=== PATIENT | male | born 1960 | race Caucasian/White ===

== ENCOUNTER 2016-06-24 10:56 | Inpatient (IN) | payer OTHER ==
[2016-06-24] MEDS ORDERED: diltiaZEM INJ 5 MG/ML VIAL IVP STA ×2 (11:58→12:47)
[2016-06-24] MEDS ORDERED: LEVALBUTEROL 1.25 MG INH STA (11:59)
[2016-06-24] MEDS ORDERED: diltiaZEM INJ 5 MG/ML VIAL ONE ×2 (12:02→12:50)
[2016-06-24] MEDS ORDERED: SODIUM CHLORIDE INHALATION 3 ML NEB ONE (12:23)
[2016-06-24] MEDS ORDERED: LEVALBUTEROL 1.25 MG INH ONE (12:23)
[2016-06-24] MEDS ORDERED: DEXAMETHASONE 10 MG/ML VIAL IVP STA (12:50)
[2016-06-24] MEDS ORDERED: DEXAMETHASONE 10 MG/ML VIAL ONE (12:56)
[2016-06-24] MEDS ORDERED: FUROSEMIDE 20 MG/2 ML VIAL IVP STA (13:04)
[2016-06-24] MEDS ORDERED: FUROSEMIDE 20 MG/2 ML VIAL IVP ONE ×2 (13:08→15:00)
[2016-06-24] MEDS ORDERED: HYDROcod/ACETAM 10 MG/325 MG TABLET PO PRN (13:21)
[2016-06-24] MEDS ORDERED: ZOLPIDEM 5 MG TABLET PO PRN (13:21)
[2016-06-24] MEDS ORDERED: ONDANSETRON 4 MG/2 ML VIAL IVP PRN (13:21)
[2016-06-24] MEDS ORDERED: HYDROcod/ACETAM 5/325 MG TABLET PO PRN (13:21)
[2016-06-24] MEDS ORDERED: SODIUM CHLORIDE FLUSH 0.9% 10 ML SYRINGE IVP PRN (13:21)
[2016-06-24] MEDS ORDERED: METOPROLOL 5 MG/5 ML VIAL IVP STA (13:52)
[2016-06-24] MEDS: METOPROLOL 5 MG/5 ML VIAL IVP STA ×3 (13:57→15:22)
[2016-06-24] MEDS ORDERED: MAGNESIUM SULFATE 2 GRAM 50 ML IV ONE (15:00)
[2016-06-24] MEDS: METOPROLOL TARTRATE 50 MG TABLET PO SCH ×2 (15:30→20:31)
[2016-06-24] MEDS: SODIUM CHLORIDE FLUSH 0.9% 10 ML SYRINGE IVP SCH ×2 (15:31→22:56)
[2016-06-24] MEDS ORDERED: ASPIRIN 325 MG TABLET PO SCH (16:00)
[2016-06-24] MEDS: FUROSEMIDE 20 MG/2 ML VIAL IVP SCH (18:12)
[2016-06-25] MEDS ORDERED: hydrALAZINE INJ 20 MG/ML VIAL IVP SCH (00:44)
[2016-06-25] MEDS: PANTOPRAZOLE 40 MG TABLET PO SCH (06:54)
[2016-06-25] MEDS: FUROSEMIDE 20 MG/2 ML VIAL IVP SCH ×2 (06:54→14:05)
[2016-06-25] MEDS: SODIUM CHLORIDE FLUSH 0.9% 10 ML SYRINGE IVP SCH ×3 (06:54→21:21)
[2016-06-25] MEDS: ACETAMINOPHEN 325 MG TABLET PO PRN (07:24)
[2016-06-25] MEDS: METOPROLOL TARTRATE 50 MG TABLET PO SCH ×3 (07:25→21:21)
[2016-06-25] MEDS: LISINOPRIL 5 MG TABLET PO SCH (07:56)
[2016-06-25] MEDS ORDERED: LISINOPRIL 5 MG TABLET PO SCH (09:00)
[2016-06-25] MEDS: POLYETHYLENE GLYCOL 3350 17 GM PACKET PO SCH (09:24)
[2016-06-25] MEDS: ASPIRIN CHEW 81 MG TABLET PO SCH (09:28)
[2016-06-25] MEDS: IPRATROPIUM/ALBUTEROL 3 ML NEB INH PRN ×3 (09:30→20:10)
[2016-06-25] MEDS: ENOXAPARIN 40 MG/0.4 ML SYRINGE SUBQ SCH (10:54)
[2016-06-25] MEDS: WARFARIN 5 MG TABLET PO SCH (13:54)
[2016-06-26] MEDS: guaiFENesin 600 MG TABLET PO PRN ×3 (04:45→18:43)
[2016-06-26] MEDS: FUROSEMIDE 20 MG/2 ML VIAL IVP SCH ×2 (06:06→12:59)
[2016-06-26] MEDS: METOPROLOL TARTRATE 50 MG TABLET PO SCH ×4 (06:08→22:10)
[2016-06-26] MEDS: PANTOPRAZOLE 40 MG TABLET PO SCH (06:13)
[2016-06-26] MEDS: SODIUM CHLORIDE FLUSH 0.9% 10 ML SYRINGE IVP SCH ×3 (06:13→22:10)
[2016-06-26] MEDS: IPRATROPIUM/ALBUTEROL 3 ML NEB INH PRN ×4 (07:40→21:10)
[2016-06-26] MEDS: LISINOPRIL 5 MG TABLET PO SCH (08:10)
[2016-06-26] MEDS: POLYETHYLENE GLYCOL 3350 17 GM PACKET PO SCH (08:10)
[2016-06-26] MEDS: ASPIRIN CHEW 81 MG TABLET PO SCH (08:11)
[2016-06-26] MEDS: ENOXAPARIN 40 MG/0.4 ML SYRINGE SUBQ SCH ×2 (08:15→09:20)
[2016-06-26] MEDS: ACETAMINOPHEN 325 MG TABLET PO PRN (10:37)
[2016-06-26] MEDS: WARFARIN 5 MG TABLET PO SCH (12:59)
[2016-06-26] MEDS ORDERED: METOPROLOL TARTRATE 50 MG TABLET ONE (22:08)
[2016-06-26] MEDS ORDERED: BENZONATATE 100 MG CAPSULE PO PRN (23:44)
[2016-06-27] MEDS: guaiFENesin 600 MG TABLET PO PRN (02:13)
[2016-06-27] MEDS: SODIUM CHLORIDE FLUSH 0.9% 10 ML SYRINGE IVP SCH ×3 (06:14→20:30)
[2016-06-27] MEDS: PANTOPRAZOLE 40 MG TABLET PO SCH (06:14)
[2016-06-27] MEDS: FUROSEMIDE 20 MG/2 ML VIAL IVP SCH ×2 (06:14→13:15)
[2016-06-27] MEDS: IPRATROPIUM/ALBUTEROL 3 ML NEB INH PRN ×2 (07:21→19:56)
[2016-06-27] MEDS: ENOXAPARIN 120 MG/0.8 ML SYRINGE SUBQ SCH ×2 (08:47→20:32)
[2016-06-27] MEDS: POLYETHYLENE GLYCOL 3350 17 GM PACKET PO SCH ×2 (08:47→08:51)
[2016-06-27] MEDS: METOPROLOL TARTRATE 50 MG TABLET PO SCH ×2 (08:47→20:30)
[2016-06-27] MEDS: ASPIRIN CHEW 81 MG TABLET PO SCH (08:47)
[2016-06-27] MEDS: LISINOPRIL 5 MG TABLET PO SCH (08:47)
[2016-06-27] MEDS: WARFARIN 5 MG TABLET PO SCH (13:20)
[2016-06-27] MEDS: DIGOXIN 500 MCG/2 ML AMP IVP SCH ×2 (13:21→17:12)
[2016-06-28] MEDS: DIGOXIN 500 MCG/2 ML AMP IVP SCH (00:03)
[2016-06-28] MEDS: PANTOPRAZOLE 40 MG TABLET PO SCH (06:03)
[2016-06-28] MEDS: FUROSEMIDE 20 MG/2 ML VIAL IVP SCH ×2 (06:04→13:46)
[2016-06-28] MEDS: SODIUM CHLORIDE FLUSH 0.9% 10 ML SYRINGE IVP SCH ×2 (06:10→13:47)
[2016-06-28] MEDS: LISINOPRIL 5 MG TABLET PO SCH (07:56)
[2016-06-28] MEDS: ASPIRIN CHEW 81 MG TABLET PO SCH (07:56)
[2016-06-28] MEDS: METOPROLOL TARTRATE 50 MG TABLET PO SCH (07:56)
[2016-06-28] MEDS: POLYETHYLENE GLYCOL 3350 17 GM PACKET PO SCH (07:57)
[2016-06-28] MEDS: ENOXAPARIN 120 MG/0.8 ML SYRINGE SUBQ SCH (07:57)
[2016-06-28] MEDS ORDERED: DIGOXIN 500 MCG/2 ML AMP IVP SCH ×2 (08:00→09:00)
[2016-06-28] MEDS: WARFARIN 5 MG TABLET PO SCH (13:46)
== END 2016-06-28 15:30 | disposition home or self-care (01) | DRG 308 ==
DX: I48.2 Chronic atrial fibrillation (principal); J18.9 Pneumonia, unspecified organism; I50.20 Unspecified systolic (congestive) heart failure; Z68.41 Body mass index [BMI] 40.0-44.9, adult; I48.0 Paroxysmal atrial fibrillation; I11.0 Hypertensive heart disease with heart failure; I08.1 Rheumatic disorders of both mitral and tricuspid valves; F17.200 Nicotine dependence, unspecified, uncomplicated; E66.01 Morbid (severe) obesity due to excess calories; R06.01 Orthopnea; R06.00 Dyspnea, unspecified; M79.89 Other specified soft tissue disorders; R79.0 Abnormal level of blood mineral; F17.210 Nicotine dependence, cigarettes, uncomplicated; Z72.89 Other problems related to lifestyle

== ENCOUNTER 2017-04-28 12:33 | Outpatient (CLI) | payer OTHER | END 2017-04-28 12:34 | disposition critical access hospital (66) | LOC: EMS 12:33 | PROVIDERS: ATTEND Surgery | DX: R06.00 Dyspnea, unspecified (principal) | CPT/HCPCS: A0425; A0427 ==

== ENCOUNTER 2017-04-28 12:57 | Inpatient (IN) | payer OTHER ==
--- NOTE | 2017-04-28 13:06 | ED Physician Documentation ---
PD HPI DYSPNEA - Stated complaint Stated Complaint: SOA - History obtained from History obtained from: Patient, EMS - History of Present Illness Timing - onset: How many days ago (2-3) Timing - onset during: Light activity Timing - duration: Days (has had some cough for several days but just clear mucous and not feeling feverish. Increased dyspnea over the past 2-3 days.) Timing - details: Gradual onset, Still present Inciting event(s): URI (has had some cough with clear sputum for the past week. Some dyspnea associated with that. Has had the worse dyspnea the past 3 days though.). No: Out of meds, Immobilization/travel Improved by: Rest, Sitting up Worsened by: Exertion, Laying flat, Coughing Associated symptoms: Cough, Wheezing, Bilateral edema. No: Fever, Hemoptysis, Chest pain / discomfort, Palpitations Similar symptoms before: Diagnosis (COPD and CHF and rapid paraxysmal atrial fib.) Review of Systems Constitutional: denies: Fever, Chills Eyes: denies: Loss of vision Ears: denies: Loss of hearing Nose: reports: Congestion. denies: Rhinorrhea / runny nose Throat: denies: Dental pain / toothache, Sore throat Cardiac: reports: Pedal edema (some chronically which has been worse the past 3- 4 days.). denies: Chest pain / pressure, Palpitations, Calf pain Respiratory: reports: Dyspnea, Cough, Wheezing. denies: Hemoptysis GI: reports: Nausea. denies: Abdominal Pain, Vomiting, Constipation, Diarrhea : reports: Frequency. denies: Dysuria Skin: denies: Rash, Lesions Neurologic: reports: Generalized weakness. denies: Focal weakness, Numbness, Altered mental status, Headache Psychiatric: denies: Depressed Endocrine: reports: Weight gain (some the past 3-4 days). denies: Easy bruising / bleeding Immunocompromised: denies: Immunocompromised, Chemotherapy PD PAST MEDICAL HISTORY - Past Medical History Cardiovascular: Hypertension, Other (no history of atrial fib nor CAD. ) Respiratory: Pneumonia Neuro: None Endocrine/Autoimmune: Type 2 diabetes - Past Surgical History Past Surgical History: No - Present Medications Home Medications: Ambulatory Orders Medication Instructions Recorded Confirmed Aspirin Chewable [St Sonu 81 mg PO DAILY tablet 06/28/16 04/28/17 Aspirin] Digoxin 250 mcg PO DAILY #30 tablet 06/28/16 Levofloxacin [Levaquin] 500 mg PO DAILY #5 tablet 06/28/16 Lisinopril [Zestril] 5 mg PO DAILY #30 tablet 06/28/16 Metoprolol Tartrate [Lopressor] 100 mg PO BID #60 tablet 06/28/16 Atorvastatin Calcium 20 mg PO 2100 04/28/17 Digoxin [Digoxin] 125 mcg PO DAILY 04/28/17 Furosemide [Furosemide] 20 mg PO DAILY 04/28/17 Lisinopril [Lisinopril] 40 mg PO DAILY 04/28/17 Metoprolol Succinate 100 mg PO BID 04/28/17 Rivaroxaban [Xarelto] 20 mg PO DAILY 04/28/17 Spironolactone [Spironolactone] 25 mg PO DAILY 04/28/17 - Allergies Allergies/Adverse Reactions: Allergies Allergy/AdvReac Type Severity Reaction Status Date / Time No Known Drug Allergies Allergy Verified 04/28/17 13:07 - Social History Does the pt smoke?: Yes Smoking Status: Current every day smoker Does the pt drink ETOH?: Yes Does the pt have substance abuse?: No - Family History Family history: reports: CAD - Immunizations Immunizations are current?: Yes PD ED PE NORMAL - Vitals Vital signs reviewed: Yes - General General: Alert and oriented X 3, Well developed/nourished, Other (seems uncomfortable and has tachypnea, and is wanting to sit upright. ) - HEENT HEENT: Atraumatic, PERRL, Moist mucous membranes, Pharynx benign - Neck Neck: Supple, no meningeal sign, No adenopathy - Cardiac Cardiac: No murmur. No: RRR (fast and irregular c/w rapid atrial fib. ) - Respiratory Respiratory: No: Clear bilaterally (diffuse wheezing expiratory, and also crackles at bases about [address]. ) - Abdomen Abdomen: Soft, Non tender - Male Male : Deferred - Rectal Rectal: Deferred - Back Back: No CVA TTP - Derm Derm: Normal color, Warm and dry - Extremities Extremities: No calf tenderness / cord, Other (2+ edema in both ankles/lower legs. No redness nor sores of skin. ) Results - Vitals Vitals: Vital Signs - 24 hr 04/28/17 04/28/17 04/28/17 13:00 13:20 13:35 Temperature 36.2 C L Heart Rate 148 H 143 H 152 H Respiratory 26 H 26 H 26 H Rate Blood Pressure 165/128 H 188/148 H 193/137 H O2 Saturation 93 93 94 04/28/17 04/28/17 04/28/17 13:43 13:48 14:00 Temperature Heart Rate 129 H 124 H 135 H Respiratory 20 22 24 Rate Blood Pressure 180/111 H 178/99 H O2 Saturation 94 97 04/28/17 04/28/17 04/28/17 14:15 14:30 14:40 Temperature Heart Rate 130 H 126 H 142 H Respiratory 20 20 24 Rate Blood Pressure 158/127 H 159/137 H 153/137 H O2 Saturation 98 97 97 04/28/17 14:56 Temperature Heart Rate 129 H Respiratory 26 H Rate Blood Pressure 165/112 H O2 Saturation 97 Oxygen O2 Source Room air Oxygen Flow Rate 4 - EKG (time done) 13:03 Rate: Rate (enter#) (148) Rhythm: Atrial fibrillation Ischemia: Non specific changes. No: ST elevation c/w ischemia, ST depression Compare to prior EKG: Unchanged from prior EKG - Labs Labs: Laboratory Tests 04/28/17 04/28/17 04/28/17 13:47 13:47 13:47 WBC 10.0 RBC 4.80 Hgb 15.2 Hct 44.9 MCV 93.6 MCH 31.7 H MCHC 33.8 RDW 15.6 H Plt Count 94 L MPV 8.8 Neut # 8.3 H Lymph # 0.7 L Wood # 1.0 Eos # 0.0 Baso # 0.1 Absolute Nucleated RBC 0.00 Nucleated RBC % 0.0 Sodium 138 Potassium 4.0 Chloride 100 L Carbon Dioxide 27 Anion Gap 11.0 BUN 18 Creatinine 0.9 Estimated GFR (MDRD) 86 L Glucose 144 H Calcium 8.7 Magnesium 1.2 L Total Bilirubin 2.1 H AST 34 ALT 21 Alkaline Phosphatase 70 Troponin I 0.04 B-Natriuretic Peptide Total Protein 8.5 H Albumin 4.4 Globulin 4.1 Albumin/Globulin Ratio 1.1 Lipase 32 Last Dose Date Last Dose Time Digoxin 04/28/17 04/28/17 13:47 13:47 WBC RBC Hgb Hct MCV MCH MCHC RDW Plt Count MPV Neut # Lymph # Wood # Eos # Baso # Absolute Nucleated RBC Nucleated RBC % Sodium Potassium Chloride Carbon Dioxide Anion Gap BUN Creatinine Estimated GFR (MDRD) Glucose Calcium Magnesium Total Bilirubin AST ALT Alkaline Phosphatase Troponin I B-Natriuretic Peptide 667 H Total Protein Albumin Globulin Albumin/Globulin Ratio Lipase Last Dose Date UNK Last Dose Time UNK Digoxin < 0.2 - Rads (name of study) chest Radiology: Prelim report reviewed (interstitial fluid c/w CHF. No infiltrates. no PTX. ) PD MEDICAL DECISION MAKING - ED course Complexity details: reviewed results, re-evaluated patient (feeling improved breathing, with less wheezing and able to recline some without worse dyspnea. CXR appears CHF. No pneumonia. Labs suggestive CHF. He does have less wheezing with the neb though. Consider some COPD as well, given some recent coughing. ), considered differential, d/w patient Departure - Departure Disposition: 66 [facility] DC/Xfer Clinical Impression: Atrial fibrillation with rapid ventricular response, Wheezing Dyspnea Qualifiers: Dyspnea type: shortness of breath Qualified Code(s): R06.02 - Shortness of breath CHF (congestive heart failure) Qualifiers: Congestive heart failure type: unspecified congestive heart failure type Congestive heart failure chronicity: acute on chronic Qualified Code(s): I50.9 - Heart failure, unspecified Condition: Stable Record reviewed to determine appropriate education?: Yes Discharge Date/Time: 04/28/17 16:00
[2017-04-28] MEDS ORDERED: ALBUTEROL NEB 2.5 MG/3 ML INH STA ×2 (13:31→14:56)
[2017-04-28] MEDS ORDERED: FUROSEMIDE 40 MG/4 ML VIAL IVP STA (13:31)
[2017-04-28] MEDS ORDERED: METOPROLOL 5 MG/5 ML VIAL IVP STA ×3 (13:31→14:09)
[2017-04-28] MEDS ORDERED: NITROGLYCERIN 2% PASTE TOP STA (13:31)
[2017-04-28] MEDS ORDERED: NITROGLYCERIN SL 0.4 MG TABLET SL STA (13:31)
[2017-04-28] MEDS ORDERED: FUROSEMIDE 40 MG/4 ML VIAL ONE (13:39)
[2017-04-28] MEDS ORDERED: METOPROLOL 5 MG/5 ML VIAL IVP ONE ×3 (13:39→15:13)
[2017-04-28] MEDS ORDERED: NITROGLYCERIN 2% PASTE TOP ONE (13:40)
[2017-04-28] MEDS ORDERED: NITROGLYCERIN SL 0.4 MG TABLET SL ONE (13:40)
[2017-04-28] MEDS ORDERED: ALBUTEROL NEB 2.5 MG/3 ML INH ONE (13:43)
[2017-04-28 13:55] LABS: BASOPHILS # (AUTO) 0.1 10^3/uL (0.0-0.1); BASOPHILS % (AUTO) 0.9 %; EOSINOPHILS % (AUTO) 0.2 %; HCT - HEMATOCRIT 44.9 % (42.0-52.0); HGB - HEMOGLOBIN 15.2 g/dL (14.0-18.0); LYMPHOCYTES # (AUTO) 0.7 10^3/uL (1.5-3.5); LYMPHOCYTES % (AUTO) 6.5 %; MEAN CORPUSCULAR HEMOGLOBIN 31.7 pg (27.0-31.0); MEAN CORPUSCULAR HGB CONC 33.8 g/dL (32.0-36.0); MEAN CORPUSCULAR VOLUME 93.6 fL (80.0-94.0); MEAN PLATELET VOLUME 8.8 fL (7.4-11.4); MONOCYTES % (AUTO) 9.7 %; NEUTROPHILS # (AUTO) 8.3 10^3/uL (1.5-6.6); NEUTROPHILS % (AUTO) 82.7 %; RED CELL DISTRIBUTION WIDTH 15.6 % (12.0-15.0)
[2017-04-28 14:07] LABS: ALBUMIN/GLOBULIN RATIO 1.1 (1.0-2.2); BILIRUBIN,TOTAL 2.1 mg/dL (0.2-1.0); CALCIUM 8.7 mg/dL (8.5-10.3); CREATININE 0.9 mg/dL (0.6-1.2); MAGNESIUM 1.2 mg/dL (1.7-2.8); TOTAL PROTEIN 8.5 g/dL (6.7-8.2)
--- NOTE | 2017-04-28 14:18 | XRAY Report ---
EXAM: CHEST RADIOGRAPHY EXAM DATE: 04/28/2017 02:02 PM. CLINICAL HISTORY: Dyspnea, cough and edema; h/o CHF. COMPARISON: 06/26/2016. TECHNIQUE: 1 view. FINDINGS: Lungs/Pleura: Mild hazy prominence of lung markings. Bibasilar atelectasis or scarring. No consolidat ion, definite effusion, or pneumothorax. Tiny effusions difficult to exclude. Mediastinum: Moderate cardiomegaly, probably unchanged. Diffuse vascular fullness. Other: Degenerative changes. IMPRESSION: Congestive failure. [facility] Referring Provider Line: [phone] SITE ID: [id number]
[2017-04-28] MEDS ORDERED: diltiaZEM INJ 125 MG in DEXTROSE 5% 100 ML IV STA ×2 (15:06→15:32)
[2017-04-28] MEDS ORDERED: ONDANSETRON ODT 4 MG TABLET TL PRN (15:12)
[2017-04-28] MEDS ORDERED: HYDROcod/ACETAM 5/325 MG TABLET PO PRN (15:12)
[2017-04-28] MEDS ORDERED: ACETAMINOPHEN 325 MG TABLET PO PRN (15:12)
[2017-04-28] MEDS ORDERED: ONDANSETRON 4 MG/2 ML VIAL IVP PRN (15:12)
[2017-04-28] MEDS ORDERED: MAGNESIUM SULFATE 2 GRAM 2 GM/50 ML BAG IV SCH (17:00)
[2017-04-28] MEDS ORDERED: SODIUM CHLORIDE 0.9% 250 ML IV ONE (17:05)
--- NOTE | 2017-04-28 18:02 | HISTORY & PHYSICAL EXAMINATION ---
DATE OF ADMISSION: 04/28/2017 PRIMARY CARE PROVIDER: [facility]. ADMITTING PROVIDER: Dilia Astudillo MD. CHIEF COMPLAINT: Severe shortness of breath, orthopnea, leg edema. HISTORY OF PRESENT ILLNESS: The patient is a 57-year-old man who smokes 1 pack per day and drinks a fifth of alcohol a week. 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 He had an injury to the right knee which resulted in agonizing infection. He had to be airlifted off the carrier into [place], [place], where he had 3 surgeries on that right leg. While in the hospital, he was identified as having atrial fibrillation. While he has seen [facility] doctors, he has never really seen a bit tripoler since the January 2016 encounter. He does not recall ever having an angiogram or cardiac stress test. He continues to smoke and drink. He worked up until November of 2016. His body just could not take it anymore and he has been on disability ever since. He was admitted to our hospital in June 2016 for atrial fibrillation with RVR and congestive heart failure. He does have an echocardiogram from that visit. He has an underlying rhythm of atrial fibrillation with RVR. Left ventricular ejection fraction was 40%-45%. There is a severe increase in the left atrial volume index, moderate mitral regurgitation , moderate tricuspid regurgitation, moderately abnormal right heart pressures. It was recommended that he be seen by Cardiology and have a repeat echo once he was stabilized, but between June and now, he has not done so. When I asked if there is a barrier to referral or a barrier to him seeing a bit tripoler, he says there really is not any. He does not have much introspection about why he does what he does. He cannot say why he feels like he is not motivated to see a bit tripoler. He just has not. He does not even know if his primary care provider has referred him to one or not. He is almost completely sedentary in his lifestyle. Even to mow the lawn, he does use a riding mower. He is able to feed himself and dress himself. Getting out of the car is really hard. When he is at [employer] or [employer], he uses a scooter to shop around in. About 3 days ago, he started having increasing shortness of breath, phlegmy cough. He denied chest pain, fever, myalgias, change in GI habits. Leg had already started getting more and more swollen in the last few weeks and he just could not lay down. He finally came to the emergency room today with this. He was afebrile with a pulse of 148, blood pressure 165/128, and respirations were 26. He is 93% on room air. He is a large morbidly obese male, flushed facies, slightly tremulous, but he says he has never gone through withdrawal. His lungs are full with crackles and rhonchi. He is tachypneic. The belly panus is large, quite obese, nontender. He has a irregular rate and rhythm. In the emergency room, he has gotten Lopressor IV. It slowed him down to the 120s, but that was about it. His troponin is 0.04. Potassium is normal. BNP 667. He is now admitted for acute systolic congestive heart failure secondary to atrial fibrillation with RVR. PAST MEDICAL HISTORY 1. Hypertension. 2. Chronic morbid obesity. 3. Obstructive sleep apnea. He says that he does not do a sleep mask. He has never really had a formal sleep study. 4. Right leg/knee infection in January 2016 secondary to injury requiring multiple surgeries. 5. Chronic systolic congestive heart failure. 6. Chronic atrial fibrillation with RVR. 7. Symptoms of prostatism with chronic nocturia and urinary frequency. ALLERGIES: NO KNOWN DRUG ALLERGIES. MEDICATIONS 1. Aspirin 81 mg a day. 2. Atorvastatin 20 mg a day. 3. Digoxin 0.125 mg a day. 4. Lasix 20 mg daily. 5. Lisinopril 40 mg daily. 6. Metoprolol succinate 100 mg b.i.d. 7. Xarelto 20 mg daily. 8. Spironolactone 25 mg daily. SOCIAL HISTORY: He has smoked 1 pack per day since the age of 19. Currently still smokes. Drinks a fifth of alcohol a week and has done so probably since the age of 19, sometimes more, sometimes less. He has no history of recreational substance abuse. He is from [place], to his first . He is retired from the [employer]. 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 Unfortunately, he could no longer work as of November of this year. FAMILY HISTORY: Mom at age 82 of old age. Some heart problem. Dad, 85, and completely healthy as far as he knows with no heart problems, stroke, etc. Four brothers and one half-sister. Again, all healthy without any medical problems as far as he is aware. All of his children are from his 's first marriage and they are stepchildren , so no natural children. REVIEW OF SYSTEMS CONSTITUTIONAL: He describes a relatively sedentary lifestyle with no recent change in cardiovascular endurance until this last few days, but there is decreased mobility because of weight and CHF. He has had no unexpected weight changes or sweats. HEAD AND NECK: Denies blindness, deafness, problems with swallowing. PULMONARY: Denies emphysema. Denies coughing, wheezing until this last week. No phlegm, no fevers, no chest congestion. CARDIAC: Positive as above. GASTROINTESTINAL: Denies abdominal pain, bloating, change in bowel habits, blood in his stool, diarrhea. GENITOURINARY: Nocturia, frequency, but no dysuria, flank pain or hematuria. JOINTS: Stiff in the morning. Legs have become very painful and swollen over the last few days, but he denies chronic arthritic complaints. No hip pain or back pain. SKIN: The skin of his legs has started to get red and tender. PSYCHIATRIC: Denies anxiety, depression, PTSD. HURRICANE TRACKER: Denies syncope, seizures, dizziness, memory loss. PHYSICAL EXAMINATION GENERAL: Blood pressure is 178/125. Heart rate is 119. Respirations are 18; 97% on 2 liters. GENERAL: He is a tall, morbidly obese, red-faced, flushed white male with a grave, quiet affect. He has a little bit of tremulousness as we transfer him from the ER gurney to the bed, but he says this is just because he is tired and has not slept in 2 days. He denied alcohol withdrawal. HEAD AND NECK: Unremarkable. Flushed face. Slightly swollen eyelids. Hearing is normal. Oral mucosa is pink and moist. Poor dentition. NECK: Too obese for me to assess for JVD but I do not feel goiter or hear bruits. LUNGS: Lungs have rhonchi and crackles all the way up. Right now with transfer and after 40 mg of Lasix in the ER, he has urinated quite a bit and his respiratory rate has slowed down. No use of accessory muscles. CARDIOVASCULAR: PMI is not felt. Distant cardiac tones with a fast irregular rate and rhythm. ABDOMEN: Hugely obese, soft, but difficult to assess for distention or organomegaly because of its size. He does have bowel sounds. EXTREMITIES: The legs are swollen with edema almost all the way up to the thigh , worse over the calves, shins, and feet. The anterior tibia-fibula skin area is slightly pink and warm to touch. Onychomycosis of the toenails. I cannot feel any foot pulses. NEUROLOGIC: He is alert and oriented to person, place and time. He can follow 2- step commands, struggles with his mobility, but he has no focal deficits. DIAGNOSTIC STUDIES: Sodium 138, potassium 4, BUN 18, creatinine 0.9, random glucose 144, total bilirubin 2.1, magnesium 1.2, AST 34, ALT 21. BNP 667. Troponin less than 0.04. White cell count 10. Hemoglobin 15.2, hematocrit 44.9, platelets 94. INR is 1.3. Digoxin is less than 0.02. Chest x-ray revealed congestive heart failure with moderate cardiomegaly and diffuse vascular fullness, unchanged from June 26, 2016. ASSESSMENT/PLAN 1. Acute systolic congestive heart failure. a. Plan: Diuretics with Lasix 40 mg IV push b.i.d. b. Continue his AVERY inhibitor and beta-nell. c. Control his heart rate to help pump action. d. Strongly encouraged to follow through with the bit tripoler and to at least get a stress test and a coronary angiogram. 2. Atrial fibrillation with rapid ventricular response. a. Plan: Place in ICU with diltiazem drip for rate control. b. Continue metoprolol and digoxin. c. Check echocardiogram with regard to left atrial size. 3. Alcohol abuse. May be contributing to his CHF because it may be giving him an alcoholic cardiomyopathy. a. Plan: Watch for withdrawal. Electrolyte replacement protocol. Banana bag. He says he has never had withdrawal. 4. Hypertension. He is uncontrolled. May be noncompliant with medications. a. Plan: Resume his Lasix, lisinopril, metoprolol, and he is on the diltiazem drip. b. Continue to monitor and give medications as needed. 5. History of obstructive sleep apnea. Untreated. a. Plan: Monitor with oxygen saturations and heart rate. Hopefully, he can follow through with a sleep study in the outpatient setting. 6. Tobacco abuse, ongoing. Declined nicotine at this time. 7. FULL CODE STATUS. 8. Deep venous thrombosis prophylaxis, GAY johnston and Carmen. JOB #: [id number] EXT JOB #:[id number] IVAN
[2017-04-28] MEDS: MAGNESIUM OXIDE 400 MG TABLET PO SCH (18:04)
[2017-04-28] MEDS: METOPROLOL TARTRATE 50 MG TABLET PO SCH (20:54)
[2017-04-28] MEDS: SODIUM CHLORIDE FLUSH 0.9% 10 ML SYRINGE IVP SCH (22:51)
[2017-04-29] MEDS: diltiaZEM CD 120 MG CAPSULE PO SCH ×2 (03:54→08:43)
[2017-04-29] MEDS: SODIUM CHLORIDE FLUSH 0.9% 10 ML SYRINGE IVP SCH ×3 (04:45→20:52)
[2017-04-29 05:35] LABS: CALCIUM 8.1 mg/dL (8.5-10.3); CREATININE 0.7 mg/dL (0.6-1.2); MAGNESIUM 1.4 mg/dL (1.7-2.8); PHOSPHORUS 3.3 mg/dL (2.5-4.6); POTASSIUM 3.3 mmol/L (3.5-5.0)
--- NOTE | 2017-04-29 08:36 | PROVIDER PROGRESS NOTE ---
Subjective - Prog Note Date Prog Note Date: 04/29/17 Prog Note Time: 08:34 - Subjective Pt reports feeling: Improved Subjective: He said that somewhere around midnight last night, " It all broke up". Much less short of breath. He is off the diltiazem drip. He feels like he can breathe again. Denies chest pain. Has no abdominal pain. His legs still ache with edema but the pain is much less than it was before. Current Medications - Current Medications Current Medications: Active Medications Acetaminophen (Tylenol) 650 mg PO Q4HR PRN PRN Reason: Pain 1 to 4 Last Admin: 04/28/17 20:55 Dose: 650 mg Acetaminophen/Hydrocodone Bitart (Genoa 5/325) 1 tab PO Q4HR PRN PRN Reason: Pain 5 to 7 Albuterol () 2.5 mg INH Q4HR PRN PRN Reason: Wheezing Aspirin (St Sonu Aspirin) 81 mg PO DAILY [facility] Digoxin (Lanoxin) 125 mcg PO DAILY [facility] Diltiazem HCl (Cardizem Cd) 120 mg PO DAILY [facility] Last Admin: 04/29/17 03:54 Dose: 120 mg Lisinopril (Zestril) 5 mg PO DAILY [facility] Magnesium Oxide (Mag Ox) 400 mg PO DAILYWM [facility] Last Admin: 04/28/17 18:04 Dose: 400 mg Metoprolol Tartrate (Lopressor) 100 mg PO BID [facility] Last Admin: 04/28/17 20:54 Dose: 100 mg Ondansetron HCl (Zofran Inj) 4 mg IVP Q6HR PRN PRN Reason: Nausea / Vomiting Ondansetron HCl (Zofran Odt) 4 mg TL Q6HR PRN PRN Reason: Nausea / Vomiting Sodium Chloride (Normal Saline Flush 0.9%) 10 ml IVP Q8HR [facility] Last Admin: 04/29/17 04:45 Dose: 10 ml Sodium Chloride (Normal Saline Flush 0.9%) 10 ml IVP PRN PRN PRN Reason: NEEDED PER PROVIDER ORDERS Atorvastatin Calcium 20 mg PO 2100 04/28/17 Digoxin [Digoxin] 125 mcg PO DAILY 04/28/17 Furosemide [Furosemide] 20 mg PO DAILY 04/28/17 Lisinopril [Lisinopril] 40 mg PO DAILY 04/28/17 Metoprolol Succinate 100 mg PO BID 04/28/17 Rivaroxaban [Xarelto] 20 mg PO DAILY 04/28/17 Spironolactone [Spironolactone] 25 mg PO DAILY 04/28/17 Objective - Vital Signs/Intake & Output Reviewed Vital Signs: Yes Vital Signs: Vital Signs x48h Temp Pulse Resp BP Pulse Ox 04/29/17 07:58 37 C 110 H 22 122/91 H 96 04/29/17 07:00 93 17 136/68 H 94 04/29/17 06:00 95 17 120/77 95 04/29/17 05:00 82 16 127/95 H 95 04/29/17 04:00 37.0 C 98 21 116/86 H 96 04/29/17 03:00 83 11 L 110/81 H 93 04/29/17 02:00 81 18 109/81 H 96 04/29/17 01:00 76 19 114/74 95 Intake & Output: Intake & Output 04/26/17 04/27/17 04/28/17 04/29/17 23:59 23:59 23:59 23:59 Intake Total 1345.083 203.914 Output Total 2075 200 Balance -729.917 3.914 - Objective General Appearance: positive: No acute distress, Alert (Overweight morbidly obese middle-aged white male, sitting upright in the chair, watching the news this morning on the TV.) Eyes Bilateral: positive: PERRL, EOMI ENT: positive: No signs of dehydration Neck: positive: No JVD. negative: Stiff neck, Carotid bruit Respiratory: positive: Chest non-tender, Wheezes (New today. Yesterday he had rhonchi but not wheezes. Wheezes are in all lung bee primarily at the apices ), Rales (At the bases only and much less than yesterday's extent. Overall dull bases however.). negative: Rhonchi Cardiovascular: positive: Irregularly irregular. negative: Systolic murmur, Gallop/S4, Friction rub Abdomen: positive: Non-tender, Nml bowel sounds, No distention, Other (Very large pannus and cannot be assessed for organomegaly) Extremities: positive: Pedal edema (Still extensive. Goes from mid thigh down to his feet. His tib-fib skin area is pink, warm to touch with venous stasis) Neurologic/Psychiatric: positive: Oriented x3, CN's nml (2-12), Motor nml - Lab Results Fish Bones: 04/28/17 13:47 04/29/17 04:44 Other Labs: Lab Results x24hrs 04/29/17 04/29/17 Range/Units 04:44 04:44 Sodium 138 (135-145) mmol/L Potassium 3.3 L (3.5-5.0) mmol/L Chloride 98 L (101-111) mmol/L Carbon Dioxide 28 (21-32) mmol/L Anion Gap 12.0 (6-13) BUN 21 H (6-20) mg/dL Creatinine 0.7 (0.6-1.2) mg/dL Estimated GFR (MDRD) 115 (>89) Glucose 104 H (70-100) mg/dL Calcium 8.1 L (8.5-10.3) mg/dL Phosphorus 3.3 (2.5-4.6) mg/dL Magnesium 1.4 L (1.7-2.8) mg/dL Albumin 3.6 (3.2-5.5) g/dL Assessment/Plan - Problem List (1) Acute systolic CHF (congestive heart failure), NYHA class 3 Impression: presented as days of edema, orthopnea for days and acute box for 2-3 in a patient with known EF 40-45% and afib. Cause of acute CHF is alcohol abuse, smoking, noncompliance with diet, and most importantly afib w RVR Responded to lasix and continuation of his usual meds as well as slowing his afib. Plan: Continue IV lasix today,transition to po in the am continue his usual beta nell, AVERY review ECHO ordered for today. (2) Atrial fibrillation with rapid ventricular response Impression: presented as orthopnea, leg edema worsening for days with acute sob for 2-3 days. known hx of afib since 01/2016. found to be in RVR in the ED with acute on chronic systolic CHF. Was placed in ICU on dilt drip yesterday. Off dilt drip by midnight. Rate is in the 90's this am Plan: transitioned to po diltiazem continue metoprolol, dig but watch, watch watch for 2nd and 3rd degree heart block Transfer to Med Surg Status from ICU status I am hoping that once his chf has improved and fluid offloaded, I can drop the dilt. advised to stop drinking review ECHO ordered for today. resume his xarelto (3) Hypokalemia Impression: supplement po. (4) Hyperglycemia, unspecified Impression: No hx of DM. check A1c (5) Alcohol abuse Impression: Fifth of hard alcohol a week. Denies hx of withdrawal. tremulous on admission but overnight BP came down and pulse came down without benzo's Plan: continue to monitor for signs and symptoms. (6) HTN (hypertension) Impression: worsened by alcohol and tobacco abuse. Now controlled. No change in meds for now. Qualifiers: Hypertension type: essential hypertension Qualified Code(s): I10 - Essential (primary) hypertension
[2017-04-29] MEDS: METOPROLOL TARTRATE 50 MG TABLET PO SCH ×2 (08:40→20:51)
[2017-04-29] MEDS: LISINOPRIL 5 MG TABLET PO SCH (08:42)
[2017-04-29] MEDS: DIGOXIN 125 MCG TABLET PO SCH (08:42)
[2017-04-29] MEDS: ASPIRIN CHEW 81 MG TABLET PO SCH (08:43)
[2017-04-29] MEDS: MAGNESIUM OXIDE 400 MG TABLET PO SCH ×2 (08:43→20:52)
[2017-04-29] MEDS ORDERED: POTASSIUM CHLORIDE 20 MEQ TABLET PO ONE (08:47)
[2017-04-29 10:07] LABS: HEMOGLOBIN A1C 0.58 g/dL
[2017-04-29] MEDS: FUROSEMIDE 40 MG/4 ML VIAL IVP SCH ×2 (11:03→14:17)
[2017-04-29] MEDS: RIVAROXABAN 15 MG TABLET PO SCH ×2 (11:03→18:08)
[2017-04-29] MEDS: SODIUM CHLORIDE FLUSH 0.9% 10 ML SYRINGE IVP PRN ×2 (11:03→14:17)
[2017-04-29] MEDS: ALBUTEROL NEB 2.5 MG/3 ML INH PRN ×2 (12:55→17:27)
[2017-04-30] MEDS: ALBUTEROL NEB 2.5 MG/3 ML INH PRN ×3 (03:05→18:00)
[2017-04-30 05:27] LABS: CALCIUM 8.4 mg/dL (8.5-10.3); CREATININE 0.8 mg/dL (0.6-1.2); MAGNESIUM 1.4 mg/dL (1.7-2.8); PHOSPHORUS 3.2 mg/dL (2.5-4.6); POTASSIUM 3.4 mmol/L (3.5-5.0)
[2017-04-30] MEDS: SODIUM CHLORIDE FLUSH 0.9% 10 ML SYRINGE IVP SCH ×3 (06:05→21:25)
[2017-04-30] MEDS ORDERED: AZITHROMYCIN 250 MG TABLET PO STA (08:13)
[2017-04-30] MEDS: METOPROLOL TARTRATE 50 MG TABLET PO SCH ×2 (08:53→21:22)
[2017-04-30] MEDS: LISINOPRIL 5 MG TABLET PO SCH (08:55)
[2017-04-30] MEDS: MAGNESIUM OXIDE 400 MG TABLET PO SCH ×2 (08:55→21:25)
[2017-04-30] MEDS: ASPIRIN CHEW 81 MG TABLET PO SCH (08:55)
[2017-04-30] MEDS: DIGOXIN 125 MCG TABLET PO SCH (08:55)
[2017-04-30] MEDS: methylPREDNISolone SUCCINATE 125 MG/2 ML VIAL IVP SCH ×3 (08:59→21:22)
[2017-04-30] MEDS: diltiaZEM CD 120 MG CAPSULE PO SCH (09:12)
--- NOTE | 2017-04-30 10:51 | XRAY Report ---
TWO VIEW CHEST: 04/30/2017 CLINICAL INDICATION: Smoker, cough, wheezing. COMPARISON: 04/28/2017, 06/26/2016. FINDINGS: Frontal and lateral views of the chest demonstrate an enlarged cardiac silhouette. The melvina gs demonstrate minimal basilar atelectasis. Pulmonary vascular congestion has resolved. No effusion o r pneumothorax is present. IMPRESSION: CARDIOMEGALY. RESOLUTION OF PREVIOUSLY SEEN PULMONARY VASCULAR CONGESTION. JOB #: [id number] EXT JOB #:[id number]
[2017-04-30] MEDS: FUROSEMIDE 40 MG TABLET PO SCH ×2 (10:59→13:29)
[2017-04-30] MEDS: RIVAROXABAN 15 MG TABLET PO SCH (17:01)
[2017-04-30] MEDS ORDERED: glyBURIDE 2.5 MG TABLET PO SCH (20:00)
[2017-05-01] MEDS: methylPREDNISolone SUCCINATE 125 MG/2 ML VIAL IVP SCH (05:24)
[2017-05-01] MEDS: FUROSEMIDE 40 MG TABLET PO SCH (05:24)
[2017-05-01] MEDS: SODIUM CHLORIDE FLUSH 0.9% 10 ML SYRINGE IVP SCH (05:24)
[2017-05-01 06:03] LABS: CALCIUM 8.5 mg/dL (8.5-10.3); CREATININE 0.8 mg/dL (0.6-1.2); MAGNESIUM 1.5 mg/dL (1.7-2.8); PHOSPHORUS 2.4 mg/dL (2.5-4.6); POTASSIUM 3.7 mmol/L (3.5-5.0)
[2017-05-01] MEDS: METOPROLOL TARTRATE 50 MG TABLET PO SCH (08:35)
[2017-05-01] MEDS: ASPIRIN CHEW 81 MG TABLET PO SCH (08:37)
[2017-05-01] MEDS: diltiaZEM CD 120 MG CAPSULE PO SCH (08:38)
[2017-05-01] MEDS: LISINOPRIL 5 MG TABLET PO SCH (08:38)
[2017-05-01] MEDS: DIGOXIN 125 MCG TABLET PO SCH (08:39)
[2017-05-01] MEDS: MAGNESIUM OXIDE 400 MG TABLET PO SCH (08:40)
[2017-05-01] MEDS ORDERED: AZITHROMYCIN 250 MG TABLET PO SCH (09:00)
--- NOTE | 2017-05-01 09:06 | Discharge Plan ---
Discharge Plan Disposition: Home, Self Care Condition: Stable Prescriptions: Azithromycin 250 mg PO DAILY #4 tablet glyBURIDE [Diabeta] 2.5 mg PO DAILYWM #7 tablet Ipratropium/Albuterol [Duoneb] 3 ml INH Q6H #120 neb Methylprednisolone [Medrol] 4 mg PO UD #1 tab.ds.pk Diet: Cardiac Activity Restrictions: Activity as Tolerated Shower Restrictions: No Driving Restrictions: No Instruction Topics: COPD Additional Instructions or Follow Up instructions: You were admitted into the hospital because of congestive heart failure. Your heart rate was too fast from atrial fibrillation and it was causing the muscle of your heart not to be able to pump effectively. That meant that your fluids were backing up into your lungs and into your body causing shortness of breath, leg edema, and inability to lay down flat. We have slow down your heart rate. Giving you Lasix to offload the excess fluid. You have done very well with that. You will be going home in a new heart rate lowering drug called Cardizem. You are now on 3 drugs to slow down your heart rate. Lanoxin, metoprolol, and Cardizem. Sometimes these drugs can interact to slow down your heart rate too much. Please follow through with your primary care provider at the [facility]. He will refer you to a shank tapper. If your pulse rate gets below 60, skip your Cardizem that day. If your heart rate consistently gets too low, below 60 on a regular basis, and you get dizzy and lightheaded, you must see your shank tapper or your primary care provider soon. Stop the Cardizem. While here, you also had exacerbation of COPD. You are a smoker and you may be developing early emphysema. You responded well to antibiotics, steroids, and you really should be on a nebulizer when you wheeze. You are very reluctant to do that here. I have prescribed antibiotics for 4 more days with a tapering steroid pack was called into the pharmacy We noted that you smoke and drink on a regular basis. Both of these things are very deleterious to your health. In order for you to live a longer life, and a much healthier life, you will have to stop drinking and smoking. You have a borderline elevated sugar here. Tell your doctor that your A1c was 6% but that your sugars were sometimes up to 300 while here. I am sending you home on a low dose of a diabetic pill once a day. Take it in the morning before breakfast. I am only giving you 7 and you and your doctor can decide if you need any further treatment. The case fitter at the [facility] has already been contacted about you. They will be guiding your appointments and your doctor knows you need to be seen as soon as possible. I would like you to be seen in the next week, and you need to be referred to a shank tapper to be seen in the next 2-3 weeks. No Smoking: If you smoke, Please STOP! Call for help. Follow-up with: Carol Goyal PA-C [Primary Care Provider] -
[2017-05-01 11:01] VITALS: BP 137/101
--- NOTE | 2017-05-01 18:13 | PROVIDER PROGRESS NOTE ---
Hospitalist Cross-cover Note - Cross-Cover Note Cross-Cover Note: April 30, 18:00 Subjective: Around 10:00 this morning he became more short of breath. Increasing wheezing, increasing cough, increasing phlegm production. His heart rate stayed stable. Blood pressure stays stable. He did not spike a temperature and he did not become hypoxic. I treated him as an acute COPD exacerbation since BNP was normal and he had no JVD and had very good diuresis overnight. He is an ex-smoker. Treatment was with oral antibiotics, IV steroids, and nebulizers. He had good response to that this morning Selected Entries 04/30/17 04/30/17 04/30/17 07:28 08:31 08:46 Temperature 37.2 C Heart Rate 110 H Heart Rate [ Monitoring electrodes] Respiratory 22 Rate Blood Pressure Blood Pressure [Left Brachial artery] O2 Saturation 92 If not protocol 2 : Oxygen Flow, liters/minute 04/30/17 04/30/17 08:53 15:30 Temperature 36.7 C Heart Rate Heart Rate [ 77 Monitoring electrodes] Respiratory 23 Rate Blood Pressure 131/98 H Blood Pressure 106/85 H [Left Brachial artery] O2 Saturation 95 If not protocol 2 : Oxygen Flow, liters/minute On examination he is a large morbidly obese white male. From this morning to now his wheezing has improved considerably and is much more comfortable. Neck is supple, to big to assess for JVD Lungs in a barrel chest show and exhalation wheezing. No increased respiratory effort. No crackles or rhonchi Cardiac exam: Irregular rate and rhythm with a rarely tachycardic rate. Sometimes goes up into the 120s if talking to me Abdomen: Soft, nontender, large pannus. Normal bowel sounds. No rigidity. Extremities continue to show edema. But much less abated than on admission. Skin was stretched pretty tight. Starting to wrinkle a little bit now. Tib- fib skin area still a little red from chronic venous stasis Neuro: Alert and oriented. Able to sit up with only standby assist in transfer to the chair from the bed. No ataxia no tremors. Assessment/plan 1. Acute systolic congestive heart failure Presented as days of edema, orthopnea and acute dyspnea on exertion. He has continued to respond to Lasix and slowing his heart rate. Plan: Transition to p.o. Lasix. Continue beta-nell and AVERY inhibitor Echocardiogram shows an improvement of his ejection fraction to 55 or 60% where he was 45% earlier this year. He is a severely dilated left atrium. Severe right atrial enlargement. Mild tricuspid regurgitation. Right ventricular systolic pressures at rest 46 mmHg. So some pulmonary hypertension. I have strongly recommended he follow-up with outpatient cardiology 2. Atrial fibrillation with RVR. Much greater control. Off of diltiazem drip since yesterday. Transition to p.o. diltiazem. On digoxin and metoprolol and I continue to warn him that in the outpatient setting he needs to watch out for to slow the heart rate. Echo as above. On Xarelto. Again asked to please follow through with outpatient cardiology 3. Hypokalemia. 3.4 today. Continue to supplement p.o. 4. Hyperglycemia. A1c is 6%. I have given him steroids for his COPD and his sugar shot up to over 200. Start sliding scale Lantus. 5. Alcohol abuse. No findings of alcohol withdrawal on exam 6. Hypertension. Systolic is controlled today at 106-130s systolic. Tolerating the addition of diltiazem. 7. Acute COPD exacerbation. Very very reluctant at excepting nebulizers or steroids for this. He feels that he should be able to tolerate the wheezing without as needed to treat it. I reminded him miserable he felt this morning. He is not very interested in taking any treatment in the outpatient setting for this. We did an exercise desaturation test and he only dropped to 88% with walking on room air. As such not a candidate for home oxygen.
--- NOTE | 2017-05-02 03:26 | DISCHARGE SUMMARY ---
DATE OF ADMISSION: 04/28/2017 DATE OF DISCHARGE: 05/01/2017 PRIMARY CARE PROVIDER: at [facility]. DISCHARGE DIAGNOSES: 1. Acute on chronic systolic congestive heart failure. 2. Atrial fibrillation with rapid ventricular response. 3. Hypertension. 4. Hypokalemia. 5. Hyperglycemia. 6. Acute exacerbation of chronic obstructive pulmonary disease with asthma. 7. Alcohol abuse. 8. Tobacco abuse. DISCHARGE MEDICATIONS: 1. Cardizem-CD 180 mg p.o. daily. 2. Medrol Dosepak. 3. Azithromycin 250 mg p.o. #4. 4. Glyburide 2.5 mg p.o. #7. 5. Atorvastatin 20 mg p.o. daily. 6. Digoxin 0.125. 7. DuoNeb via nebulizer q.6. p.r.n. with nebulizer supplies. 8. Lasix 40 mg p.o. b.i.d. 9. Lisinopril 40 mg a day. 10. Metoprolol tartrate 100 mg p.o. b.i.d. 11. Aspirin 81 daily. 12. Spironolactone 25 daily. 13. Xarelto 20 daily. PRINCIPAL PROCEDURES: 1. Echocardiogram showing ejection fraction has improved from earlier this year. Severely dilated josh trial chambers. Early pulmonary hypertension. Final report is pending and needs to be reviewed. 2. Diltiazem drip in ICU. 3. Diuresis with IV Lasix. He is a morbidly obese gentleman who smokes and drinks. He was diagnosed with atrial fibrillation in the summer of 2016 and has been on Xarelto and rate lowering agents, but really has not followed thro [facility] with a cardiology appointment. I cannot tell me why. He comes in with shortness of breath, orthop adele and increasing leg edema. 1. He was found to have acute systolic congestive heart failure with atrial fibrillation RVR. He was diuresed with Lasix IV, put in the ICU with a diltiazem drip and had good rate control done into the 80s and 90s with that. He was transitioned to p.o. diltiazem 120 daily. On the day of discharge, was increased to 180 because he still had an occasional bursts of tachycardia to the 120s. He has been wa rned that he is on 3 rate lowering drugs and that any time, he could have too slow of a heart rate. I f he starts to have near syncope, dizziness, or lightheadedness, to contact his primary care provider and strongly consider going off of diltiazem. He is also strongly encouraged to please followup at [facility]. Case management has already been called at that clinic. The patient will hopefully foll ow through and then get a cardiology evaluation with a stress test. 2. During his stay, he was noted to have hyperglycemia, even on admission. This is before steroids we re given and an A1c was 6%. With steroids for acute chronic obstructive pulmonary disease exacerbatio n, his sugars went up to 240. I have opted to put him on Glyburide 2.5 mg a day temporarily since he is going to go home on Medrol Dosepak and sugars will be elevated. He is not happy about this and wan ts to treat his incipient diabetes with diet and exercise only. 3. After control of his congestive heart failure and BNP was low, he did have a brief episode of acut e coughing, wheezing. I attributed this to acute COPD exacerbation. This responded nicely to Solu-Med rol, azithromycin, and nebulizers. He is sent home on temporary nebulizer supplies with [place]. 4. He is strongly encouraged to stop drinking and smoking. He says he wants to turn his life around a nd maybe even go to a few AA meetings. He also promises to follow through with his primary care bryan braun. 5. Hypertension was not a problem during his stay. Well-controlled. He is discharged in stable condition with a temperature of 37.1, pulse 109 at times. Blood pressure 1 60/91, 97% on 2 liters, 20 respiratory rate. He is a tall morbidly obese, middle-aged male with acne rosacea and red cheeks. Neck is thick and difficult to assess for JVD. Lungs are almost completely cl ear. There are no crackles or rhonchi and he has only very slight wheezing at the end of exhalation. He has an irregular rate and rhythm. At rate is controlled. With excitement such as discharge, his ra te goes up. The abdomen is with a huge large pannus, but quiet bowel sounds. Nontender, no distention . Difficult to assess for any organomegaly. He is now down to less than 1+ edema, whereas he came in with 2+ edema. He is ambulating in the room without any increased respiratory effort. He has been elis erating his meals well.Greater than 30 minutes was spent in coordinating discharge, especially on Juan sg day, where numerous factors had to be taken into account with many things being closed. JOB #: [id number] EXT JOB #:[id number]
== END 2017-05-01 10:29 | disposition home or self-care (01) | DRG 292 ==
LOC: EDUNIT# → ED 12:57 → ICU 15:12
PROVIDERS: ADMIT Specialist; ATTEND Specialist
DX: I11.0 Hypertensive heart disease with heart failure (principal); J44.1 Chronic obstructive pulmonary disease with (acute) exacerbation; Z68.42 Body mass index [BMI] 45.0-49.9, adult; I50.23 Acute on chronic systolic (congestive) heart failure; I48.2 Chronic atrial fibrillation; E87.6 Hypokalemia; R73.9 Hyperglycemia, unspecified; T38.0X5A Adverse effect of glucocorticoids and synthetic analogues, initial encounter; F17.210 Nicotine dependence, cigarettes, uncomplicated; F10.10 Alcohol abuse, uncomplicated; E66.01 Morbid (severe) obesity due to excess calories; I08.1 Rheumatic disorders of both mitral and tricuspid valves; I27.20 Pulmonary hypertension, unspecified; G47.33 Obstructive sleep apnea (adult) (pediatric); N40.1 Benign prostatic hyperplasia with lower urinary tract symptoms; R35.0 Frequency of micturition; R35.1 Nocturia; Z79.82 Long term (current) use of aspirin; Z79.899 Other long term (current) drug therapy
CPT/HCPCS: 36415; 71010; 71020; 80048; 80053; 80162; 82040; 83036; 83690; 83735; 83880; 84100; 84484; 85025; 87150; 93005; 93306; 94640; 94761; 96374; 96375; 96376; 99285

== ENCOUNTER 2018-02-04 17:41 | Emergency (ER) | payer OTHER ==
--- NOTE | 2018-02-04 20:05 | ED Physician Documentation ---
PD HPI ANIMAL BITE - Stated complaint Stated Complaint: CAT BITE/RT WRIST - Chief complaint Chief Complaint: Ext Problem - History obtained from History obtained from: Patient - History of Present Illness Location of injury(ies): RUE (wrist) Details of the event: Cat, Pet animal Timing - onset: How many days ago (3) Timing - details: Gradual onset (has had increasing redness and swelling in area of cat bite. Pain with wrist movement.), Still present Improved by: Rest Worsened by: Moving (wrist), Palpating Associated symptoms: No: Weakness, Numbness Similar symptoms before: Has not had sx before Recently seen: Not recently seen Review of Systems Constitutional: denies: Fever, Chills, Myalgias Nose: denies: Rhinorrhea / runny nose, Congestion Throat: denies: Sore throat Respiratory: denies: Cough Skin: reports: Rash Neurologic: denies: Focal weakness, Numbness PD PAST MEDICAL HISTORY - Past Medical History Past Medical History: No Cardiovascular: Hypertension, Other Respiratory: Pneumonia Neuro: None Endocrine/Autoimmune: None GI: None : None HEENT: None Psych: None Musculoskeletal: None Derm: None Other Past Medical History: Afib - Past Surgical History Past Surgical History: No Ortho: Arthroscopic surgery - Present Medications Home Medications: Ambulatory Orders Medication Instructions Recorded Confirmed Atorvastatin Calcium 20 mg PO 2100 04/28/17 04/29/17 Digoxin 125 mcg PO DAILY 04/28/17 04/29/17 Furosemide 20 mg PO DAILY 04/28/17 04/29/17 Lisinopril 40 mg PO DAILY 04/28/17 04/29/17 Metoprolol Succinate 100 mg PO BID 04/28/17 04/29/17 Rivaroxaban [Xarelto] 20 mg PO DAILY 04/28/17 04/29/17 Ipratropium/Albuterol [Duoneb] 3 ml INH Q6H #120 neb 04/30/17 Furosemide [Lasix] 40 mg PO BIDDIURETIC #60 tablet 05/01/17 Amox/Clav 875/125 [Augmentin] 1 each PO BID #14 tablet 02/04/18 Bupropion HCl [Bupropion HCl Sr] 02/04/18 HYDROcod/ACETAM 5/325 [[place] 5/325] 1 tab PO Q6H PRN #12 tablet 02/04/18 Mupirocin 1 applic TP TID #15 oint...g. 02/04/18 - Allergies Allergies/Adverse Reactions: Allergies Allergy/AdvReac Type Severity Reaction Status Date / Time No Known Drug Allergies Allergy Verified 02/04/18 17:56 - Social History Does the pt smoke?: Yes Smoking Status: Current every day smoker Does the pt drink ETOH?: Yes Does the pt have substance abuse?: No - Immunizations Immunizations are current?: Yes - POLST Patient has POLST: No PD ED PE NORMAL - Vitals Vital signs reviewed: Yes - General General: Alert and oriented X 3, No acute distress, Well developed/nourished - Derm Derm: Other (right forearm/wrist with small puncture sites without purulence. General redness and edema with tenderness. No focal fluctuance. Pain with wrist ROM, but passive finger extension/flexion does not hurt. Normal color in fingers. ) - Neuro Neuro: No motor deficit, No sensory deficit Results - Vitals Vitals: Oxygen O2 Source Room air PD MEDICAL DECISION MAKING - ED course Complexity details: considered differential (cellulitic on wrist and stiff skin due to swelling. Finger extension and flexion not hurting passively. I don't think it is into tendons. Will want close follow up. ), d/w patient - Sepsis Event Vital Signs: Oxygen O2 Source Room air Departure - Departure Disposition: 01 Home, Self Care Clinical Impression: Wound infection Cat bite of right wrist Qualifiers: Encounter type: initial encounter Qualified Code(s): S61.551A - Open bite of right wrist, initial encounter Condition: Stable Record reviewed to determine appropriate education?: Yes Instructions: ED Bite Cat, ED Infec Skin Cellulitis Follow-Up: FRED DUNN [Primary Care Provider] - Prescriptions: Amox/Clav 875/125 [Augmentin] 1 each PO BID #14 tablet HYDROcod/ACETAM 5/325 [[place] 5/325] 1 tab PO Q6H PRN #12 tablet PRN Reason: Pain Mupirocin 1 applic TP TID #15 oint...g. Comments: Cleanse the wound with soap and water 2-3 times a day and apply mupirocin antibiotic ointment. Use a wrist splint to help decrease pain and motion through the area. Augmentin twice daily for 7 days. Follow-up with your primary care or back in the ER here in 2 days for wound recheck. Return if worsening or you have general symptoms such as fever. Discharge Date/Time: 02/04/18 21:25
[2018-02-04] MEDS ORDERED: MUPIROCIN 2% OINT 1 GM TOP STA (20:24)
[2018-02-04] MEDS ORDERED: LIDOCAINE 1% 2 ML VIAL SUBQ ONE (20:24)
[2018-02-04] MEDS ORDERED: HYDROcod/ACETAM 5/325 MG TABLET PO STA (20:24)
[2018-02-04] MEDS ORDERED: AMOX/CLAV 875 MG/125 MG TABLET PO STA (20:24)
[2018-02-04] MEDS ORDERED: cefTRIAXone 500 MG VIAL IM STA (20:24)
[2018-02-04 20:56] VITALS: BP 152/123
== END 2018-02-04 21:25 | disposition home or self-care (01) ==
LOC: ED 17:41
DX: S61.551A Open bite of right wrist, initial encounter (principal); L08.9 Local infection of the skin and subcutaneous tissue, unspecified; I10 Essential (primary) hypertension; W55.01XA Bitten by cat, initial encounter; F17.200 Nicotine dependence, unspecified, uncomplicated
CPT/HCPCS: 96372; 99283; A9270

== ENCOUNTER 2019-07-21 17:03 | Inpatient (IN) | payer MEDICARE, OTHER ==
--- NOTE | 2019-07-21 17:32 | ED Physician Documentation ---
History of Present Illness - Stated complaint Stated Complaint: ELEV POTASSIUM PER [facility] - Chief complaint Chief Complaint: General - History obtained from History obtained from: Patient - History of Present Illness Timing: Today (For what sounds like anemia due to bleeding ulcer and rapid atrial fibrillation a couple of times over the winter was going to his doctor's office tomorrow for routine visit and had routine blood work drawn today and was referred to the emergency department for high potassium. He does not know what it was. No history of high potassiums nor any history of renal dysfunction.) Review of Systems Constitutional: reports: Fatigue. denies: Fever, Chills Cardiac: denies: Chest pain / pressure, Palpitations Respiratory: denies: Dyspnea, Cough PD PAST MEDICAL HISTORY - Past Medical History Cardiovascular: Hypertension, Other Respiratory: Pneumonia Neuro: None Endocrine/Autoimmune: None GI: None : None HEENT: None Psych: None Musculoskeletal: None Derm: None - Past Surgical History Past Surgical History: No Ortho: Arthroscopic surgery - Present Medications Home Medications: Ambulatory Orders Medication Instructions Recorded Confirmed Digoxin 125 mcg PO DAILY 04/28/17 07/21/19 Metoprolol Succinate 150 mg PO DAILY 04/28/17 07/21/19 Rivaroxaban [Xarelto] 20 mg PO DAILY 04/28/17 07/21/19 lisinopriL [Lisinopril] 40 mg PO DAILY 04/28/17 07/21/19 Ipratropium/Albuterol [Duoneb] 3 ml INH Q6H #120 neb 04/30/17 07/21/19 Furosemide [Lasix] 40 mg PO BIDDIURETIC #60 tablet 05/01/17 07/21/19 Digoxin 125 mcg PO DAILY 07/21/19 07/21/19 Diltiazem HCl [Diltiazem ER] 240 mg PO DAILY 07/21/19 07/21/19 Levothyroxine Sodium [Synthroid] 50 mcg PO DAILY 07/21/19 07/21/19 Pantoprazole Sodium 40 mg PO BID 07/21/19 07/21/19 Spironolactone 50 mg PO DAILY 07/21/19 07/21/19 Torsemide 40 mg PO BID 07/21/19 07/21/19 metFORMIN [Glucophage] 500 mg PO BIDWM 07/21/19 07/21/19 - Allergies Allergies/Adverse Reactions: Allergies Allergy/AdvReac Type Severity Reaction Status Date / Time No Known Drug Allergies Allergy Verified 07/21/19 17:13 - Social History Does the pt smoke?: Yes Smoking Status: Current every day smoker Does the pt drink ETOH?: Yes Does the pt have substance abuse?: No - Immunizations Immunizations are current?: Yes - POLST Patient has POLST: No PD ED PE NORMAL - Vitals Vital signs reviewed: Yes - General General: Alert and oriented X 3, No acute distress - HEENT HEENT: PERRL, EOMI, Ears normal, Pharynx benign - Neck Neck: Supple, no meningeal sign, No bony TTP - Cardiac Cardiac: Other (Rapid and regular without murmur) - Respiratory Respiratory: Other (Wheezy throughout which he says is his baseline from COPD. Nonlabored) - Abdomen Abdomen: Normal bowel sounds, Soft, Non tender - Derm Derm: Normal color, Warm and dry - Extremities Extremities: No edema, No calf tenderness / cord - Neuro Neuro: Alert and oriented X 3, Normal speech Results - Vitals Vitals: Vital Signs - 24 hr 07/21/19 07/21/19 07/21/19 17:09 17:53 18:46 Temperature 36.3 C L Heart Rate 91 110 H 109 H Respiratory 19 23 19 Rate Blood Pressure 127/75 130/93 H O2 Saturation 98 100 100 07/21/19 07/21/19 07/21/19 19:09 20:00 20:12 Temperature 36.9 C Heart Rate 114 H 140 H 136 H Respiratory 20 22 17 Rate Blood Pressure 124/76 O2 Saturation 97 97 Oxygen O2 Source Room air - EKG (time done) 1718 Rate: Rate (enter#) (82) Rhythm: Atrial fibrillation [place]: Normal QRS: Normal Ischemia: Non specific changes (Compared with EKG dated 04/28/2017 he still in A. fib although the rate is better. Potentially slight peaking of the T waves. No QRS widening.) - Labs Labs: Laboratory Tests 07/21/19 07/21/19 07/21/19 17:30 17:30 17:30 WBC 7.7 RBC 4.51 L Hgb 10.8 L Hct 36.3 L MCV 80.5 MCH 23.9 L MCHC 29.8 L RDW 18.8 H Plt Count 141 MPV 11.5 H Neut # (Auto) 5.1 Lymph # (Auto) 1.1 L [place] # (Auto) 1.1 H Eos # (Auto) 0.2 Baso # (Auto) 0.1 Absolute Nucleated RBC 0.00 Nucleated RBC % 0.0 VBG pH 7.377 VBG pCO2 35.7 L VBG pO2 32.9 VBG HCO3 20.5 L VBG Total CO2 21.6 L VBG O2 Saturation 63.2 VBG Base Excess -4.1 L Sodium 128 L Potassium 6.6 H* Chloride 92 L Carbon Dioxide 23 Anion Gap 13.0 BUN 65 H Creatinine 2.9 H Estimated GFR (MDRD) 22 L Glucose 205 H Lactic Acid Calcium 9.7 Magnesium 1.8 Total Bilirubin 1.2 H AST 24 ALT 18 Alkaline Phosphatase 55 Total Protein 9.1 H Albumin 4.3 Globulin 4.8 H Albumin/Globulin Ratio 0.9 L Lipase 70 H Digoxin 07/21/19 07/21/19 07/21/19 17:30 19:56 20:10 WBC RBC Hgb Hct MCV MCH MCHC RDW Plt Count MPV Neut # (Auto) Lymph # (Auto) [place] # (Auto) Eos # (Auto) Baso # (Auto) Absolute Nucleated RBC Nucleated RBC % VBG pH VBG pCO2 VBG pO2 VBG HCO3 VBG Total CO2 VBG O2 Saturation VBG Base Excess Sodium Potassium 5.3 H Chloride Carbon Dioxide Anion Gap BUN Creatinine Estimated GFR (MDRD) Glucose Lactic Acid 2.6 H Calcium Magnesium Total Bilirubin AST ALT Alkaline Phosphatase Total Protein Albumin Globulin Albumin/Globulin Ratio Lipase Digoxin < 0.2 PD MEDICAL DECISION MAKING - ED course ED course: 59-year-old gentleman presents with potential hyperkalemia versus pseudohyperkalemia. Labs confirmed hyperkalemia with prerenal azotemia. He was administered IV fluids, bicarb drip, Kayexalate, insulin and glucose, calcium, and albuterol. Case was discussed by phone with Dr. Grijalva at 7:29 PM who requ ested that we call nephrology to make sure they did not feel like he was in urgent nephrology/dialysis candidate and they would feel comfortable with us treating him here medically. [facility] was called for that at 7:30 PM. Case discussed by phone with Dr. Braydon Garza, drip pumper at [facility]. He recommends a retroperitoneal ultrasound and a repeat potassium level. If the potassium level goes down below 6.1 or 6 or so he could be safely admitted here for hydration and medical management, if it does not go down much or goes up he should be transferred, not to [facility] because they do not have nighttime dialysis, for urgent dialysis. On my reevaluation at that time the patient was having chills, he now had developed a right lower extremity cellulitis from ankle to almost the knee. Blood cultures and lactate were ordered and he was ordered to have Ancef IV. He also became more tachycardic (A. fib with RVR) and received some IV Lopressor. Obviously he was getting a lot of fluids along with the treatments for the hyperkalemia as well. His lactate was only modestly elevated at 2.6. Spoke with Dr. Grijalva again for admission at 8:20 PM. Departure - Departure Disposition: 66 [facility] DC/Xfer Clinical Impression: Atrial fibrillation with rapid ventricular response, Cellulitis of right leg, Hyperkalemia Renal failure Qualifiers: Renal failure chronicity: acute Acute renal failure type: unspecified Qualified Code(s): N17.9 - Acute kidney failure, unspecified Condition: Serious
[2019-07-21 17:36] LABS: VBG BASE EXCESS -4.1 mmol/L (-2 - +2); VBG PCO2 35.7 mmHg (41-51); VBG PH 7.377 (7.31-7.41); VBG PO2 32.9 mmHg (25-47); VBG TOTAL CO2 21.6 mmol/L (24-29)
[2019-07-21 17:40] LABS: BASOPHILS # (AUTO) 0.1 10^3/uL (0.0-0.1); BASOPHILS % (AUTO) 1.3 %; EOSINOPHILS # (AUTO) 0.2 10^3/uL (0.0-0.7); EOSINOPHILS % (AUTO) 3.1 %; HGB - HEMOGLOBIN 10.8 g/dL (14.0-18.0); LYMPHOCYTES # (AUTO) 1.1 10^3/uL (1.5-3.5); LYMPHOCYTES % (AUTO) 14.8 %; MEAN CORPUSCULAR HEMOGLOBIN 23.9 pg (27.0-31.0); MEAN CORPUSCULAR HGB CONC 29.8 g/dL (32.0-36.0); MEAN CORPUSCULAR VOLUME 80.5 fL (80.0-94.0); MEAN PLATELET VOLUME 11.5 fL (7.4-11.4); MONOCYTES # (AUTO) 1.1 10^3/uL (0.0-1.0); MONOCYTES % (AUTO) 13.9 %; NEUTROPHILS # (AUTO) 5.1 10^3/uL (1.5-6.6); NEUTROPHILS % (AUTO) 66.6 %; PLT - PLATELET COUNT 141 10^3/uL (130-450); RED BLOOD COUNT 4.51 10^6/uL (4.70-6.10); RED CELL DISTRIBUTION WIDTH 18.8 % (12.0-15.0); WHITE BLOOD COUNT 7.7 x10^3/uL (4.8-10.8)
[2019-07-21 18:16] LABS: ALBUMIN 4.3 g/dL (3.2-5.5); ALBUMIN/GLOBULIN RATIO 0.9 (1.0-2.2); BILIRUBIN,TOTAL 1.2 mg/dL (0.2-1.0); CALCIUM 9.7 mg/dL (8.5-10.3); CREATININE 2.9 mg/dL (0.6-1.2); MAGNESIUM 1.8 mg/dL (1.7-2.8); TOTAL PROTEIN 9.1 g/dL (6.7-8.2)
[2019-07-21] MEDS ORDERED: SODIUM CHLORIDE 0.9% 1,000 ML IV ONE ×2 (18:17→18:20)
[2019-07-21] MEDS ORDERED: ALBUTEROL NEB 2.5 MG/3 ML INH STA ×2 (18:17→18:20)
[2019-07-21] MEDS ORDERED: CALCIUM GLUCONATE 1000 MG/10 ML VIAL IVP STA (18:18)
[2019-07-21] MEDS ORDERED: SODIUM POLYSTYRENE SULFONATE 15 GM/60 ML BOTTLE PO STA (18:18)
[2019-07-21 18:52] LABS: DIGOXIN < 0.2 ng/mL
[2019-07-21] MEDS ORDERED: SODIUM BICARBONATE 150 MEQ in DEXTROSE 5% 1,000 ML IV SCH (19:00)
[2019-07-21] MEDS ORDERED: ACETAMINOPHEN 325 MG TABLET PO STA (19:58)
[2019-07-21] MEDS ORDERED: ceFAZolin 2 GM in SODIUM CHLORIDE 0.9% 100ML 100 ML IV STA (19:58)
[2019-07-21] MEDS ORDERED: oxyCODONE 5 MG TABLET PO STA (19:58)
[2019-07-21] MEDS ORDERED: METOPROLOL 5 MG/5 ML VIAL IVP STA ×2 (20:20→21:34)
[2019-07-21] MEDS ORDERED: ACETAMINOPHEN 325 MG TABLET PO PRN (20:27)
[2019-07-21] MEDS ORDERED: SODIUM CHLORIDE FLUSH 0.9% 10 ML SYRINGE IVP PRN (20:27)
[2019-07-21] MEDS ORDERED: ONDANSETRON 4 MG/2 ML VIAL IVP PRN (20:27)
[2019-07-21] MEDS ORDERED: LORazepam 2 MG/ML VIAL IVP PRN (20:33)
[2019-07-21] MEDS ORDERED: MAGNESIUM SULFATE 2 GRAM 2 GM/50 ML BAG IV ONE (20:33)
--- NOTE | 2019-07-21 20:42 | HISTORY & PHYSICAL EXAMINATION ---
Chief Complaint - Chief Complaint Chief Complaint: hyperkalemia, tachycardia History of Present Illness - Admitted From Admitted From:: [facility] ED - History Obtained From Records Reviewed: yes History obtained from: patient Exam Limitations: none - History of Present Illness HPI Comment/Other: Patient is a 59 y/o morbidly obese male with history of CHF, atrial fibrillation, HTN, DM II. FAUSTINA noncompliant with CPAP who present to the ED after he was instructed by his primary physician's office to do so. He had routine lab done today in preparation for his doctor's appointment next week. He was found to have a potassium level of 6.6 and a creatinine of 2.9. Thus he was asked to present to the ED. In the ED he was fount to be mildly tachycardic at 105 but then subsequent increased to 130's-140's. He denied chest pain, dyspnea, abd pain or fever. He has has been nauseous but no vomiting and reports chills. He was treated for hyperkalemia in the ED and intially present for admission. I requested a nephrology consult who advised that the patient could be admitted to [facility] and medically managed if his potassium was less that 6.3. Recheck potassium was 5.3. As a result he was presented for admission for further matthew tment. He complained of right soto pain. It was thought that his leg appeared hyperemic in the ED raising a concern for cellulitis. He is afebrile and has a normal WBC. History - Past Medical History Cardiovascular: reports: Congestive heart failure (systolic), Hypertension, Atrial fibrillation, Other Respiratory: reports: Sleep apnea Neuro: reports: None Endocrine/Autoimmune: reports: None GI: reports: None : reports: None HEENT: reports: None Psych: reports: None Musculoskeletal: reports: None Derm: reports: None MRSA Hx?: Yes - Past Surgical History Ortho: reports: Arthroscopic surgery - Family & Social History Family History Comment/Other: mother: at 82. Had heart problems. father: healthy. All siblings (4 brother and one half sister) all healthy Social History Notes: 1ppd for 40+ years. Quit drinking 20 days ago. But was drinking 1/5 vodka a week. Had been doing so since age 19. No illicit drug use. Retired from the [employer] - POLST Patient has POLST: No POLST Status: Full Code Meds/Allgy - Home Medications Home Medications: Ambulatory Orders Medication Instructions Recorded Confirmed Digoxin 125 mcg PO DAILY 04/28/17 07/21/19 Metoprolol Succinate 150 mg PO DAILY 04/28/17 07/21/19 lisinopriL [Lisinopril] 40 mg PO DAILY 04/28/17 07/21/19 Ipratropium/Albuterol [Duoneb] 3 ml INH Q6H #120 neb 04/30/17 07/21/19 Furosemide [Lasix] 40 mg PO BIDDIURETIC #60 tablet 05/01/17 07/21/19 Diltiazem HCl [Diltiazem 24Hr ER] 240 mg PO DAILY 07/21/19 07/21/19 Levothyroxine Sodium [Synthroid] 50 mcg PO DAILY 07/21/19 07/21/19 Pantoprazole Sodium 40 mg PO BID 07/21/19 07/21/19 Spironolactone 50 mg PO DAILY 07/21/19 07/21/19 Torsemide 40 mg PO BID 07/21/19 07/21/19 metFORMIN [Glucophage] 500 mg PO BIDWM 07/21/19 07/21/19 - Allergies Allergies/Adverse Reactions: Allergies Allergy/AdvReac Type Severity Reaction Status Date / Time No Known Drug Allergies Allergy Verified 07/21/19 17:13 Review of Systems - Constitutional Constitutional: reports: Chills. denies: Fatigue, Fever, Malaise, Weakness, Poor appetite - Eyes Eyes: denies: Pain, Dipolpia - Ears, Nose & Throat Ears, Nose & Throat: denies: Vertigo, Sore throat, Hoarseness - Cardiovascular Cariovascular: reports: Irregular heart rate. denies: Chest pain, Edema, Lightheadedness, Syncope, Exertional dyspnea - Respiratory Respiratory: reports: Cough. denies: Sputum production, Wheezing, SOB at rest, SOB with exertion - Gastrointestinal Gastrointestinal: reports: Nausea. denies: Abdominal pain, Abdominal distentio n, Constipation, Diarrhea, Vomiting, Coffee grounds emesis, Reflux/heartburn - Genitourinary Genitourinary: denies: Dysuria, Frequency, Urgency, Hematuria, Incontinence, Flank pain - Musculoskeletal Musculoskeletal: denies: Muscle pain, Back pain, Muscle aches, Stiffness, Gout, Joint pain - Integumentary Integumentary: denies: Rash, Pruritis, Lesions, Dryness - Neurological Neurological: denies: General weakness, Focal weakness, Headache, Dizziness - Psychiatric Psychiatric: denies: Depression, Anxiety - Endocrine Endocrine: denies: Polyuria, Polydypsia - Hematologic/Lymphatic Hematologic/Lymphatic: denies: Anemia, Bruising, Petechiae Prior Level of Functionality: He is independent of activities of daily living Exam - Vital Signs Vital Signs: Vital Signs x48h Temp Pulse Resp BP Pulse Ox 07/21/19 20:31 149 H 20 137/71 H 96 07/21/19 20:12 136 H 17 97 07/21/19 20:00 36.9 C 140 H 22 124/76 97 07/21/19 19:09 114 H 20 07/21/19 18:46 109 H 19 130/93 H 100 07/21/19 17:53 110 H 23 100 07/21/19 17:09 36.3 C L 91 19 127/75 98 - Physical Exam General Appearance: positive: No acute distress, Alert Eyes Bilateral: positive: Normal inspection, PERRL, EOMI ENT: positive: No signs of dehydration Neck: positive: No JVD, Trachea midline Respiratory: positive: Chest non-tender, No respiratory distress, Breath sounds nml. negative: Wheezes, Rales, Rhonchi Cardiovascular: positive: Irregularly irregular, Tachycardia Abdomen: positive: Non-tender, No organomegaly, Nml bowel sounds, No distention. negative: Guarding, Rebound Skin: positive: Color nml, No rash, Warm, Dry Extremities: positive: Non-tender, Full ROM, Pedal edema (trace to +1) Neurologic/Psychiatric: positive: Oriented x3, Mood/affect nml Conclusion/Plan - Problem List (1) Atrial fibrillation with rapid ventricular response Conclusion/Plan: Patient given metoprolol 5mg IV in the ED. This was repeated upon arrival to the floor Patient given diltiazem 10mg IV X2 Will resume his metoprolol succinate 150mg daily Digoxin 0.125mg a day Diltiazem 240 mg ER tab in the morning Patient no longer take xarelto since gastric ulcer bleed (2) Hyperkalemia Conclusion/Plan: Patient given 2L of normal saline And 1L of sodium bicarbonate He also received 1g Calcium gluconate Abuterol 10 mg INH X1 And kayexalate 30g X 1 On the floor he received lasix 40mg X1 Will resume his home lasix of 40mg po bid in the am And regular insulin 10units IV X1 and 250ml of D10W Will do accu checks X3 Hold spironolactone and lisinopril for now Will recheck potassium with morning labs (3) CHF (congestive heart failure) Conclusion/Plan: Not in exacerbation Toprol XL and lasix bid resumed Will hold spironolactone and lisinopril for now Qualifiers: Heart failure type: systolic Heart failure chronicity: chronic Qualified Code(s): I50.22 - Chronic systolic (congestive) heart failure (4) Hypothyroidism Conclusion/Plan: Will resume synthroid 50mcg daily (5) Diabetes mellitus Conclusion/Plan: SSI. Accu checks Hold metformin Check HgA1c Qualifiers: Diabetes mellitus type: type 2 (6) GERD (gastroesophageal reflux disease) Conclusion/Plan: With Hx of gastric ulcer On protonix 40mg po bid - Lab Results Fish Bones: 07/22/19 02:10 07/22/19 02:10 Core Measures - Anticipated LOS I expect patient to be DC'd or transferred within 96 hours.: Yes - DVT/VTE - Prophylaxis VTE/DVT Device ordered at admit?: Yes VTE/DVT Prophylaxis med ordered at admit?: Yes
[2019-07-21] MEDS ORDERED: SODIUM CHLORIDE 0.9% 1,000 ML IV SCH (21:00)
[2019-07-21] MEDS ORDERED: LINEZOLID 600 MG/300 ML 600 MG/300 ML BAG IV SCH (21:00)
--- NOTE | 2019-07-21 21:28 | Ultrasound Report ---
Reason: renal failure Procedure Date: 07/21/2019 Accession Number: [id number] / [id number] Procedure: US - Retroperitoneal CPT Code: Final Report FULL RESULT: EXAM: RENAL ULTRASOUND EXAM DATE: 07/21/2019 09:18 PM. CLINICAL HISTORY: Renal failure. COMPARISON: None available. TECHNIQUE: Real-time scanning was performed with static images obtained. FINDINGS: Right Kidney: 13.0 x 6.1 x 6.2 cm. Normal echotexture with no stones, contour-deforming masses, or hydronephrosis. Probable exophytic simple cortical cyst at the lower pole measuring 2.2 x 2.4 cm. Left Kidney: 13.9 x 7.4 x 7.1 cm. Normal echotexture with no stones, contour-deforming masses, or hydronephrosis. Bladder: Bilateral jets seen. The prevoid bladder volume was 104 cc. The postvoid bladder volume was none obtained cc. The patient was unable to void at the time of exam. Other: None. IMPRESSION: No evidence of obstructive uropathy. RADIA
[2019-07-21 22:05] LABS: BASOPHILS # (AUTO) 0.1 10^3/uL (0.0-0.1)
[2019-07-21 22:10] LABS: BASOPHILS % (AUTO) 1.1 %; EOSINOPHILS # (AUTO) 0.2 10^3/uL (0.0-0.7); EOSINOPHILS % (AUTO) 2.4 %; HGB - HEMOGLOBIN 9.7 g/dL (14.0-18.0); LYMPHOCYTES # (AUTO) 1.2 10^3/uL (1.5-3.5); MEAN CORPUSCULAR HEMOGLOBIN 24.1 pg (27.0-31.0); MEAN CORPUSCULAR HGB CONC 29.7 g/dL (32.0-36.0); MEAN CORPUSCULAR VOLUME 81.3 fL (80.0-94.0); MEAN PLATELET VOLUME 11.2 fL (7.4-11.4); MONOCYTES # (AUTO) 0.8 10^3/uL (0.0-1.0); MONOCYTES % (AUTO) 12.8 %; NEUTROPHILS # (AUTO) 3.9 10^3/uL (1.5-6.6); NEUTROPHILS % (AUTO) 63.5 %; PLT - PLATELET COUNT 111 10^3/uL (130-450); RED BLOOD COUNT 4.02 10^6/uL (4.70-6.10); WHITE BLOOD COUNT 6.2 x10^3/uL (4.8-10.8)
[2019-07-21 22:11] LABS: INR 1.2 (0.8-1.2); PT - PROTHROMBIN TIME 13.9 secs (9.9-12.6)
[2019-07-21 22:15] LABS: ALBUMIN 3.7 g/dL (3.2-5.5); ALBUMIN/GLOBULIN RATIO 0.9 (1.0-2.2); BILIRUBIN,TOTAL 0.8 mg/dL (0.2-1.0); CALCIUM 8.9 mg/dL (8.5-10.3); CREATININE 2.5 mg/dL (0.6-1.2)
[2019-07-21] MEDS ORDERED: diltiaZEM INJ 5 MG/ML VIAL IVP ONE (22:35)
[2019-07-21] MEDS ORDERED: FUROSEMIDE 40 MG/4 ML VIAL IVP STA (22:36)
[2019-07-21] MEDS ORDERED: INSULIN REGULAR HUMAN 300 UNIT/3 ML VIAL IVP ONE (22:37)
[2019-07-21] MEDS ORDERED: DEXTROSE 10% 250 ML IV STA (22:38)
[2019-07-21] MEDS: SODIUM CHLORIDE FLUSH 0.9% 10 ML SYRINGE IVP SCH (23:46)
[2019-07-22] MEDS ORDERED: diltiaZEM INJ 5 MG/ML VIAL IVP STA (00:54)
[2019-07-22 02:19] LABS: BASOPHILS # (AUTO) 0.1 10^3/uL (0.0-0.1); BASOPHILS % (AUTO) 1.3 %; EOSINOPHILS # (AUTO) 0.3 10^3/uL (0.0-0.7); EOSINOPHILS % (AUTO) 5.4 %; HGB - HEMOGLOBIN 8.8 g/dL (14.0-18.0); LYMPHOCYTES # (AUTO) 1.2 10^3/uL (1.5-3.5); LYMPHOCYTES % (AUTO) 22.5 %; MEAN CORPUSCULAR HEMOGLOBIN 23.2 pg (27.0-31.0); MEAN CORPUSCULAR VOLUME 79.9 fL (80.0-94.0); MEAN PLATELET VOLUME 9.8 fL (7.4-11.4); MONOCYTES # (AUTO) 0.9 10^3/uL (0.0-1.0); MONOCYTES % (AUTO) 16.3 %; NEUTROPHILS % (AUTO) 54.3 %; PLT - PLATELET COUNT 90 10^3/uL (130-450); RED BLOOD COUNT 3.79 10^6/uL (4.70-6.10); RED CELL DISTRIBUTION WIDTH 18.8 % (12.0-15.0); WHITE BLOOD COUNT 5.5 x10^3/uL (4.8-10.8)
[2019-07-22 02:28] LABS: CALCIUM 8.4 mg/dL (8.5-10.3); CREATININE 2.3 mg/dL (0.6-1.2)
[2019-07-22 02:33] LABS: HB2 TOTAL 9.4 g/dL; HEMOGLOBIN A1C 0.69 g/dL; HEMOGLOBIN A1C % 8.9 % (4.6-6.2)
[2019-07-22] MEDS ORDERED: CEFEPIME 2 GM in SODIUM CHLORIDE 0.9% MINIBAG 100 ML IV SCH (04:00)
[2019-07-22] MEDS ORDERED: DIGOXIN 125 MCG TABLET PO SCH ×2 (06:00→09:00)
[2019-07-22] MEDS: FUROSEMIDE 40 MG TABLET PO SCH ×2 (06:10→13:57)
[2019-07-22] MEDS ORDERED: LEVOTHYROXINE 25 MCG TABLET PO SCH (07:00)
[2019-07-22] MEDS ORDERED: PANTOPRAZOLE 40 MG TABLET PO SCH ×2 (07:00→09:00)
[2019-07-22] MEDS ORDERED: METOPROLOL TARTRATE 50 MG TABLET ONE (07:07)
[2019-07-22] MEDS ORDERED: diltiaZEM CD 120 MG CAPSULE PO ONE ×2 (07:07→07:20)
[2019-07-22] MEDS ORDERED: METOPROLOL SUCCINATE 50 MG TABLET PO ONE (07:19)
[2019-07-22] MEDS ORDERED: diltiaZEM CD 240 MG CAPSULE ONE (07:25)
[2019-07-22] MEDS: INSULIN ASPART 300 UNIT/3 ML PEN SUBQ SCH ×2 (08:16→11:44)
[2019-07-22] MEDS: SODIUM CHLORIDE FLUSH 0.9% 10 ML SYRINGE IVP SCH ×2 (08:16→17:04)
[2019-07-22] MEDS ORDERED: diltiaZEM CD 240 MG CAPSULE PO SCH (09:00)
[2019-07-22] MEDS ORDERED: METOPROLOL SUCCINATE 50 MG TABLET PO SCH (09:00)
[2019-07-22] MEDS ORDERED: THIAMINE 100 MG TABLET PO SCH (09:00)
--- NOTE | 2019-07-22 12:16 | PHARMACY PROGRESS NOTE ---
- Best Possible Medication History Admit Date and Time: 07/21/192026 Processed by: Nursing Medication History completed: Yes Patient Interview: Completed Secondary Source(s): Physician records, Pharmacy records Med history completed mostly by ED nurse. Spoke to patient and he no longer is taking Advair 250/50, Xarelto 20mg, and Atorvastatin 20mg at the instructions of his PCP. As the person ultimately responsible for medication therapy, providers are able to order a medication from an existing home medication list in [facility] via the "Reconcile Routine" prior to Confirmation of that medication by fire support specialist. Such practice is discouraged except when the physician, in their clinical judgment, deems that a medical need exists for a medication without regard to previous use.
--- NOTE | 2019-07-22 13:26 | PROVIDER PROGRESS NOTE ---
Assessment/Plan - Problem List (1) Atrial fibrillation with rapid ventricular response Assessment/Plan: Patient was kept in inpatient after he became tachycardic in the ER to 140 and metoprolol 5 mg IV x2 then diltiazem 10 mg IV x2 did not control his rate. This morning he got early administration of all his usual medications: Toprol, Cardizem, Digoxin. Heart rate is now slowing. Check a Dig level. Continue telemetry. Assess HR with ambulation. (2) Hyperkalemia Assessment/Plan: Improved after mult meds given last night. Follow serum K q12 h. (3) Leg pain, right Assessment/Plan: 1 dose of empiric cefazolin in the ER for the possibility of cellulitis. His white count is normal and the admitting provider did not think his soto tenderness was consistent with cellulitis since there was no redness and this is a chronic area of pain. We will order duplex Doppler to rule out DVT. Will order pain management. (4) CKD (chronic kidney disease) stage 4, GFR 15-29 ml/min Assessment/Plan: His Metformin, Lisinopril and Spironolactone are on hold while here d/t CKD. Follow BMP daily. (5) Chronic systolic CHF (congestive heart failure), NYHA class 3 Assessment/Plan: He was 2L (+) with the hydration started in ER for treating hyperkalemia. (6) Diabetes mellitus Qualifiers: Diabetes mellitus type: type 2 Assessment/Plan: His glu checks have been in 300's and A1c is 8.9 indicating poor diabetic control. Will add a Diabetic diet to his Cardiac diet restrictions. Continue ss Insulin coverage, at higher scale, while here and while off Metformin. (7) COPD (chronic obstructive pulmonary disease) Assessment/Plan: Will continue his inhalers while here. - Current Meds Current Meds: Current Medications Generic Name Dose Route Start Last Admin Trade Name Freq PRN Reason Stop Dose Admin Digoxin 125 mcg 07/22/19 06:00 07/22/19 05:40 Lanoxin PO 125 mcg DAILY JURGEN Administration Diltiazem HCl 240 mg 07/22/19 09:00 07/22/19 07:27 Cardizem Cd PO 240 mg DAILY JURGEN Administration Furosemide 40 mg 07/22/19 06:00 07/22/19 06:10 Lasix PO 40 mg BIDDIURETIC JURGEN Administration Insulin Aspart 1 - 9 unit 07/22/19 08:00 07/22/19 11:44 Novolog SUBQ 9 unit 0800,1200,1700,2100 JURGEN Administration Protocol Levothyroxine Sodium 50 mcg 07/22/19 07:00 07/22/19 06:10 Synthroid PO 50 mcg QDAC JURGEN Administration Metoprolol Succinate 150 mg 07/22/19 09:00 07/22/19 07:26 Toprol Xl PO 150 mg DAILY JURGEN Administration Pantoprazole Sodium 40 mg 07/22/19 09:00 07/22/19 08:11 Protonix PO 40 mg BID JURGEN Administration Sodium Chloride 10 ml 07/21/19 20:27 07/22/19 01:14 Normal Saline Flush 0.9% IVP 10 ml PRN PRN Administration NEEDED PER PROVIDER ORDERS Sodium Chloride 10 ml 07/22/19 01:00 07/22/19 08:16 Normal Saline Flush 0.9% IVP 10 ml 0100,0900,1700 JURGEN Administration Thiamine HCl 100 mg 07/22/19 09:00 07/22/19 08:11 Vitamin B-1 PO 100 mg DAILY JURGEN Administration - Lab Result Fish Bone Diagrams: 07/22/19 02:10 07/22/19 02:10 - Additional Planning My Orders: My Active Orders 07/22/19 08:06 Duplex Ext Veins Right [US] Routine Objective Vital Signs: Vital Signs - 24 hr 07/21/19 07/21/19 07/21/19 17:09 17:53 18:46 Temperature 36.3 C L Heart Rate 91 110 H 109 H Heart Rate [ Brachial] Heart Rate [ Radial] Respiratory 19 23 19 Rate Blood Pressure 127/75 130/93 H Blood Pressure [Left Brachial artery] Blood Pressure [Right Brachial artery] O2 Saturation 98 100 100 07/21/19 07/21/19 07/21/19 19:09 20:00 20:12 Temperature 36.9 C Heart Rate 114 H 140 H 136 H Heart Rate [ Brachial] Heart Rate [ Radial] Respiratory 20 22 17 Rate Blood Pressure 124/76 Blood Pressure [Left Brachial artery] Blood Pressure [Right Brachial artery] O2 Saturation 97 97 07/21/19 07/21/19 07/21/19 20:31 20:46 21:33 Temperature 37.4 C Heart Rate 149 H 134 H Heart Rate [ Brachial] Heart Rate [ 133 H Radial] Respiratory 20 17 19 Rate Blood Pressure 137/71 H Blood Pressure 153/118 H [Left Brachial artery] Blood Pressure [Right Brachial artery] O2 Saturation 96 96 97 07/21/19 07/21/19 07/21/19 21:34 21:43 21:48 Temperature Heart Rate Heart Rate [ Brachial] Heart Rate [ 110 H 120 H Radial] Respiratory Rate Blood Pressure 190/105 H Blood Pressure [Left Brachial artery] Blood Pressure 144/103 H 144/78 H 150/93 H [Right Brachial artery] O2 Saturation 07/21/19 07/21/19 07/21/19 22:03 22:20 22:35 Temperature Heart Rate Heart Rate [ Brachial] Heart Rate [ 115 H 105 H 100 Radial] Respiratory Rate Blood Pressure Blood Pressure [Left Brachial artery] Blood Pressure 130/78 138/85 H 110/88 H [Right Brachial artery] O2 Saturation 100 07/21/19 07/21/19 07/21/19 22:52 22:58 23:04 Temperature Heart Rate Heart Rate [ Brachial] Heart Rate [ 101 H 110 H Radial] Respiratory Rate Blood Pressure 127/83 H Blood Pressure [Left Brachial artery] Blood Pressure 119/77 110/72 [Right Brachial artery] O2 Saturation 07/21/19 07/21/19 07/21/19 23:10 23:25 23:45 Temperature 36.8 C Heart Rate Heart Rate [ Brachial] Heart Rate [ 108 H 105 H 107 H Radial] Respiratory 20 Rate Blood Pressure Blood Pressure [Left Brachial artery] Blood Pressure 121/74 111/69 141/90 H [Right Brachial artery] O2 Saturation 98 07/22/19 07/22/19 07/22/19 00:00 01:13 01:15 Temperature Heart Rate Heart Rate [ 123 H 109 H Brachial] Heart Rate [ Radial] Respiratory Rate Blood Pressure 112/61 Blood Pressure 126/78 [Left Brachial artery] Blood Pressure 96/63 [Right Brachial artery] O2 Saturation 07/22/19 07/22/19 07/22/19 01:20 01:25 01:30 Temperature Heart Rate Heart Rate [ 109 H 113 H 121 H Brachial] Heart Rate [ Radial] Respiratory Rate Blood Pressure Blood Pressure [Left Brachial artery] Blood Pressure 95/55 L 102/60 87/51 L [Right Brachial artery] O2 Saturation 07/22/19 07/22/19 07/22/19 01:35 01:45 02:00 Temperature Heart Rate Heart Rate [ 112 H 105 H 119 H Brachial] Heart Rate [ Radial] Respiratory Rate Blood Pressure Blood Pressure [Left Brachial artery] Blood Pressure 92/54 L 94/55 L 106/63 [Right Brachial artery] O2 Saturation 07/22/19 07/22/19 07/22/19 02:17 05:00 08:04 Temperature 36.6 C 36.6 C Heart Rate Heart Rate [ 122 H 130 H 132 H Brachial] Heart Rate [ Radial] Respiratory 18 20 Rate Blood Pressure Blood Pressure 118/92 H [Left Brachial artery] Blood Pressure 108/63 114/64 [Right Brachial artery] O2 Saturation 93 96 07/22/19 12:37 Temperature 36.4 C L Heart Rate Heart Rate [ 98 Brachial] Heart Rate [ Radial] Respiratory 22 Rate Blood Pressure Blood Pressure 124/66 [Left Brachial artery] Blood Pressure [Right Brachial artery] O2 Saturation 94 Oxygen O2 Source Room air I&O (Last 24 Hrs): Intake and Output Totals x24h 07/20/19 07/21/19 07/22/19 23:59 23:59 23:59 Intake Total 3600 1690 Output Total 625 1835 Balance 2975 -145 - Results Results: Laboratory Results WBC 5.5 x10^3/uL (4.8-10.8) 07/22/19 02:10 RBC 3.79 10^6/uL (4.70-6.10) L 07/22/19 02:10 Hgb 8.8 g/dL (14.0-18.0) L 07/22/19 02:10 Hct 30.3 % (42.0-52.0) L 07/22/19 02:10 MCV 79.9 fL (80.0-94.0) L 07/22/19 02:10 MCH 23.2 pg (27.0-31.0) L 07/22/19 02:10 MCHC 29.0 g/dL (32.0-36.0) L 07/22/19 02:10 RDW 18.8 % (12.0-15.0) H 07/22/19 02:10 Plt Count 90 10^3/uL (130-450) L 07/22/19 02:10 MPV 9.8 fL (7.4-11.4) 07/22/19 02:10 Neut # (Auto) 3.0 10^3/uL (1.5-6.6) 07/22/19 02:10 Lymph # (Auto) 1.2 10^3/uL (1.5-3.5) L 07/22/19 02:10 Hand # (Auto) 0.9 10^3/uL (0.0-1.0) 07/22/19 02:10 Eos # (Auto) 0.3 10^3/uL (0.0-0.7) 07/22/19 02:10 Baso # (Auto) 0.1 10^3/uL (0.0-0.1) 07/22/19 02:10 Absolute Nucleated RBC 0.00 x10^3/uL 07/22/19 02:10 Nucleated RBC % 0.0 /100WBC 07/22/19 02:10 PT 13.9 secs (9.9-12.6) H 07/21/19 21:57 INR 1.2 (0.8-1.2) 07/21/19 21:57 VBG pH 7.377 (7.31-7.41) 07/21/19 17:30 VBG pCO2 35.7 mmHg (41-51) L 07/21/19 17:30 VBG pO2 32.9 mmHg (25-47) 07/21/19 17:30 VBG HCO3 20.5 mmol/L (23-28) L 07/21/19 17:30 VBG Total CO2 21.6 mmol/L (24-29) L 07/21/19 17:30 VBG O2 Saturation 63.2 % (60-80) 07/21/19 17:30 VBG Base Excess -4.1 mmol/L (-2 - +2) L 07/21/19 17:30 Sodium 132 mmol/L (135-145) L 07/22/19 02:10 Potassium 4.6 mmol/L (3.5-5.0) 07/22/19 02:10 Chloride 92 mmol/L (101-111) L 07/22/19 02:10 Carbon Dioxide 28 mmol/L (21-32) 07/22/19 02:10 Anion Gap 12.0 (6-13) 07/22/19 02:10 BUN 55 mg/dL (6-20) H 07/22/19 02:10 Creatinine 2.3 mg/dL (0.6-1.2) H 07/22/19 02:10 Estimated GFR (MDRD) 29 (>89) L 07/22/19 02:10 Glucose 209 mg/dL (70-100) H 07/22/19 02:10 POC Whole Bld Glucose 329 mg/dL (70 - 100) H 07/22/19 11:33 Glycated Hemoglobin 8.9 % (4.6-6.2) H 07/22/19 02:10 Estim Average Glucose 209 (70-100) H 07/22/19 02:10 Lactic Acid 2.6 mmol/L (0.5-2.2) H 07/21/19 20:10 Calcium 8.4 mg/dL (8.5-10.3) L 07/22/19 02:10 Magnesium 1.8 mg/dL (1.7-2.8) 07/21/19 17:30 Total Bilirubin 0.8 mg/dL (0.2-1.0) 07/21/19 21:57 AST 23 IU/L (10-42) 07/21/19 21:57 ALT 15 IU/L (10-60) 07/21/19 21:57 Alkaline Phosphatase 54 IU/L (42-121) 07/21/19 21:57 Total Protein 8.0 g/dL (6.7-8.2) 07/21/19 21:57 Albumin 3.7 g/dL (3.2-5.5) 07/21/19 21:57 Globulin 4.3 g/dL (2.1-4.2) H 07/21/19 21:57 Albumin/Globulin Ratio 0.9 (1.0-2.2) L 07/21/19 21:57 Lipase 70 U/L (22-51) H 07/21/19 17:30 TSH 2.06 uIU/mL (0.34-5.60) 07/22/19 02:10 Digoxin < 0.2 ng/mL 07/21/19 17:30
[2019-07-22] MEDS: oxyCODONE 5 MG TABLET PO PRN ×2 (13:57→18:04)
[2019-07-22] MEDS ORDERED: guaiFENesin 600 MG TABLET PO SCH (14:00)
--- NOTE | 2019-07-22 15:07 | Discharge Plan ---
Discharge Plan Problem Reviewed?: Yes Disposition: Home, Self Care Condition: Stable Diet: Diabetic (Low salt, Cardiac diet and Renal diet restrictions (Low protein, low Potassium)) Activity Restrictions: Activity as Tolerated Shower Restrictions: No Health Concerns: You were admitted because of rapid atrial fib that was managed with extra medications and restarting your medicines. Prior to that you were here to treat a very high serum potassium level. Please follow instructions for potassium restrictions and have follow-up with your kidney specialist. Resume all your usual medications, please check with your PCP if you should have different management for your diabetes since the Metformin could be affecting her kidneys and the kidneys are affecting your serum potassium. Discuss ordering the Sequential Compression Devices with your PCP. Plan of Treatment: Resume all your usual medications that you were taking before this hospitalization. We may not have a correct list at the current time because this list says that you take both Lasix and torsemide which is probably incorrect. Care Goals: Improvement in symptoms and stabilization are the goals. Assessment: Patient's understands and agrees with the plan. No Smoking: If you smoke, Please STOP! Call for help. Follow-up with: HODA Dwyer [Provider Group]
--- NOTE | 2019-07-22 16:34 | DISCHARGE SUMMARY ---
Discharge Summary Admit Date: 07/21/19 Discharge Date: 07/22/19 Discharging Provider: Dr Albania Archuleta Primary Care Provider: [facility] Code Status: Attempt Resuscitation Condition at Discharge: Stable Discharge Disposition: 01 Home, Self Care - DIAGNOSES Admission Diagnoses: (1) Atrial fibrillation with rapid ventricular response (2) Hyperkalemia (3) CHF (congestive heart failure) (4) Hypothyroidism (5) Diabetes mellitus (6) GERD (gastroesophageal reflux disease) Discharge Diagnoses with Status of Each Condition: See below - HPI History of Present Illness: From the admission H&P of Dr. Virginia Grijalva: Patient is a 59 y/o morbidly obese male with history of CHF, atrial fibrillation, HTN, DM II. FAUSTINA noncompliant with CPAP who present to the ED after he was instructed by his primary physician's office to do so. He had routine lab done today in preparation for his doctor's appointment next week. He was found to have a potassium level of 6.6 and a creatinine of 2.9. Thus he was asked to present to the ED. In the ED he was fount to be mildly tachycardic at 105 but then subsequent increased to 130's-140's. He denied chest pain, dyspnea, abd pain or fever. He has has been nauseous but no vomiting and reports chills. He was treated for hyperkalemia in the ED and intially present for admission. I req uested a nephrology consult who advised that the patient could be admitted to [facility] and medically managed if his potassium was less that 6.3. Recheck potassium was 5.3. As a result he was presented for admission for further treatment. He complained of right soto pain. It was thought that his leg a ppeared hyperemic in the ED raising a concern for cellulitis. He is afebrile and has a normal WBC. As the ER stay progressed, despite iv hydration, he became tachycardic in Afib with rates of 130-140 that did not improve even after iv Lopressor 5mg x2 and iv Diltiazem 10 mg x2. As such, he is being admitted for treating Afib with RVR. - HOSPITAL COURSE Hospital Course: (1) Atrial fibrillation with rapid ventricular response Patient was kept in inpatient after he became tachycardic in the ER to 140 and the metoprolol 5 mg IV x2 then diltiazem 10 mg IV x2 did not control his rate. The next morning he got early administration of all his usual medications: Toprol, Cardizem, Digoxin. The heart rate slowed to 80's at rest and would rise to 130 only briefly with walking; he was stable and was deemed ready for discharge later that day. (2) Hyperkalemia The high K improved after multiple meds given last night in the ER and remained stable the following day. He was advised to see his Weekend Caregiver, possibly have meds adjusted that retain potassium. (3) Leg pain, right One dose of empiric Cefazolin was give in the ER for the possibility of cellulitis. His white count and temperature were normal and the admitting provider did not think his soto tenderness was consistent with cellulitis, since there was no redness plus this is a chronic area of pain. (4) CKD (chronic kidney disease) stage 4, GFR 15-29 ml/min His Metformin, Lisinopril and Spironolactone were on hold while here due to CKD. Follow-up with PCP and Nephrology was advised. (5) Chronic systolic CHF (congestive heart failure), NYHA class 3 He was 2L (+) with the hydration started in ER for treating hyperkalemia. He then received Lasix and his other meds. He haad no dyspnea with exertion and no leg edema. He repported that his legs felt better with the use of the TEDS stockings and Sequential Compression Devices used here and was advised to speak to his PCP about ordering these if possible. (6) Diabetes mellitus His glu checks were 150-300's and A1c is 8.9 indicating poor diabetic control. He was on a sl.iding sacle Insulin for coverage while here. He should follow a Diabetic diet plus his Cardiac diet restrictions. Metformin use was not increased due to CKD and needs this needs outpatient management. (7) COPD (chronic obstructive pulmonary disease) We continued his inhalers while here. (8) FAUSTINA, non-compliant with CPAP CPAP device use should be encouraged along with weight loss. (9) Hypothyroidism His TSH was 2.06. His meds were continued. (10) GERD His meds were continued. (11) Anemia At admission Hgb was 10, which was 8.8 at discharge presumably due to hemodilution plus anemia of chronic disease. - ALLERGIES Allergies/Adverse Reactions: Allergies Allergy/AdvReac Type Severity Reaction Status Date / Time No Known Drug Allergies Allergy Verified 07/21/19 17:13 - MEDICATIONS Home Medications: Ambulatory Orders Medication Instructions Recorded Confirmed RX: Digoxin 125 mcg PO DAILY 04/28/17 07/21/19 RX: Metoprolol Succinate 150 mg PO DAILY 04/28/17 07/21/19 RX: lisinopriL [Lisinopril] 40 mg PO DAILY 04/28/17 07/21/19 RX: Ipratropium/Albuterol [Duoneb] 3 ml INH Q6H #120 neb 04/30/17 07/21/19 RX: Furosemide [Lasix] 40 mg PO BIDDIURETIC #60 tablet 05/01/17 07/21/19 RX: Diltiazem HCl [Diltiazem 24Hr 240 mg PO DAILY 07/21/19 07/21/19 ER] RX: Levothyroxine Sodium 50 mcg PO DAILY 07/21/19 07/21/19 [Synthroid] RX: Pantoprazole Sodium 40 mg PO BID 07/21/19 07/21/19 RX: Spironolactone 50 mg PO DAILY 07/21/19 07/21/19 RX: Torsemide 40 mg PO BID 07/21/19 07/21/19 RX: metFORMIN [Glucophage] 500 mg PO BIDWM 07/21/19 07/21/19 - PHYSICAL EXAM AT DISCHARGE General Appearance: positive: No acute distress, Alert Eyes Bilateral: positive: Normal inspection, EOMI ENT: positive: ENT inspection nml, No signs of dehydration Neck: positive: Nml inspection, No JVD Respiratory: positive: No respiratory distress Cardiovascular: positive: No murmur Abdomen: positive: Other (Obese with pannus) Skin: positive: Color nml Extremities: positive: No pedal edema, Other (Scar of R knee, no soto redness) Neurologic/Psychiatric: positive: Oriented x3, Other (Non-focal) - LABS Result Diagrams: 07/22/19 02:10 07/22/19 02:10 - DIAGNOSTIC IMAGING Diagnostic Imaging Results: Final report reviewed - TIME SPENT Time Spent in Discharge (Minutes): 35
[2019-07-22] MEDS ORDERED: INSULIN ASPART 300 UNIT/3 ML PEN SUBQ SCH (17:00)
[2019-07-22 18:01] VITALS: BP 105/69
[2019-07-22] MEDS ORDERED: BUDESONIDE 0.5 MG/2 ML NEB INH SCH (19:00)
[2019-07-22] MEDS ORDERED: FORMOTEROL FUMARATE NEB 20 MCG/2 ML INH SCH (19:00)
== END 2019-07-22 18:52 | disposition home or self-care (01) | DRG 641 ==
LOC: ED 17:03 → MS2 20:27
PROVIDERS: ADMIT Internal Medicine; ATTEND Internal Medicine
DX: E87.5 Hyperkalemia (principal); L03.115 Cellulitis of right lower limb; N17.9 Acute kidney failure, unspecified; I13.0 Hypertensive heart and chronic kidney disease with heart failure and stage 1 through stage 4 chronic kidney disease, or unspecified chronic kidney disease; I10 Essential (primary) hypertension; F17.200 Nicotine dependence, unspecified, uncomplicated; Z87.01 Personal history of pneumonia (recurrent); Z79.01 Long term (current) use of anticoagulants; I50.22 Chronic systolic (congestive) heart failure; Z68.43 Body mass index [BMI] 50.0-59.9, adult; I48.20 Chronic atrial fibrillation, unspecified; N18.4 Chronic kidney disease, stage 4 (severe); M79.661 Pain in right lower leg; D63.1 Anemia in chronic kidney disease; E11.22 Type 2 diabetes mellitus with diabetic chronic kidney disease; J44.9 Chronic obstructive pulmonary disease, unspecified; G47.33 Obstructive sleep apnea (adult) (pediatric); E03.9 Hypothyroidism, unspecified; K21.9 Gastro-esophageal reflux disease without esophagitis; D63.8 Anemia in other chronic diseases classified elsewhere; E66.01 Morbid (severe) obesity due to excess calories; F17.221 Nicotine dependence, chewing tobacco, in remission; Z91.19 Patient's noncompliance with other medical treatment and regimen; Z79.51 Long term (current) use of inhaled steroids; Z79.84 Long term (current) use of oral hypoglycemic drugs; Z79.899 Other long term (current) drug therapy
CPT/HCPCS: 36415; 76770; 80048; 80053; 80162; 82803; 83036; 83605; 83690; 83735; 84132; 84443; 85025; 85610; 87040; 93005; 94640; 96361; 96374; 99283; 99285; A9270; J1815; J3490

== ENCOUNTER 2019-08-14 16:23 | Emergency (ER) | payer MEDICARE, OTHER ==
[2019-08-14 17:56] LABS: BASOPHILS # (AUTO) 0.1 10^3/uL (0.0-0.1); EOSINOPHILS # (AUTO) 0.9 10^3/uL (0.0-0.7); EOSINOPHILS % (AUTO) 14.9 %; HGB - HEMOGLOBIN 10.6 g/dL (14.0-18.0); LYMPHOCYTES # (AUTO) 1.1 10^3/uL (1.5-3.5); LYMPHOCYTES % (AUTO) 17.5 %; MEAN CORPUSCULAR HEMOGLOBIN 23.8 pg (27.0-31.0); MEAN CORPUSCULAR HGB CONC 30.1 g/dL (32.0-36.0); MEAN CORPUSCULAR VOLUME 79.1 fL (80.0-94.0); MEAN PLATELET VOLUME 9.8 fL (7.4-11.4); MONOCYTES # (AUTO) 0.8 10^3/uL (0.0-1.0); MONOCYTES % (AUTO) 13.9 %; NEUTROPHILS # (AUTO) 3.2 10^3/uL (1.5-6.6); NEUTROPHILS % (AUTO) 52.2 %; PLT - PLATELET COUNT 120 10^3/uL (130-450); RED BLOOD COUNT 4.45 10^6/uL (4.70-6.10); RED CELL DISTRIBUTION WIDTH 18.6 % (12.0-15.0); WHITE BLOOD COUNT 6.1 x10^3/uL (4.8-10.8)
[2019-08-14 18:04] LABS: INR 1.2 (0.8-1.2); PT - PROTHROMBIN TIME 13.4 secs (9.9-12.6)
--- NOTE | 2019-08-14 18:06 | ED Physician Documentation ---
History of Present Illness - Stated complaint Stated Complaint: LIGHTHEADED - Chief complaint Chief Complaint: Cardiac - History obtained from History obtained from: Patient (This is a 59-year-old gentleman with history of anemia, ulcers, atrial fibrillation, not currently anticoagulated. He also has heart failure, renal insufficiency. He is fairly new to the area, moved from [place] a couple of months ago. He also has diabetic. He was admitted here last month with hyperkalemia due to chronic kidney disease which was medically managed with IV fluids and medications. Over the last 4 days he notes that when he is walking or standing he has an occasional disequilibrium. He has not fallen from it. He denies weakness, numbness, tingling of the arms legs or face. No headache. No shortness of breath or chest pain.) Review of Systems Constitutional: reports: Fatigue. denies: Fever, Chills Throat: denies: Dental pain / toothache, Sore throat Cardiac: denies: Chest pain / pressure, Palpitations Respiratory: denies: Dyspnea, Cough GI: denies: Abdominal Pain, Nausea, Vomiting, Diarrhea PD PAST MEDICAL HISTORY - Past Medical History Cardiovascular: Congestive heart failure (systolic), Hypertension, Atrial fibrillation, Other Respiratory: Sleep apnea Neuro: None Endocrine/Autoimmune: None GI: None : None HEENT: None Psych: None Musculoskeletal: None Derm: None - Past Surgical History Past Surgical History: No Ortho: Arthroscopic surgery - Present Medications Home Medications: Ambulatory Orders Medication Instructions Recorded Confirmed Digoxin 125 mcg PO DAILY 04/28/17 07/21/19 Metoprolol Succinate 150 mg PO DAILY 04/28/17 07/21/19 lisinopriL [Lisinopril] 40 mg PO DAILY 04/28/17 07/21/19 Ipratropium/Albuterol [Duoneb] 3 ml INH Q6H #120 neb 04/30/17 07/21/19 Furosemide [Lasix] 40 mg PO BIDDIURETIC #60 tablet 05/01/17 07/21/19 Diltiazem HCl [Diltiazem 24Hr ER] 240 mg PO DAILY 07/21/19 07/21/19 Levothyroxine Sodium [Synthroid] 50 mcg PO DAILY 07/21/19 07/21/19 Pantoprazole Sodium 40 mg PO BID 07/21/19 07/21/19 Spironolactone 50 mg PO DAILY 07/21/19 07/21/19 Torsemide 40 mg PO BID 07/21/19 07/21/19 metFORMIN [Glucophage] 500 mg PO BIDWM 07/21/19 07/21/19 - Allergies Allergies/Adverse Reactions: Allergies Allergy/AdvReac Type Severity Reaction Status Date / Time No Known Drug Allergies Allergy Verified 08/14/19 16:29 - Social History Does the pt smoke?: Yes Smoking Status: Current every day smoker Does the pt drink ETOH?: Yes Does the pt have substance abuse?: No - Immunizations Immunizations are current?: Yes - POLST Patient has POLST: No POLST Status: Full Code PD ED PE NORMAL - Vitals Vital signs reviewed: Yes - General General: Alert and oriented X 3, No acute distress - HEENT HEENT: PERRL, EOMI, Ears normal, Moist mucous membranes, Pharynx benign - Neck Neck: Supple, no meningeal sign, No bony TTP - Cardiac Cardiac: Other (Irregularly irregular without murmur) - Respiratory Respiratory: No respiratory distress, Clear bilaterally - Abdomen Abdomen: Soft, Non tender - Back Back: No CVA TTP, No spinal TTP - Derm Derm: Normal color, Warm and dry - Extremities Extremities: Other (Mild pitting pedal edema of both legs, symmetric, nontender) - Neuro Neuro: Alert and oriented X 3, No motor deficit, No sensory deficit, Normal speech, Other (Normal gait) Results - Vitals Vitals: Vital Signs - 24 hr 08/14/19 08/14/19 16:27 18:38 Temperature 36.4 C L Heart Rate 64 81 Respiratory 16 16 Rate Blood Pressure 111/71 121/88 H O2 Saturation 96 99 Oxygen O2 Source Room air - EKG (time done) 1636 Rate: Rate (enter#) (66) Rhythm: Atrial fibrillation [place]: Normal QRS: Normal Ischemia: Non specific changes. No: ST elevation c/w ischemia, ST depression Computer interpretation: Agree with computer - Labs Labs: Laboratory Tests 08/14/19 08/14/19 08/14/19 17:50 17:50 17:50 WBC 6.1 RBC 4.45 L Hgb 10.6 L Hct 35.2 L MCV 79.1 L MCH 23.8 L MCHC 30.1 L RDW 18.6 H Plt Count 120 L MPV 9.8 Neut # (Auto) 3.2 Lymph # (Auto) 1.1 L [place] # (Auto) 0.8 Eos # (Auto) 0.9 H Baso # (Auto) 0.1 Absolute Nucleated RBC 0.00 Nucleated RBC % 0.0 PT 13.4 H INR 1.2 Sodium 132 L Potassium 4.0 Chloride 89 L Carbon Dioxide 29 Anion Gap 14.0 H BUN 65 H Creatinine 3.0 H Estimated GFR (MDRD) 21 L Glucose 166 H Calcium 9.5 Total Bilirubin 1.3 H AST 28 ALT 16 Alkaline Phosphatase 55 Troponin I High Sens Total Protein 8.1 Albumin 4.3 Globulin 3.8 Albumin/Globulin Ratio 1.1 Lipase 60 H Urine Color Urine Clarity Urine pH Ur Specific [place] Urine Protein Urine Glucose (UA) Urine Ketones Urine Occult Blood Urine Nitrite Urine Bilirubin Urine Urobilinogen Ur Leukocyte Esterase Ur Microscopic Review Urine Culture Comments Last Dose Date UNKNOWN Last Dose Time UNKNOWN Digoxin 0.5 08/14/19 08/14/19 17:50 17:50 WBC RBC Hgb Hct MCV MCH MCHC RDW Plt Count MPV Neut # (Auto) Lymph # (Auto) [place] # (Auto) Eos # (Auto) Baso # (Auto) Absolute Nucleated RBC Nucleated RBC % PT INR Sodium Potassium Chloride Carbon Dioxide Anion Gap BUN Creatinine Estimated GFR (MDRD) Glucose Calcium Total Bilirubin AST ALT Alkaline Phosphatase Troponin I High Sens 20.2 H* Total Protein Albumin Globulin Albumin/Globulin Ratio Lipase Urine Color YELLOW Urine Clarity CLEAR Urine pH 6.0 Ur Specific [place] 1.010 Urine Protein NEGATIVE Urine Glucose (UA) NEGATIVE Urine Ketones NEGATIVE Urine Occult Blood NEGATIVE Urine Nitrite NEGATIVE Urine Bilirubin NEGATIVE Urine Urobilinogen 0.2 (NORMAL) Ur Leukocyte Esterase NEGATIVE Ur Microscopic Review NOT INDICATED Urine Culture Comments NOT INDICATED Last Dose Date Last Dose Time Digoxin - Rads (name of study) CT Head Radiology: EMP read contemporaneously (NAD, poss old PICA infarct) PD MEDICAL DECISION MAKING - ED course ED course: This is a hemodynamically stable 59-year-old gentleman with either a disequilibrium or lightheadedness over the last few days. His neurologic exam is normal and his head CT shows no acute changes. Looking at his labs, he may be a little over diuresed. We will trial dropping his torsemide as discussed in the discharge instructions pending his follow-up with his primary care physician this week. Departure - Departure Disposition: Home, Self Care Clinical Impression: Dizzy Renal failure Qualifiers: Renal failure chronicity: acute on chronic Acute renal failure type: unspecified Chronic kidney disease stage: unspecified stage Qualified Code(s): N17.9 - Acute kidney failure, unspecified; N18.9 - Chronic kidney disease, unspecified Diabetes mellitus Qualifiers: Diabetes mellitus type: type 2 Diabetes mellitus care home insulin use: without care home use Diabetes mellitus complication status: with hyperglycemia Qualified Code(s): E11.65 - Type 2 diabetes mellitus with hyperglycemia Condition: Good Record reviewed to determine appropriate education?: Yes Comments: It appears today from your labs noting a raising creatinine and BUN that she may be a little over diuresed. I.e. you might be taking a little too much in the way of water pills. Pending follow-up with your primary care physician next week, I recommend decreasing your torsemide from 40 mg twice a day to 20 mg twice a day. Continue checking your weight every day and if your weight goes up by more than a few pounds, then take your torsemide at a dose of 40 mg / 2 tablets in the morning and 20 mg / 1 tablet at night. Your physician may want to repeat labs when you see her next week, for your reference: Your CBC was notable for hemoglobin of 10.6, hematocrit 35.2, MCV 79.1, platelet count of 120, white count of 6.1. Your chemistries were notable for a potassium of 4, sodium 132, chloride 89, BUN of 65, creatinine 3.0. Your urine was normal today. Return for any new or worsening symptoms.
[2019-08-14 18:12] LABS: ALBUMIN 4.3 g/dL (3.2-5.5); ALBUMIN/GLOBULIN RATIO 1.1 (1.0-2.2); ALKALINE PHOSPHATASE 55 IU/L (42-121); ALT ALANINE AMINOTRANSFERASE 16 IU/L (10-60); AST ASPARTATE AMINOTRANSFERASE 28 IU/L (10-42); BILIRUBIN,TOTAL 1.3 mg/dL (0.2-1.0); BUN - BLOOD UREA NITROGEN 65 mg/dL (6-20); CALCIUM 9.5 mg/dL (8.5-10.3); CARBON DIOXIDE - CO2 29 mmol/L (21-32); CHLORIDE 89 mmol/L (101-111); DIGOXIN 0.5 ng/mL; GFR - MDRD 21 (>89); GLUCOSE 166 mg/dL (70-100); LIPASE 60 U/L (22-51); SODIUM 132 mmol/L (135-145); TOTAL PROTEIN 8.1 g/dL (6.7-8.2)
--- NOTE | 2019-08-14 18:38 | CT Report ---
Reason: dysequilibrium Procedure Date: 08/14/2019 Accession Number: [id number] / [id number] Procedure: CT - HEAD WO CPT Code: Final Report FULL RESULT: EXAM: CT HEAD EXAM DATE: 08/14/2019 06:21 PM. CLINICAL HISTORY: Dysequilibrium. COMPARISON: HEAD W/O 04/24/2013 9:57 PM. TECHNIQUE: Multiaxial CT images were obtained from the foramen magnum to the vertex. Reformats: Sagittal and coronal. IV contrast: None. In accordance with CT protocol optimization, one or more of the following dose reduction techniques were utilized for this exam: automated exposure control, adjustment of mA and/or KV based on patient size, or use of iterative reconstructive technique. FINDINGS: Parenchyma: No intraparenchymal hemorrhage. No evidence of mass, midline shift, or CT findings of infarction. Simon-white differentiation is distinct. Small area of hypodensity inferior medial right cerebellum unchanged compared to 04/24/2013, presumably chronic infarct. Extraaxial Spaces: Normal for age. No subdural or epidural collections identified. Ventricles: Normal in size and position. Sinuses and Orbits: Imaged paranasal sinuses, orbits, and mastoids show no significant abnormality. Bones: No evidence of fracture or calvarial defect. Other: Atherosclerotic calcifications bilateral cavernous carotid and intradural vertebral arteries. IMPRESSION: 1. No intracranial hemorrhage, midline shift, or hydrocephalus. 2. 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 RADIA
[2019-08-14 18:41] VITALS: BP 121/88
[2019-08-14 18:46] LABS: BILIRUBIN,URINE NEGATIVE (NEGATIVE); GLUCOSE, URINE (UA) NEGATIVE (NEGATIVE); KETONES,URINE (UA) NEGATIVE (NEGATIVE); LEUKOCYTE ESTERASE, URINE NEGATIVE (NEGATIVE); NITRITE,URINE NEGATIVE (NEGATIVE); OCCULT BLOOD,URINE NEGATIVE (NEGATIVE); PROTEIN,URINE NEGATIVE (NEGATIVE); UROBILINOGEN,URINE 0.2 (NORMAL) E.U./dL (NORMAL)
[2019-08-14 18:54] LABS: CLARITY,URINE CLEAR (CLEAR)
== END 2019-08-14 19:17 | disposition home or self-care (01) ==
LOC: ED 16:23
DX: E11.22 Type 2 diabetes mellitus with diabetic chronic kidney disease (principal); I12.9 Hypertensive chronic kidney disease with stage 1 through stage 4 chronic kidney disease, or unspecified chronic kidney disease; N18.9 Chronic kidney disease, unspecified; N17.9 Acute kidney failure, unspecified; F17.210 Nicotine dependence, cigarettes, uncomplicated; Z79.84 Long term (current) use of oral hypoglycemic drugs; Z86.79 Personal history of other diseases of the circulatory system
CPT/HCPCS: 36415; 70450; 80053; 80162; 81001; 81003; 83690; 84484; 85025; 85610; 87086; 93005; 99283; 99284

== ENCOUNTER 2019-11-19 13:42 | Inpatient (IN) | payer MEDICARE, OTHER ==
[2019-11-19] MEDS ORDERED: FUROSEMIDE 40 MG/4 ML VIAL IVP STA (13:58)
--- NOTE | 2019-11-19 13:59 | ED Physician Documentation ---
PD HPI DYSPNEA - Stated complaint Stated Complaint: SOA - Chief complaint Chief Complaint: Cardiac - History obtained from History obtained from: Patient (59-year-old gentleman with history of morbid obesity, CHF, atrial fibrillation, hypertension, type 2 diabetes, and obstructive sleep apnea presents to the emergency department today as advised by his primary care physician because of increased shortness of breath. He is not anticoagulated because of a history of bleeding ulcers. He had not been taking his medications for about 10 days and gained quite a bit of weight. Also admits to drinking pickle juice. He has been back on his meds for about a week now and has lost a little bit of weight in that time but not much. He does have a productive "smoker's cough" that is not much different than his usual.) Review of Systems Ten Systems: 10 systems reviewed and negative Constitutional: reports: Fatigue. denies: Fever, Chills Cardiac: reports: Pedal edema. denies: Chest pain / pressure, Palpitations, Calf pain Respiratory: reports: Dyspnea, Cough GI: denies: Abdominal Pain PD PAST MEDICAL HISTORY - Past Medical History Cardiovascular: Congestive heart failure (systolic), Hypertension, Atrial fibrillation, Other Respiratory: Sleep apnea Neuro: None Endocrine/Autoimmune: None GI: None : None HEENT: None Psych: None Musculoskeletal: None Derm: None - Past Surgical History Past Surgical History: No Ortho: Arthroscopic surgery - Present Medications Home Medications: Ambulatory Orders Medication Instructions Recorded Confirmed Digoxin 125 mcg PO DAILY 04/28/17 07/21/19 Metoprolol Succinate 150 mg PO DAILY 04/28/17 07/21/19 lisinopriL [Lisinopril] 40 mg PO DAILY 04/28/17 07/21/19 Ipratropium/Albuterol [Duoneb] 3 ml INH Q6H #120 neb 04/30/17 07/21/19 Furosemide [Lasix] 40 mg PO BIDDIURETIC #60 tablet 05/01/17 07/21/19 Diltiazem HCl [Diltiazem 24Hr ER] 240 mg PO DAILY 07/21/19 07/21/19 Levothyroxine Sodium [Synthroid] 50 mcg PO DAILY 07/21/19 07/21/19 Pantoprazole Sodium 40 mg PO BID 07/21/19 07/21/19 Spironolactone 50 mg PO DAILY 07/21/19 07/21/19 Torsemide 40 mg PO BID 07/21/19 07/21/19 metFORMIN [Glucophage] 500 mg PO BIDWM 07/21/19 07/21/19 - Allergies Allergies/Adverse Reactions: Allergies Allergy/AdvReac Type Severity Reaction Status Date / Time No Known Drug Allergies Allergy Verified 11/19/19 13:49 - Social History Does the pt smoke?: Yes Smoking Status: Current every day smoker Does the pt drink ETOH?: Yes Does the pt have substance abuse?: No - Family History Family history: reports: Non contributory - Immunizations Immunizations are current?: Yes - POLST Patient has POLST: No POLST Status: Full Code PD ED PE NORMAL - Vitals Vital signs reviewed: Yes (Modest hypoxemia on room air) - General General: Alert and oriented X 3, No acute distress - HEENT HEENT: PERRL, EOMI - Neck Neck: Supple, no meningeal sign, No bony TTP - Cardiac Cardiac: Other (Irregularly irregular) - Respiratory Respiratory: Other (Wheezy throughout and minimally labored) - Abdomen Abdomen: Other (He has tense anasarca of the legs up to the bellybutton) - Back Back: No CVA TTP, No spinal TTP - Derm Derm: Normal color, Warm and dry - Extremities Extremities: No calf tenderness / cord, Other (4+ pedal edema) - Neuro Neuro: Alert and oriented X 3, Normal speech Results - Vitals Vitals: Vital Signs - 24 hr 11/19/19 11/19/19 11/19/19 13:49 14:04 14:30 Temperature 37.2 C Heart Rate 95 86 86 Respiratory 22 22 22 Rate Blood Pressure 118/64 113/57 L O2 Saturation 87 L 90 L 95 Oxygen O2 Source Nasal cannula - EKG (time done) 1426 Rate: Rate (enter#) (86) Rhythm: Atrial fibrillation [place]: Normal Ischemia: Non specific changes - Labs Labs: Laboratory Tests 11/19/19 11/19/19 14:12 14:12 WBC 9.9 RBC 4.13 L Hgb 8.5 L Hct 32.5 L MCV 78.7 L MCH 20.6 L MCHC 26.2 L RDW 20.5 H Plt Count 148 MPV 11.0 Manual Slide Review Indicated Sodium 137 Potassium 3.7 Chloride 92 L Carbon Dioxide 33 H Anion Gap 12.0 BUN 30 H Creatinine 1.5 H Estimated GFR (MDRD) 48 L Glucose 201 H Calcium 8.2 L Total Bilirubin 0.9 AST 18 ALT 16 Alkaline Phosphatase 96 Total Protein 7.6 Albumin 3.5 Globulin 4.1 Albumin/Globulin Ratio 0.9 L Lipase 50 - Rads (name of study) 1v chest Radiology: EMP read contemporaneously (NAD) PD MEDICAL DECISION MAKING - ED course ED course: 59-year-old gentleman presents with anasarca and hypoxemia due to I think a combination of right-sided heart failure given the clear chest x-ray and wheezy lung sounds suggesting acute exacerbation of COPD. His anasarca is up to the bellybutton. This is due to medication noncompliance and an excessive salt load. Given the fluid overload volume and the hypoxemia he will need to be admitted for further evaluation and treatment I spoke with Dr. Solorzano for this at 2:43 PM. Departure - Departure Disposition: 66 [facility] DC/Xfer Clinical Impression: COPD exacerbation, Hypoxemia Congestive heart failure Qualifiers: Heart failure type: right-sided Heart failure chronicity: acute on chronic Qualified Code(s): I50.813 - Acute on chronic right heart failure Condition: Serious
[2019-11-19 14:17] LABS: BASOPHILS # (AUTO) 0.1 10^3/uL (0.0-0.1); BASOPHILS % (AUTO) 0.8 %; EOSINOPHILS # (AUTO) 0.2 10^3/uL (0.0-0.7); EOSINOPHILS % (AUTO) 2.3 %; HGB - HEMOGLOBIN 8.5 g/dL (14.0-18.0); LYMPHOCYTES # (AUTO) 1.1 10^3/uL (1.5-3.5); LYMPHOCYTES % (AUTO) 10.9 %; MEAN CORPUSCULAR HEMOGLOBIN 20.6 pg (27.0-31.0); MEAN CORPUSCULAR HGB CONC 26.2 g/dL (32.0-36.0); MEAN CORPUSCULAR VOLUME 78.7 fL (80.0-94.0); MONOCYTES % (AUTO) 10.1 %; NEUTROPHILS # (AUTO) 7.4 10^3/uL (1.5-6.6); NEUTROPHILS % (AUTO) 75.3 %; PLT - PLATELET COUNT 148 10^3/uL (130-450); RED BLOOD COUNT 4.13 10^6/uL (4.70-6.10); RED CELL DISTRIBUTION WIDTH 20.5 % (12.0-15.0); WHITE BLOOD COUNT 9.9 x10^3/uL (4.8-10.8)
--- NOTE | 2019-11-19 14:22 | XRAY Report ---
PROCEDURE: Chest 1 View X-Ray INDICATIONS: dyspnea TECHNIQUE: One view of the chest was acquired. COMPARISON: 04/30/2017 FINDINGS: Surgical changes and devices: None. Lungs and pleura: No pleural effusions or pneumothorax. Lungs are clear. Mediastinum: Mediastinal contours appear normal. Heart size is enlarged. Bones and chest wall: No suspicious bony lesions. Overlying soft tissues appear unremarkable. IMPRESSION: No acute cardiopulmonary pathology. Reviewed by: Donell Jacobo MD on 11/19/2019 2:20 PM PDT Approved by: Donell Jacobo MD on 11/19/2019 2:20 PM PDT Station ID: [id number]
[2019-11-19 14:33] LABS: ALBUMIN 3.5 g/dL (3.2-5.5); ALBUMIN/GLOBULIN RATIO 0.9 (1.0-2.2); BILIRUBIN,TOTAL 0.9 mg/dL (0.2-1.0); CALCIUM 8.2 mg/dL (8.5-10.3); CREATININE 1.5 mg/dL (0.6-1.2); TOTAL PROTEIN 7.6 g/dL (6.7-8.2)
[2019-11-19] MEDS ORDERED: methylPREDNISolone SUCCINATE 125 MG/2 ML VIAL IVP STA (14:39)
[2019-11-19] MEDS ORDERED: IPRATROPIUM/ALBUTEROL 3 ML NEB INH STA (14:39)
[2019-11-19 14:49] LABS: PLATELET ESTIMATE, MANUAL NORMAL (130-450,000) (NORMAL); PLATELET MORPHOLOGY NORMAL APPEARANCE (NORMAL)
[2019-11-19] MEDS ORDERED: SODIUM CHLORIDE FLUSH 0.9% 10 ML SYRINGE IVP PRN (14:57)
[2019-11-19] MEDS ORDERED: ACETAMINOPHEN 325 MG TABLET PO PRN (14:57)
[2019-11-19] MEDS ORDERED: ONDANSETRON 4 MG/2 ML VIAL IVP PRN (14:57)
[2019-11-19] MEDS ORDERED: METOPROLOL 5 MG/5 ML VIAL IVP PRN (15:10)
--- NOTE | 2019-11-19 15:15 | HISTORY & PHYSICAL EXAMINATION ---
Chief Complaint - Chief Complaint Chief Complaint: SOB History of Present Illness - History of Present Illness HPI Comment/Other: This is a 59-year-old gentleman with history of morbid obesity, CHF, atrial fibrillation, hypertension, type 2 diabetes, and obstructive sleep apnea who presents to the emergency department today as advised by his primary care physician for increased shortness of breath. Patient report he did not use home oxygen but he check his O2 sat which was 85 to 90% but two he check again his sats continues only 86% with difficulty breathing. he report he went on a vacation to a hotel here in town and forgot his medicines so there was about 10 days he didn't have meds. " I think it was not big deal." He report he have gained about 30-40 lbs in this month. He has been back on his meds for about a week. He is not anticoagulated, because of a history of bleeding ulcers. He report he still smoke one pack per day. "everybody told me should not smoke, but I still smokes." He report he is not a drinker any more. He denies fever, chilly, chest pain. In route lab test show patient has BNP was 75, creatinine 1.5, hemoglobin 8.5.Chest x-ray is unremarkable. Patient is afebrile, initially his O2 sat is 87% on room air, after have 2 L of oxygen, his sats become 90%. Pt is admitted for further medical management. History - Past Medical History Cardiovascular: reports: Congestive heart failure (systolic), Hypertension, Atrial fibrillation, Other Respiratory: reports: Sleep apnea Neuro: reports: None Endocrine/Autoimmune: reports: None GI: reports: None : reports: None HEENT: reports: None Psych: reports: None Musculoskeletal: reports: None Derm: reports: None MRSA Hx?: Yes - Past Surgical History Ortho: reports: Arthroscopic surgery - Family & Social History Family History: Mother: , CAD, CVA/TIA, Father: , CAD Family History Comment/Other: mother: at 82. Had heart problems. father: healthy. All siblings (4 brother and one half sister) all healthy Social History Notes: 1ppd for 40+ years. Quit drinking 20 days ago. But was drinking 1/5 vodka a week. Had been doing so since age 19. No illicit drug use. Retired from the [employer] Patient has POLST: No POLST Status: Full Code Meds/Allgy - Home Medications Home Medications: Ambulatory Orders Medication Instructions Recorded Confirmed Digoxin 62.5 mcg PO DAILY 04/28/17 11/19/19 Metoprolol Succinate 150 mg PO DAILY 04/28/17 11/19/19 Diltiazem HCl [Diltiazem 24Hr ER] 240 mg PO DAILY 07/21/19 11/19/19 Levothyroxine Sodium [Synthroid] 50 mcg PO DAILY 07/21/19 11/19/19 Pantoprazole Sodium 40 mg PO DAILY 07/21/19 11/19/19 Torsemide 20 mg PO BID 07/21/19 11/19/19 Gabapentin [Gralise] 600 mg PO BID 11/19/19 11/19/19 - Allergies Allergies/Adverse Reactions: Allergies Allergy/AdvReac Type Severity Reaction Status Date / Time No Known Drug Allergies Allergy Verified 11/19/19 13:49 Review of Systems - Constitutional Constitutional: reports: Weight gain. denies: Fatigue, Fever, Chills, Malaise, Weakness, Poor appetite, Diaphoresis, Night sweats - Eyes Eyes: denies: Pain, Blurred vision, Spots in vision, Field loss, Vision loss, Dipolpia - Ears, Nose & Throat Ears, Nose & Throat: denies: Ear pain, Hearing loss, Tinnitus, Nasal discharge, Nosebleeds, Postnasal drainage, Sore throat, Bleeding gums - Cardiovascular Cariovascular: reports: Exertional dyspnea, Decr. exercise tolerance. denies: Irregular heart rate, Palpitations, Chest pain, Edema, Lightheadedness, Syncope - Respiratory Respiratory: reports: Wheezing, SOB with exertion, Apnea. denies: Cough, Sputum production, Snoring, Hemoptysis, Orthopnea, SOB at rest - Gastrointestinal Gastrointestinal: denies: Abdominal pain, Abdominal distention, Constipation, Rectal bleeding, Black stools, Bloody stools, Nausea, Vomiting, Adolfo blood emesis, Coffee grounds emesis, Poor appetite - Genitourinary Genitourinary: denies: Dysuria, Frequency, Urgency, Hematuria, Incontinence, Flank pain, Nocturia, Urethral discharge - Musculoskeletal Musculoskeletal: denies: Muscle pain, Back pain, Muscle aches, Stiffness, Limited range of motion, Muscle weakness, Gout, Joint pain - Integumentary Integumentary: denies: Rash, Lesions, Acne - Neurological Neurological: denies: General weakness, Focal weakness, Headache, Dizziness, Numbness, Memory problems, Pre-existing deficit, Abnormal gait, Seizures, Incoordination, Slurred speech - Psychiatric Psychiatric: denies: Depression, Anxiety, Suicidal, Delusions, Hallucinations, Homicidal - Endocrine Endocrine: denies: Polyuria, Polydypsia, Polyphagia - Hematologic/Lymphatic Hematologic/Lymphatic: reports: Anemia. denies: Petechiae, Blood clots Exam - Vital Signs Vital Signs: Vital Signs x48h Temp Pulse Resp BP Pulse Ox 11/19/19 15:00 93 19 105/80 95 11/19/19 14:57 88 16 11/19/19 14:30 86 22 95 11/19/19 14:04 86 22 113/57 L 90 L 11/19/19 13:49 37.2 C 95 22 118/64 87 L - Physical Exam General Appearance: positive: No acute distress, Alert. negative: Lethargic Eyes Bilateral: positive: Normal inspection, PERRL, No lid inflammation ENT: positive: ENT inspection nml, Pharynx nml, No signs of dehydration. negative: Purulent nasal drainage Neck: positive: Nml inspection, Thyroid nml, No JVD, Trachea midline. negative: Thyromegaly, Stiff neck, Tracheal deviation Respiratory: positive: Chest non-tender, No respiratory distress, Wheezes. nega tive: Breath sounds nml, Rales, Rhonchi Cardiovascular: positive: No murmur, No gallop. negative: Tachycardia, Bradycardia, Systolic murmur, Diastolic murmur Peripheral Pulses: positive: 2+ Abdomen: positive: Non-tender, No organomegaly, Nml bowel sounds. negative: Tenderness, Guarding, Rebound Back: positive: Nml inspection. negative: CVA tenderness (R), CVA tenderness (L) Skin: positive: Color nml, No rash, Warm, Dry. negative: Cyanosis, Diaphoresis, Pallor Extremities: positive: Non-tender, Nml appearance. negative: Calf tenderness, Yuri's sign/cords Neurologic/Psychiatric: positive: Oriented x3, Sensation nml. negative: Weakness, Sensory loss, Facial droop, Slurred/abnml speech, Depressed mood/affect Sepsis Event Note (H) - Evaluation Current Stage of Sepsis: Ruled out Conclusion/Plan - Problem List (1) COPD exacerbation Conclusion/Plan: Patient had 87% of the sats on room air in the admission, patient had shortness of breathing. after the treatment patient, pt has sats are 95% on 2 L of oxygen, patient was given Solu-Medrol 125 mg in the ER with a breathing treatment. Patient still present very shortness of the breathing when he try to walk to the bathroom. We will continue intravenous of Solu-Medrol, continue duoneb and breathing treatment,We will add Pulmicort as well, Supplement of oxygen as needed (2) Hypoxemia Conclusion/Plan: Patient will present 87% of the sats on room air and shortness of breathing, it is likely combination of patient COPD exacerbation and fluids overloaded because of his medical noncompliance (3) CHF exacerbation Conclusion/Plan: Patient report he gained 30-40 pounds in just 2 weeks, patient reported he did not take medication for 10 days, patient has bilaterally lower extremity edema.Chest x-ray shows clear, but lungs sound wheezy, less crackles. We will add Lasix twice daily intravenous, will check echo, Lab monitor with boston cutter (4) Afib Conclusion/Plan: Patient has a history A fibrillation but without anticoagulation because of has history of GI bleeding. We will continue treat CHF exacerbation and COPD exacerbation. followup with patient clinically improved, otherwise we might have CTA to rule out PE. We will resume home metoprolol, Cardizem, digoxin, after confirmed by the pharmacy, add intravenous metoprolol PRN as needed to control pulse. 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 use Diabetes mellitus complication status: with hyperglycemia Qualified Code(s): E11.65 - Type 2 diabetes mellitus with hyperglycemia (7) HTN (hypertension) Conclusion/Plan: Patient has a history of hypertension, now patient blood pressure is stable, will resume home medication metoprolol as confirmed (8) Hypothyroidism Conclusion/Plan: Patient has history of hypothyroidism, will resume home Synthroid, will check TSH (9) Morbid obesity Conclusion/Plan: Patient has a weight 163 kg and the BMI 53.4, advised patient loss of weight, we will do daily weigh pt (10) Chronic anemia Conclusion/Plan: Patient has a chronic anemia, today hemoglobin is 8.5, patient clinically is asymptomatic for anemia, it is likely from patient chronic kidney disease, we will do anemia study and follow-up with (11) Medical non-compliance Conclusion/Plan: Patient reported he has a 10 days, he did not take medication, and thinking it was not big deal, advised patient it is importance for medical compliance. patient agree (12) Currently smokes tobacco Conclusion/Plan: Patient still smoke 1 package of cigarettes per day, he decline to have nicotine patch, advised the patient quit cigarette smoking - Lab Results Fish Bones: 11/19/19 14:12 11/19/19 14:12 Core Measures - Anticipated LOS I expect patient to be DC'd or transferred within 96 hours.: Yes - DVT/VTE - Prophylaxis VTE/DVT Device ordered at admit?: Yes VTE/DVT Prophylaxis med ordered at admit?: Yes
[2019-11-19 15:45] LABS: HEMOGLOBIN A1C 0.47 g/dL; HEMOGLOBIN A1C % 6.1 % (4.6-6.2)
[2019-11-19 15:56] LABS: BILIRUBIN,URINE NEGATIVE (NEGATIVE); GLUCOSE, URINE (UA) NEGATIVE (NEGATIVE); KETONES,URINE (UA) NEGATIVE (NEGATIVE); LEUKOCYTE ESTERASE, URINE NEGATIVE (NEGATIVE); NITRITE,URINE NEGATIVE (NEGATIVE); OCCULT BLOOD,URINE NEGATIVE (NEGATIVE); PROTEIN,URINE 30 mg/dL (NEGATIVE); UROBILINOGEN,URINE 0.2 (NORMAL) E.U./dL (NORMAL)
[2019-11-19 15:57] LABS: CLARITY,URINE CLEAR (CLEAR)
[2019-11-19 16:05] LABS: RBC,URINE None Seen /HPF (0-5); SQUAMOUS EPITHELIAL CELL,UR RARE Squamous (<= Few)
[2019-11-19 16:06] LABS: BACTERIA,URINE Rare /HPF (None Seen); CASTS, URINE 26-50 Hyaline Casts /LPF; MUCUS,URINE Few Strands
[2019-11-19] MEDS: SODIUM CHLORIDE FLUSH 0.9% 10 ML SYRINGE IVP SCH ×2 (17:04→23:50)
[2019-11-19] MEDS: INSULIN ASPART 300 UNIT/3 ML PEN SUBQ SCH ×2 (17:04→21:04)
[2019-11-19 17:27] LABS: ABSOLUTE RETICS # AUTO 0.092 10^6/uL (0.020-0.110); RED BLOOD COUNT 3.84 10^6/uL (4.70-6.10)
[2019-11-19 17:37] LABS: % IRON SATURATION 2 % (20-50); IRON 9 ug/dL (45-182); TOTAL IRON BINDING CAPACITY 497 ug/dL (250-450); TRANSFERRIN 355 mg/dL (180-329)
[2019-11-19 17:53] LABS: FERRITIN 10.3 ng/mL (23.9-336.2)
[2019-11-19] MEDS: BUDESONIDE 0.5 MG/2 ML NEB INH SCH (20:21)
[2019-11-19] MEDS: HEPARIN 5,000 UNIT/ML VIAL SUBQ SCH (21:04)
[2019-11-19] MEDS: GABAPENTIN 300 MG CAPSULE PO SCH (21:05)
[2019-11-19] MEDS: methylPREDNISolone SUCCINATE 40 MG/ML VIAL IVP SCH (21:05)
[2019-11-20] MEDS: ALBUTEROL NEB 2.5 MG/3 ML INH PRN (00:48)
[2019-11-20] MEDS: methylPREDNISolone SUCCINATE 40 MG/ML VIAL IVP SCH ×2 (06:49→14:25)
[2019-11-20] MEDS: PANTOPRAZOLE 40 MG TABLET PO SCH (06:50)
[2019-11-20] MEDS: FUROSEMIDE 40 MG/4 ML VIAL IVP SCH ×2 (06:50→14:26)
[2019-11-20] MEDS: LEVOTHYROXINE 25 MCG TABLET PO SCH (06:50)
[2019-11-20] MEDS ORDERED: LEVOTHYROXINE 25 MCG TABLET PO SCH (07:00)
[2019-11-20] MEDS ORDERED: INSULIN GLARGINE 300 UNIT/3 ML PEN SUBQ SCH (08:00)
[2019-11-20] MEDS: METOPROLOL SUCCINATE 50 MG TABLET PO SCH (08:07)
[2019-11-20] MEDS: HEPARIN 5,000 UNIT/ML VIAL SUBQ SCH ×2 (08:07→20:54)
[2019-11-20] MEDS: DIGOXIN 125 MCG TABLET PO SCH (08:07)
[2019-11-20] MEDS: FERROUS SULFATE 325 MG TABLET PO SCH ×2 (08:07→16:21)
[2019-11-20] MEDS: diltiaZEM CD 240 MG CAPSULE PO SCH (08:07)
[2019-11-20] MEDS: GABAPENTIN 300 MG CAPSULE PO SCH ×2 (08:07→20:54)
[2019-11-20] MEDS: INSULIN ASPART 300 UNIT/3 ML PEN SUBQ SCH ×4 (08:13→20:54)
[2019-11-20] MEDS: SODIUM CHLORIDE FLUSH 0.9% 10 ML SYRINGE IVP SCH ×3 (08:17→23:56)
[2019-11-20] MEDS ORDERED: METOPROLOL SUCCINATE 50 MG TABLET PO SCH (09:00)
[2019-11-20 09:35] LABS: BASOPHILS % (AUTO) 0.1 %; HGB - HEMOGLOBIN 8.3 g/dL (14.0-18.0); LYMPHOCYTES # (AUTO) 0.4 10^3/uL (1.5-3.5); LYMPHOCYTES % (AUTO) 4.8 %; MEAN CORPUSCULAR HEMOGLOBIN 21.4 pg (27.0-31.0); MEAN CORPUSCULAR HGB CONC 26.9 g/dL (32.0-36.0); MEAN CORPUSCULAR VOLUME 79.6 fL (80.0-94.0); MEAN PLATELET VOLUME 10.1 fL (7.4-11.4); MONOCYTES # (AUTO) 0.1 10^3/uL (0.0-1.0); MONOCYTES % (AUTO) 1.8 %; NEUTROPHILS # (AUTO) 7.3 10^3/uL (1.5-6.6); NEUTROPHILS % (AUTO) 92.7 %; PLT - PLATELET COUNT 123 10^3/uL (130-450); RED BLOOD COUNT 3.87 10^6/uL (4.70-6.10); RED CELL DISTRIBUTION WIDTH 20.3 % (12.0-15.0); WHITE BLOOD COUNT 7.9 x10^3/uL (4.8-10.8)
[2019-11-20 09:46] LABS: CALCIUM 8.5 mg/dL (8.5-10.3); CREATININE 1.4 mg/dL (0.6-1.2); MAGNESIUM 1.7 mg/dL (1.7-2.8)
[2019-11-20] MEDS: BUDESONIDE 0.5 MG/2 ML NEB INH SCH ×2 (09:51→19:46)
[2019-11-20 09:53] LABS: DIGOXIN 0.6 ng/mL
[2019-11-20 09:54] LABS: PLATELET ESTIMATE, MANUAL DECREASED (<130,000) (NORMAL); PLATELET MORPHOLOGY NORMAL APPEARANCE (NORMAL)
--- NOTE | 2019-11-20 13:04 | PROVIDER PROGRESS NOTE ---
Assessment/Plan - Problem List (1) Respiratory failure with hypoxia Assessment/Plan: Patient dropped his saturations to 86% despite being on 2 L nasal cannula oxygen, mostly when he is hypersomnolent. He probably has a combination of obesity hypoventilation, untreated sleep apnea, fluid overload causing hypoxia on top of underlying COPD in a patient who continues to smoke. I will make him inpatient status. Continue supplemental O2 and treatment of the fluid overload. Watch anemia which is also exacerbating heart failure. (2) Anasarca Assessment/Plan: I suspect he has severe right-sided heart failure which worsened to cause anasarca, when he stopped taking all his medicines for 10 days. The BNP went from 459 to 800. He is about 2L in (-) fluid balance. He will need at least 3 more days of aggressive diuresis. Continue with fluid restriction that was ordered, this was re-explained to the patient. He is still desaturating when he is on room air or 1 or 2 L oxygen. The patient says that when he was here in July (for hyperkalemia and JEANNE), GAY stockings and compression devices helped his leg edema significantly. These SCDs are medium in size, they do not fit around his large legs. The charge nurse said that central supply only has medium size currently. I will order TEDS with intermittent compression devices. Keep legs elevated when out of bed in chair. An Echo was ordered to recheck LV and RV contractility. The last Echo was done in 2016 with normal LVEF and RV size. We have no Echo service here over the weekend, today is Friday. I will make him an inpatient. (3) Sleep apnea with hypersomnolence Assessment/Plan: He appears to have severe right-sided heart failure which worsened to cause anasarca, when he stopped taking all his medicines for 10 days. He admits that he has sleep apnea, tried a CPAP mask, could not tolerate it, returned his CPAP device to the company. He states he would consider using a different device if it was comfortable on his face but also if it is easy to detach because he goes to the bathroom 6-8 times per night "due to his prostate". (4) Afib Assessment/Plan: Heart rate appears to be under control on this present medication schedule. The dig level was okay at 0.6, not toxic. He is Not on aspirin or anticoagulants because of a history of GI bleed. (5) COPD without exacerbation Assessment/Plan: He was started on nebs and IV steroids. He has no signs of wheezing or prolonged expiration today. We will wean the IV steroids off quickly. Continue nebs while he is here. He continues to smoke 1 pack/day and told the admitting provider that he did not think it was a bad idea. Nicotine patch will be offered. (6) Anemia Assessment/Plan: Patient was on iron at home. His anemia is significant at 8.3 despite 2 L negative fluid balance since admission. We will order stool guaiac and B12 and folate levels, adjust the replacement if needed (7) Hypothyroidism Assessment/Plan: TSH level is adequate. Continue his home dose of thyroid replacement. (8) Diabetes mellitus Qualifiers: Diabetes mellitus type: type 2 Diabetes mellitus fci insulin use: without fci use Diabetes mellitus complication status: with hyperglycemia Qualified Code(s): E11.65 - Type 2 diabetes mellitus with hyperglycemia Assessment/Plan: His A1c was 6.1 indicating good control on his home regimen. Continue with carb controlled diet, fingerstick checks and sliding scale insulin treatment here plus Lantus 5U. (9) BPH associated with nocturia Assessment/Plan: The patient told me that he has to get up 6-8 times a night for urination, or more while he is getting this diuretic. His nurse reported that the patient needs to undress completely to urinate because his abdominal pannus is so big that he cannot find his penis. 1 of the reasons he did not want the CPAP mask is because it is difficult to detach and reattach again after getting up at night to urinate. Will try Flomax while he is here. (10) Morbid obesity Assessment/Plan: His BMI is 53.4. Part of this is fluid retention. He needs weight loss management (11) CKD (chronic kidney disease) stage 3, GFR 30-59 ml/min Assessment/Plan: Stable creatinine. The dig level was okay at 0.6, not toxic. He is getting subcutaneous heparin for DVT prophylaxis, not Lovenox. - Current Meds Current Meds: Current Medications Generic Name Dose Route Start Last Admin Trade Name Freq PRN Reason Stop Dose Admin Albuterol 2.5 mg 11/19/19 15:13 11/20/19 00:48 INH 2.5 mg RTQ4H PRN Administration Wheezing Budesonide 0.5 mg 11/19/19 19:00 11/20/19 09:51 Pulmicort INH 0.5 mg RTBID JURGEN Administration Digoxin 62.5 mcg 11/20/19 09:00 11/20/19 08:07 Lanoxin PO 62.5 mcg DAILY JURGEN Administration Diltiazem HCl 240 mg 11/20/19 09:00 11/20/19 08:07 Cardizem Cd PO 240 mg DAILY JURGEN Administration Ferrous Sulfate 325 mg 11/20/19 08:00 11/20/19 08:07 Feosol PO 325 mg BIDWM JURGEN Administration Furosemide 40 mg 11/20/19 06:00 11/20/19 06:50 Lasix Inj 40 Mg Vial IVP 40 mg BIDDIURETIC JURGEN Administration Gabapentin 600 mg 11/19/19 22:00 11/20/19 08:07 Neurontin PO 600 mg BID JURGEN Administration Heparin Sodium (Porcine) 5,000 unit 11/19/19 21:00 11/20/19 08:07 SUBQ 5,000 unit BID JURGEN Administration Insulin Aspart 1 - 9 unit 11/19/19 17:00 11/20/19 11:52 Novolog SUBQ 5 unit 0800,1200,1700,2100 JURGEN Administration Protocol Levothyroxine Sodium 50 mcg 11/20/19 07:00 11/20/19 06:50 Synthroid PO 50 mcg QDAC JURGEN Administration Methylprednisolone 60 mg 11/19/19 22:00 11/20/19 06:49 Solu-Medrol (40mg Vial) IVP 60 mg TID JURGEN Administration Metoprolol Succinate 150 mg 11/20/19 09:00 11/20/19 08:07 Toprol Xl PO 150 mg DAILY JURGEN Administration Pantoprazole Sodium 40 mg 11/20/19 07:00 11/20/19 06:50 Protonix PO 40 mg QDAC JURGEN Administration Sodium Chloride 10 ml 11/19/19 17:00 11/20/19 08:17 Normal Saline Flush 0.9% IVP 10 ml 0100,0900,1700 JURGEN Administration - Lab Result Fish Bone Diagrams: 11/20/19 09:30 11/20/19 09:30 - Additional Planning My Orders: My Active Orders 11/20/19 Guaiac [OCCULT BLOOD IN PAT. SINGLE] [RAPID] Urgent 11/20/19 12:39 Gay Taylor and Alvaro Moncada [] DAILY Subjective - Subjective Patient Reports: Other ("I feel much better today and think I can go home". When I told him his oxygen drops when the nasal cannula oxygen is removed, he said "Oh, then I will stay".) Nursing Reports: Other (Falls asleep while sitting up, in the middle of a conversation.) Objective Vital Signs: Vital Signs - 24 hr 11/19/19 11/19/19 11/19/19 13:49 14:04 14:30 Temperature 37.2 C Heart Rate 95 86 86 Heart Rate [ Monitoring electrodes] Respiratory 22 22 22 Rate Blood Pressure 118/64 113/57 L Blood Pressure [Left Brachial artery] Blood Pressure [Right Brachial artery] O2 Saturation 87 L 90 L 95 11/19/19 11/19/19 11/19/19 14:57 15:00 15:35 Temperature 37.0 C Heart Rate 88 93 90 Heart Rate [ Monitoring electrodes] Respiratory 16 19 11 L Rate Blood Pressure 105/80 106/72 Blood Pressure [Left Brachial artery] Blood Pressure [Right Brachial artery] O2 Saturation 95 98 11/19/19 11/19/19 11/19/19 16:00 20:30 21:00 Temperature 36.7 C 36.9 C Heart Rate 109 H Heart Rate [ 81 85 Monitoring electrodes] Respiratory 12 18 Rate Blood Pressure Blood Pressure 117/74 [Left Brachial artery] Blood Pressure 131/74 H [Right Brachial artery] O2 Saturation 95 89 L 11/19/19 11/19/19 11/20/19 21:30 23:52 05:00 Temperature 37.0 C 37.2 C Heart Rate Heart Rate [ 112 H 111 H Monitoring electrodes] Respiratory 15 18 Rate Blood Pressure Blood Pressure [Left Brachial artery] Blood Pressure 114/89 H 111/48 L [Right Brachial artery] O2 Saturation 92 92 94 11/20/19 11/20/19 11/20/19 08:05 09:40 09:52 Temperature 37.1 C Heart Rate 98 Heart Rate [ 114 H Monitoring electrodes] Respiratory 20 18 Rate Blood Pressure Blood Pressure 138/77 H [Left Brachial artery] Blood Pressure [Right Brachial artery] O2 Saturation 93 92 11/20/19 11/20/19 11:40 11:50 Temperature Heart Rate Heart Rate [ 104 H Monitoring electrodes] Respiratory 21 Rate Blood Pressure Blood Pressure [Left Brachial artery] Blood Pressure 105/72 [Right Brachial artery] O2 Saturation 86 L 93 Oxygen O2 Source Nasal cannula I&O (Last 24 Hrs): Intake and Output Totals x24h 11/18/19 11/19/19 11/20/19 23:59 23:59 23:59 Intake Total 350 930 Output Total 800 1000 Balance -450 -70 General: Alert, Other (Falls asleep in chair in the middle of a conversation.) HEENT: Atraumatic, Mucous membr. moist/pink, Other (Male pattern baldness) Neck: Supple Neuro: Other (Somnolent as above, nonfocal muscle exam) Cardiovascular: Other (Distant heart sounds, irregularly irregular) Respiratory: No respiratory distress, Other (Diminished at both bases, no wheezes or rales are heard) Abdomen: Other (Extremely large abdomen with a pannus that goes nearly to his knees) Extremities: Other (4+ edema to his hips. Small open oozing skin tear of the left soto.) - Results Results: Laboratory Results WBC 7.9 x10^3/uL (4.8-10.8) 11/20/19 09:30 RBC 3.87 10^6/uL (4.70-6.10) L 11/20/19 09:30 Hgb 8.3 g/dL (14.0-18.0) L 11/20/19 09:30 Hct 30.8 % (42.0-52.0) L 11/20/19 09:30 MCV 79.6 fL (80.0-94.0) L 11/20/19 09:30 MCH 21.4 pg (27.0-31.0) L 11/20/19 09:30 MCHC 26.9 g/dL (32.0-36.0) L 11/20/19 09:30 RDW 20.3 % (12.0-15.0) H 11/20/19 09:30 Plt Count 123 10^3/uL (130-450) L 11/20/19 09:30 MPV 10.1 fL (7.4-11.4) 11/20/19 09:30 Reticulocyte % (Auto) 2.40 % (0.5-2.3) H 11/19/19 15:18 Neut # (Auto) 7.3 10^3/uL (1.5-6.6) H 11/20/19 09:30 Lymph # (Auto) 0.4 10^3/uL (1.5-3.5) L 11/20/19 09:30 [place] # (Auto) 0.1 10^3/uL (0.0-1.0) 11/20/19 09:30 Eos # (Auto) 0.0 10^3/uL (0.0-0.7) 11/20/19 09:30 Baso # (Auto) 0.0 10^3/uL (0.0-0.1) 11/20/19 09:30 Absolute Nucleated RBC 0.00 x10^3/uL 11/20/19 09:30 Nucleated RBC % 0.0 /100WBC 11/20/19 09:30 Manual Slide Review Indicated 11/20/19 09:30 WBC Morphology NORMAL APPEARANCE (NORMAL) 11/19/19 14:12 Platelet Estimate DECREASED (<130,000) (NORMAL) 11/20/19 09:30 Platelet Morphology NORMAL APPEARANCE (NORMAL) 11/20/19 09:30 RBC Morph Micro Appear 1+ STOMATOCYTES (NORMAL) 1+ ANISOCYTOSIS (NORMAL) 1+ POLYCHROMASIA (NORMAL) 1+ HYPOCHROMASIA (NORMAL) 11/19/19 14:12 RBC Morph Micro Appear 1+ STOMATOCYTES (NORMAL) 1+ ANISOCYTOSIS (NORMAL) 1+ POLYCHROMASIA (NORMAL) 1+ HYPOCHROMASIA (NORMAL) 11/19/19 14:12 RBC Morph Micro Appear 1+ STOMATOCYTES (NORMAL) 1+ ANISOCYTOSIS (NORMAL) 1+ POLYCHROMASIA (NORMAL) 1+ HYPOCHROMASIA (NORMAL) 11/19/19 14:12 RBC Morph Micro Appear 1+ POLYCHROMASIA (NORMAL) 1+ ANISOCYTOSIS (NORMAL) 2+ HYPOCHROMASIA (NORMAL) 11/20/19 09:30 RBC Morph Micro Appear 1+ POLYCHROMASIA (NORMAL) 1+ ANISOCYTOSIS (NORMAL) 2+ HYPOCHROMASIA (NORMAL) 11/20/19 09:30 RBC Morph Micro Appear 1+ POLYCHROMASIA (NORMAL) 1+ ANISOCYTOSIS (NORMAL) 2+ HYPOCHROMASIA (NORMAL) 11/20/19 09:30 Absolute Retic 0.092 10^6/uL (0.020-0.110) 11/19/19 15:18 Sodium 137 mmol/L (135-145) 11/20/19 09:30 Potassium 4.3 mmol/L (3.5-5.0) 11/20/19 09:30 Chloride 92 mmol/L (101-111) L 11/20/19 09:30 Carbon Dioxide 34 mmol/L (21-32) H 11/20/19 09:30 Anion Gap 11.0 (6-13) 11/20/19 09:30 BUN 32 mg/dL (6-20) H 11/20/19 09:30 Creatinine 1.4 mg/dL (0.6-1.2) H 11/20/19 09:30 Estimated GFR (MDRD) 52 (>89) L 11/20/19 09:30 Glucose 296 mg/dL (70-100) H 11/20/19 09:30 POC Whole Bld Glucose 260 mg/dL (70 - 100) H 11/20/19 11:41 Glycated Hemoglobin 6.1 % (4.6-6.2) 11/19/19 15:18 Estim Average Glucose 128 (70-100) H 11/19/19 15:18 Calcium 8.5 mg/dL (8.5-10.3) 11/20/19 09:30 Magnesium 1.7 mg/dL (1.7-2.8) 11/20/19 09:30 Iron 9 ug/dL (45-182) L 11/19/19 15:18 TIBC 497 ug/dL (250-450) H 11/19/19 15:18 % Saturation 2 % (20-50) L 11/19/19 15:18 Transferrin 355 mg/dL (180-329) H 11/19/19 15:18 Ferritin 10.3 ng/mL (23.9-336.2) L 11/19/19 15:18 Total Bilirubin 0.9 mg/dL (0.2-1.0) 11/19/19 14:12 AST 18 IU/L (10-42) 11/19/19 14:12 ALT 16 IU/L (10-60) 11/19/19 14:12 Alkaline Phosphatase 96 IU/L (42-121) 11/19/19 14:12 Lactate Dehydrogenase 131 IU/L (91-225) 11/19/19 15:18 B-Natriuretic Peptide 852 pg/mL (5-100) H 11/20/19 07:30 Total Protein 7.6 g/dL (6.7-8.2) 11/19/19 14:12 Albumin 3.5 g/dL (3.2-5.5) 11/19/19 14:12 Globulin 4.1 g/dL (2.1-4.2) 11/19/19 14:12 Albumin/Globulin Ratio 0.9 (1.0-2.2) L 11/19/19 14:12 Lipase 50 U/L (22-51) 11/19/19 14:12 Vitamin B12 432 pg/mL (180-914) 11/19/19 15:18 TSH 0.90 uIU/mL (0.34-5.60) 11/20/19 05:48 Urine Color YELLOW 11/19/19 15:31 Urine Clarity CLEAR (CLEAR) 11/19/19 15:31 Urine pH 6.0 PH (5.0-7.5) 11/19/19 15:31 Ur Specific [place] 1.020 (1.002-1.030) 11/19/19 15:31 Urine Protein 30 mg/dL (NEGATIVE) H 11/19/19 15:31 Urine Glucose (UA) NEGATIVE mg/dL (NEGATIVE) 11/19/19 15:31 Urine Ketones NEGATIVE mg/dL (NEGATIVE) 11/19/19 15:31 Urine Occult Blood NEGATIVE (NEGATIVE) 11/19/19 15:31 Urine Nitrite NEGATIVE (NEGATIVE) 11/19/19 15:31 Urine Bilirubin NEGATIVE (NEGATIVE) 11/19/19 15:31 Urine Urobilinogen 0.2 (NORMAL) E.U./dL (NORMAL) 11/19/19 15:31 Ur Leukocyte Esterase NEGATIVE (NEGATIVE) 11/19/19 15:31 Urine RBC None Seen /HPF (0-5) 11/19/19 15:31 Urine WBC 0-3 /HPF (0-3) 11/19/19 15:31 Ur Squamous Epith Cells RARE Squamous (<= Few) 11/19/19 15:31 Urine Bacteria Rare /HPF (None Seen) 11/19/19 15:31 Urine Casts 26-50 Hyaline Casts /LPF 11/19/19 15:31 Urine Mucus Few Strands 11/19/19 15:31 Ur Microscopic Review INDICATED 11/19/19 15:31 Urine Culture Comments NOT INDICATED 11/19/19 15:31 Nasal Screen MRSA (PCR) NEGATIVE (NEGATIVE) 11/19/19 17:35 Last Dose Date 11/20/19 11/20/19 09:30 Last Dose Time 0807 11/20/19 09:30 Digoxin 0.6 ng/mL 11/20/19 09:30 Sepsis Event Note (H) - Evaluation Current Stage of Sepsis: Ruled out
[2019-11-21 06:00] LABS: FOLATE 14.75 ng/mL (5.90 - >24.8)
[2019-11-21] MEDS: LEVOTHYROXINE 25 MCG TABLET PO SCH (06:37)
[2019-11-21] MEDS: PANTOPRAZOLE 40 MG TABLET PO SCH (06:37)
[2019-11-21] MEDS: FUROSEMIDE 40 MG/4 ML VIAL IVP SCH ×2 (06:56→13:57)
[2019-11-21] MEDS: METOPROLOL SUCCINATE 50 MG TABLET PO SCH ×2 (08:20→21:17)
[2019-11-21] MEDS: GABAPENTIN 300 MG CAPSULE PO SCH ×2 (08:21→21:17)
[2019-11-21] MEDS: diltiaZEM CD 240 MG CAPSULE PO SCH (08:21)
[2019-11-21] MEDS: TAMSULOSIN 0.4 MG CAPSULE PO SCH (08:21)
[2019-11-21] MEDS: FERROUS SULFATE 325 MG TABLET PO SCH ×2 (08:21→17:01)
[2019-11-21] MEDS: DIGOXIN 125 MCG TABLET PO SCH (08:21)
[2019-11-21] MEDS: HEPARIN 5,000 UNIT/ML VIAL SUBQ SCH ×2 (08:21→21:22)
[2019-11-21] MEDS: polyethylene glycoL 3350 17 GM PACKET PO SCH (08:22)
[2019-11-21] MEDS: methylPREDNISolone SUCCINATE 40 MG/ML VIAL IVP SCH ×2 (08:22→21:17)
[2019-11-21] MEDS: INSULIN ASPART 300 UNIT/3 ML PEN SUBQ SCH ×4 (08:23→21:18)
[2019-11-21] MEDS ORDERED: BENZOCAINE/MENTHOL LOZENGE MM PRN (09:08)
--- NOTE | 2019-11-21 09:21 | PROVIDER PROGRESS NOTE ---
Assessment/Plan - Problem List (1) Unwitnessed fall Assessment/Plan: At 0530, the nurse found him on his knees near his bed and the patient reported that he knocked his water pitcher to the floor and got up holding the mobile bedside tray which moved and slid away, causing him to "slide to his knees". He stated he was not injured. The Transplant Worker was told. No x-rays were done at that time. He does not need x-rays. Will order orthostatic vital signs since he himself reports that he takes his vital signs daily and blood pressure drops when he stands. (2) Respiratory failure with hypoxia Assessment/Plan: He is still on supplemental oxygen. We will try to wean oxygen to off to room air keeping saturations greater than 88%. (3) Anasarca Assessment/Plan: He had 1350cc of oral intake yesterday. His overall fluid balance is therefore minimally neg since admission (about 500cc neg over 2 days). Will increase iv Lasix dose from 40mg to 60mg bid. Will adjust diet order to limit fluids even more (2200/day down to 2000/day). Will add low sodium to diet. Follow I's and O's and daily weights. Legs elevated when OOB in chair was stressed to nursing. (4) Sleep apnea with hypersomnolence Assessment/Plan: He was hypersomnolent yesterday which could have been CO2 narcosis since he is on new supplemental oxygen. He reports a history of sleep apnea and noncompliance with CPAP. (5) Afib Assessment/Plan: Today he is tachycardic at 105. The Dig serum level was OK, not toxic, with his CKD. Will add a small evening dose of 50 mg Metoprolol Succinate to his morning 150 mg dose. Continue Dig and Cardizem. He is not on ASA or anticoagulants due to remote GI bleed Hx, per records. (6) COPD without exacerbation Assessment/Plan: He is not in exacerbation, no wheezing, or prolonged wexp phase. The iv steroids will be tapered down quickly. Continue nebs while here. (7) Anemia Assessment/Plan: He appears to have been chronically anemic, per records. He has been started on iron replacement here twice daily. Follow CBC daily. 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 Continue carb controlled diet, fingerstick checks, sliding scale insulin coverage, Lantus 5 units subcu (10) BPH associated with nocturia Assessment/Plan: He gave me detailed description about this yesterday. Flomax was started this morning. I reported this to him today which she was very supportive of and will see if it helps urine output. (11) Morbid obesity Assessment/Plan: Today he discussed how he has tried to lose weight in the past: His maximum weight was 386, he was able to lose to 320, was shooting for 310. When he got depressed he started to gain weight. He also was noncompliant with meds for 10 days which added to this current anasarca and weight gain. (12) CKD (chronic kidney disease) stage 3, GFR 30-59 ml/min Assessment/Plan: Stable creatinine. Follow BM P daily. Check magnesium on the higher doses of diuretics which will probably stay stable given his CKD. - Current Meds Current Meds: Current Medications Generic Name Dose Route Start Last Admin Trade Name Freq PRN Reason Stop Dose Admin Albuterol 2.5 mg 11/19/19 15:13 11/20/19 00:48 INH 2.5 mg RTQ4H PRN Administration Wheezing Budesonide 0.5 mg 11/19/19 19:00 11/20/19 19:46 Pulmicort INH 0.5 mg RTBID JURGEN Administration Digoxin 62.5 mcg 11/20/19 09:00 11/21/19 08:21 Lanoxin PO 62.5 mcg DAILY JURGEN Administration Diltiazem HCl 240 mg 11/20/19 09:00 11/21/19 08:21 Cardizem Cd PO 240 mg DAILY JURGEN Administration Ferrous Sulfate 325 mg 11/20/19 08:00 11/21/19 08:21 Feosol PO 325 mg BIDWM JURGEN Administration Furosemide 40 mg 11/20/19 06:00 11/21/19 06:56 Lasix Inj 40 Mg Vial IVP 40 mg BIDDIURETIC JURGEN Administration Gabapentin 600 mg 11/19/19 22:00 11/21/19 08:21 Neurontin PO 600 mg BID JURGEN Administration Heparin Sodium (Porcine) 5,000 unit 11/19/19 21:00 11/21/19 08:21 SUBQ 5,000 unit BID JURGEN Administration Insulin Aspart 2 - 10 unit 11/20/19 17:00 11/21/19 08:23 Novolog SUBQ 2 unit 0800,1200,1700,2100 JURGEN Administration Protocol Levothyroxine Sodium 50 mcg 11/20/19 07:00 11/21/19 06:37 Synthroid PO 50 mcg QDAC JURGEN Administration Methylprednisolone 40 mg 11/21/19 09:00 11/21/19 08:22 Solu-Medrol (40mg Vial) IVP 11/21/19 23:30 40 mg BID JURGEN Administration Metoprolol Succinate 150 mg 11/20/19 09:00 11/21/19 08:20 Toprol Xl PO 150 mg DAILY JURGEN Administration Pantoprazole Sodium 40 mg 11/20/19 07:00 11/21/19 06:37 Protonix PO 40 mg QDAC JURGEN Administration Polyethylene Glycol 17 gm 11/21/19 09:00 11/21/19 08:22 Miralax PO 17 gm DAILY JURGEN Administration Sodium Chloride 10 ml 11/19/19 17:00 11/20/19 23:56 Normal Saline Flush 0.9% IVP 10 ml 0100,0900,1700 JURGEN Administration Tamsulosin HCl 0.4 mg 11/21/19 09:00 11/21/19 08:21 Flomax PO 0.4 mg DAILY JURGEN Administration - Lab Result Fish Bone Diagrams: 11/20/19 09:30 11/21/19 05:48 - Additional Planning My Orders: My Active Orders 11/20/19 12:39 Gay Hose and Compression Devic [RC] DAILY 11/20/19 13:18 Miscellaenous Nursing Order [RC] QSHIFT 11/21/19 09:00 Tamsulosin [Flomax] 0.4 mg PO DAILY methylPREDNISolone SUCCINATE [SOLU-Medrol (40MG VIAL)] 40 mg IVP BID Subjective - Subjective Patient Reports: Feeling Better (Appears stronger and less fatigued today and is in a better mood.), Resting Comfortably Objective Vital Signs: Vital Signs - 24 hr 11/20/19 11/20/19 11/20/19 09:40 09:52 11:40 Temperature Heart Rate 98 Heart Rate [ Brachial] Heart Rate [ 104 H Monitoring electrodes] Heart Rate [ Sitting (After 1 Minute)] Heart Rate [ Standing (After 1 Minute)] Respiratory 18 21 Rate Blood Pressure 105/72 [Right Brachial artery] Blood Pressure [Sitting (After 1 Minute)] Blood Pressure [Standing ( After 1 Minute) ] O2 Saturation 92 86 L 11/20/19 11/20/19 11/20/19 11:50 15:53 19:46 Temperature 36.6 C Heart Rate 77 Heart Rate [ 85 Brachial] Heart Rate [ Monitoring electrodes] Heart Rate [ Sitting (After 1 Minute)] Heart Rate [ Standing (After 1 Minute)] Respiratory 22 16 Rate Blood Pressure 116/60 [Right Brachial artery] Blood Pressure [Sitting (After 1 Minute)] Blood Pressure [Standing ( After 1 Minute) ] O2 Saturation 93 92 11/20/19 11/21/19 11/21/19 20:42 00:01 05:00 Temperature 36.7 C 36.6 C 36.7 C Heart Rate Heart Rate [ 106 H 91 104 H Brachial] Heart Rate [ Monitoring electrodes] Heart Rate [ Sitting (After 1 Minute)] Heart Rate [ Standing (After 1 Minute)] Respiratory 16 16 24 Rate Blood Pressure 121/62 123/74 121/77 [Right Brachial artery] Blood Pressure [Sitting (After 1 Minute)] Blood Pressure [Standing ( After 1 Minute) ] O2 Saturation 97 97 95 11/21/19 11/21/19 11/21/19 07:20 08:28 08:29 Temperature 36.9 C Heart Rate Heart Rate [ 80 Brachial] Heart Rate [ Monitoring electrodes] Heart Rate [ 110 H Sitting (After 1 Minute)] Heart Rate [ 110 H Standing (After 1 Minute)] Respiratory 22 Rate Blood Pressure 125/71 [Right Brachial artery] Blood Pressure 137/71 H [Sitting (After 1 Minute)] Blood Pressure 130/77 [Standing ( After 1 Minute) ] O2 Saturation 93 Oxygen O2 Source Nasal cannula I&O (Last 24 Hrs): Intake and Output Totals x24h 11/19/19 11/20/19 11/21/19 23:59 23:59 23:59 Intake Total 350 1700 590 Output Total 800 1700 500 Balance -450 0 90 General: Alert, Oriented x3 HEENT: Mucous membr. moist/pink Neck: Supple Neuro: Alert, Non Focal Cardiovascular: Other (Distant heart sounds because of his morbid obesity) Respiratory: No respiratory distress, Other (Wearing O2 via nasal cannula.) Abdomen: Other (Very obese with a massive pannus down to his mid thighs) Extremities: Other (The knees are not swollen, no redness or warmth, no areas have skin tear and no bruising noted. Old scar of the right knee is present. He has 4+ pitting edema to the hips. His lower legs are now in GAY stockings with SCDs wrapped around that in the ankle and lower soto area.) - Results Results: Laboratory Results WBC 7.9 x10^3/uL (4.8-10.8) 11/20/19 09:30 RBC 3.87 10^6/uL (4.70-6.10) L 11/20/19 09:30 Hgb 8.3 g/dL (14.0-18.0) L 11/20/19 09:30 Hct 30.8 % (42.0-52.0) L 11/20/19 09:30 MCV 79.6 fL (80.0-94.0) L 11/20/19 09:30 MCH 21.4 pg (27.0-31.0) L 11/20/19 09:30 MCHC 26.9 g/dL (32.0-36.0) L 11/20/19 09:30 RDW 20.3 % (12.0-15.0) H 11/20/19 09:30 Plt Count 123 10^3/uL (130-450) L 11/20/19 09:30 MPV 10.1 fL (7.4-11.4) 11/20/19 09:30 Reticulocyte % (Auto) 2.40 % (0.5-2.3) H 11/19/19 15:18 Neut # (Auto) 7.3 10^3/uL (1.5-6.6) H 11/20/19 09:30 Lymph # (Auto) 0.4 10^3/uL (1.5-3.5) L 11/20/19 09:30 [place] # (Auto) 0.1 10^3/uL (0.0-1.0) 11/20/19 09:30 Eos # (Auto) 0.0 10^3/uL (0.0-0.7) 11/20/19 09:30 Baso # (Auto) 0.0 10^3/uL (0.0-0.1) 11/20/19 09:30 Absolute Nucleated RBC 0.00 x10^3/uL 11/20/19 09:30 Nucleated RBC % 0.0 /100WBC 11/20/19 09:30 Manual Slide Review Indicated 11/20/19 09:30 WBC Morphology NORMAL APPEARANCE (NORMAL) 11/19/19 14:12 Platelet Estimate DECREASED (<130,000) (NORMAL) 11/20/19 09:30 Platelet Morphology NORMAL APPEARANCE (NORMAL) 11/20/19 09:30 RBC Morph Micro Appear 1+ STOMATOCYTES (NORMAL) 1+ ANISOCYTOSIS (NORMAL) 1+ POLYCHROMASIA (NORMAL) 1+ HYPOCHROMASIA (NORMAL) 11/19/19 14:12 RBC Morph Micro Appear 1+ STOMATOCYTES (NORMAL) 1+ ANISOCYTOSIS (NORMAL) 1+ POLYCHROMASIA (NORMAL) 1+ HYPOCHROMASIA (NORMAL) 11/19/19 14:12 RBC Morph Micro Appear 1+ STOMATOCYTES (NORMAL) 1+ ANISOCYTOSIS (NORMAL) 1+ POLYCHROMASIA (NORMAL) 1+ HYPOCHROMASIA (NORMAL) 11/19/19 14:12 RBC Morph Micro Appear 1+ POLYCHROMASIA (NORMAL) 1+ ANISOCYTOSIS (NORMAL) 2+ HYPOCHROMASIA (NORMAL) 11/20/19 09:30 RBC Morph Micro Appear 1+ POLYCHROMASIA (NORMAL) 1+ ANISOCYTOSIS (NORMAL) 2+ HYPOCHROMASIA (NORMAL) 11/20/19 09:30 RBC Morph Micro Appear 1+ POLYCHROMASIA (NORMAL) 1+ ANISOCYTOSIS (NORMAL) 2+ HYPOCHROMASIA (NORMAL) 11/20/19 09:30 Absolute Retic 0.092 10^6/uL (0.020-0.110) 11/19/19 15:18 Sodium 137 mmol/L (135-145) 11/20/19 09:30 Potassium 4.3 mmol/L (3.5-5.0) 11/20/19 09:30 Chloride 92 mmol/L (101-111) L 11/20/19 09:30 Carbon Dioxide 34 mmol/L (21-32) H 11/20/19 09:30 Anion Gap 11.0 (6-13) 11/20/19 09:30 BUN 32 mg/dL (6-20) H 11/20/19 09:30 Creatinine 1.4 mg/dL (0.6-1.2) H 11/20/19 09:30 Estimated GFR (MDRD) 52 (>89) L 11/20/19 09:30 Glucose 296 mg/dL (70-100) H 11/20/19 09:30 POC Whole Bld Glucose 164 mg/dL (70 - 100) H 11/21/19 07:21 Glycated Hemoglobin 6.1 % (4.6-6.2) 11/19/19 15:18 Estim Average Glucose 128 (70-100) H 11/19/19 15:18 Calcium 8.5 mg/dL (8.5-10.3) 11/20/19 09:30 Magnesium 1.7 mg/dL (1.7-2.8) 11/20/19 09:30 Iron 9 ug/dL (45-182) L 11/19/19 15:18 TIBC 497 ug/dL (250-450) H 11/19/19 15:18 % Saturation 2 % (20-50) L 11/19/19 15:18 Transferrin 355 mg/dL (180-329) H 11/19/19 15:18 Ferritin 10.3 ng/mL (23.9-336.2) L 11/19/19 15:18 Total Bilirubin 0.9 mg/dL (0.2-1.0) 11/19/19 14:12 AST 18 IU/L (10-42) 11/19/19 14:12 ALT 16 IU/L (10-60) 11/19/19 14:12 Alkaline Phosphatase 96 IU/L (42-121) 11/19/19 14:12 Lactate Dehydrogenase 131 IU/L (91-225) 11/19/19 15:18 B-Natriuretic Peptide 852 pg/mL (5-100) H 11/20/19 07:30 Total Protein 7.6 g/dL (6.7-8.2) 11/19/19 14:12 Albumin 3.5 g/dL (3.2-5.5) 11/19/19 14:12 Globulin 4.1 g/dL (2.1-4.2) 11/19/19 14:12 Albumin/Globulin Ratio 0.9 (1.0-2.2) L 11/19/19 14:12 Lipase 50 U/L (22-51) 11/19/19 14:12 Vitamin B12 470 pg/mL (180-914) 11/21/19 05:11 Folate 14.75 ng/mL (5.90 - >24.8) 11/21/19 05:11 TSH 0.90 uIU/mL (0.34-5.60) 11/20/19 05:48 Urine Color YELLOW 11/19/19 15:31 Urine Clarity CLEAR (CLEAR) 11/19/19 15:31 Urine pH 6.0 PH (5.0-7.5) 11/19/19 15:31 Ur Specific [place] 1.020 (1.002-1.030) 11/19/19 15:31 Urine Protein 30 mg/dL (NEGATIVE) H 11/19/19 15:31 Urine Glucose (UA) NEGATIVE mg/dL (NEGATIVE) 11/19/19 15:31 Urine Ketones NEGATIVE mg/dL (NEGATIVE) 11/19/19 15:31 Urine Occult Blood NEGATIVE (NEGATIVE) 11/19/19 15:31 Urine Nitrite NEGATIVE (NEGATIVE) 11/19/19 15:31 Urine Bilirubin NEGATIVE (NEGATIVE) 11/19/19 15:31 Urine Urobilinogen 0.2 (NORMAL) E.U./dL (NORMAL) 11/19/19 15:31 Ur Leukocyte Esterase NEGATIVE (NEGATIVE) 11/19/19 15:31 Urine RBC None Seen /HPF (0-5) 11/19/19 15:31 Urine WBC 0-3 /HPF (0-3) 11/19/19 15:31 Ur Squamous Epith Cells RARE Squamous (<= Few) 11/19/19 15:31 Urine Bacteria Rare /HPF (None Seen) 11/19/19 15:31 Urine Casts 26-50 Hyaline Casts /LPF 11/19/19 15:31 Urine Mucus Few Strands 11/19/19 15:31 Ur Microscopic Review INDICATED 11/19/19 15:31 Urine Culture Comments NOT INDICATED 11/19/19 15:31 Nasal Screen MRSA (PCR) NEGATIVE (NEGATIVE) 11/19/19 17:35 Last Dose Date 11/20/19 11/20/19 09:30 Last Dose Time 0811/20/19 09:30 Digoxin 0.6 ng/mL 11/20/19 09:30 Sepsis Event Note (H) - Evaluation Current Stage of Sepsis: Ruled out
[2019-11-21] MEDS: BUDESONIDE 0.5 MG/2 ML NEB INH SCH ×2 (09:40→20:04)
[2019-11-21 10:12] LABS: CALCIUM 8.6 mg/dL (8.5-10.3); CREATININE 1.4 mg/dL (0.6-1.2)
[2019-11-21] MEDS: SODIUM CHLORIDE FLUSH 0.9% 10 ML SYRINGE IVP SCH ×2 (10:40→21:17)
[2019-11-22] MEDS: SODIUM CHLORIDE FLUSH 0.9% 10 ML SYRINGE IVP SCH ×3 (00:30→17:04)
[2019-11-22] MEDS: IPRATROPIUM/ALBUTEROL 3 ML NEB INH PRN ×2 (04:52→20:56)
[2019-11-22 05:52] LABS: BASOPHILS % (AUTO) 0.1 %; HGB - HEMOGLOBIN 8.5 g/dL (14.0-18.0); LYMPHOCYTES # (AUTO) 0.5 10^3/uL (1.5-3.5); LYMPHOCYTES % (AUTO) 5.3 %; MEAN CORPUSCULAR HGB CONC 26.5 g/dL (32.0-36.0); MEAN CORPUSCULAR VOLUME 79.3 fL (80.0-94.0); MEAN PLATELET VOLUME 10.5 fL (7.4-11.4); MONOCYTES # (AUTO) 0.4 10^3/uL (0.0-1.0); MONOCYTES % (AUTO) 3.9 %; NEUTROPHILS # (AUTO) 8.6 10^3/uL (1.5-6.6); PLT - PLATELET COUNT 117 10^3/uL (130-450); RED BLOOD COUNT 4.05 10^6/uL (4.70-6.10); RED CELL DISTRIBUTION WIDTH 20.1 % (12.0-15.0); WHITE BLOOD COUNT 9.5 x10^3/uL (4.8-10.8)
[2019-11-22 06:02] LABS: CALCIUM 8.8 mg/dL (8.5-10.3); CREATININE 1.6 mg/dL (0.6-1.2)
[2019-11-22 06:19] LABS: PLATELET ESTIMATE, MANUAL DECREASED (<130,000) (NORMAL); PLATELET MORPHOLOGY NORMAL APPEARANCE (NORMAL)
[2019-11-22] MEDS: LEVOTHYROXINE 25 MCG TABLET PO SCH (06:44)
[2019-11-22] MEDS: PANTOPRAZOLE 40 MG TABLET PO SCH (06:44)
[2019-11-22] MEDS: BUDESONIDE 0.5 MG/2 ML NEB INH SCH ×2 (07:25→20:56)
[2019-11-22] MEDS: ALBUTEROL NEB 2.5 MG/3 ML INH PRN (07:25)
[2019-11-22] MEDS: FUROSEMIDE 40 MG/4 ML VIAL IVP SCH ×2 (08:10→14:32)
[2019-11-22] MEDS: INSULIN ASPART 300 UNIT/3 ML PEN SUBQ SCH ×4 (08:11→22:26)
[2019-11-22] MEDS: polyethylene glycoL 3350 17 GM PACKET PO SCH (08:11)
[2019-11-22] MEDS: DIGOXIN 125 MCG TABLET PO SCH (08:12)
[2019-11-22] MEDS: TAMSULOSIN 0.4 MG CAPSULE PO SCH (08:12)
[2019-11-22] MEDS: diltiaZEM CD 240 MG CAPSULE PO SCH (08:12)
[2019-11-22] MEDS: METOPROLOL SUCCINATE 50 MG TABLET PO SCH ×2 (08:12→22:23)
[2019-11-22] MEDS: HEPARIN 5,000 UNIT/ML VIAL SUBQ SCH ×2 (08:12→22:24)
[2019-11-22] MEDS: FERROUS SULFATE 325 MG TABLET PO SCH ×2 (08:12→17:04)
[2019-11-22] MEDS: GABAPENTIN 300 MG CAPSULE PO SCH ×2 (08:13→22:23)
--- NOTE | 2019-11-22 10:17 | PROVIDER PROGRESS NOTE ---
Assessment/Plan - Problem List (1) Acute on chronic kidney failure Assessment/Plan: He needs his diuretic but this has increased his BUN/creatinine ratio. Continue with this dose of diuretics, not faster. Follow BMP daily. Avoid any other nephrotoxins. We will recheck a dig level because of this worsening creatinine. (2) Respiratory failure with hypoxia Assessment/Plan: He still requires supplemental oxygen to maintain saturations over 88%. Continue to treat his underlying fluid overload and COPD. As he loses fluid, will try to taper the oxygen to off to room air. (3) Anasarca Assessment/Plan: He is only about 1 L negative in fluid balance since admission and has not lost any weight. BUN and creatinine are rising. He is taking 1350/day orally. We will make stricter oral fluid intake orders. Watch BUN and creatinine closely. Continue with leg elevation and compression stockings when he is out of bed in chair. Continue with IV diuretics. Awaiting Echo today, to eval LV and RV function and PA pressure. (4) Sleep apnea with hypersomnolence Assessment/Plan: He was hypersomnolent 2 days ago, which could have been CO2 narcosis since he is on new supplemental oxygen. He reports a history of sleep apnea and noncompliance with CPAP. (5) Afib Assessment/Plan: HR is controlled by adding an evening dose of Metoprolol to the a.m. 150 mg dose. He is also on po Dig and Cardizem. He cannot take aspirin or anticoag due to Hx of GI bleed. (6) COPD without exacerbation Assessment/Plan: Continue nebs The iv steroids are on a rapid taper down to off. (7) Anemia Qualifiers: Anemia type: iron deficiency Assessment/Plan: Iron replacement po ordered. (8) Hypothyroidism Assessment/Plan: TSH is OK, continue his home Synthroid dose. 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 (11) Morbid obesity Assessment/Plan: As per Hx - Current Meds Current Meds: Current Medications Generic Name Dose Route Start Last Admin Trade Name Freq PRN Reason Stop Dose Admin Albuterol 2.5 mg 11/19/19 15:13 11/22/19 07:25 INH 2.5 mg RTQ4H PRN Administration Wheezing Albuterol/Ipratropium 3 ml 11/19/19 15:13 11/22/19 04:52 Duoneb INH 3 ml RTQID PRN Administration Shortness of Air/Wheezing Budesonide 0.5 mg 11/19/19 19:00 11/22/19 07:25 Pulmicort INH 0.5 mg RTBID JURGEN Administration Digoxin 62.5 mcg 11/20/19 09:00 11/22/19 08:12 Lanoxin PO 62.5 mcg DAILY JURGEN Administration Diltiazem HCl 240 mg 11/20/19 09:00 11/22/19 08:12 Cardizem Cd PO 240 mg DAILY JURGEN Administration Ferrous Sulfate 325 mg 11/20/19 08:00 11/22/19 08:12 Feosol PO 325 mg BIDWM JURGEN Administration Furosemide 60 mg 11/21/19 14:00 11/22/19 08:10 Lasix Inj 40 Mg Vial IVP 60 mg BIDDIURETIC JURGEN Administration Gabapentin 600 mg 11/19/19 22:00 11/22/19 08:13 Neurontin PO 600 mg BID JURGEN Administration Heparin Sodium (Porcine) 5,000 unit 11/19/19 21:00 11/22/19 08:12 SUBQ 5,000 unit BID JURGEN Administration Insulin Aspart 3 - 11 unit 11/21/19 21:00 11/22/19 08:11 Novolog SUBQ 5 unit 0800,1200,1700,2100 JURGEN Administration Protocol Levothyroxine Sodium 50 mcg 11/20/19 07:00 11/22/19 06:44 Synthroid PO 50 mcg QDAC JURGEN Administration Metoprolol Succinate 150 mg 11/20/19 09:00 11/22/19 08:12 Toprol Xl PO 150 mg DAILY JURGEN Administration Metoprolol Succinate 50 mg 11/21/19 21:00 11/21/19 21:17 Toprol Xl PO 50 mg QPM JURGEN Administration Pantoprazole Sodium 40 mg 11/20/19 07:00 11/22/19 06:44 Protonix PO 40 mg QDAC JURGEN Administration Polyethylene Glycol 17 gm 11/21/19 09:00 11/22/19 08:11 Miralax PO 17 gm DAILY JURGEN Administration Sodium Chloride 10 ml 11/19/19 14:57 11/21/19 14:03 Normal Saline Flush 0.9% IVP 20 ml PRN PRN Administration NEEDED PER PROVIDER ORDERS Sodium Chloride 10 ml 11/19/19 17:00 11/22/19 08:13 Normal Saline Flush 0.9% IVP 20 ml 0100,0900,1700 JURGEN Administration Tamsulosin HCl 0.4 mg 11/21/19 09:00 11/22/19 08:12 Flomax PO 0.4 mg DAILY JURGEN Administration Throat Lozenges 1 lozenge 11/21/19 09:08 11/21/19 09:22 Cepacol MM 1 lozenge Q2HR PRN Administration Throat pain - Lab Result Fish Bone Diagrams: 11/22/19 05:30 11/22/19 05:30 - Additional Planning My Orders: My Active Orders 11/21/19 14:00 FUROSEMIDE INJ 40mg VIAL [LASIX INJ 40 mg VIAL] 60 mg IVP BIDDIURETIC 11/21/19 21:00 Metoprolol Succinate [Toprol Xl] 50 mg PO QPM 11/22/19 09:14 Miscellaenous Nursing Order [RC] QSHIFT 11/23/19 05:00 BMP - BASIC METABOLIC PANEL [CHEM] DAILYLAB CBC - COMP BLD CT W/AUTO DIFF [HEME] DAILYLAB MAGNESIUM [CHEM] DAILYLAB 11/24/19 05:00 BMP - BASIC METABOLIC PANEL [CHEM] DAILYLAB CBC - COMP BLD CT W/AUTO DIFF [HEME] DAILYLAB MAGNESIUM [CHEM] DAILYLAB Subjective - Subjective Patient Reports: No Complaints, Other (Legs are slightly less tense with edema) Objective Vital Signs: Vital Signs - 24 hr 11/21/19 11/21/19 11/21/19 11:16 16:21 19:45 Temperature 37.0 C 36.4 C L 36.3 C L Heart Rate Heart Rate [ 99 108 H 93 Brachial] Heart Rate [ Monitoring electrodes] Respiratory 24 22 22 Rate Blood Pressure 103/54 L 110/71 112/79 [Left Brachial artery] Blood Pressure [Right Brachial artery] O2 Saturation 94 97 93 11/21/19 11/22/19 11/22/19 20:06 00:00 04:53 Temperature 36.4 C L Heart Rate 80 97 Heart Rate [ 98 Brachial] Heart Rate [ Monitoring electrodes] Respiratory 18 22 18 Rate Blood Pressure 125/75 [Left Brachial artery] Blood Pressure [Right Brachial artery] O2 Saturation 97 11/22/19 11/22/19 11/22/19 05:00 07:25 09:00 Temperature 37.0 C 36.2 C L Heart Rate 92 Heart Rate [ 90 Brachial] Heart Rate [ 94 Monitoring electrodes] Respiratory 22 20 18 Rate Blood Pressure [Left Brachial artery] Blood Pressure 105/74 123/75 [Right Brachial artery] O2 Saturation 100 97 Oxygen O2 Source Nasal cannula I&O (Last 24 Hrs): Intake and Output Totals x24h 11/20/19 11/21/19 11/22/19 23:59 23:59 23:59 Intake Total 1700 1310 240 Output Total 1700 1825 650 Balance 0 -515 -410 General: Alert, Oriented x3 HEENT: Mucous membr. moist/pink, Other (Male pattern baldness) Neck: Supple, No JVD Neuro: Alert, Non Focal Cardiovascular: Other (Distant heart sounds) Respiratory: No respiratory distress Abdomen: Soft, Other (Obese with pannus) Extremities: Other (3+ edema, less tense, is wearing TEDS plus SCDs) - Results Results: Laboratory Results WBC 9.5 x10^3/uL (4.8-10.8) 11/22/19 05:30 RBC 4.05 10^6/uL (4.70-6.10) L 11/22/19 05:30 Hgb 8.5 g/dL (14.0-18.0) L 11/22/19 05:30 Hct 32.1 % (42.0-52.0) L 11/22/19 05:30 MCV 79.3 fL (80.0-94.0) L 11/22/19 05:30 MCH 21.0 pg (27.0-31.0) L 11/22/19 05:30 MCHC 26.5 g/dL (32.0-36.0) L 11/22/19 05:30 RDW 20.1 % (12.0-15.0) H 11/22/19 05:30 Plt Count 117 10^3/uL (130-450) L 11/22/19 05:30 MPV 10.5 fL (7.4-11.4) 11/22/19 05:30 Reticulocyte % (Auto) 2.40 % (0.5-2.3) H 11/19/19 15:18 Neut # (Auto) 8.6 10^3/uL (1.5-6.6) H 11/22/19 05:30 Lymph # (Auto) 0.5 10^3/uL (1.5-3.5) L 11/22/19 05:30 [place] # (Auto) 0.4 10^3/uL (0.0-1.0) 11/22/19 05:30 Eos # (Auto) 0.0 10^3/uL (0.0-0.7) 11/22/19 05:30 Baso # (Auto) 0.0 10^3/uL (0.0-0.1) 11/22/19 05:30 Absolute Nucleated RBC 0.02 x10^3/uL 11/22/19 05:30 Nucleated RBC % 0.2 /100WBC 11/22/19 05:30 Manual Slide Review Indicated 11/22/19 05:30 WBC Morphology NORMAL APPEARANCE (NORMAL) 11/22/19 05:30 Platelet Estimate DECREASED (<130,000) (NORMAL) 11/22/19 05:30 Platelet Morphology NORMAL APPEARANCE (NORMAL) 11/22/19 05:30 RBC Morph Micro Appear 1+ STOMATOCYTES (NORMAL) 1+ ANISOCYTOSIS (NORMAL) 1+ POLYCHROMASIA (NORMAL) 1+ HYPOCHROMASIA (NORMAL) 11/19/19 14:12 RBC Morph Micro Appear 1+ STOMATOCYTES (NORMAL) 1+ ANISOCYTOSIS (NORMAL) 1+ POLYCHROMASIA (NORMAL) 1+ HYPOCHROMASIA (NORMAL) 11/19/19 14:12 RBC Morph Micro Appear 1+ POLYCHROMASIA (NORMAL) 1+ ANISOCYTOSIS (NORMAL) 2+ HYPOCHROMASIA (NORMAL) 11/20/19 09:30 RBC Morph Micro Appear 1+ POLYCHROMASIA (NORMAL) 1+ ANISOCYTOSIS (NORMAL) 2+ HYPOCHROMASIA (NORMAL) 11/20/19 09:30 RBC Morph Micro Appear 1+ POLYCHROMASIA (NORMAL) 1+ ANISOCYTOSIS (NORMAL) 2+ HYPOCHROMASIA (NORMAL) 11/20/19 09:30 RBC Morph Micro Appear 1+ ANISOCYTOSIS (NORMAL) 2+ HYPOCHROMASIA (NORMAL) 1+ POLYCHROMASIA (NORMAL) 11/22/19 05:30 RBC Morph Micro Appear 1+ ANISOCYTOSIS (NORMAL) 2+ HYPOCHROMASIA (NORMAL) 1+ POLYCHROMASIA (NORMAL) 11/22/19 05:30 RBC Morph Micro Appear 1+ ANISOCYTOSIS (NORMAL) 2+ HYPOCHROMASIA (NORMAL) 1+ POLYCHROMASIA (NORMAL) 11/22/19 05:30 Absolute Retic 0.092 10^6/uL (0.020-0.110) 11/19/19 15:18 Sodium 140 mmol/L (135-145) 11/22/19 05:30 Potassium 5.0 mmol/L (3.5-5.0) 11/22/19 05:30 Chloride 96 mmol/L (101-111) L 11/22/19 05:30 Carbon Dioxide 35 mmol/L (21-32) H 11/22/19 05:30 Anion Gap 9.0 (6-13) 11/22/19 05:30 BUN 54 mg/dL (6-20) H 11/22/19 05:30 Creatinine 1.6 mg/dL (0.6-1.2) H 11/22/19 05:30 Estimated GFR (MDRD) 44 (>89) L 11/22/19 05:30 Glucose 197 mg/dL (70-100) H 11/22/19 05:30 POC Whole Bld Glucose 185 mg/dL (70 - 100) H 11/22/19 07:59 Glycated Hemoglobin 6.1 % (4.6-6.2) 11/19/19 15:18 Estim Average Glucose 128 (70-100) H 11/19/19 15:18 Calcium 8.8 mg/dL (8.5-10.3) 11/22/19 05:30 Magnesium 2.0 mg/dL (1.7-2.8) 11/22/19 05:30 Iron 9 ug/dL (45-182) L 11/19/19 15:18 TIBC 497 ug/dL (250-450) H 11/19/19 15:18 % Saturation 2 % (20-50) L 11/19/19 15:18 Transferrin 355 mg/dL (180-329) H 11/19/19 15:18 Ferritin 10.3 ng/mL (23.9-336.2) L 11/19/19 15:18 Total Bilirubin 0.9 mg/dL (0.2-1.0) 11/19/19 14:12 AST 18 IU/L (10-42) 11/19/19 14:12 ALT 16 IU/L (10-60) 11/19/19 14:12 Alkaline Phosphatase 96 IU/L (42-121) 11/19/19 14:12 Lactate Dehydrogenase 131 IU/L (91-225) 11/19/19 15:18 B-Natriuretic Peptide 852 pg/mL (5-100) H 11/20/19 07:30 Total Protein 7.6 g/dL (6.7-8.2) 11/19/19 14:12 Albumin 3.5 g/dL (3.2-5.5) 11/19/19 14:12 Globulin 4.1 g/dL (2.1-4.2) 11/19/19 14:12 Albumin/Globulin Ratio 0.9 (1.0-2.2) L 11/19/19 14:12 Lipase 50 U/L (22-51) 11/19/19 14:12 Vitamin B12 470 pg/mL (180-914) 11/21/19 05:11 Folate 14.75 ng/mL (5.90 - >24.8) 11/21/19 05:11 TSH 0.90 uIU/mL (0.34-5.60) 11/20/19 05:48 Urine Color YELLOW 11/19/19 15:31 Urine Clarity CLEAR (CLEAR) 11/19/19 15:31 Urine pH 6.0 PH (5.0-7.5) 11/19/19 15:31 Ur Specific [place] 1.020 (1.002-1.030) 11/19/19 15:31 Urine Protein 30 mg/dL (NEGATIVE) H 11/19/19 15:31 Urine Glucose (UA) NEGATIVE mg/dL (NEGATIVE) 11/19/19 15:31 Urine Ketones NEGATIVE mg/dL (NEGATIVE) 11/19/19 15:31 Urine Occult Blood NEGATIVE (NEGATIVE) 11/19/19 15:31 Urine Nitrite NEGATIVE (NEGATIVE) 11/19/19 15:31 Urine Bilirubin NEGATIVE (NEGATIVE) 06/12/20 15:31 Urine Urobilinogen 0.2 (NORMAL) E.U./dL (NORMAL) 11/19/19 15:31 Ur Leukocyte Esterase NEGATIVE (NEGATIVE) 11/19/19 15:31 Urine RBC None Seen /HPF (0-5) 11/19/19 15:31 Urine WBC 0-3 /HPF (0-3) 11/19/19 15:31 Ur Squamous Epith Cells RARE Squamous (<= Few) 11/19/19 15:31 Urine Bacteria Rare /HPF (None Seen) 11/19/19 15:31 Urine Casts 26-50 Hyaline Casts /LPF 11/19/19 15:31 Urine Mucus Few Strands 11/19/19 15:31 Ur Microscopic Review INDICATED 11/19/19 15:31 Urine Culture Comments NOT INDICATED 11/19/19 15:31 Nasal Screen MRSA (PCR) NEGATIVE (NEGATIVE) 11/19/19 17:35 Last Dose Date 11/20/19 11/20/19 09:30 Last Dose Time 0807 11/20/19 09:30 Digoxin 0.6 ng/mL 11/20/19 09:30 Sepsis Event Note (H) - Evaluation Current Stage of Sepsis: Ruled out
[2019-11-23] MEDS: SODIUM CHLORIDE FLUSH 0.9% 10 ML SYRINGE IVP SCH ×2 (03:37→12:59)
[2019-11-23 05:49] LABS: BASOPHILS % (AUTO) 0.1 %; EOSINOPHILS % (AUTO) 0.1 %; HGB - HEMOGLOBIN 8.7 g/dL (14.0-18.0); LYMPHOCYTES # (AUTO) 1.2 10^3/uL (1.5-3.5); LYMPHOCYTES % (AUTO) 12.8 %; MEAN CORPUSCULAR HEMOGLOBIN 21.8 pg (27.0-31.0); MEAN CORPUSCULAR HGB CONC 27.4 g/dL (32.0-36.0); MEAN CORPUSCULAR VOLUME 79.4 fL (80.0-94.0); MEAN PLATELET VOLUME 10.4 fL (7.4-11.4); MONOCYTES # (AUTO) 1.4 10^3/uL (0.0-1.0); NEUTROPHILS # (AUTO) 6.9 10^3/uL (1.5-6.6); NEUTROPHILS % (AUTO) 71.5 %; PLT - PLATELET COUNT 109 10^3/uL (130-450); RED BLOOD COUNT 3.99 10^6/uL (4.70-6.10); RED CELL DISTRIBUTION WIDTH 20.1 % (12.0-15.0); WHITE BLOOD COUNT 9.6 x10^3/uL (4.8-10.8)
[2019-11-23 06:00] LABS: CALCIUM 8.9 mg/dL (8.5-10.3); CREATININE 1.4 mg/dL (0.6-1.2); MAGNESIUM 2.1 mg/dL (1.7-2.8)
[2019-11-23 06:07] LABS: PLATELET ESTIMATE, MANUAL DECREASED (<130,000) (NORMAL); PLATELET MORPHOLOGY NORMAL APPEARANCE (NORMAL)
[2019-11-23] MEDS: LEVOTHYROXINE 25 MCG TABLET PO SCH (06:17)
[2019-11-23] MEDS: FUROSEMIDE 40 MG/4 ML VIAL IVP SCH (06:17)
[2019-11-23] MEDS: PANTOPRAZOLE 40 MG TABLET PO SCH (06:17)
[2019-11-23] MEDS: IPRATROPIUM/ALBUTEROL 3 ML NEB INH PRN (07:45)
[2019-11-23] MEDS: BUDESONIDE 0.5 MG/2 ML NEB INH SCH (07:45)
[2019-11-23 08:42] LABS: DIGOXIN 0.3 ng/mL
[2019-11-23] MEDS ORDERED: diltiaZEM CD 180 MG CAPSULE PO SCH (09:00)
--- NOTE | 2019-11-23 11:33 | Discharge Plan ---
Discharge Plan Problem Reviewed?: Yes Disposition: Home, Self Care Condition: Poor Prescriptions: Metoprolol Succinate [Toprol Xl] 50 mg PO QPM #30 tablet Diet: Diabetic (Low salt diet) Activity Restrictions: Activity as Tolerated Shower Restrictions: No Instruction Topics: Heart Failure, COPD Health Concerns: You were admitted with fluid retention in your lungs and your legs and abdomen, from poor heart function, and from not taking any medicines for 10 days. We had you on strong medicine to remove the water retention, and leg elevation and compression stockings. Your oxygen level is averaging 85% saturation when you breathe room air, which is low. You qualify for getting supplemental oxygen, but you did not want to be tested for getting home oxygen. You said you would have that done by the [employer] at an upcoming appointment. Please take the medications on schedule and keep the appointment with your [employer] and PCP. Plan of Treatment: Resume all your pre-hospital medications at the same doses as before. There is one new prescription for Metoprolol 50 mg to take every evening; the prescription was sent to the [facility] pharmacy. Restrict your total fluid intake, to prevent water build-up in your legs and lungs. Never stop taking your meications suddenly, like you recently did for 10 days at the hotel. You qualify to attend Heart failure and COPD classes at the [facility] here. A referral was sent and their staff will call you to see if you would like to start. Care Goals: Improvement in symptoms and stabilization are the goals. Assessment: Patient does not want oxygen ordered, and does not want to discuss CODE STATUS while here. Additional Instructions or Follow Up instructions: If you have new or worsening symptoms, call your PCP for advice or come to an ER. Follow-Up Care: [facility], [facility] No Smoking: If you smoke, Please STOP! Call for help.
[2019-11-23 11:36] VITALS: BP 131/84
--- NOTE | 2019-11-23 11:50 | DISCHARGE SUMMARY ---
Discharge Summary Admit Date: 11/19/19 Discharge Date: 11/23/19 Discharging Provider: Dr Albania Archuleta Primary Care Provider: [facility] Sonny Code Status: Attempt Resuscitation Condition at Discharge: Poor Discharge Disposition: 01 Home, Self Care - HPI History of Present Illness: From the admission H&P of Pete Prakash NP: This is a 59-year-old white gentleman with history of morbid obesity (BMI 54.7), CHF, chronic atrial fibrillation, hypertension, type 2 diabetes, and obstructive sleep apnea not on a CPAP, who presents to the emergency department today as advised by his primary care physician for increased shortness of breath. Patient reported he does not use home oxygen but he checks his O2 sat which runs 85 to 90% and he had difficulty breathing. He went on a vacation to a hotel here in town and forgot his medicines so for 10 days he didn't have any meds, but said "I thought it was not big deal." He reported he gained about 30-40 lbs in this past month. He has been back on his meds for about a week. He is not anticoagulated, because of a history of bleeding ulcers. He reports that he still smokes one pack per day. He reports he is "not a drinker any more". He denies fever, chills, chest pain. ER lab tests showed the patient had creatinine 1.5, hemoglobin 8.5. Chest x-ray was unremarkable. His O2 sat is 87% on room air, and on 2 L of oxygen, his sats become 90% and he is more comfortable. His exam showed poor air movement in all lung bee, an obese abdominal with pannus down to his lower thighs, and 4+ anasarca to the hips, with weeping of clear fluid from a skin tear on the left anterior soto. Pt is being admitted for further medical management of respiratory failure with hypoxia and anasarca. - HOSPITAL COURSE Hospital Course: (1) Respiratory failure with hypoxia He was kept on supplemental oxygen to maintain saturations over 88%. We continued to treat his fluid overload and COPD. On the day of discharge, a walking oximetry test was planned, but he stated he would not accept home oxygen, even if it was needed. His resting O2 sat breathing room air, at rest, was only 77- 86%. No walk test was done. He was urged to accept home oxygen, but refused it. (2) Anasarca He was put on iv Lasix but took in more than the ordered daily fluid restriction allowed, and was only about 1 L negative in fluid balance from admission and weight had minimal change. He did comply with leg elevation and compressions stockings, which decreased his leg edema. His troponins were neg. An Echo was done that showed normal LV contractility, but new right sided RV enlargement with poor RV contractility. The BUN and creatinine started rising and iv Lasix was stopped. At discharge, he was put on his usual medications, which included Torsemide. (3) Cor pulmonale The diagnosis was discussed with the patient including a poor prognosis, especially given the untreated sleep apnea and continued smoking in a COPDer. He did not want to have a conversation about options for treatment changes or Palliative Care, and said simply, "I don't wish to discuss this". He told the admitting provider he wanted to be Full Code, which was also planned to be discussed, but he did not want to discuss that either. (4) Sleep apnea with hypersomnolence He was hypersomnolent occasionally, which could have been CO2 narcosis since he was on supplemental oxygen. He reported a history of sleep apnea and noncompliance with a mask CPAP, and did not want to discuss other CPAP mask options. (5) Acute on chronic kidney failure The loop diuretic increased his BUN/creatinine ratio. It was 30/1.5 at admission, and 55/1.4 at discharge. We avoided nephrotoxins. Several Dig levels were done because of this worsening creatinine and they were not toxic with Dig levels of 0.6 and 0.3. (6) Chronic Afib HR was controlled by adding an evening dose of Metoprolol Succ 50 mg to the a.m. 150 mg dose. He was also kept on his usual po Dig and Cardizem. He does not take aspirin or anticoagulants due to history of GI bleed. (7) COPD without exacerbation He was on nebs and steroids were empirically started due to dyspnea, but no wheezing was present and the iv steroids were on a rapid taper down to off. He did not plan on quitting smoking. (8) Anemia, iron deficiency The Hgb ran 8.5 to 8.7. A stool guaic test was neg. His B12 and Folate levels were good, but Iron stores were very low (% sat was 2%). Iron replacement orally was started and he was discharged on this. (8) Hypothyroidism His TSH was OK at 0.9; we continue his home Synthroid dose. (9) Diabetes mellitus His A1c was 6.1. He was on a carb-controlled diet with sliding scale Insulin coverage while here. At discharge, there were no oral diabetic meds or Insulin to resume. (10) BPH associated with nocturia The patient reported that he usually gets up 4-6 times per night to urinate, and while here that was 8 times due to iv diuretics. Flomax was tried while here, but not continued at discharge. He needs Urology evaluation and management. (11) Morbid obesity His BMI of 54.7 requires weight loss. (12) Non-compliance with medical regimen Many treatments and orders were not accepted by him, as described above in #1, #3, #4 and #7. - ALLERGIES Allergies/Adverse Reactions: Allergies Allergy/AdvReac Type Severity Reaction Status Date / Time No Known Drug Allergies Allergy Verified 11/19/19 13:49 - MEDICATIONS Home Medications: Ambulatory Orders Medication Instructions Recorded Confirmed Digoxin 62.5 mcg PO DAILY 04/28/17 11/19/19 Metoprolol Succinate 150 mg PO DAILY 04/28/17 11/19/19 Diltiazem HCl [Diltiazem 24Hr ER] 240 mg PO DAILY 07/21/19 11/19/19 Levothyroxine Sodium [Synthroid] 50 mcg PO DAILY 07/21/19 11/19/19 Pantoprazole Sodium 40 mg PO DAILY 07/21/19 11/19/19 Torsemide 20 mg PO BID 07/21/19 11/19/19 Gabapentin 600 mg PO BID 11/20/19 11/20/19 Metoprolol Succinate [Toprol Xl] 50 mg PO QPM #30 tablet 11/23/19 - PHYSICAL EXAM AT DISCHARGE General Appearance: positive: No acute distress, Alert Eyes Bilateral: positive: Normal inspection, EOMI ENT: positive: ENT inspection nml, No signs of dehydration Neck: positive: Nml inspection, No JVD Respiratory: positive: Other (Clear, no wheezing or rales, but diminished breath sounds) Cardiovascular: positive: Other (Irreg irreg, distant heart sounds) Abdomen: positive: Non-tender, Other (Obese with a pannus) Skin: positive: Pallor Extremities: positive: Other (3+ edema to above the knees) Neurologic/Psychiatric: positive: Oriented x3, Other (Non-focal) - LABS Result Diagrams: 11/23/19 05:30 11/23/19 05:30 - DIAGNOSTIC IMAGING Diagnostic Imaging Results: Final report reviewed - SEPSIS Current Stage of Sepsis: Ruled out - FOLLOW UP Follow Up: [facility] up, in 1-2 weeks was advised. - TIME SPENT Time Spent in Discharge (Minutes): 45
[2019-11-23] MEDS: FERROUS SULFATE 325 MG TABLET PO SCH (12:57)
[2019-11-23] MEDS: INSULIN ASPART 300 UNIT/3 ML PEN SUBQ SCH ×2 (12:57→12:59)
[2019-11-23] MEDS: HEPARIN 5,000 UNIT/ML VIAL SUBQ SCH (12:58)
[2019-11-23] MEDS: METOPROLOL SUCCINATE 50 MG TABLET PO SCH (12:58)
[2019-11-23] MEDS: DIGOXIN 125 MCG TABLET PO SCH (12:58)
[2019-11-23] MEDS: GABAPENTIN 300 MG CAPSULE PO SCH (12:58)
[2019-11-23] MEDS: TAMSULOSIN 0.4 MG CAPSULE PO SCH (12:59)
[2019-11-23] MEDS: polyethylene glycoL 3350 17 GM PACKET PO SCH (12:59)
[2019-11-24] MEDS ORDERED: FUROSEMIDE 40 MG TABLET PO SCH (09:00)
== END 2019-11-23 13:00 | disposition home or self-care (01) | DRG 189 ==
LOC: ED 13:42 → MS3 14:57 → OBSVTOIN 11-20 09:19 → MS2 11-20 10:26
PROVIDERS: ADMIT Nurse Practitioner Gerontology; ATTEND Internal Medicine
DX: J44.1 Chronic obstructive pulmonary disease with (acute) exacerbation (principal); J96.91 Respiratory failure, unspecified with hypoxia; I13.0 Hypertensive heart and chronic kidney disease with heart failure and stage 1 through stage 4 chronic kidney disease, or unspecified chronic kidney disease; Z68.43 Body mass index [BMI] 50.0-59.9, adult; I48.20 Chronic atrial fibrillation, unspecified; N17.9 Acute kidney failure, unspecified; I48.91 Unspecified atrial fibrillation; E66.2 Morbid (severe) obesity with alveolar hypoventilation; N18.3 Chronic kidney disease, stage 3 (moderate); J44.9 Chronic obstructive pulmonary disease, unspecified; D50.9 Iron deficiency anemia, unspecified; G47.10 Hypersomnia, unspecified; I27.81 Cor pulmonale (chronic); E11.65 Type 2 diabetes mellitus with hyperglycemia; E11.22 Type 2 diabetes mellitus with diabetic chronic kidney disease; E03.9 Hypothyroidism, unspecified; N40.1 Benign prostatic hyperplasia with lower urinary tract symptoms; I50.9 Heart failure, unspecified; R35.1 Nocturia; F17.210 Nicotine dependence, cigarettes, uncomplicated; Z53.20 Procedure and treatment not carried out because of patient's decision for unspecified reasons; Z91.14 Patient's other noncompliance with medication regimen; Z91.19 Patient's noncompliance with other medical treatment and regimen; Z79.899 Other long term (current) drug therapy; R09.02 Hypoxemia; D64.89 Other specified anemias; E66.01 Morbid (severe) obesity due to excess calories; Z91.81 History of falling
CPT/HCPCS: 36415; 71045; 80048; 80053; 80162; 81001; 82272; 82607; 82728; 82746; 83036; 83540; 83615; 83690; 83735; 83880; 84443; 84466; 85025; 85045; 87640; 93005; 93306; 94640; 94660; 96372; 96374; 96375; 96376; 99285; A9270; G0378; J7626; 81003; 87086

== ENCOUNTER 2021-06-25 17:57 | Outpatient (CLI) | payer MEDICARE, OTHER | END 2021-06-25 17:58 | disposition critical access hospital (66) | LOC: EMS 17:57 | DX: R41.0 Disorientation, unspecified (principal); R05.9 Cough, unspecified; M79.605 Pain in left leg; M79.604 Pain in right leg; R60.0 Localized edema; R06.00 Dyspnea, unspecified | CPT/HCPCS: A0425; A0429 ==

== ENCOUNTER 2021-06-25 18:14 | Inpatient (IN) | payer MEDICARE, OTHER ==
--- NOTE | 2021-06-25 18:53 | ED Physician Documentation ---
PD HPI ALTERED MENTAL STATUS - Stated complaint Stated Complaint: AMS/WEAKNESS - Chief complaint Chief Complaint: Neuro - History obtained from History obtained from: Family (), EMS - Additional information Additional information: 61-year-old gentleman brought in by ambulance. He is unable to provide any history because of altered mental status. Per the he has been this way for "months" in the barn and using kratom. He is not taking any of his prescribed medications. Last admission here was in November 2019 which was for respiratory failure related to COPD and anasarca. He refused home oxygen at the time. He did have cor pulmonale. He has chronic A. fib and is supposed to be on medications but apparently is not taking them, per the just taking kratom. He was full code at that time. I queried the with the current CODE STATUS and goals of care were and she could not answer. She will call me back, but right now "her nerves are shot." called me back, she would like him to be full code with full advanced interventions. Review of Systems Unable to obtain: Confused PD PAST MEDICAL HISTORY - Past Medical History Cardiovascular: Congestive heart failure, Hypertension, Atrial fibrillation, Other Respiratory: Sleep apnea Neuro: None Endocrine/Autoimmune: None GI: None : None HEENT: None Psych: None Musculoskeletal: None Derm: None - Past Surgical History Past Surgical History: No Ortho: Arthroscopic surgery - Present Medications Home Medications: Ambulatory Orders Medication Instructions Recorded Confirmed Digoxin 62.5 mcg PO DAILY 04/28/17 11/19/19 Metoprolol Succinate 150 mg PO DAILY 04/28/17 11/19/19 Diltiazem HCl [Diltiazem 24Hr ER] 240 mg PO DAILY 07/21/19 11/19/19 Levothyroxine Sodium [Synthroid] 50 mcg PO DAILY 07/21/19 11/19/19 Pantoprazole Sodium 40 mg PO DAILY 07/21/19 11/19/19 Torsemide 20 mg PO BID 07/21/19 11/19/19 Gabapentin 600 mg PO BID 11/20/19 11/20/19 Metoprolol Succinate [Toprol Xl] 50 mg PO QPM #30 tablet 11/23/19 - Allergies Allergies/Adverse Reactions: Allergies Allergy/AdvReac Type Severity Reaction Status Date / Time No Known Drug Allergies Allergy Verified 06/25/21 18:30 - Social History Does the pt smoke?: Yes Smoking Status: Current every day smoker Does the pt drink ETOH?: Yes Does the pt have substance abuse?: No - Immunizations Immunizations are current?: Yes - POLST Patient has POLST: No POLST Status: Full Code PD ED PE NORMAL - Vitals Vital signs reviewed: Yes - General General: Other (Decreased responsiveness, able to wake up and say his name but nothing else) - HEENT HEENT: Other (exopthalmos) - Neck Neck: Supple, no meningeal sign, No bony TTP - Cardiac Cardiac: Other (Irregularly irregular and rapid without murmur) - Respiratory Respiratory: Other (Labored breathing with rhonchorous breath sounds throughout) - Abdomen Abdomen: Soft, Non tender - Back Back: No CVA TTP, No spinal TTP - Derm Derm: Normal color, Warm and dry - Extremities Extremities: Other (Severe venous stasis changes and anasarca without obvious cellulitis.) - Neuro Eye Opening: To Voice Motor: Localizes to Pain Verbal: Confused GCS Score: 12 Results - Vitals Vitals: Vital Signs - 24 hr 06/25/21 06/25/21 06/25/21 18:30 18:35 19:11 Temperature 37.8 C Heart Rate 140 H 130 H 128 H Respiratory 30 H 20 Rate Blood Pressure 148/116 H 156/119 H O2 Saturation 83 L 94 06/25/21 06/25/21 06/25/21 19:35 20:00 20:30 Temperature 37.7 C Heart Rate 133 H 121 H 129 H Respiratory 19 18 16 Rate Blood Pressure 145/100 H 143/91 H 143/77 H O2 Saturation 93 92 95 06/25/21 06/25/21 06/25/21 21:00 21:30 22:00 Temperature 37.4 C Heart Rate 113 H 120 H 110 H Respiratory 18 18 17 Rate Blood Pressure 143/77 H 141/69 H 153/81 H O2 Saturation 92 95 96 Oxygen O2 Source BIPAP - EKG (time done) 1827 Rate: Rate (enter#) (137) Rhythm: Atrial fibrillation QRS: Low voltage Ischemia: Non specific changes Computer interpretation: Agree with computer - Labs Labs: Laboratory Tests 06/25/21 06/25/21 06/25/21 18:30 18:49 18:49 WBC 13.6 H RBC 4.65 L Hgb 11.9 L Hct 41.5 L MCV 89.2 MCH 25.6 L MCHC 28.7 L RDW 23.8 H Plt Count 107 L MPV 10.0 Neut # (Auto) 11.2 H Lymph # (Auto) 0.7 L Baldwin # (Auto) 1.4 H Eos # (Auto) 0.1 Baso # (Auto) 0.1 Absolute Nucleated RBC 0.00 Nucleated RBC % 0.0 VBG pH VBG pCO2 VBG pO2 VBG HCO3 VBG Total CO2 VBG O2 Saturation VBG Base Excess Sodium 132 L Potassium 4.7 Chloride 93 L Carbon Dioxide 30 Anion Gap 9.0 BUN 36 H Creatinine 1.6 H Estimated GFR (MDRD) 44 L Glucose 99 Lactic Acid Calcium 8.7 Total Bilirubin 2.1 H AST 15 ALT 10 Alkaline Phosphatase 65 Troponin I High Sens B-Natriuretic Peptide Total Protein 8.2 Albumin 3.2 Globulin 5.0 H Albumin/Globulin Ratio 0.6 L Lipase 20 L TSH Thyroxine (T4) Free T3 pg/mL Urine Color Urine Clarity Urine pH Ur Specific [place] Urine Protein Urine Glucose (UA) Urine Ketones Urine Occult Blood Urine Nitrite Urine Bilirubin Urine Urobilinogen Ur Leukocyte Esterase Urine RBC Urine WBC Ur Squamous Epith Cells Urine Crystals Urine Bacteria Urine Culture Comments Nasal Adenovirus (PCR) NOT DETECTED Nasal B. parapertussis DNA (PCR) NOT DETECTED Nasal Coronavir 229E PCR NOT DETECTED Nasal Coronavir HKU1 PCR NOT DETECTED Nasal Coronavir NL63 PCR NOT DETECTED Nasal Coronavir OC43 PCR NOT DETECTED Nasal Enterovir/Rhinovir PCR NOT DETECTED Nasal Influenza B PCR NOT DETECTED Nasal Influenza A PCR NOT DETECTED Nasal Parainfluen 1 PCR NOT DETECTED Nasal Parainfluen 2 PCR NOT DETECTED Nasal Parainfluen 3 PCR NOT DETECTED Nasal Parainfluen 4 PCR NOT DETECTED Nasal RSV (PCR) NOT DETECTED Nasal B.pertussis DNA PCR NOT DETECTED Nasal C.pneumoniae (PCR) NOT DETECTED Daniel Human Metapneumo PCR NOT DETECTED Nasal M.pneumoniae (PCR) NOT DETECTED Nasal SARS-CoV-2 (PCR) NOT DETECTED Last Dose Date Last Dose Time Digoxin Urine Opiates Screen Ur Oxycodone Screen Urine Methadone Screen Ur Propoxyphene Screen Ur Barbiturates Screen Ur Tricyclics Screen Ur Phencyclidine Scrn Ur Amphetamine Screen U Methamphetamines Scrn U Benzodiazepines Scrn Urine Cocaine Screen U Cannabinoids Screen Ethyl Alcohol 06/25/21 06/25/21 06/25/21 18:49 18:49 18:49 WBC RBC Hgb Hct MCV MCH MCHC RDW Plt Count MPV Neut # (Auto) Lymph # (Auto) Baldwin # (Auto) Eos # (Auto) Baso # (Auto) Absolute Nucleated RBC Nucleated RBC % VBG pH VBG pCO2 VBG pO2 VBG HCO3 VBG Total CO2 VBG O2 Saturation VBG Base Excess Sodium Potassium Chloride Carbon Dioxide Anion Gap BUN Creatinine Estimated GFR (MDRD) Glucose Lactic Acid 1.5 Calcium Total Bilirubin AST ALT Alkaline Phosphatase Troponin I High Sens 50.9 H* B-Natriuretic Peptide 680 H Total Protein Albumin Globulin Albumin/Globulin Ratio Lipase TSH Thyroxine (T4) Free T3 pg/mL Urine Color Urine Clarity Urine pH Ur Specific [place] Urine Protein Urine Glucose (UA) Urine Ketones Urine Occult Blood Urine Nitrite Urine Bilirubin Urine Urobilinogen Ur Leukocyte Esterase Urine RBC Urine WBC Ur Squamous Epith Cells Urine Crystals Urine Bacteria Urine Culture Comments Nasal Adenovirus (PCR) Nasal B. parapertussis DNA (PCR) Nasal Coronavir 229E PCR Nasal Coronavir HKU1 PCR Nasal Coronavir NL63 PCR Nasal Coronavir OC43 PCR Nasal Enterovir/Rhinovir PCR Nasal Influenza B PCR Nasal Influenza A PCR Nasal Parainfluen 1 PCR Nasal Parainfluen 2 PCR Nasal Parainfluen 3 PCR Nasal Parainfluen 4 PCR Nasal RSV (PCR) Nasal B.pertussis DNA PCR Nasal C.pneumoniae (PCR) Daniel Human Metapneumo PCR Nasal M.pneumoniae (PCR) Nasal SARS-CoV-2 (PCR) Last Dose Date Last Dose Time Digoxin Urine Opiates Screen Ur Oxycodone Screen Urine Methadone Screen Ur Propoxyphene Screen Ur Barbiturates Screen Ur Tricyclics Screen Ur Phencyclidine Scrn Ur Amphetamine Screen U Methamphetamines Scrn U Benzodiazepines Scrn Urine Cocaine Screen U Cannabinoids Screen Ethyl Alcohol 06/25/21 06/25/21 06/25/21 18:49 18:49 20:11 WBC RBC Hgb Hct MCV MCH MCHC RDW Plt Count MPV Neut # (Auto) Lymph # (Auto) Baldwin # (Auto) Eos # (Auto) Baso # (Auto) Absolute Nucleated RBC Nucleated RBC % VBG pH VBG pCO2 VBG pO2 VBG HCO3 VBG Total CO2 VBG O2 Saturation VBG Base Excess Sodium Potassium Chloride Carbon Dioxide Anion Gap BUN Creatinine Estimated GFR (MDRD) Glucose Lactic Acid Calcium Total Bilirubin AST ALT Alkaline Phosphatase Troponin I High Sens B-Natriuretic Peptide Total Protein Albumin Globulin Albumin/Globulin Ratio Lipase TSH 5.94 H Thyroxine (T4) 6.02 L Free T3 pg/mL 1.89 L Urine Color DARK YELLOW Urine Clarity SL. CLOUDY Urine pH 8.5 H Ur Specific [place] 1.015 Urine Protein 30 H Urine Glucose (UA) NEGATIVE Urine Ketones NEGATIVE Urine Occult Blood TRACE-INTA Urine Nitrite POSITIVE H Urine Bilirubin NEGATIVE Urine Urobilinogen 1 (NORMAL) Ur Leukocyte Esterase LARGE H Urine RBC 0-5 Urine WBC 11-25 H Ur Squamous Epith Cells NONE SEEN Urine Crystals 26-50 Triple Phos Urine Bacteria Moderate H Urine Culture Comments INDICATED Nasal Adenovirus (PCR) Nasal B. parapertussis DNA (PCR) Nasal Coronavir 229E PCR Nasal Coronavir HKU1 PCR Nasal Coronavir NL63 PCR Nasal Coronavir OC43 PCR Nasal Enterovir/Rhinovir PCR Nasal Influenza B PCR Nasal Influenza A PCR Nasal Parainfluen 1 PCR Nasal Parainfluen 2 PCR Nasal Parainfluen 3 PCR Nasal Parainfluen 4 PCR Nasal RSV (PCR) Nasal B.pertussis DNA PCR Nasal C.pneumoniae (PCR) Daniel Human Metapneumo PCR Nasal M.pneumoniae (PCR) Nasal SARS-CoV-2 (PCR) Last Dose Date UNKNOWN Last Dose Time UNKNOWN Digoxin < 0.2 Urine Opiates Screen NEGATIVE Ur Oxycodone Screen NEGATIVE Urine Methadone Screen NEGATIVE Ur Propoxyphene Screen NEGATIVE Ur Barbiturates Screen NEGATIVE Ur Tricyclics Screen NEGATIVE Ur Phencyclidine Scrn NEGATIVE Ur Amphetamine Screen NEGATIVE U Methamphetamines Scrn NEGATIVE U Benzodiazepines Scrn NEGATIVE Urine Cocaine Screen NEGATIVE U Cannabinoids Screen NEGATIVE Ethyl Alcohol < 5.0 06/25/21 21:16 WBC RBC Hgb Hct MCV MCH MCHC RDW Plt Count MPV Neut # (Auto) Lymph # (Auto) Baldwin # (Auto) Eos # (Auto) Baso # (Auto) Absolute Nucleated RBC Nucleated RBC % VBG pH 7.314 VBG pCO2 60.3 H VBG pO2 30.4 VBG HCO3 30.0 H VBG Total CO2 31.8 H VBG O2 Saturation 62.4 VBG Base Excess 2.4 H Sodium Potassium Chloride Carbon Dioxide Anion Gap BUN Creatinine Estimated GFR (MDRD) Glucose Lactic Acid Calcium Total Bilirubin AST ALT Alkaline Phosphatase Troponin I High Sens B-Natriuretic Peptide Total Protein Albumin Globulin Albumin/Globulin Ratio Lipase TSH Thyroxine (T4) Free T3 pg/mL Urine Color Urine Clarity Urine pH Ur Specific [place] Urine Protein Urine Glucose (UA) Urine Ketones Urine Occult Blood Urine Nitrite Urine Bilirubin Urine Urobilinogen Ur Leukocyte Esterase Urine RBC Urine WBC Ur Squamous Epith Cells Urine Crystals Urine Bacteria Urine Culture Comments Nasal Adenovirus (PCR) Nasal B. parapertussis DNA (PCR) Nasal Coronavir 229E PCR Nasal Coronavir HKU1 PCR Nasal Coronavir NL63 PCR Nasal Coronavir OC43 PCR Nasal Enterovir/Rhinovir PCR Nasal Influenza B PCR Nasal Influenza A PCR Nasal Parainfluen 1 PCR Nasal Parainfluen 2 PCR Nasal Parainfluen 3 PCR Nasal Parainfluen 4 PCR Nasal RSV (PCR) Nasal B.pertussis DNA PCR Nasal C.pneumoniae (PCR) Daniel Human Metapneumo PCR Nasal M.pneumoniae (PCR) Nasal SARS-CoV-2 (PCR) Last Dose Date Last Dose Time Digoxin Urine Opiates Screen Ur Oxycodone Screen Urine Methadone Screen Ur Propoxyphene Screen Ur Barbiturates Screen Ur Tricyclics Screen Ur Phencyclidine Scrn Ur Amphetamine Screen U Methamphetamines Scrn U Benzodiazepines Scrn Urine Cocaine Screen U Cannabinoids Screen Ethyl Alcohol - Rads (name of study) 1v chest Radiology: EMP read contemporaneously PD MEDICAL DECISION MAKING - ED course ED course: 61-year-old gentleman with respiratory failure in the face of multiple comorbidities including A. fib and known CHF. It seems like CHF is probably the major issue today as he does appear to have's anasarca. That said there is some evidence of sepsis as well with a UTI. He was pancultured and given cefepime, Flagyl, and vancomycin for broad-spectrum coverage of sepsis likely due to UTI. He is not in septic shock and therefore does not need excessive IV fluids which is good since he does seem to be in heart failure again. He was given Lasix and Nitropaste and placed on BiPAP which he seems to tolerate well. Spoke with Dr. Archuleta for admission at 10:30 PM. Departure - Departure Disposition: 64 [facility] DC/Xfer Clinical Impression: Delirium, Respiratory failure, Congestive heart failure, Diabetes mellitus, Atrial fibrillation with rapid ventricular response, UTI (urinary tract infection), Full code status Condition: Critical
[2021-06-25] MEDS ORDERED: VANCOMYCIN INJ 2.5 GM in SODIUM CHLORIDE 0.9% 500 ML IV STA (18:57)
[2021-06-25] MEDS ORDERED: CEFEPIME 2 GM in SODIUM CHLORIDE 0.9% MINIBAG 100 ML IV STA (18:57)
[2021-06-25] MEDS ORDERED: metroNIDAZOLE 500 MG/100 ML 500 MG/100 ML BAG IV STA (18:57)
[2021-06-25 19:02] LABS: BASOPHILS # (AUTO) 0.1 10^3/uL (0.0-0.1); BASOPHILS % (AUTO) 0.7 %; EOSINOPHILS # (AUTO) 0.1 10^3/uL (0.0-0.7); EOSINOPHILS % (AUTO) 0.6 %; HCT - HEMATOCRIT 41.5 % (42.0-52.0); HGB - HEMOGLOBIN 11.9 g/dL (14.0-18.0); LYMPHOCYTES # (AUTO) 0.7 10^3/uL (1.5-3.5); LYMPHOCYTES % (AUTO) 5.3 %; MEAN CORPUSCULAR HEMOGLOBIN 25.6 pg (27.0-31.0); MEAN CORPUSCULAR HGB CONC 28.7 g/dL (32.0-36.0); MEAN CORPUSCULAR VOLUME 89.2 fL (80.0-94.0); MONOCYTES # (AUTO) 1.4 10^3/uL (0.0-1.0); NEUTROPHILS # (AUTO) 11.2 10^3/uL (1.5-6.6); NEUTROPHILS % (AUTO) 82.7 %; PLT - PLATELET COUNT 107 10^3/uL (130-450); RED BLOOD COUNT 4.65 10^6/uL (4.70-6.10); RED CELL DISTRIBUTION WIDTH 23.8 % (12.0-15.0); WHITE BLOOD COUNT 13.6 x10^3/uL (4.8-10.8)
--- NOTE | 2021-06-25 19:10 | XRAY Report ---
PROCEDURE: Chest 1 View X-Ray INDICATIONS: Chest pain TECHNIQUE: One view of the chest was acquired. COMPARISON: 11/19/2019. FINDINGS: Surgical changes and devices: None. Lungs and pleura: No pleural effusions or pneumothorax. Patchy airspace opacities noted in the lungs bilaterally. Mediastinum: Mediastinal contours appear normal. Heart is enlarged. There is central pulmonary vasc ular prominence. Bones and chest wall: No suspicious bony lesions. Overlying soft tissues appear unremarkable. IMPRESSION: Cardiomegaly with central pulmonary vascular prominence concerning for CHF/fluid overload. Patchy bilateral lung opacities which represent multi focal pneumonia or pulmonary edema. Reviewed by: Nicole Roche MD, PhD on 06/25/2021 6:09 PM [facility] Approved by: Nicole Roche MD, PhD on 06/25/2021 6:09 PM [facility] Station ID: [id number]
[2021-06-25 19:17] LABS: ALBUMIN 3.2 g/dL (3.2-5.5); ALBUMIN/GLOBULIN RATIO 0.6 (1.0-2.2); BILIRUBIN,TOTAL 2.1 mg/dL (0.2-1.0); CALCIUM 8.7 mg/dL (8.5-10.3); CREATININE 1.6 mg/dL (0.6-1.2); POTASSIUM 4.7 mmol/L (3.5-5.0); TOTAL PROTEIN 8.2 g/dL (6.7-8.2)
[2021-06-25 19:33] LABS: T4 (THYROXINE) 6.02 ug/dL (6.09-12.23)
[2021-06-25 19:36] LABS: THYROID STIMULATING HORMONE 5.94 uIU/mL (0.34-5.60)
[2021-06-25 19:37] LABS: ETOH - ETHANOL < 5.0 mg/dL; FREE T3 1.89 pg/mL (2.5-3.9)
[2021-06-25 19:39] LABS: DIGOXIN < 0.2 ng/mL
[2021-06-25] MEDS ORDERED: NITROGLYCERIN 2% PASTE TOP STA (19:52)
[2021-06-25] MEDS ORDERED: FUROSEMIDE 40 MG/4 ML VIAL IVP STA (19:52)
[2021-06-25 20:01] LABS: B. PARAPERTUSSIS- RESP PCR PAN NOT DETECTED; B. PERTUSSIS- RESP PCR PANEL NOT DETECTED; C. PNEUMONIAE- RESP PCR PANEL NOT DETECTED; CORONAVIRUS 229E-RESP PCR NOT DETECTED; CORONAVIRUS HKU1-RESP PCR NOT DETECTED; CORONAVIRUS NL63-RESP PCR NOT DETECTED; CORONAVIRUS OC43-RESP PCR NOT DETECTED; HUMAN METAPNEUMOVIRUS NOT DETECTED; INFLUENZA A- RESP PCR PANEL NOT DETECTED; INFLUENZA B - RESP PCR PANEL NOT DETECTED; M. PNEUMONIAE- RESP PCR PANEL NOT DETECTED; PARAINFLUENZA VIRUS 1 NOT DETECTED; PARAINFLUENZA VIRUS 2 NOT DETECTED; PARAINFLUENZA VIRUS 3 NOT DETECTED; PARAINFLUENZA VIRUS 4 NOT DETECTED; RHINOVIRUS/ENTEROVIRUS NOT DETECTED; RSV- RESP PCR PANEL NOT DETECTED; SARS-CoV-2 -RESP PCR PANEL NOT DETECTED
[2021-06-25 20:16] LABS: MUDS CUTOFF CONCENTRATIONS CUTOFF CONC BELOW:
[2021-06-25 20:19] LABS: GLUCOSE, URINE (UA) NEGATIVE (NEGATIVE); KETONES,URINE (UA) NEGATIVE (NEGATIVE); LEUKOCYTE ESTERASE, URINE LARGE (NEGATIVE); NITRITE,URINE POSITIVE (NEGATIVE); OCCULT BLOOD,URINE TRACE-INTA (NEGATIVE); PH,URINE 8.5 PH (5.0-7.5); PROTEIN,URINE 30 mg/dL (NEGATIVE); UROBILINOGEN,URINE 1 (NORMAL) E.U./dL (NORMAL)
[2021-06-25 20:29] LABS: BACTERIA,URINE Moderate /HPF (None Seen); BILIRUBIN,URINE NEGATIVE (NEGATIVE); CLARITY,URINE SL. CLOUDY (CLEAR); ICTOTEST,URINE NEGATIVE; RBC,URINE 0-5 /HPF (0-5); SQUAMOUS EPITHELIAL CELL,UR NONE SEEN (<= Few)
[2021-06-25 20:30] LABS: AMPHETAMINE SCREEN,URINE NEGATIVE (NEGATIVE); BARBITURATE SCREEN,UR NEGATIVE (NEGATIVE); BENZODIAZEPINES SCREEN, URINE NEGATIVE (NEGATIVE); COCAINE SCREEN URINE NEGATIVE (NEGATIVE); METHADONE SCREEN, URINE NEGATIVE (NEGATIVE); METHAMPHETAMINES SCREEN, URINE NEGATIVE (NEGATIVE); OPIATE SCREEN, URINE NEGATIVE (NEGATIVE); OXYCODONE SCREEN, URINE NEGATIVE (NEGATIVE); PROPOXYPHENE SCREEN, URINE NEGATIVE (NEGATIVE); THC CANNABINOID SCREEN, URINE NEGATIVE (NEGATIVE); TRICYCLIC ANTIDEPRESSANT,URINE NEGATIVE (NEGATIVE)
[2021-06-25 21:26] LABS: VBG BASE EXCESS 2.4 mmol/L (-2 - +2); VBG OXYGEN SATURATION 62.4 % (60-80); VBG PCO2 60.3 mmHg (41-51); VBG PH 7.314 (7.31-7.41); VBG PO2 30.4 mmHg (25-47); VBG TOTAL CO2 31.8 mmol/L (24-29)
[2021-06-25] MEDS ORDERED: ACETAMINOPHEN 325 MG TABLET PO PRN (22:38)
[2021-06-25] MEDS ORDERED: LEVALBUTEROL 1.25 MG/3 ML NEB INH PRN (22:49)
--- NOTE | 2021-06-25 23:05 | HISTORY & PHYSICAL EXAMINATION ---
Chief Complaint - Chief Complaint Chief Complaint: AMS, called ambulance History of Present Illness - Admitted From Admitted From:: ED - History Obtained From History obtained from: ED provider and chart review - History of Present Illness HPI Comment/Other: This is a 61-year-old white male with a history of morbid obesity, Hypothyroidism, COPD, smoker, history of A. fib, not on anticoagulation because of prior GI bleeding, sleep apnea who refuses to use CPAP and on the last admission in November 2020, refused to have oxygen at home. He was admitted then for COPD exacerbation and anasarca, was found to have cor pulmonale on Echo and normal LVEF then. The history was obtained from the to the ED provider then passed on to me. The patient lives in his barn on a recliner. He refuses to take any medications whatsoever and has not takem any for at least 5 mos. He has friends bring him a psychoactive depressant called kratom, which he eats. The has tried to get him to come to the hospital or see a provider for months, however today when he became obtunded, she called an ambulance. At the scene he had a cough, weakness, was confused. He had A. fib with a heart rate of 100, blood sugar was 81 and blood pressure was 128 systolic. In the ED he was somnolent, O2 saturation was in the 80% and he was put on BiPAP. He was in Afib with heart rate 125. His labs showed hypoxia and hypercapnia. His other labs showed white blood count of 13, BNP 680, TSH 5.94, with very low T4 and T3 (consistent with him not taking his Synthroid). Urinalysis was remarkable for high WBCs of 11-25 and moderate bacteriuria present. His respiratory PCR was entirely negative. His toxicology screen was negative. His told the ED provider that he is a Full Code. He has requested the same on previous admissions. History - Past Medical History Cardiovascular: reports: Congestive heart failure, Hypertension, Atrial fibrillation, Other (Cor pulmonale) Respiratory: reports: COPD (refuses home O2), Sleep apnea (refuses CPAP use) Neuro: reports: None Endocrine/Autoimmune: reports: HyPOthyroidism GI: reports: None : reports: None HEENT: reports: None Psych: reports: None (but uses a psycho-depressant plant called Kratom.) Musculoskeletal: reports: None Derm: reports: None MRSA Hx?: Yes - Past Surgical History Ortho: reports: Arthroscopic surgery - Family & Social History Family History: Mother: , CAD, CVA/TIA, Father: , CAD Family History Comment/Other: mother: at 82. Had heart problems. father: healthy. All siblings (4 brother and one half sister) all healthy Living arrangement: Other (Lives in his barn, sleeps on recliner.) Living Situation: With spouse/s.o. (Spouse lives in their house) Social History Notes: 1ppd for 40+ years. He was drinking 1/5 vodka a week, reported on his adm in 11/2020here, that he had just quit. No illicit drug use by Hx. Retired from the [employer] - Substance History Use: Uses substance without health or social issues: Tobacco - POLST Patient has POLST: No POLST Status: TakesNONE of meds listed: Meds/Allgy - Home Medications Home Medications: Ambulatory Orders Medication Instructions Recorded Confirmed Digoxin 62.5 mcg PO DAILY 04/28/17 11/19/19 Metoprolol Succinate 150 mg PO DAILY 04/28/17 11/19/19 Diltiazem HCl [Diltiazem 24Hr ER] 240 mg PO DAILY 07/21/19 11/19/19 Levothyroxine Sodium [Synthroid] 50 mcg PO DAILY 07/21/19 11/19/19 Pantoprazole Sodium 40 mg PO DAILY 07/21/19 11/19/19 Torsemide 20 mg PO BID 07/21/19 11/19/19 Gabapentin 600 mg PO BID 11/20/19 11/20/19 Metoprolol Succinate [Toprol Xl] 50 mg PO QPM #30 tablet 11/23/19 - Allergies Allergies/Adverse Reactions: Allergies Allergy/AdvReac Type Severity Reaction Status Date / Time No Known Drug Allergies Allergy Verified 06/25/21 18:30 Review of Systems - All Other Systems All Other Systems: reports: Other (He is too somnolent to obtain any ROS from.) Exam - Vital Signs Reviewed Vital Signs: Yes Vital Signs: Vital Signs x48h Temp Pulse Resp BP Pulse Ox 06/25/21 22:30 123 H 15 152/94 H 93 06/25/21 22:00 110 H 17 153/81 H 96 06/25/21 21:30 37.4 C 120 H 18 141/69 H 95 06/25/21 21:00 113 H 18 143/77 H 92 06/25/21 20:30 37.7 C 129 H 16 143/77 H 95 06/25/21 20:00 121 H 18 143/91 H 92 06/25/21 19:35 133 H 19 145/100 H 93 06/25/21 19:11 128 H 06/25/21 18:35 130 H 20 156/119 H 94 06/25/21 18:30 37.8 C 140 H 30 H 148/116 H 83 L - Physical Exam General Appearance: positive: No acute distress, Lethargic, Other (Asleep, on BIPAP, awakens and states name, answers he is in [place], not conversant) Eyes Bilateral: positive: No lid inflammation ENT: positive: Other (Has dentures, on BIPAP, breathing with mouth open) Neck: positive: Other (Obese and cannot eval JVP) Respiratory: positive: Rhonchi, Other (Good air entry, distant breath sounds) Cardiovascular: positive: Irregularly irregular, Other (Distant heart sounds) Abdomen: positive: Other (Obese with pnnus down to his knees, has 2+ abdominal wall edema, distant bowel sounds, no guarding or rebound) Skin: positive: Other (Dark leathery skin of extremities with foul odor) Extremities: positive: Other (4+ edema up to above hips, above buttocks, (his pittimg edema is up to level of diaphragm)) Neurologic/Psychiatric: positive: Disoriented to person, Disoriented to place, Disoriented to time, Other (Lethargic, arouses and follows some commands, moving all extremities spontaneously) Sepsis Event Note (H) - Evaluation Current Stage of Sepsis: Sepsis Possible source of Sepsis: positive: Genitourinary - Sepsis Criteria Sepsis Criteria: Recorded Heart Rate greater than 90 bpm, Respiratory: Increasing oxygen requirements, WBC count greater than 10% bands, WBC count greater than 12,000 or less than 4000 Conclusion/Plan - Problem List (1) AMS (altered mental status) Conclusion/Plan: This is likely multifactorial: From sepsis and infection (UTI), from hypercarbia, from hypoxia, and from using Kratom which is a psycho depressant. Will treat the underlying problems as discussed below (2) Sepsis Conclusion/Plan: He has elevated white count, elevated bands, low-grade temperature and his infection appears to be from a UTI source by U/A. His lactic acid is not elevated therefore rapid IV hydration is not needed which is appropriate because he needs diuresis for his anasarca. We will treat his infection with empiric antibiotics. Follow CBC daily (3) UTI (urinary tract infection) Conclusion/Plan: He received empiric cefepime, Vanco and Flagyl in the ED Begin ceftriaxone IV Await urine culture and blood culture results to tailor (4) Atrial fibrillation with rapid ventricular response Conclusion/Plan: This is related to not using his metoprolol 150q am, and 50 mg dose at hs, and his digoxin daily, for the past 5 to 6 months. The tachycardia is also probably from his infection. Will begin with IV beta-nell, 5 mg every 8 hours and start a lower dose of oral metoprolol than his usual, will raise this up as appropriate No oral anticoagulant is planned since he has a history of gastric bleeding when he was on an anticoagulant. We will start 1 baby aspirin daily. (5) Acute respiratory failure with hypoxia and hypercarbia Conclusion/Plan: The patient has known sleep apnea and also known COPD that would have needed O2, but he has refused to use home O2 or CPAP device at home many times in the past. Will treat with BiPAP in the ICU. Decrease oxygen requirements as tolerated (6) CHF exacerbation Conclusion/Plan: His chest X-ray shows some volume overload. The IV diuretics will also treat CHF. We will resume his beta-nell. Will order Echo with Definity to evaluate LVEF. If there is new depressed EF will start spironolactone and AVERY inhibitor or Hydralazine plus nitrates. (7) Anasarca Conclusion/Plan: This is likely related to cor pulmonale, CKD and untreated hypothyroidism. Will treat with IV bid Lasix and with order a daily total fluid restriction (at the last admission, he did not have negative fluid balance until fluid restriction orders were started). Follow I's and O's, daily weights. Will order leg elevation when he is OOB in chair (8) Cor pulmonale (chronic) Conclusion/Plan: Unfortunately he does not want to treat the underlying cause of his cor pulmonale which is his COPD requiring oxygen and his sleep apnea requiring CPAP Will give aggressive IV diuretics, leg elevation. (9) Acute kidney injury superimposed on chronic kidney disease Conclusion/Plan: ED history. He now probably has cardiorenal syndrome with high venous pressures adding to further increase in creatinine. Avoid nephrotoxins. Diuretics are the plan. Follow BMP daily (10) Hypothyroidism Conclusion/Plan: 50 mcg of Synthroid daily. He has taken no medicines for 5 to 6 months. Will resume Synthroid 50 mcg dose. (11) COPD (chronic obstructive pulmonary disease) Conclusion/Plan: There is no audible wheezing and he has good air entry and good movement. There are scattered rhonchi however. Will order as needed Xopenex management and will give empiric Solu-Medrol 40 mg tid, with a rapid taper down planned (12) History of sleep apnea Conclusion/Plan: As per records and he refuses a CPAP machine (13) Medical non-compliance Conclusion/Plan: Review of previous admissions reveal that he has refused prior medical management and the now gave a history that he took no medications whatsoever for 5 to 6 months. Will order a social work consult, perhaps SW can delve deeper into why he is so noncompliant and yet wants to be a Full Code. (14) Morbid obesity with BMI of 50.0-59.9, adult Conclusion/Plan: Evaluation of his body habitus reveals that he probably has not taken a shower in a long time since he "lives in his recliner in his barn". Shower will be ordered. - Lab Results Fish Bones: 06/25/21 18:49 06/25/21 18:49 - Diagnostic Imaging Results Diagnostic Imaging Results: positive: Final report reviewed - Other Other Results/Comments: Attestation: The patient is expected to be discharged or transferred to another facility for 96 hours: Yes
[2021-06-25] MEDS: methylPREDNISolone SUCCINATE 40 MG/ML VIAL IVP SCH (23:45)
[2021-06-25] MEDS: SODIUM CHLORIDE FLUSH 0.9% 10 ML SYRINGE IVP SCH (23:46)
[2021-06-25] MEDS: SODIUM CHLORIDE FLUSH 0.9% 10 ML SYRINGE IVP PRN (23:48)
[2021-06-26] MEDS: METOPROLOL 5 MG/5 ML VIAL IVP SCH ×4 (00:44→22:08)
[2021-06-26] MEDS: SODIUM CHLORIDE FLUSH 0.9% 10 ML SYRINGE IVP PRN ×5 (00:44→22:08)
[2021-06-26] MEDS ORDERED: ACETAMINOPHEN 1,000 MG/100 ML 100 ML IV PRN (04:08)
[2021-06-26 06:10] LABS: CALCIUM, IONIZED 1.09 mmol/L (1.15-1.33); VBG PH 7.359 (7.31-7.41)
[2021-06-26 06:11] LABS: BASOPHILS % (AUTO) 0.4 %; EOSINOPHILS % (AUTO) 0.4 %; HCT - HEMATOCRIT 38.5 % (42.0-52.0); HGB - HEMOGLOBIN 11.1 g/dL (14.0-18.0); LYMPHOCYTES % (AUTO) 2.8 %; MEAN CORPUSCULAR HEMOGLOBIN 25.5 pg (27.0-31.0); MEAN CORPUSCULAR HGB CONC 28.8 g/dL (32.0-36.0); MEAN CORPUSCULAR VOLUME 88.5 fL (80.0-94.0); MEAN PLATELET VOLUME 11.3 fL (7.4-11.4); MONOCYTES % (AUTO) 5.5 %; NEUTROPHILS % (AUTO) 89.8 %; PLT - PLATELET COUNT 99 10^3/uL (130-450); RED BLOOD COUNT 4.35 10^6/uL (4.70-6.10); RED CELL DISTRIBUTION WIDTH 23.5 % (12.0-15.0); WHITE BLOOD COUNT 14.2 x10^3/uL (4.8-10.8)
[2021-06-26 06:14] LABS: ABNORMAL LYMPHS % (MANUAL) 0 %; LYMPHOCYTES % (MANUAL) 0 %
[2021-06-26] MEDS: FUROSEMIDE 40 MG/4 ML VIAL IVP SCH ×2 (06:15→13:30)
[2021-06-26] MEDS: methylPREDNISolone SUCCINATE 40 MG/ML VIAL IVP SCH (06:15)
[2021-06-26] MEDS: PANTOPRAZOLE 40 MG TABLET PO SCH (06:16)
[2021-06-26] MEDS: LEVOTHYROXINE 25 MCG TABLET PO SCH (06:16)
[2021-06-26 06:21] LABS: CALCIUM 8.3 mg/dL (8.5-10.3); CREATININE 1.4 mg/dL (0.6-1.2); MAGNESIUM 1.3 mg/dL (1.7-2.8); PHOSPHORUS 2.7 mg/dL (2.5-4.6); POTASSIUM 4.6 mmol/L (3.5-5.0)
[2021-06-26 06:25] LABS: BAND NEUTROPHILS % (MANUAL) 2 %; MONOCYTES # (MANUAL) 0.4 10^3/uL (0.0-1.0); NEUTROPHILS # (MANUAL) 13.8 10^3/uL (1.5-6.6); PLATELET ESTIMATE, MANUAL DECREASED (<130,000) (NORMAL); PLATELET MORPHOLOGY NORMAL APPEARANCE (NORMAL); WBC MORPHOLOGY (MULTIPLE) NORMAL APPEARANCE (NORMAL)
[2021-06-26 06:26] LABS: DIFFERENTIAL COMMENT MANUAL DIFFERENTIAL
[2021-06-26] MEDS: CALCIUM CARBONATE CHEW 500 MG TABLET PO SCH ×4 (06:45→21:16)
[2021-06-26] MEDS: MAGNESIUM SULFATE 2 GRAM 2 GM/50 ML BAG IV SCH ×2 (06:45→08:16)
[2021-06-26] MEDS: SODIUM CHLORIDE FLUSH 0.9% 10 ML SYRINGE IVP SCH ×2 (08:18→17:28)
[2021-06-26] MEDS ORDERED: IOPAMIDOL-300 50 ML VIAL ONE (08:23)
[2021-06-26] MEDS ORDERED: iohexoL-300 100 ML VIAL ONE (08:23)
[2021-06-26] MEDS ORDERED: cefTRIAXone 2 GM in SODIUM CHLORIDE 0.9% MINIBAG 100 ML IV SCH (09:00)
[2021-06-26] MEDS ORDERED: iohexoL-300 100 ML VIAL IVP ONE (09:00)
--- NOTE | 2021-06-26 09:17 | CT Report ---
PROCEDURE: Abdomen/Pelvis W INDICATIONS: Sepsis. UTI. Altered mental status. CONTRAST: IV CONTRAST: Isovue 300 ml: 100 PO CONTRAST: *NO PO CONTRAST TECHNIQUE: After the administration of intravenous contrast, 5 mm thick sections acquired from the diaphragms to the symphysis. 5 mm thick coronal and sagittal reformats were acquired. For radiation dose reducti on, the following was used: automated exposure control, adjustment of mA and/or kV according to melodie ent size. COMPARISON: None. FINDINGS: There is four-chamber cardiomegaly along with right basilar atelectasis with interlobular thickening and groundglass haziness in the lung parenchyma suggestive of possible pulmonary edema. Additionally, there is small volume free fluid adjacent to the liver and in the paracolic gutters, along with a di stended appearance of the IVC and iliac veins. Findings are not definitive suggesting volume overload or perhaps heart failure/strain. Infrarenal abdominal aortic ectasia measuring up to 3.2 cm. Mildly ectatic right common iliac vein me asuring up to 17 mm. Diffuse atherosclerotic disease in the aorta and iliac arteries. Hemoperitoneum. No abnormally dilated or thickened loops of bowel. No pericolonic or mesenteric infla mmatory changes. No focal hepatic lesion/mass. Spleen is enlarged measuring up to 20 cm with small volume perisplenic fluid. Multiple enlarged retroperitoneal lymph nodes adjacent to the aorta at the level of the renal deysi in frarenal retroperitoneum extending into the iliac sections. Exophytic renal cyst projecting inferiorly from the lower pole of the right kidney. Kidneys otherwise normal gland nodule or mass. Pancreas is grossly unremarkable gallbladder. Moderate volume free pelvic fluid. Right inguinal hernia containing fat and fluid but no bowel. Urina ry bladder is decompressed by a Gomez catheter and not well evaluated. Prostate unremarkable. No acute or suspicious osseous lesion. IMPRESSION: Splenomegaly and retroperitoneal lymphadenopathy which could be reactive although lymphoma or another lymphoproliferative disorder is of concern. Small to moderate volume intra-abdominal and pelvic free fluid which could be a function of volume ov erload or right heart strain, given the distended appearance of the IVC and iliac veins along with an asarca. Reviewed by: Kaushik Rodriguez MD on 06/26/2021 9:16 AM PST Approved by: Kaushik Rodriguez MD on 06/26/2021 9:16 AM PST Station ID: [id number]
[2021-06-26] MEDS: ENOXAPARIN 40 MG/0.4 ML SYRINGE SUBQ SCH ×2 (10:04→20:24)
[2021-06-26] MEDS: METOPROLOL SUCCINATE 50 MG TABLET PO SCH (10:04)
--- NOTE | 2021-06-26 10:28 | PROVIDER PROGRESS NOTE ---
Subjective - Prog Note Date Prog Note Date: 06/26/21 - Subjective Subjective: He reports feeling a little better. He still feels short of breath this is improved. Continues to have a cough. He does not believe his right leg is always this erythematous. He denies any pain in that extremity. No abdominal pain. Current Medications - Current Medications Current Medications: Active Medications Acetaminophen (Acetaminophen 325 Mg Tablet) 650 mg PO Q4HR PRN PRN Reason: Pain or Fever > 38C (100.4F) Calcium Carbonate/Glycine (Calcium Carbonate Chew 500 Mg Tablet) 1,250 mg PO Q4H [facility]; Protocol Stop: 06/26/21 11:01 Last Admin: 06/26/21 06:45 Dose: 1,250 mg Enoxaparin Sodium (Enoxaparin 40 Mg/0.4 Ml Syringe) 40 mg SUBQ BID [facility] Last Admin: 06/26/21 10:04 Dose: Not Given Furosemide (Furosemide 40 Mg/4 Ml Vial) 40 mg IVP BIDDIURETIC [facility] Last Admin: 06/26/21 06:15 Dose: 40 mg Meropenem 1 gm/ Sodium (Chloride) 100 mls @ 200 mls/hr IV Q8H [facility] Levalbuterol HCl (Levalbuterol 1.25 Mg/3 Ml Neb) 1.25 mg INH Q4H PRN PRN Reason: Shortness of Air/Wheezing Levothyroxine Sodium (Levothyroxine 25 Mcg Tablet) 50 mcg PO QDAC [facility] Last Admin: 06/26/21 06:16 Dose: 50 mcg Methylprednisolone (Methylprednisolone Succinate 40 Mg/Ml Vial) 40 mg IVP TID [facility] Last Admin: 06/26/21 06:15 Dose: 40 mg Metoprolol Succinate (Metoprolol Succinate 50 Mg Tablet) 50 mg PO DAILY [facility] Last Admin: 06/26/21 10:04 Dose: 50 mg Metoprolol Tartrate (Metoprolol 5 Mg/5 Ml Vial) 5 mg IVP Q8HR [facility] Last Admin: 06/26/21 08:15 Dose: 5 mg Pantoprazole Sodium (Pantoprazole 40 Mg Tablet) 40 mg PO QDAC [facility] Last Admin: 06/26/21 06:16 Dose: 40 mg Sodium Chloride (Sodium Chloride Flush 0.9% 10 Ml Syringe) 10 ml IVP 0100,0900,1700 [facility] Last Admin: 06/26/21 08:18 Dose: 10 ml Sodium Chloride (Sodium Chloride Flush 0.9% 10 Ml Syringe) 10 ml IVP PRN PRN PRN Reason: NEEDED PER PROVIDER ORDERS Last Admin: 06/26/21 04:33 Dose: 10 ml Digoxin 62.5 mcg PO DAILY 04/28/17 Metoprolol Succinate 150 mg PO DAILY 04/28/17 Levothyroxine Sodium [Synthroid] 50 mcg PO DAILY 07/21/19 Pantoprazole Sodium 40 mg PO DAILY 07/21/19 Torsemide 20 mg PO BID 07/21/19 Gabapentin 600 mg PO BID 11/20/19 [id number] CD [Cardizem Cd] 180 mg PO DAILY 06/26/21 Objective - Vital Signs/Intake & Output Reviewed Vital Signs: Yes Vital Signs: Vital Signs Temp Pulse Resp BP BP Pulse Ox 06/26/21 09:00 105 H 20 108/65 90 L 06/26/21 08:15 127/72 06/26/21 08:00 36.8 C 126 H 26 H 127/72 93 06/26/21 07:00 131 H 19 112/70 91 L 06/26/21 06:51 37.5 C Intake & Output: Intake & Output 06/23/21 06/24/21 06/25/21 06/26/21 23:59 23:59 23:59 23:59 Intake Total 700 560 Output Total 1350 1095 Balance -650 -535 - Objective General Appearance: positive: No acute distress, Lethargic Eyes Bilateral: positive: Conjunctivae nml ENT: positive: ENT inspection nml, Other (Nasal cannula in place.) Neck: positive: Nml inspection Respiratory: positive: No respiratory distress, Rhonchi. negative: Wheezes, Rales Cardiovascular: positive: Irregularly irregular, Tachycardia. negative: Systolic murmur Abdomen: positive: Non-tender, No distention. negative: Tenderness Skin: positive: Warm, Dry, Other (His right lower extremity is erythematous from the ankle up to the right knee. Is warm to touch but nontender.) Extremities: positive: Pedal edema (+3 pitting edema in the bilateral lower extremities.) Neurologic/Psychiatric: positive: Disoriented to time, Other (No focal deficits. He is lethargic but will tell me where he is and is oriented to self. He is not oriented to year or month.). negative: Disoriented to person, Disoriented to place - Lab Results Fish Bones: 06/26/21 05:38 06/26/21 05:38 Other Labs: Lab Results x24hrs 06/26/21 06/26/21 06/26/21 Range/Units 05:38 05:38 05:38 WBC (4.8-10.8) x10^3/uL RBC (4.70-6.10) 10^6/uL Hgb (14.0-18.0) g/dL Hct (42.0-52.0) % MCV (80.0-94.0) fL MCH (27.0-31.0) pg MCHC (32.0-36.0) g/dL RDW (12.0-15.0) % Plt Count (130-450) 10^3/uL MPV (7.4-11.4) fL Neut # (Auto) (1.5-6.6) 10^3/uL Lymph # (Auto) (1.5-3.5) 10^3/uL Mcduffie # (Auto) (0.0-1.0) 10^3/uL Eos # (Auto) (0.0-0.7) 10^3/uL Baso # (Auto) (0.0-0.1) 10^3/uL Absolute Nucleated RBC x10^3/uL Total Counted Band Neuts % (Manual) (0 - 10) % Abnorm Lymph % (Manual) % Nucleated RBC % /100WBC Neutrophils # (Manual) (1.5-6.6) 10^3/uL Lymphocytes # (Manual) (1.5-3.5) 10^3/uL Monocytes # (Manual) (0.0-1.0) 10^3/uL Eosinophils # (Manual) (0-0.7) 10^3/uL Basophils # (Manual) (0-0.1) 10^3/uL Differential Comment WBC Morphology (NORMAL) Platelet Estimate (NORMAL) Platelet Morphology (NORMAL) RBC Morph Micro Appear (NORMAL) VBG pH 7.359 (7.31-7.41) VBG pCO2 (41-51) mmHg VBG pO2 (25-47) mmHg VBG HCO3 (23-28) mmol/L VBG Total CO2 (24-29) mmol/L VBG O2 Saturation (60-80) % VBG Base Excess (-2 - +2) mmol/L Ionized Calcium 1.09 L (1.15-1.33) mmol/L Sodium 135 (135-145) mmol/L Potassium 4.6 (3.5-5.0) mmol/L Chloride 97 L (101-111) mmol/L Carbon Dioxide 28 (21-32) mmol/L Anion Gap 10.0 (6-13) BUN 34 H (6-20) mg/dL Creatinine 1.4 H (0.6-1.2) mg/dL Estimated GFR (MDRD) 51 L (>89) Glucose 102 H (70-100) mg/dL Lactic Acid (0.5-2.2) mmol/L Calcium 8.3 L (8.5-10.3) mg/dL Phosphorus 2.7 (2.5-4.6) mg/dL Magnesium 1.3 L (1.7-2.8) mg/dL Total Bilirubin (0.2-1.0) mg/dL AST (10-42) IU/L ALT (10-60) IU/L Alkaline Phosphatase (42-121) IU/L Troponin I High Sens (2.3-19.7) ng/L B-Natriuretic Peptide 775 H (5-100) pg/mL Total Protein (6.7-8.2) g/dL Albumin (3.2-5.5) g/dL Globulin (2.1-4.2) g/dL Albumin/Globulin Ratio (1.0-2.2) Lipase (22-51) U/L TSH (0.34-5.60) uIU/mL Thyroxine (T4) (6.09-12.23) ug/dL Free T3 pg/mL (2.5-3.9) pg/mL Urine Color Urine Clarity (CLEAR) Urine pH (5.0-7.5) PH Ur Specific Marshall (1.002-1.030) Urine Protein (NEGATIVE) mg/dL Urine Glucose (UA) (NEGATIVE) mg/dL Urine Ketones (NEGATIVE) mg/dL Urine Occult Blood (NEGATIVE) Urine Nitrite (NEGATIVE) Urine Bilirubin (NEGATIVE) Urine Urobilinogen (NORMAL) E.U./dL Ur Leukocyte Esterase (NEGATIVE) Urine RBC (0-5) /HPF Urine WBC (0-3) /HPF Ur Squamous Epith Cells (<= Few) Urine Crystals /LPF Urine Bacteria (None Seen) /HPF Urine Culture Comments Nasal Adenovirus (PCR) Nasal B. parapertussis DNA (PCR) Nasal Coronavir 229E PCR Nasal Coronavir HKU1 PCR Nasal Coronavir NL63 PCR Nasal Coronavir OC43 PCR Nasal Enterovir/Rhinovir PCR Nasal Influenza B PCR Nasal Influenza A PCR Nasal Parainfluen 1 PCR Nasal Parainfluen 2 PCR Nasal Parainfluen 3 PCR Nasal Parainfluen 4 PCR Nasal RSV (PCR) Nasal Screen MRSA (PCR) (NEGATIVE) Nasal B.pertussis DNA PCR Nasal C.pneumoniae (PCR) Daniel Human Metapneumo PCR Nasal M.pneumoniae (PCR) Nasal SARS-CoV-2 (PCR) Last Dose Date Last Dose Time Digoxin ng/mL Urine Opiates Screen (NEGATIVE) Ur Oxycodone Screen (NEGATIVE) Urine Methadone Screen (NEGATIVE) Ur Propoxyphene Screen (NEGATIVE) Ur Barbiturates Screen (NEGATIVE) Ur Tricyclics Screen (NEGATIVE) Ur Phencyclidine Scrn (NEGATIVE) Ur Amphetamine Screen (NEGATIVE) U Methamphetamines Scrn (NEGATIVE) U Benzodiazepines Scrn (NEGATIVE) Urine Cocaine Screen (NEGATIVE) U Cannabinoids Screen (NEGATIVE) Ethyl Alcohol mg/dL 06/26/21 06/25/21 06/25/21 Range/Units 05:38 23:35 21:16 WBC 14.2 H (4.8-10.8) x10^3/uL RBC 4.35 L (4.70-6.10) 10^6/uL Hgb 11.1 L (14.0-18.0) g/dL Hct 38.5 L (42.0-52.0) % MCV 88.5 (80.0-94.0) fL MCH 25.5 L (27.0-31.0) pg MCHC 28.8 L (32.0-36.0) g/dL RDW 23.5 H (12.0-15.0) % Plt Count 99 L (130-450) 10^3/uL MPV 11.3 (7.4-11.4) fL Neut # (Auto) Not Reportable (1.5-6.6) 10^3/uL Lymph # (Auto) Not Reportable (1.5-3.5) 10^3/uL Mcduffie # (Auto) Not Reportable (0.0-1.0) 10^3/uL Eos # (Auto) Not Reportable (0.0-0.7) 10^3/uL Baso # (Auto) Not Reportable (0.0-0.1) 10^3/uL Absolute Nucleated RBC Not Reportable x10^3/uL Total Counted 100 Band Neuts % (Manual) 2 (0 - 10) % Abnorm Lymph % (Manual) 0 % Nucleated RBC % Not Reportable /100WBC Neutrophils # (Manual) 13.8 H (1.5-6.6) 10^3/uL Lymphocytes # (Manual) 0.0 L (1.5-3.5) 10^3/uL Monocytes # (Manual) 0.4 (0.0-1.0) 10^3/uL Eosinophils # (Manual) 0.0 (0-0.7) 10^3/uL Basophils # (Manual) 0.0 (0-0.1) 10^3/uL Differential Comment MANUAL DIFFERENTIAL WBC Morphology NORMAL APPEARANCE (NORMAL) Platelet Estimate DECREASED (<130,000) (NORMAL) Platelet Morphology NORMAL APPEARANCE (NORMAL) RBC Morph Micro Appear 1+ POLYCHROMASIA (NORMAL) VBG pH 7.314 (7.31-7.41) VBG pCO2 60.3 H (41-51) mmHg VBG pO2 30.4 (25-47) mmHg VBG HCO3 30.0 H (23-28) mmol/L VBG Total CO2 31.8 H (24-29) mmol/L VBG O2 Saturation 62.4 (60-80) % VBG Base Excess 2.4 H (-2 - +2) mmol/L Ionized Calcium (1.15-1.33) mmol/L Sodium (135-145) mmol/L Potassium (3.5-5.0) mmol/L Chloride (101-111) mmol/L Carbon Dioxide (21-32) mmol/L Anion Gap (6-13) BUN (6-20) mg/dL Creatinine (0.6-1.2) mg/dL Estimated GFR (MDRD) (>89) Glucose (70-100) mg/dL Lactic Acid (0.5-2.2) mmol/L Calcium (8.5-10.3) mg/dL Phosphorus (2.5-4.6) mg/dL Magnesium (1.7-2.8) mg/dL Total Bilirubin (0.2-1.0) mg/dL AST (10-42) IU/L ALT (10-60) IU/L Alkaline Phosphatase (42-121) IU/L Troponin I High Sens (2.3-19.7) ng/L B-Natriuretic Peptide (5-100) pg/mL Total Protein (6.7-8.2) g/dL Albumin (3.2-5.5) g/dL Globulin (2.1-4.2) g/dL Albumin/Globulin Ratio (1.0-2.2) Lipase (22-51) U/L TSH (0.34-5.60) uIU/mL Thyroxine (T4) (6.09-12.23) ug/dL Free T3 pg/mL (2.5-3.9) pg/mL Urine Color Urine Clarity (CLEAR) Urine pH (5.0-7.5) PH Ur Specific Marshall (1.002-1.030) Urine Protein (NEGATIVE) mg/dL Urine Glucose (UA) (NEGATIVE) mg/dL Urine Ketones (NEGATIVE) mg/dL Urine Occult Blood (NEGATIVE) Urine Nitrite (NEGATIVE) Urine Bilirubin (NEGATIVE) Urine Urobilinogen (NORMAL) E.U./dL Ur Leukocyte Esterase (NEGATIVE) Urine RBC (0-5) /HPF Urine WBC (0-3) /HPF Ur Squamous Epith Cells (<= Few) Urine Crystals /LPF Urine Bacteria (None Seen) /HPF Urine Culture Comments Nasal Adenovirus (PCR) Nasal B. parapertussis DNA (PCR) Nasal Coronavir 229E PCR Nasal Coronavir HKU1 PCR Nasal Coronavir NL63 PCR Nasal Coronavir OC43 PCR Nasal Enterovir/Rhinovir PCR Nasal Influenza B PCR Nasal Influenza A PCR Nasal Parainfluen 1 PCR Nasal Parainfluen 2 PCR Nasal Parainfluen 3 PCR Nasal Parainfluen 4 PCR Nasal RSV (PCR) Nasal Screen MRSA (PCR) NEGATIVE (NEGATIVE) Nasal B.pertussis DNA PCR Nasal C.pneumoniae (PCR) Daniel Human Metapneumo PCR Nasal M.pneumoniae (PCR) Nasal SARS-CoV-2 (PCR) Last Dose Date Last Dose Time Digoxin ng/mL Urine Opiates Screen (NEGATIVE) Ur Oxycodone Screen (NEGATIVE) Urine Methadone Screen (NEGATIVE) Ur Propoxyphene Screen (NEGATIVE) Ur Barbiturates Screen (NEGATIVE) Ur Tricyclics Screen (NEGATIVE) Ur Phencyclidine Scrn (NEGATIVE) Ur Amphetamine Screen (NEGATIVE) U Methamphetamines Scrn (NEGATIVE) U Benzodiazepines Scrn (NEGATIVE) Urine Cocaine Screen (NEGATIVE) U Cannabinoids Screen (NEGATIVE) Ethyl Alcohol mg/dL 06/25/21 06/25/21 06/25/21 Range/Units 20:11 18:49 18:49 WBC (4.8-10.8) x10^3/uL RBC (4.70-6.10) 10^6/uL Hgb (14.0-18.0) g/dL Hct (42.0-52.0) % MCV (80.0-94.0) fL MCH (27.0-31.0) pg MCHC (32.0-36.0) g/dL RDW (12.0-15.0) % Plt Count (130-450) 10^3/uL MPV (7.4-11.4) fL Neut # (Auto) (1.5-6.6) 10^3/uL Lymph # (Auto) (1.5-3.5) 10^3/uL Mcduffie # (Auto) (0.0-1.0) 10^3/uL Eos # (Auto) (0.0-0.7) 10^3/uL Baso # (Auto) (0.0-0.1) 10^3/uL Absolute Nucleated RBC x10^3/uL Total Counted Band Neuts % (Manual) (0 - 10) % Abnorm Lymph % (Manual) % Nucleated RBC % /100WBC Neutrophils # (Manual) (1.5-6.6) 10^3/uL Lymphocytes # (Manual) (1.5-3.5) 10^3/uL Monocytes # (Manual) (0.0-1.0) 10^3/uL Eosinophils # (Manual) (0-0.7) 10^3/uL Basophils # (Manual) (0-0.1) 10^3/uL Differential Comment WBC Morphology (NORMAL) Platelet Estimate (NORMAL) Platelet Morphology (NORMAL) RBC Morph Micro Appear (NORMAL) VBG pH (7.31-7.41) VBG pCO2 (41-51) mmHg VBG pO2 (25-47) mmHg VBG HCO3 (23-28) mmol/L VBG Total CO2 (24-29) mmol/L VBG O2 Saturation (60-80) % VBG Base Excess (-2 - +2) mmol/L Ionized Calcium (1.15-1.33) mmol/L Sodium (135-145) mmol/L Potassium (3.5-5.0) mmol/L Chloride (101-111) mmol/L Carbon Dioxide (21-32) mmol/L Anion Gap (6-13) BUN (6-20) mg/dL Creatinine (0.6-1.2) mg/dL Estimated GFR (MDRD) (>89) Glucose (70-100) mg/dL Lactic Acid (0.5-2.2) mmol/L Calcium (8.5-10.3) mg/dL Phosphorus (2.5-4.6) mg/dL Magnesium (1.7-2.8) mg/dL Total Bilirubin (0.2-1.0) mg/dL AST (10-42) IU/L ALT (10-60) IU/L Alkaline Phosphatase (42-121) IU/L Troponin I High Sens (2.3-19.7) ng/L B-Natriuretic Peptide (5-100) pg/mL Total Protein (6.7-8.2) g/dL Albumin (3.2-5.5) g/dL Globulin (2.1-4.2) g/dL Albumin/Globulin Ratio (1.0-2.2) Lipase (22-51) U/L TSH 5.94 H (0.34-5.60) uIU/mL Thyroxine (T4) 6.02 L (6.09-12.23) ug/dL Free T3 pg/mL 1.89 L (2.5-3.9) pg/mL Urine Color DARK YELLOW Urine Clarity SL. CLOUDY (CLEAR) Urine pH 8.5 H (5.0-7.5) PH Ur Specific Marshall 1.015 (1.002-1.030) Urine Protein 30 H (NEGATIVE) mg/dL Urine Glucose (UA) NEGATIVE (NEGATIVE) mg/dL Urine Ketones NEGATIVE (NEGATIVE) mg/dL Urine Occult Blood TRACE-INTA (NEGATIVE) Urine Nitrite POSITIVE H (NEGATIVE) Urine Bilirubin NEGATIVE (NEGATIVE) Urine Urobilinogen 1 (NORMAL) (NORMAL) E.U./dL Ur Leukocyte Esterase LARGE H (NEGATIVE) Urine RBC 0-5 (0-5) /HPF Urine WBC 11-25 H (0-3) /HPF Ur Squamous Epith Cells NONE SEEN (<= Few) Urine Crystals 26-50 Triple Phos /LPF Urine Bacteria Moderate H (None Seen) /HPF Urine Culture Comments INDICATED Nasal Adenovirus (PCR) Nasal B. parapertussis DNA (PCR) Nasal Coronavir 229E PCR Nasal Coronavir HKU1 PCR Nasal Coronavir NL63 PCR Nasal Coronavir OC43 PCR Nasal Enterovir/Rhinovir PCR Nasal Influenza B PCR Nasal Influenza A PCR Nasal Parainfluen 1 PCR Nasal Parainfluen 2 PCR Nasal Parainfluen 3 PCR Nasal Parainfluen 4 PCR Nasal RSV (PCR) Nasal Screen MRSA (PCR) (NEGATIVE) Nasal B.pertussis DNA PCR Nasal C.pneumoniae (PCR) Daniel Human Metapneumo PCR Nasal M.pneumoniae (PCR) Nasal SARS-CoV-2 (PCR) Last Dose Date UNKNOWN Last Dose Time UNKNOWN Digoxin < 0.2 ng/mL Urine Opiates Screen NEGATIVE (NEGATIVE) Ur Oxycodone Screen NEGATIVE (NEGATIVE) Urine Methadone Screen NEGATIVE (NEGATIVE) Ur Propoxyphene Screen NEGATIVE (NEGATIVE) Ur Barbiturates Screen NEGATIVE (NEGATIVE) Ur Tricyclics Screen NEGATIVE (NEGATIVE) Ur Phencyclidine Scrn NEGATIVE (NEGATIVE) Ur Amphetamine Screen NEGATIVE (NEGATIVE) U Methamphetamines Scrn NEGATIVE (NEGATIVE) U Benzodiazepines Scrn NEGATIVE (NEGATIVE) Urine Cocaine Screen NEGATIVE (NEGATIVE) U Cannabinoids Screen NEGATIVE (NEGATIVE) Ethyl Alcohol < 5.0 mg/dL 06/25/21 06/25/21 06/25/21 Range/Units 18:49 18:49 18:49 WBC (4.8-10.8) x10^3/uL RBC (4.70-6.10) 10^6/uL Hgb (14.0-18.0) g/dL Hct (42.0-52.0) % MCV (80.0-94.0) fL MCH (27.0-31.0) pg MCHC (32.0-36.0) g/dL RDW (12.0-15.0) % Plt Count (130-450) 10^3/uL MPV (7.4-11.4) fL Neut # (Auto) (1.5-6.6) 10^3/uL Lymph # (Auto) (1.5-3.5) 10^3/uL Mcduffie # (Auto) (0.0-1.0) 10^3/uL Eos # (Auto) (0.0-0.7) 10^3/uL Baso # (Auto) (0.0-0.1) 10^3/uL Absolute Nucleated RBC x10^3/uL Total Counted Band Neuts % (Manual) (0 - 10) % Abnorm Lymph % (Manual) % Nucleated RBC % /100WBC Neutrophils # (Manual) (1.5-6.6) 10^3/uL Lymphocytes # (Manual) (1.5-3.5) 10^3/uL Monocytes # (Manual) (0.0-1.0) 10^3/uL Eosinophils # (Manual) (0-0.7) 10^3/uL Basophils # (Manual) (0-0.1) 10^3/uL Differential Comment WBC Morphology (NORMAL) Platelet Estimate (NORMAL) Platelet Morphology (NORMAL) RBC Morph Micro Appear (NORMAL) VBG pH (7.31-7.41) VBG pCO2 (41-51) mmHg VBG pO2 (25-47) mmHg VBG HCO3 (23-28) mmol/L VBG Total CO2 (24-29) mmol/L VBG O2 Saturation (60-80) % VBG Base Excess (-2 - +2) mmol/L Ionized Calcium (1.15-1.33) mmol/L Sodium (135-145) mmol/L Potassium (3.5-5.0) mmol/L Chloride (101-111) mmol/L Carbon Dioxide (21-32) mmol/L Anion Gap (6-13) BUN (6-20) mg/dL Creatinine (0.6-1.2) mg/dL Estimated GFR (MDRD) (>89) Glucose (70-100) mg/dL Lactic Acid 1.5 (0.5-2.2) mmol/L Calcium (8.5-10.3) mg/dL Phosphorus (2.5-4.6) mg/dL Magnesium (1.7-2.8) mg/dL Total Bilirubin (0.2-1.0) mg/dL AST (10-42) IU/L ALT (10-60) IU/L Alkaline Phosphatase (42-121) IU/L Troponin I High Sens 50.9 H* (2.3-19.7) ng/L B-Natriuretic Peptide 680 H (5-100) pg/mL Total Protein (6.7-8.2) g/dL Albumin (3.2-5.5) g/dL Globulin (2.1-4.2) g/dL Albumin/Globulin Ratio (1.0-2.2) Lipase (22-51) U/L TSH (0.34-5.60) uIU/mL Thyroxine (T4) (6.09-12.23) ug/dL Free T3 pg/mL (2.5-3.9) pg/mL Urine Color Urine Clarity (CLEAR) Urine pH (5.0-7.5) PH Ur Specific Marshall (1.002-1.030) Urine Protein (NEGATIVE) mg/dL Urine Glucose (UA) (NEGATIVE) mg/dL Urine Ketones (NEGATIVE) mg/dL Urine Occult Blood (NEGATIVE) Urine Nitrite (NEGATIVE) Urine Bilirubin (NEGATIVE) Urine Urobilinogen (NORMAL) E.U./dL Ur Leukocyte Esterase (NEGATIVE) Urine RBC (0-5) /HPF Urine WBC (0-3) /HPF Ur Squamous Epith Cells (<= Few) Urine Crystals /LPF Urine Bacteria (None Seen) /HPF Urine Culture Comments Nasal Adenovirus (PCR) Nasal B. parapertussis DNA (PCR) Nasal Coronavir 229E PCR Nasal Coronavir HKU1 PCR Nasal Coronavir NL63 PCR Nasal Coronavir OC43 PCR Nasal Enterovir/Rhinovir PCR Nasal Influenza B PCR Nasal Influenza A PCR Nasal Parainfluen 1 PCR Nasal Parainfluen 2 PCR Nasal Parainfluen 3 PCR Nasal Parainfluen 4 PCR Nasal RSV (PCR) Nasal Screen MRSA (PCR) (NEGATIVE) Nasal B.pertussis DNA PCR Nasal C.pneumoniae (PCR) Daniel Human Metapneumo PCR Nasal M.pneumoniae (PCR) Nasal SARS-CoV-2 (PCR) Last Dose Date Last Dose Time Digoxin ng/mL Urine Opiates Screen (NEGATIVE) Ur Oxycodone Screen (NEGATIVE) Urine Methadone Screen (NEGATIVE) Ur Propoxyphene Screen (NEGATIVE) Ur Barbiturates Screen (NEGATIVE) Ur Tricyclics Screen (NEGATIVE) Ur Phencyclidine Scrn (NEGATIVE) Ur Amphetamine Screen (NEGATIVE) U Methamphetamines Scrn (NEGATIVE) U Benzodiazepines Scrn (NEGATIVE) Urine Cocaine Screen (NEGATIVE) U Cannabinoids Screen (NEGATIVE) Ethyl Alcohol mg/dL 06/25/21 06/25/21 06/25/21 Range/Units 18:49 18:49 18:30 WBC 13.6 H (4.8-10.8) x10^3/uL RBC 4.65 L (4.70-6.10) 10^6/uL Hgb 11.9 L (14.0-18.0) g/dL Hct 41.5 L (42.0-52.0) % MCV 89.2 (80.0-94.0) fL MCH 25.6 L (27.0-31.0) pg MCHC 28.7 L (32.0-36.0) g/dL RDW 23.8 H (12.0-15.0) % Plt Count 107 L (130-450) 10^3/uL MPV 10.0 (7.4-11.4) fL Neut # (Auto) 11.2 H (1.5-6.6) 10^3/uL Lymph # (Auto) 0.7 L (1.5-3.5) 10^3/uL Mcduffie # (Auto) 1.4 H (0.0-1.0) 10^3/uL Eos # (Auto) 0.1 (0.0-0.7) 10^3/uL Baso # (Auto) 0.1 (0.0-0.1) 10^3/uL Absolute Nucleated RBC 0.00 x10^3/uL Total Counted Band Neuts % (Manual) (0 - 10) % Abnorm Lymph % (Manual) % Nucleated RBC % 0.0 /100WBC Neutrophils # (Manual) (1.5-6.6) 10^3/uL Lymphocytes # (Manual) (1.5-3.5) 10^3/uL Monocytes # (Manual) (0.0-1.0) 10^3/uL Eosinophils # (Manual) (0-0.7) 10^3/uL Basophils # (Manual) (0-0.1) 10^3/uL Differential Comment WBC Morphology (NORMAL) Platelet Estimate (NORMAL) Platelet Morphology (NORMAL) RBC Morph Micro Appear (NORMAL) VBG pH (7.31-7.41) VBG pCO2 (41-51) mmHg VBG pO2 (25-47) mmHg VBG HCO3 (23-28) mmol/L VBG Total CO2 (24-29) mmol/L VBG O2 Saturation (60-80) % VBG Base Excess (-2 - +2) mmol/L Ionized Calcium (1.15-1.33) mmol/L Sodium 132 L (135-145) mmol/L Potassium 4.7 (3.5-5.0) mmol/L Chloride 93 L (101-111) mmol/L Carbon Dioxide 30 (21-32) mmol/L Anion Gap 9.0 (6-13) BUN 36 H (6-20) mg/dL Creatinine 1.6 H (0.6-1.2) mg/dL Estimated GFR (MDRD) 44 L (>89) Glucose 99 (70-100) mg/dL Lactic Acid (0.5-2.2) mmol/L Calcium 8.7 (8.5-10.3) mg/dL Phosphorus (2.5-4.6) mg/dL Magnesium (1.7-2.8) mg/dL Total Bilirubin 2.1 H (0.2-1.0) mg/dL AST 15 (10-42) IU/L ALT 10 (10-60) IU/L Alkaline Phosphatase 65 (42-121) IU/L Troponin I High Sens (2.3-19.7) ng/L B-Natriuretic Peptide (5-100) pg/mL Total Protein 8.2 (6.7-8.2) g/dL Albumin 3.2 (3.2-5.5) g/dL Globulin 5.0 H (2.1-4.2) g/dL Albumin/Globulin Ratio 0.6 L (1.0-2.2) Lipase 20 L (22-51) U/L TSH (0.34-5.60) uIU/mL Thyroxine (T4) (6.09-12.23) ug/dL Free T3 pg/mL (2.5-3.9) pg/mL Urine Color Urine Clarity (CLEAR) Urine pH (5.0-7.5) PH Ur Specific Marshall (1.002-1.030) Urine Protein (NEGATIVE) mg/dL Urine Glucose (UA) (NEGATIVE) mg/dL Urine Ketones (NEGATIVE) mg/dL Urine Occult Blood (NEGATIVE) Urine Nitrite (NEGATIVE) Urine Bilirubin (NEGATIVE) Urine Urobilinogen (NORMAL) E.U./dL Ur Leukocyte Esterase (NEGATIVE) Urine RBC (0-5) /HPF Urine WBC (0-3) /HPF Ur Squamous Epith Cells (<= Few) Urine Crystals /LPF Urine Bacteria (None Seen) /HPF Urine Culture Comments Nasal Adenovirus (PCR) NOT DETECTED Nasal B. parapertussis DNA (PCR) NOT DETECTED Nasal Coronavir 229E PCR NOT DETECTED Nasal Coronavir HKU1 PCR NOT DETECTED Nasal Coronavir NL63 PCR NOT DETECTED Nasal Coronavir OC43 PCR NOT DETECTED Nasal Enterovir/Rhinovir PCR NOT DETECTED Nasal Influenza B PCR NOT DETECTED Nasal Influenza A PCR NOT DETECTED Nasal Parainfluen 1 PCR NOT DETECTED Nasal Parainfluen 2 PCR NOT DETECTED Nasal Parainfluen 3 PCR NOT DETECTED Nasal Parainfluen 4 PCR NOT DETECTED Nasal RSV (PCR) NOT DETECTED Nasal Screen MRSA (PCR) (NEGATIVE) Nasal B.pertussis DNA PCR NOT DETECTED Nasal C.pneumoniae (PCR) NOT DETECTED Daniel Human Metapneumo PCR NOT DETECTED Nasal M.pneumoniae (PCR) NOT DETECTED Nasal SARS-CoV-2 (PCR) NOT DETECTED Last Dose Date Last Dose Time Digoxin ng/mL Urine Opiates Screen (NEGATIVE) Ur Oxycodone Screen (NEGATIVE) Urine Methadone Screen (NEGATIVE) Ur Propoxyphene Screen (NEGATIVE) Ur Barbiturates Screen (NEGATIVE) Ur Tricyclics Screen (NEGATIVE) Ur Phencyclidine Scrn (NEGATIVE) Ur Amphetamine Screen (NEGATIVE) U Methamphetamines Scrn (NEGATIVE) U Benzodiazepines Scrn (NEGATIVE) Urine Cocaine Screen (NEGATIVE) U Cannabinoids Screen (NEGATIVE) Ethyl Alcohol mg/dL Sepsis Event Note (H) - Evaluation Current Stage of Sepsis: Sepsis Possible source of Sepsis: positive: Genitourinary - Sepsis Criteria Sepsis Criteria: Recorded Temperature greater than 38.3C or Less than 36C, Recorded Heart Rate greater than 90 bpm, Respiratory: Increasing oxygen requirements, WBC count greater than 10% bands, WBC count greater than 12,000 or less than 4000 Assessment/Plan - Problem List (1) Sepsis Impression: This is secondary to the urinary tract infection. His white count is increasing and he is febrile. Fortunately his blood pressure is stable. We have broaden his antibiotics to meropenem until we have speciation of the bacteria in the urine and blood. Follow-up cultures and we will de-escalate as appropriate. (2) Acute respiratory failure with hypoxia and hypercarbia Impression: He is hypoxic requiring 4 L of oxygen. He was also noted to be somewhat hypercapnic with a PCO2 in the 60s on VBG although his pH was not significantly decreased. Suspect likely related to the pulmonary edema and heart failure exacerbation as well as the sepsis. We will continue to diurese him with IV Lasix and treat the underlying sepsis with antibiotics. We will continue with CPAP in the evening. (3) AMS (altered mental status) Impression: This is likely secondary to the sepsis and initially may have also been due to hypercapnia. He is more alert but still quite lethargic and confused. If he does not improve with antibiotics over the next 24 hours then we will look to repeat an ABG. (4) Atrial fibrillation with rapid ventricular response Impression: His heart rate is improved to the low 100s. We have resumed his home metoprolol. We will adjust this dose as necessary and will consider adding digoxin if necessary. He is not on anticoagulation due to history of GI bleed. We will place him on aspirin. (5) UTI (urinary tract infection) Impression: This is the cause of his sepsis. Blood cultures are growing gram-negative bacilli. Urine culture still pending. I did order a CT today to look for potential obstruction but there was no evidence of this. Given he is febrile otherwise and white count, we will broaden antibiotics to meropenem until we have speciation and sensitivities. (6) CHF (congestive heart failure) Impression: It appears you have acute on chronic diastolic heart failure. Chest x-ray reveals pulmonary edema and he is quite edematous with anasarca. We will continue to diurese him with 40 mg of IV Lasix twice daily. Repeat echocardiogram today. Low-sodium diet. Strict I's and O's and daily weights. Qualifiers: Heart failure type: diastolic Heart failure chronicity: acute on chronic Qualified Code(s): I50.33 - Acute on chronic diastolic (congestive) heart failure (7) CKD (chronic kidney disease) stage 3, GFR 30-59 ml/min Impression: He has CKD stage III with a baseline creatinine of 1.4. His renal function is currently at baseline. We will continue to monitor as he is being diuresed and the fact that he received contrast for the CT. (8) Hypothyroidism Impression: His TSH is slightly increased at 5.94. We will resume his home Synthroid at 50 mcg. (9) History of sleep apnea Impression: Continue with CPAP.
[2021-06-26 12:08] LABS: ESTIMATED AVERAGE GLUCOSE 108 mg/dL (70-100); HEMOGLOBIN A1c% 5.4 % (4.27-6.07)
[2021-06-26] MEDS: MEROPENEM 1 GM in SODIUM CHLORIDE 0.9% MINIBAG 100 ML IV SCH ×2 (12:13→19:34)
--- NOTE | 2021-06-26 12:16 | PHARMACY PROGRESS NOTE ---
- Best Possible Medication History Admit Date and Time: 06/25/21 2238 Processed by: Pharmacy Medication History completed: Yes Patient Interview: Pt interview ONLY source As the person ultimately responsible for medication therapy, providers are able to order a medication from an existing home medication list in [facility] via the "Reconcile Routine" prior to Confirmation of that medication by marketing support manager. Such practice is discouraged except when the physician, in their clinical judgment, deems that a medical need exists for a medication without regard to previous use.
[2021-06-26] MEDS: polyethylene glycoL 3350 17 GM PACKET PO SCH (12:18)
[2021-06-26 15:59] LABS: CALCIUM, IONIZED 1.08 mmol/L (1.15-1.33); VBG PH 7.281 (7.31-7.41)
[2021-06-26] MEDS: ALBUTEROL NEB 2.5 MG/3 ML INH PRN (16:38)
[2021-06-27] MEDS: MEROPENEM 1 GM in SODIUM CHLORIDE 0.9% MINIBAG 100 ML IV SCH ×3 (03:09→19:34)
[2021-06-27] MEDS: SODIUM CHLORIDE FLUSH 0.9% 10 ML SYRINGE IVP PRN ×4 (03:10→19:35)
[2021-06-27 05:33] LABS: CALCIUM, IONIZED 1.11 mmol/L (1.15-1.33); VBG PH 7.273 (7.31-7.41)
[2021-06-27 05:34] LABS: BASOPHILS % (AUTO) 0.2 %; HCT - HEMATOCRIT 39.5 % (42.0-52.0); LYMPHOCYTES # (AUTO) 0.6 10^3/uL (1.5-3.5); MEAN CORPUSCULAR HEMOGLOBIN 25.3 pg (27.0-31.0); MEAN CORPUSCULAR HGB CONC 27.8 g/dL (32.0-36.0); MEAN CORPUSCULAR VOLUME 90.8 fL (80.0-94.0); MEAN PLATELET VOLUME 12.1 fL (7.4-11.4); MONOCYTES # (AUTO) 1.2 10^3/uL (0.0-1.0); MONOCYTES % (AUTO) 9.7 %; NEUTROPHILS # (AUTO) 10.5 10^3/uL (1.5-6.6); NEUTROPHILS % (AUTO) 84.5 %; PLT - PLATELET COUNT 120 10^3/uL (130-450); RED BLOOD COUNT 4.35 10^6/uL (4.70-6.10); RED CELL DISTRIBUTION WIDTH 24.1 % (12.0-15.0); WHITE BLOOD COUNT 12.4 x10^3/uL (4.8-10.8)
[2021-06-27 05:37] LABS: CALCIUM 8.5 mg/dL (8.5-10.3); CREATININE 1.4 mg/dL (0.6-1.2); POTASSIUM 4.9 mmol/L (3.5-5.0)
[2021-06-27 05:54] LABS: SLIDE REVIEW? Indicated
[2021-06-27 06:00] LABS: PLATELET ESTIMATE, MANUAL DECREASED (<130,000) (NORMAL)
[2021-06-27] MEDS: LEVOTHYROXINE 25 MCG TABLET PO SCH (06:11)
[2021-06-27] MEDS: METOPROLOL 5 MG/5 ML VIAL IVP SCH (06:11)
[2021-06-27] MEDS: FUROSEMIDE 40 MG/4 ML VIAL IVP SCH ×2 (06:11→14:51)
[2021-06-27] MEDS: PANTOPRAZOLE 40 MG TABLET PO SCH (06:12)
[2021-06-27] MEDS: SODIUM CHLORIDE FLUSH 0.9% 10 ML SYRINGE IVP SCH ×3 (06:21→16:27)
[2021-06-27] MEDS: IPRATROPIUM/ALBUTEROL 3 ML NEB INH SCH ×5 (07:35→19:23)
--- NOTE | 2021-06-27 07:37 | PROVIDER PROGRESS NOTE ---
Subjective - Prog Note Date Prog Note Date: 06/27/21 - Subjective Subjective: He was quite alert and awake this morning but in the afternoon he is more lethargic again. He did open his eyes but was not always coherent. He would repeat his answers. Denies any pain. Current Medications - Current Medications Current Medications: Active Medications Acetaminophen (Acetaminophen 325 Mg Tablet) 650 mg PO Q4HR PRN PRN Reason: Pain or Fever > 38C (100.4F) Albuterol (Albuterol Neb 2.5 Mg/3 Ml) 2.5 mg INH RTQ4H PRN PRN Reason: Wheezing Last Admin: 06/26/21 16:38 Dose: 2.5 mg Albuterol/Ipratropium (Ipratropium/Albuterol 3 Ml Neb) 3 ml INH RTQID [facility] Last Admin: 06/27/21 11:45 Dose: 3 ml Aspirin (Aspirin Chew 81 Mg Tablet) 81 mg PO DAILY [facility] Last Admin: 06/27/21 09:07 Dose: 81 mg Enoxaparin Sodium (Enoxaparin 40 Mg/0.4 Ml Syringe) 40 mg SUBQ BID [facility] Last Admin: 06/27/21 09:07 Dose: 40 mg Furosemide (Furosemide 40 Mg/4 Ml Vial) 40 mg IVP BIDDIURETIC [facility] Last Admin: 06/27/21 06:11 Dose: 40 mg Meropenem 1 gm/ Sodium (Chloride) 100 mls @ 200 mls/hr IV Q8H [facility] Last Infusion: 06/27/21 12:15 Dose: Infused Levalbuterol HCl (Levalbuterol 1.25 Mg/3 Ml Neb) 1.25 mg INH Q4H PRN PRN Reason: Shortness of Air/Wheezing Levothyroxine Sodium (Levothyroxine 25 Mcg Tablet) 50 mcg PO QDAC [facility] Last Admin: 06/27/21 06:11 Dose: 50 mcg Metoprolol Succinate (Metoprolol Succinate 50 Mg Tablet) 50 mg PO DAILY [facility] Last Admin: 06/27/21 09:07 Dose: 50 mg Metoprolol Tartrate (Metoprolol 5 Mg/5 Ml Vial) 5 mg IVP Q8HR [facility] Last Admin: 06/27/21 06:11 Dose: 5 mg Pantoprazole Sodium (Pantoprazole 40 Mg Tablet) 40 mg PO QDAC [facility] Last Admin: 06/27/21 06:12 Dose: 40 mg Polyethylene Glycol (Polyethylene Glycol 3350 17 Gm Packet) 17 gm PO DAILY [facility] Last Admin: 06/27/21 09:08 Dose: 17 gm Sodium Chloride (Sodium Chloride Flush 0.9% 10 Ml Syringe) 10 ml IVP 0100,0900,1700 [facility] Last Admin: 06/27/21 09:08 Dose: 10 ml Sodium Chloride (Sodium Chloride Flush 0.9% 10 Ml Syringe) 10 ml IVP PRN PRN PRN Reason: NEEDED PER PROVIDER ORDERS Last Admin: 06/27/21 06:12 Dose: 10 ml Digoxin 62.5 mcg PO DAILY 04/28/17 Metoprolol Succinate 150 mg PO DAILY 04/28/17 Levothyroxine Sodium [Synthroid] 50 mcg PO DAILY 07/21/19 Pantoprazole Sodium 40 mg PO DAILY 07/21/19 Torsemide 20 mg PO BID 07/21/19 Gabapentin 600 mg PO BID 11/20/19 diltiaZEM CD [Cardizem Cd] 180 mg PO DAILY 06/26/21 Objective - Vital Signs/Intake & Output Reviewed Vital Signs: Yes Vital Signs: Vital Signs Temp Pulse Resp BP BP Pulse Ox 06/27/21 06:11 118/74 06/27/21 06:00 109 H 17 118/74 90 L 06/27/21 05:00 107 H 22 102/67 97 06/27/21 04:00 36.6 C 102 H 25 H 104/71 96 Intake & Output: Intake & Output 06/24/21 06/25/21 06/26/21 06/27/21 23:59 23:59 23:59 23:59 Intake Total 700 1730 875 Output Total 1350 2009 360 Balance -650 -280 515 - Objective General Appearance: positive: No acute distress, Lethargic Eyes Bilateral: positive: Normal inspection, Conjunctivae nml ENT: positive: ENT inspection nml, Other (BiPAP mask in place.) Neck: positive: Nml inspection Respiratory: positive: No respiratory distress, Rhonchi. negative: Wheezes Cardiovascular: positive: Irregularly irregular. negative: Tachycardia, Systolic murmur Abdomen: positive: Non-tender, No distention. negative: Tenderness Skin: positive: Warm, Dry Extremities: positive: Pedal edema (+2 edema in bilateral lower extremities.), Other (Erythema of the right lower extremity from the ankle to the knee is improved. Still warm to touch. Nontender.) Neurologic/Psychiatric: positive: Disoriented to place, Disoriented to time. negative: Disoriented to person - Lab Results Fish Bones: 06/28/21 05:44 06/28/21 05:44 Other Labs: Lab Results x24hrs 06/27/21 06/27/21 06/27/21 Range/Units 04:32 04:32 04:32 WBC (4.8-10.8) x10^3/uL RBC (4.70-6.10) 10^6/uL Hgb (14.0-18.0) g/dL Hct (42.0-52.0) % MCV (80.0-94.0) fL MCH (27.0-31.0) pg MCHC (32.0-36.0) g/dL RDW (12.0-15.0) % Plt Count (130-450) 10^3/uL MPV (7.4-11.4) fL Neut # (Auto) (1.5-6.6) 10^3/uL Lymph # (Auto) (1.5-3.5) 10^3/uL Andrew # (Auto) (0.0-1.0) 10^3/uL Eos # (Auto) (0.0-0.7) 10^3/uL Baso # (Auto) (0.0-0.1) 10^3/uL Absolute Nucleated RBC x10^3/uL Nucleated RBC % /100WBC Manual Slide Review Platelet Estimate (NORMAL) RBC Morph Micro Appear (NORMAL) VBG pH 7.273 L (7.31-7.41) Ionized Calcium 1.11 L (1.15-1.33) mmol/L Sodium 136 (135-145) mmol/L Potassium 4.9 (3.5-5.0) mmol/L Chloride 96 L (101-111) mmol/L Carbon Dioxide 32 (21-32) mmol/L Anion Gap 8.0 (6-13) BUN 43 H (6-20) mg/dL Creatinine 1.4 H (0.6-1.2) mg/dL Estimated GFR (MDRD) 51 L (>89) Glucose 131 H (70-100) mg/dL Estimat Average Glucose (70-100) mg/dL Hemoglobin A1c % (4.27-6.07) % Calcium 8.5 (8.5-10.3) mg/dL Magnesium 2.0 (1.7-2.8) mg/dL B-Natriuretic Peptide 883 H (5-100) pg/mL 06/27/21 06/26/21 06/26/21 Range/Units 04:32 15:44 15:44 WBC 12.4 H (4.8-10.8) x10^3/uL RBC 4.35 L (4.70-6.10) 10^6/uL Hgb 11.0 L (14.0-18.0) g/dL Hct 39.5 L (42.0-52.0) % MCV 90.8 (80.0-94.0) fL MCH 25.3 L (27.0-31.0) pg MCHC 27.8 L (32.0-36.0) g/dL RDW 24.1 H (12.0-15.0) % Plt Count 120 L (130-450) 10^3/uL MPV 12.1 H (7.4-11.4) fL Neut # (Auto) 10.5 H (1.5-6.6) 10^3/uL Lymph # (Auto) 0.6 L (1.5-3.5) 10^3/uL Andrew # (Auto) 1.2 H (0.0-1.0) 10^3/uL Eos # (Auto) 0.0 (0.0-0.7) 10^3/uL Baso # (Auto) 0.0 (0.0-0.1) 10^3/uL Absolute Nucleated RBC 0.00 x10^3/uL Nucleated RBC % 0.0 /100WBC Manual Slide Review Indicated Platelet Estimate DECREASED (<130,000) (NORMAL) RBC Morph Micro Appear 1+ OVALOCYTES (NORMAL) VBG pH 7.281 L (7.31-7.41) Ionized Calcium 1.08 L (1.15-1.33) mmol/L Sodium (135-145) mmol/L Potassium (3.5-5.0) mmol/L Chloride (101-111) mmol/L Carbon Dioxide (21-32) mmol/L Anion Gap (6-13) BUN (6-20) mg/dL Creatinine (0.6-1.2) mg/dL Estimated GFR (MDRD) (>89) Glucose (70-100) mg/dL Estimat Average Glucose (70-100) mg/dL Hemoglobin A1c % (4.27-6.07) % Calcium (8.5-10.3) mg/dL Magnesium 2.0 (1.7-2.8) mg/dL B-Natriuretic Peptide (5-100) pg/mL 06/26/21 Range/Units 05:38 WBC (4.8-10.8) x10^3/uL RBC (4.70-6.10) 10^6/uL Hgb (14.0-18.0) g/dL Hct (42.0-52.0) % MCV (80.0-94.0) fL MCH (27.0-31.0) pg MCHC (32.0-36.0) g/dL RDW (12.0-15.0) % Plt Count (130-450) 10^3/uL MPV (7.4-11.4) fL Neut # (Auto) (1.5-6.6) 10^3/uL Lymph # (Auto) (1.5-3.5) 10^3/uL Andrew # (Auto) (0.0-1.0) 10^3/uL Eos # (Auto) (0.0-0.7) 10^3/uL Baso # (Auto) (0.0-0.1) 10^3/uL Absolute Nucleated RBC x10^3/uL Nucleated RBC % /100WBC Manual Slide Review Platelet Estimate (NORMAL) RBC Morph Micro Appear (NORMAL) VBG pH (7.31-7.41) Ionized Calcium (1.15-1.33) mmol/L Sodium (135-145) mmol/L Potassium (3.5-5.0) mmol/L Chloride (101-111) mmol/L Carbon Dioxide (21-32) mmol/L Anion Gap (6-13) BUN (6-20) mg/dL Creatinine (0.6-1.2) mg/dL Estimated GFR (MDRD) (>89) Glucose (70-100) mg/dL Estimat Average Glucose 108 H (70-100) mg/dL Hemoglobin A1c % 5.4 (4.27-6.07) % Calcium (8.5-10.3) mg/dL Magnesium (1.7-2.8) mg/dL B-Natriuretic Peptide (5-100) pg/mL Sepsis Event Note (H) - Evaluation Current Stage of Sepsis: Sepsis Possible source of Sepsis: positive: Genitourinary - Sepsis Criteria Sepsis Criteria: Recorded Temperature greater than 38.3C or Less than 36C, Recorded Heart Rate greater than 90 bpm, Respiratory: Increasing oxygen requirements, WBC count greater than 10% bands, WBC count greater than 12,000 or less than 4000 Assessment/Plan - Problem List (1) Sepsis Impression: Improving from a sepsis standpoint. This was initially thought to be secondary to UTI but the concern is now this is due to the gram-negative bacteremia which does not appear to be due to the UTI as urine culture is growing Proteus and blood cultures are not growing Proteus. His white count is improving and he is afebrile today. We will keep him on meropenem IV until we have blood cultures back. (2) Acute respiratory failure with hypoxia and hypercarbia Impression: He continues to require 4 L of oxygen but his sats are now in the mid to high 90s on this and we will look to wean this down today. This is likely related to pulmonary edema due to heart failure exacerbation as well as the sepsis. We will continue to diurese him with IV Lasix. Low-sodium diet. Strict I's and O's. (3) AMS (altered mental status) Impression: He was quite alert this morning but this evening he is somnolent again and confused. The concern is for hypercapnia and so we will place him back on BiPAP. If there is no improvement we will obtain an ABG for evaluation. We will also check an ammonia level. (4) Cellulitis of right leg Impression: His right leg is erythematous and also improved compared to yesterday, I am concerned that this may potentially a source of his bacteremia as well as the sepsis. He has had improvement with meropenem alone and so we will continue this alone. If there is evidence of worsening cellulitis then we will add vancomycin as well. (5) Gram-negative bacteremia Impression: This was thought to be secondary to urinary tract infection as blood cultures growing gram-negative bacilli but now his urine culture is growing Proteus and the PCR from the blood culture has not shown evidence of Proteus. The source of his bacteremia is not clear. He had a CT of the abdomen pelvis which did show r eactive lymphadenopathy and splenomegaly but no obvious source of infection. We will await speciation of the bacteria to see what further work-up would be necessary. We will keep him on meropenem IV for the time being. (6) Atrial fibrillation with rapid ventricular response Impression: His heart rate is improved in the low 100s but he is still tachycardic. We will resume his home metoprolol dosing as well as digoxin. We will also resume diltiazem if his blood pressure can tolerate it. (7) UTI (urinary tract infection) Impression: His urine culture grew Proteus which is pansensitive. I am not sure this is the cause of his sepsis as his blood cultures are still growing gram-negative bacilli but that does not appear to be Proteus. He is covered with meropenem for the Proteus UTI. (8) CHF (congestive heart failure) Impression: Have acute on chronic diastolic heart failure. X-ray reveals pulmonary edema and CT showed anasarca. Echocardiogram revealed a preserved EF with moderate dilated RV with mildly reduced function. Moderate to severe tricuspid regurg. It appears similar compared to prior echo from 2020. He is still quite edematous. We will continue to diuresis with IV Lasix. Low-sodium diet. Strict I's and O's. Qualifiers: Heart failure type: diastolic Heart failure chronicity: acute on chronic Qualified Code(s): I50.33 - Acute on chronic diastolic (congestive) heart failure (9) CKD (chronic kidney disease) stage 3, GFR 30-59 ml/min Impression: He has CKD stage III with a baseline creatinine of 1.4. His renal function is currently at baseline. We will continue to monitor as he is being diuresed. (10) Hypothyroidism Impression: His TSH is slightly increased at 5.94. We will resume his home Synthroid at 50 mcg. (11) History of sleep apnea Impression: Continue with CPAP.
[2021-06-27] MEDS: ASPIRIN CHEW 81 MG TABLET PO SCH (09:07)
[2021-06-27] MEDS: METOPROLOL SUCCINATE 50 MG TABLET PO SCH ×2 (09:07→20:48)
[2021-06-27] MEDS: ENOXAPARIN 40 MG/0.4 ML SYRINGE SUBQ SCH ×2 (09:07→20:48)
[2021-06-27] MEDS: polyethylene glycoL 3350 17 GM PACKET PO SCH (09:08)
[2021-06-27] MEDS: DIGOXIN 125 MCG TABLET PO SCH (14:51)
[2021-06-27] MEDS: GABAPENTIN 300 MG CAPSULE PO SCH (20:48)
[2021-06-28] MEDS: SODIUM CHLORIDE FLUSH 0.9% 10 ML SYRINGE IVP SCH ×3 (00:16→17:20)
[2021-06-28] MEDS: MEROPENEM 1 GM in SODIUM CHLORIDE 0.9% MINIBAG 100 ML IV SCH ×3 (03:48→19:41)
[2021-06-28] MEDS: SODIUM CHLORIDE FLUSH 0.9% 10 ML SYRINGE IVP PRN ×3 (03:49→19:42)
[2021-06-28 06:07] LABS: CALCIUM, IONIZED 1.13 mmol/L (1.15-1.33); VBG PH 7.272 (7.31-7.41)
[2021-06-28 06:08] LABS: BASOPHILS % (AUTO) 0.4 %; EOSINOPHILS % (AUTO) 0.6 %; HCT - HEMATOCRIT 38.9 % (42.0-52.0); HGB - HEMOGLOBIN 10.9 g/dL (14.0-18.0); LYMPHOCYTES # (AUTO) 0.7 10^3/uL (1.5-3.5); LYMPHOCYTES % (AUTO) 9.7 %; MEAN CORPUSCULAR HEMOGLOBIN 25.6 pg (27.0-31.0); MEAN CORPUSCULAR VOLUME 91.5 fL (80.0-94.0); MEAN PLATELET VOLUME 11.1 fL (7.4-11.4); MONOCYTES # (AUTO) 0.8 10^3/uL (0.0-1.0); MONOCYTES % (AUTO) 10.9 %; NEUTROPHILS # (AUTO) 5.7 10^3/uL (1.5-6.6); NEUTROPHILS % (AUTO) 78.3 %; PLT - PLATELET COUNT 98 10^3/uL (130-450); RED BLOOD COUNT 4.25 10^6/uL (4.70-6.10); RED CELL DISTRIBUTION WIDTH 23.9 % (12.0-15.0); WHITE BLOOD COUNT 7.2 x10^3/uL (4.8-10.8)
[2021-06-28 06:24] LABS: SLIDE REVIEW? Indicated
[2021-06-28 06:30] LABS: CALCIUM 8.3 mg/dL (8.5-10.3); CREATININE 1.4 mg/dL (0.6-1.2); MAGNESIUM 1.9 mg/dL (1.7-2.8)
[2021-06-28] MEDS: FUROSEMIDE 40 MG/4 ML VIAL IVP SCH ×2 (06:33→13:58)
[2021-06-28] MEDS: PANTOPRAZOLE 40 MG TABLET PO SCH (06:33)
[2021-06-28] MEDS: LEVOTHYROXINE 25 MCG TABLET PO SCH (06:34)
[2021-06-28] MEDS: IPRATROPIUM/ALBUTEROL 3 ML NEB INH SCH ×4 (07:16→19:56)
[2021-06-28 08:30] LABS: ALBUMIN 2.7 g/dL (3.2-5.5); ALKALINE PHOSPHATASE 40 IU/L (42-121); ALT ALANINE AMINOTRANSFERASE < 10 IU/L (10-60); AST ASPARTATE AMINOTRANSFERASE 11 IU/L (10-42); BILIRUBIN,DIRECT 0.5 mg/dL (0.1-0.5); BILIRUBIN,TOTAL 1.1 mg/dL (0.2-1.0); CRP - C-REACTIVE PROTEIN 6.7 mg/dL (0-1.0); TOTAL PROTEIN 7.5 g/dL (6.7-8.2)
[2021-06-28] MEDS: DIGOXIN 125 MCG TABLET PO SCH (09:52)
[2021-06-28] MEDS: ASPIRIN CHEW 81 MG TABLET PO SCH (09:52)
[2021-06-28] MEDS: MULTIVITAMIN W/MINERALS TABLET PO SCH (09:52)
--- NOTE | 2021-06-28 09:52 | CT Report ---
PROCEDURE: HEAD WO INDICATIONS: Altered mental status. Fever. Bacteremia. PRIORS: 08/14/2019 TECHNIQUE: Noncontrast 4.5 mm thick angled axial sections acquired from the foramen magnum to the vertex. For r adiation dose reduction, the following was used: automated exposure control, adjustment of mA and/or kV according to patient size. COMPARISON: None. FINDINGS: Image quality: Excellent. CSF spaces: Basal cisterns are patent. No extra-axial fluid collections. Ventricles are normal in size and shape. Brain: No midline shift. No intracranial masses or hemorrhage. Simon-white matter interface is norm al. Subcortical and periventricular hypodensities are consistent with microvascular ischemic disease and age-related cerebral volume loss. Intracranial vasculature has severe atherosclerotic calcificati ons. Skull and face: Calvarium and visualized facial bones are intact, without suspicious lesions. Sinuses: The right maxillary sinus has mucosal retention cyst. The left maxillary sinus has a thin sanket ny septa. Sinuses are otherwise well aerated with no evidence of acute sinusitis. Mastoids are clear. IMPRESSION: 1. No acute intracranial abnormality. 2. Microvascular ischemic disease and age-related cerebral volume loss. Reviewed by: Amadou Frank on 06/28/2021 9:51 AM [facility] Approved by: Amadou Frank on 06/28/2021 9:51 AM PST Station ID: [id number]
[2021-06-28] MEDS: LACTOBACILLUS RHAMNOSUS GG CAPSULE PO SCH (09:53)
[2021-06-28] MEDS: ENOXAPARIN 40 MG/0.4 ML SYRINGE SUBQ SCH ×2 (09:53→20:33)
[2021-06-28] MEDS: METOPROLOL SUCCINATE 50 MG TABLET PO SCH ×2 (09:53→20:33)
[2021-06-28] MEDS: GABAPENTIN 300 MG CAPSULE PO SCH ×2 (09:53→20:33)
[2021-06-28] MEDS: polyethylene glycoL 3350 17 GM PACKET PO SCH (09:54)
--- NOTE | 2021-06-28 11:38 | PROVIDER PROGRESS NOTE ---
Subjective - Prog Note Date Prog Note Date: 06/28/21 - Subjective Subjective: He is much more awake and alert today. He denies any pain. Feels his right leg erythema is improving. Still feels short of breath but improved overall. Current Medications - Current Medications Current Medications: Active Medications Acetaminophen (Acetaminophen 325 Mg Tablet) 650 mg PO Q4HR PRN PRN Reason: Pain or Fever > 38C (100.4F) Albuterol (Albuterol Neb 2.5 Mg/3 Ml) 2.5 mg INH RTQ4H PRN PRN Reason: Wheezing Last Admin: 06/26/21 16:38 Dose: 2.5 mg Albuterol/Ipratropium (Ipratropium/Albuterol 3 Ml Neb) 3 ml INH RTQID [facility] Last Admin: 06/28/21 11:03 Dose: 3 ml Aspirin (Aspirin Chew 81 Mg Tablet) 81 mg PO DAILY [facility] Last Admin: 06/28/21 09:52 Dose: 81 mg Digoxin (Digoxin 125 Mcg Tablet) 62.5 mcg PO DAILY [facility] Last Admin: 06/28/21 09:52 Dose: 62.5 mcg Enoxaparin Sodium (Enoxaparin 40 Mg/0.4 Ml Syringe) 40 mg SUBQ BID [facility] Last Admin: 06/28/21 09:53 Dose: 40 mg Furosemide (Furosemide 40 Mg/4 Ml Vial) 40 mg IVP BIDDIURETIC [facility] Last Admin: 06/28/21 06:33 Dose: 40 mg Gabapentin (Gabapentin 300 Mg Capsule) 600 mg PO BID [facility] Last Admin: 06/28/21 09:53 Dose: 600 mg Meropenem 1 gm/ Sodium (Chloride) 100 mls @ 200 mls/hr IV Q8H [facility] Last Admin: 06/28/21 11:35 Dose: 200 mls/hr Lactobacillus Rhamnosus (Lactobacillus Rhamnosus Gg Capsule) 1 cap PO DAILY [facility] Last Admin: 06/28/21 09:53 Dose: 1 cap Levalbuterol HCl (Levalbuterol 1.25 Mg/3 Ml Neb) 1.25 mg INH Q4H PRN PRN Reason: Shortness of Air/Wheezing Levothyroxine Sodium (Levothyroxine 25 Mcg Tablet) 50 mcg PO QDAC [facility] Last Admin: 06/28/21 06:34 Dose: 50 mcg Metoprolol Succinate (Metoprolol Succinate 50 Mg Tablet) 150 mg PO DAILY [facility] Last Admin: 06/28/21 09:53 Dose: 150 mg Metoprolol Succinate (Metoprolol Succinate 50 Mg Tablet) 50 mg PO QPM [facility] Last Admin: 06/27/21 20:48 Dose: 50 mg Multivitamins/Minerals (Multivitamin W/Minerals Tablet) 1 tab PO DAILYWM [facility] Last Admin: 06/28/21 09:52 Dose: 1 tab Pantoprazole Sodium (Pantoprazole 40 Mg Tablet) 40 mg PO QDAC [facility] Last Admin: 06/28/21 06:33 Dose: 40 mg Polyethylene Glycol (Polyethylene Glycol 3350 17 Gm Packet) 17 gm PO DAILY [facility] Last Admin: 06/28/21 09:54 Dose: 17 gm Sodium Chloride (Sodium Chloride Flush 0.9% 10 Ml Syringe) 10 ml IVP 0100,0900,1700 [facility] Last Admin: 06/28/21 09:54 Dose: 10 ml Sodium Chloride (Sodium Chloride Flush 0.9% 10 Ml Syringe) 10 ml IVP PRN PRN PRN Reason: NEEDED PER PROVIDER ORDERS Last Admin: 06/28/21 06:37 Dose: 10 ml Digoxin 62.5 mcg PO DAILY 04/28/17 Metoprolol Succinate 150 mg PO DAILY 04/28/17 Levothyroxine Sodium [Synthroid] 50 mcg PO DAILY 07/21/19 Pantoprazole Sodium 40 mg PO DAILY 07/21/19 Torsemide 20 mg PO BID 07/21/19 Gabapentin 600 mg PO BID 11/20/19 diltiaZEM CD [Cardizem Cd] 180 mg PO DAILY 06/26/21 Objective - Vital Signs/Intake & Output Reviewed Vital Signs: Yes Vital Signs: Vital Signs Temp Pulse Pulse Resp BP Pulse Ox 06/28/21 11:08 100 18 06/28/21 11:00 98 20 131/79 H 97 06/28/21 09:56 104 H 24 113/73 94 06/28/21 09:00 99 22 98/69 95 06/28/21 08:00 36.3 C L 113 H 26 H 94/57 L 91 L Intake & Output: Intake & Output 06/25/21 06/26/21 06/27/21 06/28/21 23:59 23:59 23:59 23:59 Intake Total 700 1730 2014 1400 Output Total 1350 2009 116 1665 Balance -650 -280 855 -265 - Objective General Appearance: positive: No acute distress, Alert Eyes Bilateral: positive: Normal inspection, Conjunctivae nml ENT: positive: ENT inspection nml Neck: positive: Nml inspection Respiratory: positive: No respiratory distress, Rales. negative: Wheezes Cardiovascular: positive: Irregularly irregular. negative: Tachycardia, Syst olic murmur Abdomen: positive: Non-tender, No distention. negative: Tenderness Skin: positive: Warm, Dry, Other (Right lower extremity erythema is improved. He does have chronic venous stasis changes of the bilateral lower extremities. No purulence noted.) Extremities: positive: Pedal edema (+2 pitting edema throughout his lower extremities up to his abdomen.) Neurologic/Psychiatric: positive: Other (No focal deficits. He is able to ambulate within the room). negative: Disoriented to person, Disoriented to place, Disoriented to time - Lab Results Fish Bones: 06/28/21 05:44 06/28/21 05:44 Other Labs: Lab Results x24hrs 06/28/21 06/28/21 06/28/21 Range/Units 05:44 05:44 05:44 WBC (4.8-10.8) x10^3/uL RBC (4.70-6.10) 10^6/uL Hgb (14.0-18.0) g/dL Hct (42.0-52.0) % MCV (80.0-94.0) fL MCH (27.0-31.0) pg MCHC (32.0-36.0) g/dL RDW (12.0-15.0) % Plt Count (130-450) 10^3/uL MPV (7.4-11.4) fL Neut # (Auto) (1.5-6.6) 10^3/uL Lymph # (Auto) (1.5-3.5) 10^3/uL [place] # (Auto) (0.0-1.0) 10^3/uL Eos # (Auto) (0.0-0.7) 10^3/uL Baso # (Auto) (0.0-0.1) 10^3/uL Absolute Nucleated RBC x10^3/uL Nucleated RBC % /100WBC Manual Slide Review RBC Morph Micro Appear (NORMAL) VBG pH 7.272 L (7.31-7.41) Ionized Calcium 1.13 L (1.15-1.33) mmol/L Sodium (135-145) mmol/L Potassium (3.5-5.0) mmol/L Chloride (101-111) mmol/L Carbon Dioxide (21-32) mmol/L Anion Gap (6-13) BUN (6-20) mg/dL Creatinine (0.6-1.2) mg/dL Estimated GFR (MDRD) (>89) Glucose (70-100) mg/dL Calcium (8.5-10.3) mg/dL Phosphorus 3.4 (2.5-4.6) mg/dL Magnesium (1.7-2.8) mg/dL Total Bilirubin 1.1 H (0.2-1.0) mg/dL Direct Bilirubin 0.5 (0.1-0.5) mg/dL AST 11 (10-42) IU/L ALT < 10 L (10-60) IU/L Alkaline Phosphatase 40 L (42-121) IU/L C-Reactive Protein 6.7 H (0-1.0) mg/dL B-Natriuretic Peptide (5-100) pg/mL Total Protein 7.5 (6.7-8.2) g/dL Albumin 2.7 L (3.2-5.5) g/dL Globulin 4.8 H (2.1-4.2) g/dL 06/28/21 06/28/21 06/28/21 Range/Units 05:44 05:44 05:44 WBC 7.2 (4.8-10.8) x10^3/uL RBC 4.25 L (4.70-6.10) 10^6/uL Hgb 10.9 L (14.0-18.0) g/dL Hct 38.9 L (42.0-52.0) % MCV 91.5 (80.0-94.0) fL MCH 25.6 L (27.0-31.0) pg MCHC 28.0 L (32.0-36.0) g/dL RDW 23.9 H (12.0-15.0) % Plt Count 98 L (130-450) 10^3/uL MPV 11.1 (7.4-11.4) fL Neut # (Auto) 5.7 (1.5-6.6) 10^3/uL Lymph # (Auto) 0.7 L (1.5-3.5) 10^3/uL [place] # (Auto) 0.8 (0.0-1.0) 10^3/uL Eos # (Auto) 0.0 (0.0-0.7) 10^3/uL Baso # (Auto) 0.0 (0.0-0.1) 10^3/uL Absolute Nucleated RBC 0.00 x10^3/uL Nucleated RBC % 0.0 /100WBC Manual Slide Review Indicated RBC Morph Micro Appear 1+ BASO STIPPLING (NORMAL) VBG pH (7.31-7.41) Ionized Calcium (1.15-1.33) mmol/L Sodium 136 (135-145) mmol/L Potassium 4.0 (3.5-5.0) mmol/L Chloride 95 L (101-111) mmol/L Carbon Dioxide 33 H (21-32) mmol/L Anion Gap 8.0 (6-13) BUN 46 H (6-20) mg/dL Creatinine 1.4 H (0.6-1.2) mg/dL Estimated GFR (MDRD) 51 L (>89) Glucose 101 H (70-100) mg/dL Calcium 8.3 L (8.5-10.3) mg/dL Phosphorus (2.5-4.6) mg/dL Magnesium 1.9 (1.7-2.8) mg/dL Total Bilirubin (0.2-1.0) mg/dL Direct Bilirubin (0.1-0.5) mg/dL AST (10-42) IU/L ALT (10-60) IU/L Alkaline Phosphatase (42-121) IU/L C-Reactive Protein (0-1.0) mg/dL B-Natriuretic Peptide 509 H (5-100) pg/mL Total Protein (6.7-8.2) g/dL Albumin (3.2-5.5) g/dL Globulin (2.1-4.2) g/dL Sepsis Event Note (H) - Evaluation Current Stage of Sepsis: Sepsis Possible source of Sepsis: positive: Genitourinary - Sepsis Criteria Sepsis Criteria: Recorded Temperature greater than 38.3C or Less than 36C, Recorded Heart Rate greater than 90 bpm, Respiratory: Increasing oxygen requirements, WBC count greater than 10% bands, WBC count greater than 12,000 or less than 4000 Assessment/Plan - Problem List (1) Sepsis Impression: This is secondary to the Haemophilus parainfluenzae bacteremia which was thought to be secondary to the right lower extremity cellulitis. His white count is now within normal limits and he has been afebrile for more than 24 hours. We will keep him on meropenem IV until we have sensitivities to the Haemophilus parainfluenzae. (2) Acute respiratory failure with hypoxia and hypercarbia Impression: This is secondary to exacerbation of his heart failure. He is still quite edematous but is improving from a dyspnea standpoint. We will look to wean his oxygen as he is diuresed further. He is now down to 2L of oxygen. Echo revealed a preserved ejection fraction but he has right heart failure. We will continue Lasix 40 mg IV twice daily and wean oxygen for goal saturation greater than 88% as he likely has underlying COPD given his significant smoking history. (3) AMS (altered mental status) Impression: This is resolved. He is much more alert and oriented today. CT of the head showed no acute abnormalities which we obtained this morning. His [place]man status loculated to the sepsis as well as hypercapnia. We will continue to monitor and if he becomes more sedated again then we will order an ABG as he then may benefit from continuous use of noninvasive ventilation such as trilogy. (4) Cellulitis of right leg Impression: This likely the cause of his bacteremia. His right lower extremity is significantly improved compared to admission. His white count is normal and he has been afebrile. We will keep him on meropenem IV until we have sensitivities. We will likely switch him to an oral fluoroquinolone to complete 10 to 14 days of therapy. (5) Gram-negative bacteremia Impression: Blood cultures grew haemophilus parainfluenza. I spoke with infectious disease in the [facility] and was felt that as long as repeat cultures are negative then he can be switched to oral antibiotics to complete 10 to 14 days based off of the clinical improvement of his cellulitis. They prefer fluoroquinolone rather than a cephalosporin due to bioavailability. (6) Atrial fibrillation with rapid ventricular response Impression: His heart rate is much improved in the high 90s to low 100s after we resumed his home metoprolol dosing. We will continue the current management. He is not on anticoagulation due to history of GI bleed she will have him on aspirin for prophylaxis. (7) UTI (urinary tract infection) Impression: His urine culture grew Proteus which is pansensitive. This is likely not the cause of the sepsis. He is covered with meropenem for the Proteus UTI. (8) CHF (congestive heart failure) Impression: He is still an acute on chronic congestive heart failure. Echocardiogram revealed preserved ejection fraction but he has evidence of right heart failure. He is still quite volume overloaded. We will continue diuresis with Lasix 40 mg IV twice daily as he has shown improvement. Continue low-sodium diet. Strict I's and O's. Daily weights. Qualifiers: Heart failure type: diastolic Heart failure chronicity: acute on chronic Qualified Code(s): I50.33 - Acute on chronic diastolic (congestive) heart failure (9) Retroperitoneal lymphadenopathy Impression: CT showed splenomegaly and retroperitoneal lymphadenopathy which could be reactive or potentially lymphoma. He will need further work-up of this on an outpatient basis once he is discharged. (10) CKD (chronic kidney disease) stage 3, GFR 30-59 ml/min Impression: Renal function remains stable at his baseline creatinine of 1.4. We will continue to monitor as he has been diuresed. (11) Hypothyroidism Impression: Continue synthroid. (12) History of sleep apnea Impression: Continue CPAP in the evenings.
[2021-06-28] MEDS ORDERED: MIN OIL/DIMETHICON/COCONUT OIL 92 GM TUBE TOP PRN (18:19)
[2021-06-29] MEDS: SODIUM CHLORIDE FLUSH 0.9% 10 ML SYRINGE IVP SCH ×3 (00:08→17:30)
[2021-06-29] MEDS: MEROPENEM 1 GM in SODIUM CHLORIDE 0.9% MINIBAG 100 ML IV SCH ×3 (03:19→19:05)
[2021-06-29] MEDS: SODIUM CHLORIDE FLUSH 0.9% 10 ML SYRINGE IVP PRN ×2 (03:20→06:20)
[2021-06-29] MEDS ORDERED: BENZOCAINE/MENTHOL LOZENGE MM PRN (04:00)
[2021-06-29 05:21] LABS: BASOPHILS # (AUTO) 0.1 10^3/uL (0.0-0.1); EOSINOPHILS # (AUTO) 0.1 10^3/uL (0.0-0.7); EOSINOPHILS % (AUTO) 2.9 %; HCT - HEMATOCRIT 37.5 % (42.0-52.0); HGB - HEMOGLOBIN 10.7 g/dL (14.0-18.0); LYMPHOCYTES # (AUTO) 0.7 10^3/uL (1.5-3.5); MEAN CORPUSCULAR HEMOGLOBIN 25.8 pg (27.0-31.0); MEAN CORPUSCULAR HGB CONC 28.5 g/dL (32.0-36.0); MEAN CORPUSCULAR VOLUME 90.4 fL (80.0-94.0); MEAN PLATELET VOLUME 11.3 fL (7.4-11.4); MONOCYTES # (AUTO) 0.7 10^3/uL (0.0-1.0); NEUTROPHILS # (AUTO) 3.2 10^3/uL (1.5-6.6); NEUTROPHILS % (AUTO) 67.7 %; PLT - PLATELET COUNT 92 10^3/uL (130-450); RED BLOOD COUNT 4.15 10^6/uL (4.70-6.10); RED CELL DISTRIBUTION WIDTH 23.7 % (12.0-15.0); WHITE BLOOD COUNT 4.8 x10^3/uL (4.8-10.8)
[2021-06-29 05:24] LABS: SLIDE REVIEW? Indicated
[2021-06-29 05:32] LABS: CALCIUM 8.3 mg/dL (8.5-10.3); CREATININE 1.1 mg/dL (0.6-1.2); MAGNESIUM 1.6 mg/dL (1.7-2.8); POTASSIUM 4.3 mmol/L (3.5-5.0)
[2021-06-29 05:37] LABS: PLATELET ESTIMATE, MANUAL DECREASED (<130,000) (NORMAL); PLATELET MORPHOLOGY NORMAL APPEARANCE (NORMAL); WBC MORPHOLOGY (MULTIPLE) NORMAL APPEARANCE (NORMAL)
[2021-06-29] MEDS: FUROSEMIDE 40 MG/4 ML VIAL IVP SCH ×2 (06:19→14:30)
[2021-06-29] MEDS: MAGNESIUM OXIDE 400 MG TABLET PO SCH ×2 (06:19→11:26)
[2021-06-29] MEDS: PANTOPRAZOLE 40 MG TABLET PO SCH (06:20)
[2021-06-29] MEDS: LEVOTHYROXINE 25 MCG TABLET PO SCH (06:20)
[2021-06-29] MEDS: IPRATROPIUM/ALBUTEROL 3 ML NEB INH SCH ×4 (07:30→20:04)
--- NOTE | 2021-06-29 07:34 | PROVIDER PROGRESS NOTE ---
Subjective - Prog Note Date Prog Note Date: 06/29/21 - Subjective Subjective: He denies feeling short of breath. Reports no pain. He has become more confused in the evenings but does well during the day. 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 Current Medications - Current Medications Current Medications: Active Medications Acetaminophen (Acetaminophen 325 Mg Tablet) 650 mg PO Q4HR PRN PRN Reason: Pain or Fever > 38C (100.4F) Albuterol (Albuterol Neb 2.5 Mg/3 Ml) 2.5 mg INH RTQ4H PRN PRN Reason: Wheezing Last Admin: 06/26/21 16:38 Dose: 2.5 mg Albuterol/Ipratropium (Ipratropium/Albuterol 3 Ml Neb) 3 ml INH RTQID [facility] Last Admin: 06/29/21 07:30 Dose: 3 ml Aspirin (Aspirin Chew 81 Mg Tablet) 81 mg PO DAILY [facility] Last Admin: 06/29/21 08:25 Dose: 81 mg Digoxin (Digoxin 125 Mcg Tablet) 62.5 mcg PO DAILY [facility] Last Admin: 06/29/21 08:25 Dose: 62.5 mcg Enoxaparin Sodium (Enoxaparin 40 Mg/0.4 Ml Syringe) 40 mg SUBQ BID [facility] Last Admin: 06/29/21 07:58 Dose: Not Given Furosemide (Furosemide 40 Mg/4 Ml Vial) 40 mg IVP BIDDIURETIC [facility] Last Admin: 06/29/21 06:19 Dose: 40 mg Gabapentin (Gabapentin 300 Mg Capsule) 600 mg PO BID [facility] Last Admin: 06/29/21 08:25 Dose: 600 mg Meropenem 1 gm/ Sodium (Chloride) 100 mls @ 200 mls/hr IV Q8H [facility] Last Infusion: 06/29/21 04:02 Dose: Infused Lactobacillus Rhamnosus (Lactobacillus Rhamnosus Gg Capsule) 1 cap PO DAILY [facility] Last Admin: 06/29/21 08:25 Dose: 1 cap Levalbuterol HCl (Levalbuterol 1.25 Mg/3 Ml Neb) 1.25 mg INH Q4H PRN PRN Reason: Shortness of Air/Wheezing Levothyroxine Sodium (Levothyroxine 25 Mcg Tablet) 50 mcg PO QDAC [facility] Last Admin: 06/29/21 06:20 Dose: 50 mcg Magnesium Oxide (Magnesium Oxide 400 Mg Tablet) 400 mg PO Q6H [facility]; Protocol Stop: 06/29/21 12:01 Last Admin: 06/29/21 06:19 Dose: 400 mg Metoprolol Succinate (Metoprolol Succinate 50 Mg Tablet) 150 mg PO DAILY [facility] Last Admin: 06/29/21 08:26 Dose: 150 mg Metoprolol Succinate (Metoprolol Succinate 50 Mg Tablet) 50 mg PO QPM [facility] Last Admin: 06/28/21 20:33 Dose: 50 mg Mineral Oil (Min Oil/Dimethicon/Coconut Oil 92 Gm Tube) 1 applic TOP PRN PRN PRN Reason: Skin Care Multivitamins/Minerals (Multivitamin W/Minerals Tablet) 1 tab PO DAILYWM [facility] Last Admin: 06/29/21 08:25 Dose: 1 tab Pantoprazole Sodium (Pantoprazole 40 Mg Tablet) 40 mg PO QDAC [facility] Last Admin: 06/29/21 06:20 Dose: 40 mg Polyethylene Glycol (Polyethylene Glycol 3350 17 Gm Packet) 17 gm PO DAILY [facility] Last Admin: 06/29/21 07:59 Dose: Not Given Sodium Chloride (Sodium Chloride Flush 0.9% 10 Ml Syringe) 10 ml IVP 0100,0900,1700 [facility] Last Admin: 06/29/21 08:26 Dose: 10 ml Sodium Chloride (Sodium Chloride Flush 0.9% 10 Ml Syringe) 10 ml IVP PRN PRN PRN Reason: NEEDED PER PROVIDER ORDERS Last Admin: 06/29/21 06:20 Dose: 10 ml Throat Lozenges (Benzocaine/Menthol Lozenge) 1 lozenge MM Q2HR PRN PRN Reason: Throat pain Digoxin 62.5 mcg PO DAILY 04/28/17 Metoprolol Succinate 150 mg PO DAILY 04/28/17 Levothyroxine Sodium [Synthroid] 50 mcg PO DAILY 07/21/19 Pantoprazole Sodium 40 mg PO DAILY 07/21/19 Torsemide 20 mg PO BID 07/21/19 Gabapentin 600 mg PO BID 11/20/19 diltiaZEM CD [Cardizem Cd] 180 mg PO DAILY 06/26/21 Objective - Vital Signs/Intake & Output Reviewed Vital Signs: Yes Vital Signs: Vital Signs Temp Pulse Resp BP Pulse Ox 06/29/21 07:00 103 H 32 H 141/92 H 90 L 06/29/21 06:00 93 16 140/93 H 95 06/29/21 05:00 95 27 H 109/68 93 06/29/21 04:00 36.4 C L 93 16 130/70 95 Intake & Output: Intake & Output 06/26/21 06/27/21 06/28/21 06/29/21 23:59 23:59 23:59 23:59 Intake Total 1729 2014 2251 1340 Output Total 2009 116 3110 1275 Balance -280 855 -858 65 - Objective General Appearance: positive: Lethargic Eyes Bilateral: positive: Conjunctivae nml ENT: positive: ENT inspection nml, Other (Nasal cannula in place.) Neck: positive: Nml inspection Respiratory: positive: No respiratory distress, Rales. negative: Wheezes Cardiovascular: positive: Irregularly irregular. negative: Tachycardia, Systolic murmur Abdomen: positive: Non-tender, No distention. negative: Tenderness Skin: positive: Warm, Dry, Other (The erythema in his right lower extremity significantly improved. It is now more consistent with his chronic venous stasis changes.) Extremities: positive: Pedal edema (Still has +2 pitting edema in the bilateral lower extremities) Neurologic/Psychiatric: positive: Disoriented to time, Other (No focal deficits but he is more lethargic today. He is not oriented to the year or month when he previously was). negative: Disoriented to person, Disoriented to place - Lab Results Fish Bones: 06/29/21 04:38 06/29/21 04:38 Other Labs: Lab Results x24hrs 06/29/21 06/29/21 06/28/21 Range/Units 04:38 04:38 05:44 WBC 4.8 (4.8-10.8) x10^3/uL RBC 4.15 L (4.70-6.10) 10^6/uL Hgb 10.7 L (14.0-18.0) g/dL Hct 37.5 L (42.0-52.0) % MCV 90.4 (80.0-94.0) fL MCH 25.8 L (27.0-31.0) pg MCHC 28.5 L (32.0-36.0) g/dL RDW 23.7 H (12.0-15.0) % Plt Count 92 L (130-450) 10^3/uL MPV 11.3 (7.4-11.4) fL Neut # (Auto) 3.2 (1.5-6.6) 10^3/uL Lymph # (Auto) 0.7 L (1.5-3.5) 10^3/uL [place] # (Auto) 0.7 (0.0-1.0) 10^3/uL Eos # (Auto) 0.1 (0.0-0.7) 10^3/uL Baso # (Auto) 0.1 (0.0-0.1) 10^3/uL Absolute Nucleated RBC 0.00 x10^3/uL Nucleated RBC % 0.0 /100WBC Manual Slide Review Indicated WBC Morphology NORMAL APPEARANCE (NORMAL) Platelet Estimate DECREASED (<130,000) (NORMAL) Platelet Morphology NORMAL APPEARANCE (NORMAL) RBC Morph Micro Appear 1+ BASO STIPPLING (NORMAL) Sodium 139 (135-145) mmol/L Potassium 4.3 (3.5-5.0) mmol/L Chloride 97 L (101-111) mmol/L Carbon Dioxide 33 H (21-32) mmol/L Anion Gap 9.0 (6-13) BUN 38 H (6-20) mg/dL Creatinine 1.1 (0.6-1.2) mg/dL Estimated GFR (MDRD) 68 L (>89) Glucose 111 H (70-100) mg/dL Calcium 8.3 L (8.5-10.3) mg/dL Magnesium 1.6 L (1.7-2.8) mg/dL Total Bilirubin 1.1 H (0.2-1.0) mg/dL Direct Bilirubin 0.5 (0.1-0.5) mg/dL AST 11 (10-42) IU/L ALT < 10 L (10-60) IU/L Alkaline Phosphatase 40 L (42-121) IU/L C-Reactive Protein 6.7 H (0-1.0) mg/dL Total Protein 7.5 (6.7-8.2) g/dL Albumin 2.7 L (3.2-5.5) g/dL Globulin 4.8 H (2.1-4.2) g/dL 06/28/21 Range/Units 05:44 WBC (4.8-10.8) x10^3/uL RBC (4.70-6.10) 10^6/uL Hgb (14.0-18.0) g/dL Hct (42.0-52.0) % MCV (80.0-94.0) fL MCH (27.0-31.0) pg MCHC (32.0-36.0) g/dL RDW (12.0-15.0) % Plt Count (130-450) 10^3/uL MPV (7.4-11.4) fL Neut # (Auto) 5.7 (1.5-6.6) 10^3/uL Lymph # (Auto) 0.7 L (1.5-3.5) 10^3/uL [place] # (Auto) 0.8 (0.0-1.0) 10^3/uL Eos # (Auto) 0.0 (0.0-0.7) 10^3/uL Baso # (Auto) 0.0 (0.0-0.1) 10^3/uL Absolute Nucleated RBC 0.00 x10^3/uL Nucleated RBC % 0.0 /100WBC Manual Slide Review WBC Morphology (NORMAL) Platelet Estimate (NORMAL) Platelet Morphology (NORMAL) RBC Morph Micro Appear 1+ BASO STIPPLING (NORMAL) Sodium (135-145) mmol/L Potassium (3.5-5.0) mmol/L Chloride (101-111) mmol/L Carbon Dioxide (21-32) mmol/L Anion Gap (6-13) BUN (6-20) mg/dL Creatinine (0.6-1.2) mg/dL Estimated GFR (MDRD) (>89) Glucose (70-100) mg/dL Calcium (8.5-10.3) mg/dL Magnesium (1.7-2.8) mg/dL Total Bilirubin (0.2-1.0) mg/dL Direct Bilirubin (0.1-0.5) mg/dL AST (10-42) IU/L ALT (10-60) IU/L Alkaline Phosphatase (42-121) IU/L C-Reactive Protein (0-1.0) mg/dL Total Protein (6.7-8.2) g/dL Albumin (3.2-5.5) g/dL Globulin (2.1-4.2) g/dL Sepsis Event Note (H) - Evaluation Current Stage of Sepsis: Resolved Possible source of Sepsis: positive: Skin/soft tissue - Sepsis Criteria Sepsis Criteria: Recorded Temperature greater than 38.3C or Less than 36C, Recorded Heart Rate greater than 90 bpm, Respiratory: Increasing oxygen requirements, WBC count greater than 10% bands, WBC count greater than 12,000 or less than 4000 Assessment/Plan - Problem List (1) Sepsis Impression: The sepsis is now resolved. He remains afebrile with a normal white blood cell count. He is overall clinically significantly improved since admission. This is secondary to the right lower extremity cellulitis in the Haemophilus parainfluenzae bacteremia. We will transition to oral antibiotics, likely a fluoroquinolone, when repeat cultures negative for 48 hours. (2) Acute respiratory failure with hypoxia and hypercarbia Impression: This was felt to be secondary to heart failure exacerbation as well as sepsis. He is now down to 2 L of oxygen. We will continue to diurese him with Lasix 40 mg IV twice daily as he is still quite edematous. We will look to wean his oxygen to a goal saturation greater than 88% as he likely has underlying COPD. Given his somnolence, will also order an ABG as he may need BiPAP. (3) AMS (altered mental status) Impression: He does quite well during the day but in the evening it has become more lethargic. I am concerned that he may becoming hypercapnic and may need BiPAP. We will order an ABG for further evaluation given when he presented initially, he was hypercapnic. If this becomes a recurring theme then he will likely benefit from trilogy. (4) Cellulitis of right leg Impression: This is significantly improved. And is likely the cause of his gram-negative bacteremia. We will keep him on meropenem IV until we have negative blood cultures and then will switch him to oral Levaquin given the haemophilus parainfluenza bacteremia. (5) Gram-negative bacteremia Impression: Blood cultures on admission grew haemophilus parainfluenza. We have ordered for repeat blood cultures which are pending. This is the cause of his sepsis and appears to be secondary to the right lower extremity cellulitis. We will switch him to oral Levaquin to complete 14 days of therapy once we know blood cultures are negative. (6) Atrial fibrillation with rapid ventricular response Impression: His rate is stable on the current dose of metoprolol. We are continuing aspirin alone for stroke prophylaxis as he is a history of GI bleed while on anticoagulation. (7) UTI (urinary tract infection) Impression: His urine culture grew Proteus. He has already received over 5 days of antibiotics given his presentation for sepsis. He remains on meropenem for the cellulitis. (8) CHF (congestive heart failure) Impression: This is improved. He is down to 2 L of oxygen and his edema is improving. He still needs further diuresis and we will continue with Lasix 40 mg IV twice daily. Qualifiers: Heart failure type: diastolic Heart failure chronicity: acute on chronic Qualified Code(s): I50.33 - Acute on chronic diastolic (congestive) heart failure (9) CKD (chronic kidney disease) stage 3, GFR 30-59 ml/min Impression: His renal function is actually improved today with a creatinine of 1.1. He may have potentially had mild acute kidney injury secondary to CHF. We will continue diuresis and monitor. (10) Hypothyroidism Impression: Continue Synthroid (11) History of sleep apnea Impression: We will continue with CPAP in the evening. If he is hypercapnic then he will need BiPAP and will ultimately likely benefit from trilogy/BiPAP at home.
[2021-06-29] MEDS: ENOXAPARIN 40 MG/0.4 ML SYRINGE SUBQ SCH ×2 (07:58→20:14)
[2021-06-29] MEDS: polyethylene glycoL 3350 17 GM PACKET PO SCH (07:59)
[2021-06-29] MEDS: DIGOXIN 125 MCG TABLET PO SCH (08:25)
[2021-06-29] MEDS: LACTOBACILLUS RHAMNOSUS GG CAPSULE PO SCH (08:25)
[2021-06-29] MEDS: ASPIRIN CHEW 81 MG TABLET PO SCH (08:25)
[2021-06-29] MEDS: GABAPENTIN 300 MG CAPSULE PO SCH ×2 (08:25→20:11)
[2021-06-29] MEDS: MULTIVITAMIN W/MINERALS TABLET PO SCH (08:25)
[2021-06-29] MEDS: METOPROLOL SUCCINATE 50 MG TABLET PO SCH ×2 (08:26→20:14)
[2021-06-29 19:20] LABS: ABG BASE EXCESS 8.3 mmol/L (-2.0-3.0); ABG HCO3 34.4 mmol/L (22.0-26.0); ABG OXYGEN SATURATION 97 % (94-98); ABG PCO2 55 mmHg (34-45); ABG PH 7.41 (7.35-7.45); ABG PO2 91 mmHg (80-100); ABG TCO2 36.1 MMOL/L (21.0-29.0)
[2021-06-29 19:21] LABS: ALLEN TEST POSITIVE
[2021-06-29] MEDS ORDERED: HALOPERIDOL 5 MG/ML VIAL IVP ONE (22:29)
--- NOTE | 2021-06-29 22:34 | PROVIDER PROGRESS NOTE ---
Progress Note June 29, 2021 10:33 PM He can get up and walk with a standby assist. As the night has gone on he is gotten increasingly more confused. He is oriented to person and is not quite sure about the place. He refuses BiPAP, and is getting more short of breath. He becomes quite hypoxic when he takes off his BiPAP. He wants to go outside and smoke, and he wants to leave AGAINST MEDICAL ADVICE. And his anger, he is pushing away at the nurses and kicking them. Pulse is 111, blood pressure 120/86. Respirations 18. Right now he is on BiPAP after being controlled by nursing to keep the mask on. Very quiet lung sounds. No wheezing. When he gets agitated and angry he gets increased respiratory rate and starts to recruit his abdominal muscles. When he is laying down and sleeping, he has no respiratory distress. He is oriented to person, and not quite clear about where he is. On the basis of danger to self, and danger to others, I will use Haldol once. Resume the BiPAP. If he is not able to maintain a stable environment with the BiPAP, he may need physical wrist restraints.
[2021-06-29] MEDS: NICOTINE 14 MG PATCH TOP SCH (23:24)
[2021-06-30] MEDS ORDERED: HALOPERIDOL 5 MG/ML VIAL IVP ONE (00:16)
[2021-06-30] MEDS: SODIUM CHLORIDE FLUSH 0.9% 10 ML SYRINGE IVP SCH ×3 (00:51→17:07)
[2021-06-30] MEDS: MEROPENEM 1 GM in SODIUM CHLORIDE 0.9% MINIBAG 100 ML IV SCH ×3 (03:06→19:33)
[2021-06-30] MEDS: FUROSEMIDE 40 MG/4 ML VIAL IVP SCH ×2 (05:52→15:09)
[2021-06-30] MEDS: IPRATROPIUM/ALBUTEROL 3 ML NEB INH SCH ×4 (05:52→19:52)
[2021-06-30] MEDS: PANTOPRAZOLE 40 MG TABLET PO SCH (05:53)
[2021-06-30] MEDS: LEVOTHYROXINE 25 MCG TABLET PO SCH (05:53)
[2021-06-30] MEDS: NICOTINE 14 MG PATCH TOP SCH (09:05)
[2021-06-30] MEDS: MULTIVITAMIN W/MINERALS TABLET PO SCH (09:06)
[2021-06-30] MEDS: ASPIRIN CHEW 81 MG TABLET PO SCH (09:06)
[2021-06-30] MEDS: DIGOXIN 125 MCG TABLET PO SCH (09:07)
[2021-06-30] MEDS: GABAPENTIN 300 MG CAPSULE PO SCH ×2 (09:08→20:52)
[2021-06-30] MEDS: METOPROLOL SUCCINATE 50 MG TABLET PO SCH ×2 (09:08→20:53)
[2021-06-30] MEDS: LACTOBACILLUS RHAMNOSUS GG CAPSULE PO SCH (09:10)
[2021-06-30] MEDS: ENOXAPARIN 40 MG/0.4 ML SYRINGE SUBQ SCH ×2 (09:11→20:53)
[2021-06-30] MEDS: polyethylene glycoL 3350 17 GM PACKET PO SCH (09:11)
--- NOTE | 2021-06-30 15:14 | PROVIDER PROGRESS NOTE ---
Subjective - Prog Note Date Prog Note Date: 06/30/21 - Subjective Subjective: He was agitated overnight and threatening to leave AGAINST MEDICAL ADVICE. He was given Haldol twice. This morning he is quite lethargic but will wake up. He knows he is at the hospital but cannot tell me the month. He denies any shortness of breath. He wants to go home. Current Medications - Current Medications Current Medications: Active Medications Acetaminophen (Acetaminophen 325 Mg Tablet) 650 mg PO Q4HR PRN PRN Reason: Pain or Fever > 38C (100.4F) Albuterol (Albuterol Neb 2.5 Mg/3 Ml) 2.5 mg INH RTQ4H PRN PRN Reason: Wheezing Last Admin: 06/26/21 16:38 Dose: 2.5 mg Albuterol/Ipratropium (Ipratropium/Albuterol 3 Ml Neb) 3 ml INH RTQID [facility] Last Admin: 06/30/21 11:18 Dose: 3 ml Aspirin (Aspirin Chew 81 Mg Tablet) 81 mg PO DAILY [facility] Last Admin: 06/30/21 09:06 Dose: 81 mg Digoxin (Digoxin 125 Mcg Tablet) 62.5 mcg PO DAILY [facility] Last Admin: 06/30/21 09:07 Dose: 62.5 mcg Enoxaparin Sodium (Enoxaparin 40 Mg/0.4 Ml Syringe) 40 mg SUBQ BID [facility] Last Admin: 06/30/21 09:11 Dose: Not Given Furosemide (Furosemide 40 Mg/4 Ml Vial) 40 mg IVP BIDDIURETIC [facility] Last Admin: 06/30/21 15:09 Dose: 40 mg Gabapentin (Gabapentin 300 Mg Capsule) 600 mg PO BID [facility] Last Admin: 06/30/21 09:08 Dose: 600 mg Meropenem 1 gm/ Sodium (Chloride) 100 mls @ 200 mls/hr IV Q8H JURGEN Stop: 06/30/21 23:59 Last Admin: 06/30/21 15:09 Dose: 200 mls/hr Lactobacillus Rhamnosus (Lactobacillus Rhamnosus Gg Capsule) 1 cap PO DAILY [facility] Last Admin: 06/30/21 09:10 Dose: 1 cap Levalbuterol HCl (Levalbuterol 1.25 Mg/3 Ml Neb) 1.25 mg INH Q4H PRN PRN Reason: Shortness of Air/Wheezing Levofloxacin (Levofloxacin 250 Mg Tablet) 750 mg PO DAILY [facility] Levothyroxine Sodium (Levothyroxine 25 Mcg Tablet) 50 mcg PO QDAC [facility] Last Admin: 06/30/21 05:53 Dose: 50 mcg Metoprolol Succinate (Metoprolol Succinate 50 Mg Tablet) 150 mg PO DAILY [facility] Last Admin: 06/30/21 09:08 Dose: 150 mg Metoprolol Succinate (Metoprolol Succinate 50 Mg Tablet) 50 mg PO QPM [facility] Last Admin: 06/29/21 20:14 Dose: 50 mg Mineral Oil (Min Oil/Dimethicon/Coconut Oil 92 Gm Tube) 1 applic TOP PRN PRN PRN Reason: Skin Care Multivitamins/Minerals (Multivitamin W/Minerals Tablet) 1 tab PO DAILYWM [facility] Last Admin: 06/30/21 09:06 Dose: 1 tab Nicotine (Nicotine 14 Mg Patch) 1 patch TOP DAILY [facility] Last Admin: 06/30/21 09:05 Dose: 1 patch Pantoprazole Sodium (Pantoprazole 40 Mg Tablet) 40 mg PO QDAC [facility] Last Admin: 06/30/21 05:53 Dose: 40 mg Polyethylene Glycol (Polyethylene Glycol 3350 17 Gm Packet) 17 gm PO DAILY [facility] Last Admin: 06/30/21 09:11 Dose: Not Given Sodium Chloride (Sodium Chloride Flush 0.9% 10 Ml Syringe) 10 ml IVP 0100,0900,1700 [facility] Last Admin: 06/30/21 09:10 Dose: 10 ml Sodium Chloride (Sodium Chloride Flush 0.9% 10 Ml Syringe) 10 ml IVP PRN PRN PRN Reason: NEEDED PER PROVIDER ORDERS Last Admin: 06/29/21 06:20 Dose: 10 ml Throat Lozenges (Benzocaine/Menthol Lozenge) 1 lozenge MM Q2HR PRN PRN Reason: Throat pain Digoxin 62.5 mcg PO DAILY 04/28/17 Metoprolol Succinate 150 mg PO DAILY 04/28/17 Levothyroxine Sodium [Synthroid] 50 mcg PO DAILY 07/21/19 Pantoprazole Sodium 40 mg PO DAILY 07/21/19 Torsemide 20 mg PO BID 07/21/19 Gabapentin 600 mg PO BID 11/20/19 diltiaZEM CD [Cardizem Cd] 180 mg PO DAILY 06/26/21 Objective - Vital Signs/Intake & Output Reviewed Vital Signs: Yes Vital Signs: Vital Signs x48h Pulse Pulse Resp BP Pulse Ox 06/30/21 13:00 97 16 113/68 94 06/30/21 11:19 89 20 06/30/21 09:00 102 H 189 H 122/87 H 92 Intake & Output: Intake & Output 06/27/21 06/28/21 06/29/21 06/30/21 23:59 23:59 23:59 23:59 Intake Total 20142 2840 1130 Output Total 1159 3110 5256 2465 Balance 209 -859 -[phone] -5805 - Lab Results Fish Bones: 06/29/21 04:38 06/29/21 04:38 Other Labs: Lab Results x24hrs 06/29/21 Range/Units 19:14 Bld Gas Analysis Time 1917 Sample Site RIGHT RADIAL ABG pH 7.41 (7.35-7.45) ABG pCO2 55 H (34-45) mmHg ABG pO2 91 (80-100) mmHg ABG HCO3 34.4 H (22.0-26.0) mmol/L ABG Total CO2 36.1 H (21.0-29.0) MMOL/L ABG O2 Saturation 97 (94-98) % ABG Base Excess 8.3 H (-2.0-3.0) mmol/L Cali Test POSITIVE O2 Delivery Device NASAL CANNULA ABX Reporting Has patient been on IV antibiotics over the past 48 hours?: Yes Sepsis Event Note (H) - Evaluation Current Stage of Sepsis: Resolved Possible source of Sepsis: positive: Skin/soft tissue - Sepsis Criteria Sepsis Criteria: Recorded Temperature greater than 38.3C or Less than 36C, Re corded Heart Rate greater than 90 bpm, Respiratory: Increasing oxygen requirements, WBC count greater than 10% bands, WBC count greater than 12,000 or less than 4000 Assessment/Plan - Problem List (1) Sepsis Impression: The sepsis is now resolved. He remains afebrile with a normal white blood cell count. He is overall clinically significantly improved since admission. This is secondary to the right lower extremity cellulitis and the Haemophilus parainfluenzae bacteremia. We will transition him to oral Levaquin now that blood cultures have been negative for 48 hours. (2) Acute respiratory failure with hypoxia and hypercarbia Impression: This is secondary to heart failure exacerbation as well as sepsis. He remains on 2 L of oxygen via nasal cannula. He was initially hypercapnic and given he was somnolent yesterday, he ordered an ABG which showed no evidence of hy percapnia. We are continuing CPAP in the evenings. He is still lethargic this morning but I do not suspect this is related to hypercapnia and likely due to the Haldol he received. We will continue to monitor for evidence of hypercapnia. (3) AMS (altered mental status) Impression: He continues to be delirious at times especially in the evening. He was quite agitated last night and threatening to leave AGAINST MEDICAL ADVICE and so he was given Haldol. This morning he is still lethargic but will wake up to command. His joints his self and location but not to year and month like he previously was. This is likely related to the Haldol he received. Prior imaging was unremarkable. We will check an ammonia level given history of alcohol abuse. Try and avoid sedatives and monitor for evidence of hypercapnia. (4) Cellulitis of right leg Impression: This is significantly improved. This is the cause of his gram-negative bacteremia we will switch him to oral Levaquin blood culture negative for 48 hours. (5) Gram-negative bacteremia Impression: Blood cultures on admission grew haemophilus parainfluenza. This is the cause of his sepsis and appears to be secondary to the right lower extremity cellulitis. Repeat blood cultures negative for 40 hours and so we will switch him to oral Levaquin to complete 2 weeks of therapy. (6) Atrial fibrillation with rapid ventricular response Impression: His heart rate is increased today with rates in the 110s to 120s. We will continue metoprolol and add his home dose of diltiazem. Continue digoxin. He is not on anticoagulation due to history of GI bleed so we will continue aspirin. (7) UTI (urinary tract infection) Impression: His urine culture grew Proteus. He has already received over 5 days of antibiotics given his presentation for sepsis. He remains on the meropenem for the cellulitis which will be switched to Levaquin now. (8) CHF (congestive heart failure) Impression: This continues to improve. His edema is significantly improved but he still needs further diuresis. He remains on 2 L of oxygen. Continue Lasix 40 mg IV twice daily as well as a low-sodium diet. Qualifiers: Heart failure type: diastolic Heart failure chronicity: acute on chronic Qualified Code(s): I50.33 - Acute on chronic diastolic (congestive) heart failure (10) Hypothyroidism Impression: Continue Synthroid. (11) History of sleep apnea Impression: We will continue with CPAP in the evenings. Will monitor for evidence of hypercapnia as he may require BiPAP and if this is the case then he will most definitely need trilogy at home.
[2021-06-30 16:01] LABS: BASOPHILS # (AUTO) 0.1 10^3/uL (0.0-0.1); BASOPHILS % (AUTO) 1.1 %; EOSINOPHILS # (AUTO) 0.2 10^3/uL (0.0-0.7); EOSINOPHILS % (AUTO) 3.7 %; HCT - HEMATOCRIT 38.5 % (42.0-52.0); LYMPHOCYTES # (AUTO) 0.7 10^3/uL (1.5-3.5); MEAN CORPUSCULAR HEMOGLOBIN 25.8 pg (27.0-31.0); MEAN CORPUSCULAR HGB CONC 28.6 g/dL (32.0-36.0); MEAN CORPUSCULAR VOLUME 90.2 fL (80.0-94.0); MEAN PLATELET VOLUME 10.9 fL (7.4-11.4); MONOCYTES # (AUTO) 0.6 10^3/uL (0.0-1.0); MONOCYTES % (AUTO) 14.1 %; NEUTROPHILS % (AUTO) 65.9 %; PLT - PLATELET COUNT 84 10^3/uL (130-450); RED BLOOD COUNT 4.27 10^6/uL (4.70-6.10); RED CELL DISTRIBUTION WIDTH 23.2 % (12.0-15.0); WHITE BLOOD COUNT 4.5 x10^3/uL (4.8-10.8)
[2021-06-30 16:20] LABS: CALCIUM 8.3 mg/dL (8.5-10.3); CREATININE 0.7 mg/dL (0.6-1.2); POTASSIUM 4.1 mmol/L (3.5-5.0)
[2021-06-30 16:34] LABS: SLIDE REVIEW? Indicated
[2021-06-30 16:55] LABS: PLATELET ESTIMATE, MANUAL DECREASED (<130,000) (NORMAL); PLATELET MORPHOLOGY NORMAL APPEARANCE (NORMAL)
[2021-06-30] MEDS: diltiaZEM CD 180 MG CAPSULE PO SCH (17:06)
[2021-06-30] MEDS: THIAMINE 100 MG TABLET PO SCH (17:07)
[2021-06-30] MEDS: SODIUM CHLORIDE FLUSH 0.9% 10 ML SYRINGE IVP PRN (19:33)
[2021-06-30] MEDS: LACTULOSE 10 GM /15 ML UDC PO SCH (20:52)
[2021-07-01] MEDS: SODIUM CHLORIDE FLUSH 0.9% 10 ML SYRINGE IVP SCH ×3 (00:38→16:06)
[2021-07-01 05:49] LABS: BASOPHILS # (AUTO) 0.1 10^3/uL (0.0-0.1); BASOPHILS % (AUTO) 1.3 %; EOSINOPHILS # (AUTO) 0.2 10^3/uL (0.0-0.7); EOSINOPHILS % (AUTO) 4.1 %; HCT - HEMATOCRIT 39.1 % (42.0-52.0); HGB - HEMOGLOBIN 11.3 g/dL (14.0-18.0); LYMPHOCYTES # (AUTO) 0.7 10^3/uL (1.5-3.5); LYMPHOCYTES % (AUTO) 13.1 %; MEAN CORPUSCULAR HGB CONC 28.9 g/dL (32.0-36.0); MEAN CORPUSCULAR VOLUME 89.9 fL (80.0-94.0); MEAN PLATELET VOLUME 11.6 fL (7.4-11.4); MONOCYTES # (AUTO) 0.6 10^3/uL (0.0-1.0); MONOCYTES % (AUTO) 11.6 %; NEUTROPHILS # (AUTO) 3.7 10^3/uL (1.5-6.6); NEUTROPHILS % (AUTO) 69.5 %; PLT - PLATELET COUNT 87 10^3/uL (130-450); RED BLOOD COUNT 4.35 10^6/uL (4.70-6.10); RED CELL DISTRIBUTION WIDTH 23.2 % (12.0-15.0); WHITE BLOOD COUNT 5.4 x10^3/uL (4.8-10.8)
[2021-07-01 05:52] LABS: CALCIUM 8.4 mg/dL (8.5-10.3); CREATININE 0.7 mg/dL (0.6-1.2); POTASSIUM 4.4 mmol/L (3.5-5.0)
[2021-07-01 06:00] LABS: SLIDE REVIEW? Indicated
[2021-07-01] MEDS: LEVOTHYROXINE 25 MCG TABLET PO SCH (06:16)
[2021-07-01] MEDS: SODIUM CHLORIDE FLUSH 0.9% 10 ML SYRINGE IVP PRN (06:16)
[2021-07-01] MEDS: FUROSEMIDE 40 MG/4 ML VIAL IVP SCH ×2 (06:16→15:05)
[2021-07-01] MEDS: PANTOPRAZOLE 40 MG TABLET PO SCH (06:16)
[2021-07-01 06:35] LABS: PLATELET ESTIMATE, MANUAL DECREASED (<130,000) (NORMAL); PLATELET MORPHOLOGY NORMAL APPEARANCE (NORMAL); WBC MORPHOLOGY (MULTIPLE) NORMAL APPEARANCE (NORMAL)
[2021-07-01] MEDS: IPRATROPIUM/ALBUTEROL 3 ML NEB INH SCH ×4 (07:39→19:57)
[2021-07-01] MEDS: LACTULOSE 10 GM /15 ML UDC PO SCH ×2 (08:12→20:06)
[2021-07-01] MEDS: MULTIVITAMIN W/MINERALS TABLET PO SCH (08:13)
[2021-07-01] MEDS: LACTOBACILLUS RHAMNOSUS GG CAPSULE PO SCH (08:13)
[2021-07-01] MEDS: DIGOXIN 125 MCG TABLET PO SCH (08:13)
[2021-07-01] MEDS: levoFLOXacin 250 MG TABLET PO SCH (08:13)
[2021-07-01] MEDS: diltiaZEM CD 180 MG CAPSULE PO SCH (08:13)
[2021-07-01] MEDS: ASPIRIN CHEW 81 MG TABLET PO SCH (08:14)
[2021-07-01] MEDS: GABAPENTIN 300 MG CAPSULE PO SCH ×2 (08:14→20:06)
[2021-07-01] MEDS: NICOTINE 14 MG PATCH TOP SCH (08:15)
[2021-07-01] MEDS: METOPROLOL SUCCINATE 50 MG TABLET PO SCH ×2 (08:15→20:06)
[2021-07-01] MEDS: THIAMINE 100 MG TABLET PO SCH (08:15)
[2021-07-01] MEDS: polyethylene glycoL 3350 17 GM PACKET PO SCH (08:16)
[2021-07-01] MEDS: ENOXAPARIN 40 MG/0.4 ML SYRINGE SUBQ SCH ×3 (08:59→20:07)
--- NOTE | 2021-07-01 11:32 | PROVIDER PROGRESS NOTE ---
Subjective - Prog Note Date Prog Note Date: 07/01/21 - Subjective Subjective: He feels much better today. Denies any shortness of breath. He knows where he is and why he is in the hospital. He was able to walk with physical therapy today. Current Medications - Current Medications Current Medications: Active Medications Acetaminophen (Acetaminophen 325 Mg Tablet) 650 mg PO Q4HR PRN PRN Reason: Pain or Fever > 38C (100.4F) Last Admin: 07/01/21 00:38 Dose: 650 mg Albuterol (Albuterol Neb 2.5 Mg/3 Ml) 2.5 mg INH RTQ4H PRN PRN Reason: Wheezing Last Admin: 06/26/21 16:38 Dose: 2.5 mg Albuterol/Ipratropium (Ipratropium/Albuterol 3 Ml Neb) 3 ml INH RTQID [facility] Last Admin: 07/01/21 07:39 Dose: 3 ml Aspirin (Aspirin Chew 81 Mg Tablet) 81 mg PO DAILY [facility] Last Admin: 07/01/21 08:14 Dose: 81 mg Digoxin (Digoxin 125 Mcg Tablet) 62.5 mcg PO DAILY [facility] Last Admin: 07/01/21 08:13 Dose: 62.5 mcg Diltiazem HCl (Diltiazem Cd 180 Mg Capsule) 180 mg PO DAILY [facility] Last Admin: 07/01/21 08:13 Dose: 180 mg Enoxaparin Sodium (Enoxaparin 40 Mg/0.4 Ml Syringe) 40 mg SUBQ BID [facility] Last Admin: 07/01/21 10:45 Dose: 40 mg Furosemide (Furosemide 40 Mg/4 Ml Vial) 40 mg IVP BIDDIURETIC [facility] Last Admin: 07/01/21 06:16 Dose: 40 mg Gabapentin (Gabapentin 300 Mg Capsule) 600 mg PO BID [facility] Last Admin: 07/01/21 08:14 Dose: 600 mg Lactobacillus Rhamnosus (Lactobacillus Rhamnosus Gg Capsule) 1 cap PO DAILY [facility] Last Admin: 07/01/21 08:13 Dose: 1 cap Lactulose (Lactulose 10 Gm /15 Ml Udc) 10 gm PO BID [facility] Last Admin: 07/01/21 08:12 Dose: 10 gm Levalbuterol HCl (Levalbuterol 1.25 Mg/3 Ml Neb) 1.25 mg INH Q4H PRN PRN Reason: Shortness of Air/Wheezing Levofloxacin (Levofloxacin 250 Mg Tablet) 750 mg PO DAILY [facility] Last Admin: 07/01/21 08:13 Dose: 750 mg Levothyroxine Sodium (Levothyroxine 25 Mcg Tablet) 50 mcg PO QDAC [facility] Last Admin: 07/01/21 06:16 Dose: 50 mcg Metoprolol Succinate (Metoprolol Succinate 50 Mg Tablet) 150 mg PO DAILY [facility] Last Admin: 07/01/21 08:15 Dose: 150 mg Metoprolol Succinate (Metoprolol Succinate 50 Mg Tablet) 50 mg PO QPM [facility] Last Admin: 06/30/21 20:53 Dose: 50 mg Mineral Oil (Min Oil/Dimethicon/Coconut Oil 92 Gm Tube) 1 applic TOP PRN PRN PRN Reason: Skin Care Multivitamins/Minerals (Multivitamin W/Minerals Tablet) 1 tab PO DAILYWM [facility] Last Admin: 07/01/21 08:13 Dose: 1 tab Nicotine (Nicotine 14 Mg Patch) 1 patch TOP DAILY [facility] Last Admin: 07/01/21 08:15 Dose: 1 patch Pantoprazole Sodium (Pantoprazole 40 Mg Tablet) 40 mg PO QDAC [facility] Last Admin: 07/01/21 06:16 Dose: 40 mg Polyethylene Glycol (Polyethylene Glycol 3350 17 Gm Packet) 17 gm PO DAILY [facility] Last Admin: 07/01/21 08:16 Dose: 17 gm Sodium Chloride (Sodium Chloride Flush 0.9% 10 Ml Syringe) 10 ml IVP 0100,0900,1700 [facility] Last Admin: 07/01/21 08:16 Dose: 10 ml Sodium Chloride (Sodium Chloride Flush 0.9% 10 Ml Syringe) 10 ml IVP PRN PRN PRN Reason: NEEDED PER PROVIDER ORDERS Last Admin: 07/01/21 06:16 Dose: 10 ml Thiamine HCl (Thiamine 100 Mg Tablet) 100 mg PO DAILY [facility] Last Admin: 07/01/21 08:15 Dose: 100 mg Throat Lozenges (Benzocaine/Menthol Lozenge) 1 lozenge MM Q2HR PRN PRN Reason: Throat pain Digoxin 62.5 mcg PO DAILY 04/28/17 Metoprolol Succinate 150 mg PO DAILY 04/28/17 Levothyroxine Sodium [Synthroid] 50 mcg PO DAILY 07/21/19 Pantoprazole Sodium 40 mg PO DAILY 07/21/19 Torsemide 20 mg PO BID 07/21/19 Gabapentin 600 mg PO BID 11/20/19 diltiaZEM CD [Cardizem Cd] 180 mg PO DAILY 06/26/21 Objective - Vital Signs/Intake & Output Reviewed Vital Signs: Yes Vital Signs: Vital Signs x48h Temp Pulse Pulse Resp BP Pulse Ox 07/01/21 10:47 18 90 L 07/01/21 09:13 19 92 07/01/21 07:46 20 124/83 H 94 07/01/21 07:30 81 20 07/01/21 05:58 36.8 C 82 15 93 07/01/21 04:00 81 17 113/84 H Intake & Output: Intake & Output 06/28/21 06/29/21 06/30/21 07/01/21 23:59 23:59 23:59 23:59 Intake Total 2252 2840 1820 1280 Output Total 3110 4586 4074 920 Balance -702 -0198 -2149 360 - Objective General Appearance: positive: No acute distress, Alert Eyes Bilateral: positive: Normal inspection, Conjunctivae nml ENT: positive: ENT inspection nml Neck: positive: Nml inspection Respiratory: positive: No respiratory distress, Other (Diminished in bases.). negative: Wheezes Cardiovascular: positive: Irregularly irregular. negative: Tachycardia, Systolic murmur Abdomen: positive: Non-tender, No distention. negative: Tenderness Skin: positive: Warm, Dry, Other (Chronic venous stasis changes over bilateral lower extremity) Extremities: positive: Pedal edema (+2 pitting edema in the bilateral lower extremities up to the abdomen) Neurologic/Psychiatric: positive: Other (No focal deficits.). negative: Disoriented to person, Disoriented to place, Disoriented to time - Lab Results Fish Bones: 07/01/21 04:55 07/01/21 04:55 Other Labs: Lab Results x24hrs 07/01/21 07/01/21 06/30/21 Range/Units 04:55 04:55 15:52 WBC 5.4 (4.8-10.8) x10^3/uL RBC 4.35 L (4.70-6.10) 10^6/uL Hgb 11.3 L (14.0-18.0) g/dL Hct 39.1 L (42.0-52.0) % MCV 89.9 (80.0-94.0) fL MCH 26.0 L (27.0-31.0) pg MCHC 28.9 L (32.0-36.0) g/dL RDW 23.2 H (12.0-15.0) % Plt Count 87 L (130-450) 10^3/uL MPV 11.6 H (7.4-11.4) fL Neut # (Auto) 3.7 (1.5-6.6) 10^3/uL Lymph # (Auto) 0.7 L (1.5-3.5) 10^3/uL Craven # (Auto) 0.6 (0.0-1.0) 10^3/uL Eos # (Auto) 0.2 (0.0-0.7) 10^3/uL Baso # (Auto) 0.1 (0.0-0.1) 10^3/uL Absolute Nucleated RBC 0.00 x10^3/uL Nucleated RBC % 0.0 /100WBC Manual Slide Review Indicated WBC Morphology NORMAL APPEARANCE (NORMAL) Platelet Estimate DECREASED (<130,000) (NORMAL) Platelet Morphology NORMAL APPEARANCE (NORMAL) RBC Morph Micro Appear 1+ HYPOCHROMASIA (NORMAL) Sodium 140 138 (135-145) mmol/L Potassium 4.4 4.1 (3.5-5.0) mmol/L Chloride 96 L 96 L (101-111) mmol/L Carbon Dioxide 34 H 35 H (21-32) mmol/L Anion Gap 10.0 7.0 (6-13) BUN 22 H 26 H (6-20) mg/dL Creatinine 0.7 0.7 (0.6-1.2) mg/dL Estimated GFR (MDRD) 114 114 (>89) Glucose 98 151 H (70-100) mg/dL Calcium 8.4 L 8.3 L (8.5-10.3) mg/dL Ammonia (7-35) umol/L 06/30/21 06/30/21 Range/Units 15:52 15:52 WBC 4.5 L (4.8-10.8) x10^3/uL RBC 4.27 L (4.70-6.10) 10^6/uL Hgb 11.0 L (14.0-18.0) g/dL Hct 38.5 L (42.0-52.0) % MCV 90.2 (80.0-94.0) fL MCH 25.8 L (27.0-31.0) pg MCHC 28.6 L (32.0-36.0) g/dL RDW 23.2 H (12.0-15.0) % Plt Count 84 L (130-450) 10^3/uL MPV 10.9 (7.4-11.4) fL Neut # (Auto) 3.0 (1.5-6.6) 10^3/uL Lymph # (Auto) 0.7 L (1.5-3.5) 10^3/uL Craven # (Auto) 0.6 (0.0-1.0) 10^3/uL Eos # (Auto) 0.2 (0.0-0.7) 10^3/uL Baso # (Auto) 0.1 (0.0-0.1) 10^3/uL Absolute Nucleated RBC 0.00 x10^3/uL Nucleated RBC % 0.0 /100WBC Manual Slide Review Indicated WBC Morphology (NORMAL) Platelet Estimate DECREASED (<130,000) (NORMAL) Platelet Morphology NORMAL APPEARANCE (NORMAL) RBC Morph Micro Appear 1+ OVALOCYTES (NORMAL) Sodium (135-145) mmol/L Potassium (3.5-5.0) mmol/L Chloride (101-111) mmol/L Carbon Dioxide (21-32) mmol/L Anion Gap (6-13) BUN (6-20) mg/dL Creatinine (0.6-1.2) mg/dL Estimated GFR (MDRD) (>89) Glucose (70-100) mg/dL Calcium (8.5-10.3) mg/dL Ammonia 54.5 H (7-35) umol/L Sepsis Event Note (H) - Evaluation Current Stage of Sepsis: Resolved Possible source of Sepsis: positive: Skin/soft tissue - Sepsis Criteria Sepsis Criteria: Recorded Temperature greater than 38.3C or Less than 36C, Recorded Heart Rate greater than 90 bpm, Respiratory: Increasing oxygen requirements, WBC count greater than 10% bands, WBC count greater than 12,000 or less than 4000 Assessment/Plan - Problem List (1) Acute respiratory failure with hypoxia and hypercarbia Impression: He is now down to room air and is saturating 90%. This is likely secondary to acute on chronic congestive heart failure. He is still edematous so we will co karson to diurese him with IV Lasix. I am hopeful we can switch him to oral diuretics over the next 24 to 48 hours. Continue with low-sodium diet and fluid restriction. Goal oxygen saturation greater than 88%. (2) AMS (altered mental status) Impression: This appears to have resolved. He is quite alert this morning and is able to participate in a conversation. He is oriented and knows why he is in the hospital. This likely was multifactorial and is related to hypercapnia and the sepsis. He was likely delirious yesterday due to the Haldol he received the previous night. We did check an ammonia level which was mildly elevated and we have started him on lactulose as well. Continue to avoid sedatives. (3) CHF (congestive heart failure) Impression: This is the cause of his respiratory failure. He has shown significant improvement and is now down to room air. He is still quite edematous though and I feel he needs further diuresis. We will keep him on Lasix 40 mg IV twice daily and I am hopeful we can transition to oral diuretics soon in preparation for discharge. We are trying to get him as dry as possible. Continue with fluid restriction and low-sodium diet. Qualifiers: Heart failure type: diastolic Heart failure chronicity: acute on chronic Qualified Code(s): I50.33 - Acute on chronic diastolic (congestive) heart failure (4) Cellulitis of right leg Impression: This is significantly improved. He remains on oral Levaquin given the haemophilus parainfluenza. He only remains hospitalized due to his respiratory failure. (5) Gram-negative bacteremia Impression: Blood cultures grew haemophilus parainfluenza which is likely due to right lower extremity cellulitis. He is now on oral Levaquin and repeat blood cultures are negative. He will need a total of 2 weeks of therapy. (6) Atrial fibrillation with rapid ventricular response Impression: His heart rate was much better controlled after we started diltiazem yesterday. We will continue metoprolol, diltiazem and digoxin. He is on aspirin for stroke prophylaxis due to history of GI bleed while on anticoagulation. (7) UTI (urinary tract infection) Impression: Initial concern was for UTI and urine culture grew Proteus. This is sensitive to the Levaquin. (8) Acute kidney injury Impression: It appears he did not have CKD and his initial elevated creatinine was due to acute kidney injury. In hindsight, this is likely due to cardiorenal syndrome. He has improved with IV diuresis. We will continue to monitor his renal function. (9) Hypothyroidism Impression: Continue Synthroid. (10) History of sleep apnea Impression: Continue with CPAP in the evening. (11) Sepsis Impression: This is not resolved and was secondary to Haemophilus parainfluenzae bacteremia due to the right lower extremity cellulitis. Continue oral Levaquin.
[2021-07-02] MEDS: NYSTATIN POWDER 15 GM TOP SCH ×3 (00:05→20:59)
[2021-07-02] MEDS: SODIUM CHLORIDE FLUSH 0.9% 10 ML SYRINGE IVP SCH ×3 (00:06→16:51)
[2021-07-02] MEDS: FUROSEMIDE 40 MG/4 ML VIAL IVP SCH ×2 (05:43→13:26)
[2021-07-02] MEDS: PANTOPRAZOLE 40 MG TABLET PO SCH (05:43)
[2021-07-02] MEDS: LEVOTHYROXINE 25 MCG TABLET PO SCH (05:43)
[2021-07-02 05:48] LABS: BASOPHILS # (AUTO) 0.1 10^3/uL (0.0-0.1); BASOPHILS % (AUTO) 0.9 %; EOSINOPHILS # (AUTO) 0.2 10^3/uL (0.0-0.7); EOSINOPHILS % (AUTO) 4.3 %; HCT - HEMATOCRIT 40.1 % (42.0-52.0); HGB - HEMOGLOBIN 11.4 g/dL (14.0-18.0); LYMPHOCYTES # (AUTO) 0.8 10^3/uL (1.5-3.5); LYMPHOCYTES % (AUTO) 13.6 %; MEAN CORPUSCULAR HEMOGLOBIN 25.1 pg (27.0-31.0); MEAN CORPUSCULAR HGB CONC 28.4 g/dL (32.0-36.0); MEAN CORPUSCULAR VOLUME 88.1 fL (80.0-94.0); MEAN PLATELET VOLUME 10.6 fL (7.4-11.4); MONOCYTES # (AUTO) 0.7 10^3/uL (0.0-1.0); MONOCYTES % (AUTO) 11.8 %; NEUTROPHILS # (AUTO) 3.9 10^3/uL (1.5-6.6); NEUTROPHILS % (AUTO) 69.2 %; PLT - PLATELET COUNT 91 10^3/uL (130-450); RED BLOOD COUNT 4.55 10^6/uL (4.70-6.10); RED CELL DISTRIBUTION WIDTH 23.1 % (12.0-15.0); WHITE BLOOD COUNT 5.6 x10^3/uL (4.8-10.8)
[2021-07-02 05:50] LABS: CALCIUM 8.7 mg/dL (8.5-10.3); POTASSIUM 4.4 mmol/L (3.5-5.0); SLIDE REVIEW? Indicated
[2021-07-02 06:18] LABS: PLATELET ESTIMATE, MANUAL DECREASED (<130,000) (NORMAL); PLATELET MORPHOLOGY NORMAL APPEARANCE (NORMAL); WBC MORPHOLOGY (MULTIPLE) NORMAL APPEARANCE (NORMAL)
--- NOTE | 2021-07-02 07:44 | PROVIDER PROGRESS NOTE ---
Subjective - Prog Note Date Prog Note Date: 07/02/21 - Subjective Subjective: He reports feeling better each day. His dyspnea is improved. His biggest concern is that he has not slept well. Current Medications - Current Medications Current Medications: Active Medications Acetaminophen (Acetaminophen 325 Mg Tablet) 650 mg PO Q4HR PRN PRN Reason: Pain or Fever > 38C (100.4F) Last Admin: 07/01/21 00:38 Dose: 650 mg Albuterol (Albuterol Neb 2.5 Mg/3 Ml) 2.5 mg INH RTQ4H PRN PRN Reason: Wheezing Last Admin: 06/26/21 16:38 Dose: 2.5 mg Albuterol/Ipratropium (Ipratropium/Albuterol 3 Ml Neb) 3 ml INH RTQID [facility] Last Admin: 07/01/21 19:57 Dose: 3 ml Aspirin (Aspirin Chew 81 Mg Tablet) 81 mg PO DAILY [facility] Last Admin: 07/01/21 08:14 Dose: 81 mg Digoxin (Digoxin 125 Mcg Tablet) 62.5 mcg PO DAILY [facility] Last Admin: 07/01/21 08:13 Dose: 62.5 mcg Diltiazem HCl (Diltiazem Cd 180 Mg Capsule) 180 mg PO DAILY [facility] Last Admin: 07/01/21 08:13 Dose: 180 mg Enoxaparin Sodium (Enoxaparin 40 Mg/0.4 Ml Syringe) 40 mg SUBQ BID [facility] Last Admin: 07/01/21 20:07 Dose: 40 mg Furosemide (Furosemide 40 Mg/4 Ml Vial) 40 mg IVP BIDDIURETIC [facility] Last Admin: 07/02/21 05:43 Dose: 40 mg Gabapentin (Gabapentin 300 Mg Capsule) 600 mg PO BID [facility] Last Admin: 07/01/21 20:06 Dose: 600 mg Lactobacillus Rhamnosus (Lactobacillus Rhamnosus Gg Capsule) 1 cap PO DAILY [facility] Last Admin: 07/01/21 08:13 Dose: 1 cap Lactulose (Lactulose 10 Gm /15 Ml Udc) 10 gm PO BID [facility] Last Admin: 07/01/21 20:06 Dose: 10 gm Levalbuterol HCl (Levalbuterol 1.25 Mg/3 Ml Neb) 1.25 mg INH Q4H PRN PRN Reason: Shortness of Air/Wheezing Levofloxacin (Levofloxacin 250 Mg Tablet) 750 mg PO DAILY [facility] Last Admin: 07/01/21 08:13 Dose: 750 mg Levothyroxine Sodium (Levothyroxine 25 Mcg Tablet) 50 mcg PO QDAC [facility] Last Admin: 07/02/21 05:43 Dose: 50 mcg Metoprolol Succinate (Metoprolol Succinate 50 Mg Tablet) 150 mg PO DAILY [facility] Last Admin: 07/01/21 08:15 Dose: 150 mg Metoprolol Succinate (Metoprolol Succinate 50 Mg Tablet) 50 mg PO QPM [facility] Last Admin: 07/01/21 20:06 Dose: 50 mg Mineral Oil (Min Oil/Dimethicon/Coconut Oil 92 Gm Tube) 1 applic TOP PRN PRN PRN Reason: Skin Care Multivitamins/Minerals (Multivitamin W/Minerals Tablet) 1 tab PO DAILYWM [facility] Last Admin: 07/01/21 08:13 Dose: 1 tab Nicotine (Nicotine 14 Mg Patch) 1 patch TOP DAILY [facility] Last Admin: 07/01/21 08:15 Dose: 1 patch Nystatin (Nystatin Powder 15 Gm) 1 applic TOP BID [facility] Last Admin: 07/02/21 00:05 Dose: 1 applic Pantoprazole Sodium (Pantoprazole 40 Mg Tablet) 40 mg PO QDAC [facility] Last Admin: 07/02/21 05:43 Dose: 40 mg Polyethylene Glycol (Polyethylene Glycol 3350 17 Gm Packet) 17 gm PO DAILY [facility] Last Admin: 07/01/21 08:16 Dose: 17 gm Sodium Chloride (Sodium Chloride Flush 0.9% 10 Ml Syringe) 10 ml IVP 0100,0900,1700 [facility] Last Admin: 07/02/21 00:06 Dose: 10 ml Sodium Chloride (Sodium Chloride Flush 0.9% 10 Ml Syringe) 10 ml IVP PRN PRN PRN Reason: NEEDED PER PROVIDER ORDERS Last Admin: 07/01/21 06:16 Dose: 10 ml Thiamine HCl (Thiamine 100 Mg Tablet) 100 mg PO DAILY [facility] Last Admin: 07/01/21 08:15 Dose: 100 mg Throat Lozenges (Benzocaine/Menthol Lozenge) 1 lozenge MM Q2HR PRN PRN Reason: Throat pain Digoxin 62.5 mcg PO DAILY 04/28/17 Metoprolol Succinate 150 mg PO DAILY 04/28/17 Levothyroxine Sodium [Synthroid] 50 mcg PO DAILY 07/21/19 Pantoprazole Sodium 40 mg PO DAILY 07/21/19 Torsemide 20 mg PO BID 07/21/19 Gabapentin 600 mg PO BID 11/20/19 diltiaZEM CD [Cardizem Cd] 180 mg PO DAILY 06/26/21 Objective - Vital Signs/Intake & Output Reviewed Vital Signs: Yes Vital Signs: Vital Signs x48h Temp Pulse Resp BP BP Pulse Ox 07/02/21 05:00 36.6 C 88 18 143/89 H 91 L 07/02/21 00:31 36.8 C 90 18 112/68 91 L Intake & Output: Intake & Output 06/29/21 06/30/21 07/01/21 07/02/21 23:59 23:59 23:59 23:59 Intake Total 2840 1820 2290 300 Output Total 9875 4604 6913 750 Balance -0829 -0617 -330 -450 - Objective General Appearance: positive: No acute distress, Alert Eyes Bilateral: positive: Normal inspection, Conjunctivae nml ENT: positive: ENT inspection nml Neck: positive: Nml inspection Respiratory: positive: No respiratory distress, Rales Cardiovascular: positive: Irregularly irregular. negative: Tachycardia, Systolic murmur Skin: positive: Warm, Dry, Other (Negative venous stasis over the bilateral lower extremities. The right lower extremity cellulitis erythema has resolved.) Extremities: positive: Pedal edema (+2 pitting edema in the bilateral lower extremities) Neurologic/Psychiatric: negative: Disoriented to person, Disoriented to place - Lab Results Fish Bones: 07/02/21 05:15 07/02/21 05:15 Other Labs: Lab Results x24hrs 07/02/21 07/02/21 Range/Units 05:15 05:15 WBC 5.6 (4.8-10.8) x10^3/uL RBC 4.55 L (4.70-6.10) 10^6/uL Hgb 11.4 L (14.0-18.0) g/dL Hct 40.1 L (42.0-52.0) % MCV 88.1 (80.0-94.0) fL MCH 25.1 L (27.0-31.0) pg MCHC 28.4 L (32.0-36.0) g/dL RDW 23.1 H (12.0-15.0) % Plt Count 91 L (130-450) 10^3/uL MPV 10.6 (7.4-11.4) fL Neut # (Auto) 3.9 (1.5-6.6) 10^3/uL Lymph # (Auto) 0.8 L (1.5-3.5) 10^3/uL [place] # (Auto) 0.7 (0.0-1.0) 10^3/uL Eos # (Auto) 0.2 (0.0-0.7) 10^3/uL Baso # (Auto) 0.1 (0.0-0.1) 10^3/uL Absolute Nucleated RBC 0.00 x10^3/uL Nucleated RBC % 0.0 /100WBC Manual Slide Review Indicated WBC Morphology NORMAL APPEARANCE (NORMAL) Platelet Estimate DECREASED (<130,000) (NORMAL) Platelet Morphology NORMAL APPEARANCE (NORMAL) RBC Morph Micro Appear 1+ HYPOCHROMASIA (NORMAL) Sodium 137 (135-145) mmol/L Potassium 4.4 (3.5-5.0) mmol/L Chloride 94 L (101-111) mmol/L Carbon Dioxide 37 H (21-32) mmol/L Anion Gap 6.0 (6-13) BUN 22 H (6-20) mg/dL Creatinine 1.0 (0.6-1.2) mg/dL Estimated GFR (MDRD) 75 L (>89) Glucose 99 (70-100) mg/dL Calcium 8.7 (8.5-10.3) mg/dL Sepsis Event Note (H) - Evaluation Current Stage of Sepsis: Resolved Possible source of Sepsis: positive: Skin/soft tissue - Sepsis Criteria Sepsis Criteria: Recorded Temperature greater than 38.3C or Less than 36C, Recorded Heart Rate greater than 90 bpm, Respiratory: Increasing oxygen requirements, WBC count greater than 10% bands, WBC count greater than 12,000 or less than 4000 Assessment/Plan - Problem List (1) Acute respiratory failure with hypoxia and hypercarbia Impression: This is secondary to heart failure. He is on room air but his sats are in the high 80s to low 90s. Repeat x-ray showed pulmonary edema. He still needs further diuresis and so we will keep him on IV Lasix 40 mg twice daily as well as a low-sodium diet and fluid restriction. (2) AMS (altered mental status) Impression: This is resolved. This likely was multifactorial and is related to hypercapnia and the sepsis. (3) CHF (congestive heart failure) Impression: This is improved but ongoing. He is on room air but his oxygen saturation in the high 80s to low 90s. He is still quite edematous and I ordered a repeat chest x-ray today which continues to show pulmonary edema. He still needs IV diuresis we will keep him on Lasix 40 mg IV twice daily. He will likely need another 2 to 3 days of diuresis before considering discharge. Qualifiers: Heart failure type: diastolic Heart failure chronicity: acute on chronic Qualified Code(s): I50.33 - Acute on chronic diastolic (congestive) heart failure (4) Cellulitis of right leg Impression: This is significantly improved. He remains on oral Levaquin given the haemophilus parainfluenza. He only remains hospitalized due to his respiratory failure. (5) Gram-negative bacteremia Impression: Blood cultures grew haemophilus parainfluenza which is likely due to right lower extremity cellulitis. He is now on oral Levaquin and repeat blood cultures are negative. He will need a total of 2 weeks of therapy. (6) Atrial fibrillation with rapid ventricular response Impression: His heart rate is controlled after we resume his diltiazem. We will continue metoprolol, diltiazem and digoxin. He is on aspirin for stroke prophylaxis due to history of GI bleed while on anticoagulation. (7) UTI (urinary tract infection) Impression: Initial concern was for UTI and urine culture grew Proteus. This is sensitive to the Levaquin. He remains on antibiotics for the bacteremia and not the UTI. (8) Acute kidney injury Impression: It appears he did not have CKD and his initial elevated creatinine was due to acute kidney injury. In hindsight, this is likely due to cardiorenal syndrome. He has improved with IV diuresis and renal function is now at baseline. We will continue to monitor his renal function. (9) Hypothyroidism Impression: Continue Synthroid. (10) History of sleep apnea Impression: Continue with CPAP in the evening. (11) Sepsis Impression: This is now resolved and was secondary to Haemophilus parainfluenzae bacteremia due to the right lower extremity cellulitis. Continue oral Levaquin.
[2021-07-02] MEDS: IPRATROPIUM/ALBUTEROL 3 ML NEB INH SCH ×4 (07:54→16:32)
--- NOTE | 2021-07-02 08:33 | XRAY Report ---
PROCEDURE: Chest 1 View X-Ray INDICATIONS: Follow up CHF. TECHNIQUE: One view of the chest was acquired. COMPARISON: Chest x-ray 06/25/2021. FINDINGS: Surgical changes and devices: None. Lungs and pleura: There is a persistent appearance of costophrenic angle blunting and increased pulmo nary vascularity. Overall, it has not significantly changed. Mediastinum: Mediastinal contours appear normal. Heart size is enlarged. Bones and chest wall: No suspicious bony lesions. Overlying soft tissues appear unremarkable. IMPRESSION: Persistent appearance of cardiomegaly with increased pulmonary vascularity consistent with edema. No significant interval change. Reviewed by: Cleopatra Reese MD on 07/02/2021 8:32 AM PST Approved by: Cleopatra Reese MD on 07/02/2021 8:32 AM [facility] Station ID: [id number]
[2021-07-02] MEDS: diltiaZEM CD 180 MG CAPSULE PO SCH (09:18)
[2021-07-02] MEDS: LACTOBACILLUS RHAMNOSUS GG CAPSULE PO SCH (09:18)
[2021-07-02] MEDS: levoFLOXacin 250 MG TABLET PO SCH (09:18)
[2021-07-02] MEDS: polyethylene glycoL 3350 17 GM PACKET PO SCH (09:18)
[2021-07-02] MEDS: DIGOXIN 125 MCG TABLET PO SCH (09:19)
[2021-07-02] MEDS: GABAPENTIN 300 MG CAPSULE PO SCH ×2 (09:19→20:57)
[2021-07-02] MEDS: THIAMINE 100 MG TABLET PO SCH (09:19)
[2021-07-02] MEDS: MULTIVITAMIN W/MINERALS TABLET PO SCH (09:19)
[2021-07-02] MEDS: ASPIRIN CHEW 81 MG TABLET PO SCH (09:19)
[2021-07-02] MEDS: METOPROLOL SUCCINATE 50 MG TABLET PO SCH ×2 (09:20→20:57)
[2021-07-02] MEDS: LACTULOSE 10 GM /15 ML UDC PO SCH ×2 (09:20→20:57)
[2021-07-02] MEDS: NICOTINE 14 MG PATCH TOP SCH (09:20)
[2021-07-02] MEDS: ENOXAPARIN 40 MG/0.4 ML SYRINGE SUBQ SCH ×2 (09:21→20:57)
[2021-07-02] MEDS: SODIUM CHLORIDE FLUSH 0.9% 10 ML SYRINGE IVP PRN (13:26)
[2021-07-03] MEDS: SODIUM CHLORIDE FLUSH 0.9% 10 ML SYRINGE IVP SCH ×3 (01:49→16:51)
[2021-07-03 05:28] LABS: BASOPHILS % (AUTO) 0.8 %; EOSINOPHILS # (AUTO) 0.2 10^3/uL (0.0-0.7); EOSINOPHILS % (AUTO) 3.7 %; HCT - HEMATOCRIT 36.6 % (42.0-52.0); HGB - HEMOGLOBIN 10.7 g/dL (14.0-18.0); LYMPHOCYTES # (AUTO) 0.9 10^3/uL (1.5-3.5); LYMPHOCYTES % (AUTO) 16.7 %; MEAN CORPUSCULAR HEMOGLOBIN 25.5 pg (27.0-31.0); MEAN CORPUSCULAR HGB CONC 29.2 g/dL (32.0-36.0); MEAN CORPUSCULAR VOLUME 87.4 fL (80.0-94.0); MEAN PLATELET VOLUME 11.1 fL (7.4-11.4); MONOCYTES # (AUTO) 0.7 10^3/uL (0.0-1.0); MONOCYTES % (AUTO) 13.8 %; NEUTROPHILS # (AUTO) 3.3 10^3/uL (1.5-6.6); NEUTROPHILS % (AUTO) 64.6 %; PLT - PLATELET COUNT 82 10^3/uL (130-450); RED BLOOD COUNT 4.19 10^6/uL (4.70-6.10); WHITE BLOOD COUNT 5.1 x10^3/uL (4.8-10.8)
[2021-07-03 05:34] LABS: CALCIUM 8.6 mg/dL (8.5-10.3); POTASSIUM 4.1 mmol/L (3.5-5.0); SLIDE REVIEW? Indicated
[2021-07-03 05:54] LABS: PLATELET ESTIMATE, MANUAL DECREASED (<130,000) (NORMAL); PLATELET MORPHOLOGY NORMAL APPEARANCE (NORMAL); RBC MORPHOLOGY (MULTIPLE) 2+ ANISOCYTOSIS (NORMAL); WBC MORPHOLOGY (MULTIPLE) NORMAL APPEARANCE (NORMAL)
[2021-07-03] MEDS: IPRATROPIUM/ALBUTEROL 3 ML NEB INH SCH ×4 (06:16→18:01)
[2021-07-03] MEDS: PANTOPRAZOLE 40 MG TABLET PO SCH (06:16)
[2021-07-03] MEDS: LEVOTHYROXINE 25 MCG TABLET PO SCH (06:16)
[2021-07-03] MEDS: FUROSEMIDE 40 MG/4 ML VIAL IVP SCH ×2 (06:16→13:57)
[2021-07-03] MEDS: ENOXAPARIN 40 MG/0.4 ML SYRINGE SUBQ SCH ×2 (07:16→20:40)
[2021-07-03] MEDS: MULTIVITAMIN W/MINERALS TABLET PO SCH (07:55)
[2021-07-03] MEDS: NICOTINE 14 MG PATCH TOP SCH (09:21)
[2021-07-03] MEDS: diltiaZEM CD 180 MG CAPSULE PO SCH (09:22)
[2021-07-03] MEDS: LACTOBACILLUS RHAMNOSUS GG CAPSULE PO SCH (09:22)
[2021-07-03] MEDS: levoFLOXacin 250 MG TABLET PO SCH (09:22)
[2021-07-03] MEDS: ASPIRIN CHEW 81 MG TABLET PO SCH (09:22)
[2021-07-03] MEDS: GABAPENTIN 300 MG CAPSULE PO SCH ×2 (09:22→20:46)
[2021-07-03] MEDS: THIAMINE 100 MG TABLET PO SCH (09:22)
[2021-07-03] MEDS: DIGOXIN 125 MCG TABLET PO SCH (09:22)
[2021-07-03] MEDS: LACTULOSE 10 GM /15 ML UDC PO SCH ×2 (09:23→20:46)
[2021-07-03] MEDS: polyethylene glycoL 3350 17 GM PACKET PO SCH (09:23)
[2021-07-03] MEDS: METOPROLOL SUCCINATE 50 MG TABLET PO SCH ×2 (09:23→20:46)
[2021-07-03] MEDS: NYSTATIN POWDER 15 GM TOP SCH ×2 (13:57→20:46)
[2021-07-03] MEDS: SODIUM CHLORIDE FLUSH 0.9% 10 ML SYRINGE IVP PRN (13:57)
[2021-07-03] MEDS: CARBOXYMETHYLCELLULOSE OPHTH DROPS EACHEYE PRN ×2 (13:59→20:47)
[2021-07-03] MEDS: SACCHAROMYCES BOULARDII 250 MG CAPSULE PO SCH (16:51)
--- NOTE | 2021-07-03 19:06 | PROVIDER PROGRESS NOTE ---
Assessment/Plan - Problem List (1) Acute respiratory failure with hypoxia and hypercarbia Assessment/Plan: This was secondary to Left heart failure, diastolic and from Cor pulmonale. He is on room air but his sats are in the high 80s to low 90s. Repeat x-ray showed pulmonary edema recently. He still needs further diuresis and so we will keep him on IV Lasix 40 mg twice daily as well as a low-sodium diet and fluid restriction. (2) Acute on chronic diastolic CHF (congestive heart failure) Impression: This is improved but ongoing. He is on room air but his oxygen saturation in the high 80s to low 90s. He is still quite edematous and I ordered a repeat chest x-ray today which continues to show pulmonary edema. He still needs IV diuresis we will keep him on Lasix 40 mg IV twice daily. He will likely need another 2 to 3 days of diuresis before considering discharge. Qualifiers: Heart failure type: diastolic Heart failure chronicity: acute on chronic Qualified Code(s): I50.33 - Acute on chronic diastolic (congestive) heart failure (3) Cor pulmonale As per Echo, and caused by COPD and sleep apnea. (4) Cellulitis of right leg Impression: This is significantly improved. He remains on oral Levaquin given the haemophilus parainfluenza. He remains hospitalized due to his respiratory failure, however. (5) Gram-negative bacteremia Impression: Blood cultures grew haemophilus parainfluenza which is likely due to right lower extremity cellulitis. He is now on oral Levaquin and repeat blood cultures are negative. He will need a total of 2 weeks of therapy. (6) Atrial fibrillation with rapid ventricular response Impression: His heart rate is now controlled after we resumed his diltiazem. We will continue metoprolol, diltiazem and digoxin. He is on aspirin for stroke prophylaxis due to history of GI bleed while on anticoagulation in the past. (7) UTI (urinary tract infection) Impression: Initial concern was for UTI and urine culture did grow Proteus. This is sensitive to the Levaquin. He remains on antibiotics for the bacteremia and not the UTI. (8) Acute kidney injury Impression: It appears he did not have CKD and his initial elevated creatinine was due to acute kidney injury. In hindsight, this is likely due to cardiorenal syndrome. He has improved with IV diuresis and renal function is now at baseline. We will continue to monitor his renal function. (9) Hypothyroidism Impression: We resumed his Synthroid. (10) History of sleep apnea Impression: Continue with CPAP in the evening. I discussed with him need to resume this at home after discharge, he cannot tell me why he stopped using it about 1 month ago. (11) Medication non-compliance Today he refuted what was described by his at admission, that he had stopped all his medicines 6 months ago, refused to use oxygen or CPAP. He said he was taking everything up until about 3 days before this admission when things ran out. It was true that he was using the plant Kratom to treat his leg pain and insomnia. (12) Morbid obesity As per Hx. (13) Anasarca This is resolving with iv diuresis. He has lost 67 kg since admission and is in neg fluid balance since treated. Today he disclosed to me that he was eating ice constantly every day and understands now that this was giving him water excess and water retention. (14) Sepsis Impression: This is now resolved and was secondary to Haemophilus parainfluenzae bacteremia due to the right lower extremity cellulitis. Continue oral Levaquin. (15) AMS (altered mental status) Impression: This is resolved. This likely was multifactorial and is related to hypercapnia and the sepsis. - Current Meds Current Meds: Current Medications Generic Name Dose Route Start Last Admin Trade Name Freq PRN Reason Stop Dose Admin Acetaminophen 650 mg 06/25/21 22:38 07/01/21 00:38 Acetaminophen 325 Mg Tablet PO 650 mg Q4HR PRN Administration Pain or Fever > 38C (100.4F) Albuterol 2.5 mg 06/26/21 16:09 06/26/21 16:38 Albuterol Neb 2.5 Mg/3 Ml INH 2.5 mg RTQ4H PRN Administration Wheezing Albuterol/Ipratropium 3 ml 06/26/21 19:00 07/03/21 18:01 Ipratropium/Albuterol 3 Ml Neb INH 3 ml RTQID JURGEN Administration Aspirin 81 mg 06/27/21 09:00 07/03/21 09:22 Aspirin Chew 81 Mg Tablet PO 81 mg DAILY JURGEN Administration Carboxymethylcellulose 1 drops 07/03/21 09:24 07/03/21 13:59 Carboxymethylcellulose Ophth Drops EACHEYE 1 drops Q4HR PRN Administration Dry Eye Digoxin 62.5 mcg 06/27/21 13:00 07/03/21 09:22 Digoxin 125 Mcg Tablet PO 62.5 mcg DAILY JURGEN Administration Diltiazem HCl 180 mg 06/30/21 15:22 07/03/21 09:22 Diltiazem Cd 180 Mg Capsule PO 180 mg DAILY JURGEN Administration Enoxaparin Sodium 40 mg 06/26/21 09:00 07/03/21 07:16 Enoxaparin 40 Mg/0.4 Ml Syringe SUBQ Not Given BID JURGEN Furosemide 40 mg 06/26/21 06:00 07/03/21 13:57 Furosemide 40 Mg/4 Ml Vial IVP 40 mg BIDDIURETIC JURGEN Administration Gabapentin 600 mg 06/27/21 21:00 07/03/21 09:22 Gabapentin 300 Mg Capsule PO 600 mg BID JURGEN Administration Lactulose 10 gm 06/30/21 21:00 07/03/21 09:23 Lactulose 10 Gm /15 Ml Udc PO 10 gm BID JURGEN Administration Levofloxacin 750 mg 07/01/21 09:00 07/03/21 09:22 Levofloxacin 250 Mg Tablet PO 750 mg DAILY JURGEN Administration Levothyroxine Sodium 50 mcg 06/26/21 07:00 07/03/21 06:16 Levothyroxine 25 Mcg Tablet PO 50 mcg QDAC JURGEN Administration Metoprolol Succinate 150 mg 06/28/21 09:00 07/03/21 09:23 Metoprolol Succinate 50 Mg Tablet PO 150 mg DAILY JURGEN Administration Metoprolol Succinate 50 mg 06/27/21 21:00 07/02/21 20:57 Metoprolol Succinate 50 Mg Tablet PO 50 mg QPM JURGEN Administration Multivitamins/Minerals 1 tab 06/28/21 08:00 07/03/21 07:55 Multivitamin W/Minerals Tablet PO 1 tab DAILYWM JURGEN Administration Nicotine 1 patch 06/29/21 22:34 07/03/21 09:21 Nicotine 14 Mg Patch TOP 1 patch DAILY JURGEN Administration Nystatin 1 applic 07/01/21 23:00 07/03/21 13:57 Nystatin Powder 15 Gm TOP 1 applic BID JURGEN Administration Pantoprazole Sodium 40 mg 06/26/21 07:00 07/03/21 06:16 Pantoprazole 40 Mg Tablet PO 40 mg QDAC JURGEN Administration Polyethylene Glycol 17 gm 06/26/21 11:00 07/03/21 09:23 Polyethylene Glycol 3350 17 Gm Packet PO Not Given DAILY JURGEN Saccharomyces Boulardii 250 mg 07/03/21 17:00 07/03/21 16:51 Saccharomyces Boulardii 250 Mg Capsule PO 250 mg BIDWM JURGEN Administration Sodium Chloride 10 ml 06/26/21 01:00 07/03/21 16:51 Sodium Chloride Flush 0.9% 10 Ml Syringe IVP 10 ml 0100,0900,1700 JURGEN Administration Sodium Chloride 10 ml 06/25/21 22:38 07/03/21 13:57 Sodium Chloride Flush 0.9% 10 Ml Syringe IVP 10 ml PRN PRN Administration NEEDED PER PROVIDER ORDERS Thiamine HCl 100 mg 06/30/21 15:20 07/03/21 09:22 Thiamine 100 Mg Tablet PO 100 mg DAILY JURGEN Administration - Lab Result Fish Bone Diagrams: 07/03/21 04:25 07/03/21 04:25 - Additional Planning My Orders: My Active Orders 07/03/21 Home Health Referral [CONS] Routine 07/03/21 09:24 Carboxymethylcellulose 1% Opht [Refresh 1% Ophth Drops] 1 drops EACHEYE Q4HR PRN 07/03/21 17:00 Saccharomyces Boulardii [Florastor] 250 mg PO BIDWM Subjective - Subjective Patient Reports: Feeling Better (He is not dyspneic and is laying supine while I am seeing him.) Nursing Reports: Other (He is motivated and is cooperating with PT, was able to try to climb stairs to the) Objective Vital Signs: Vital Signs - 24 hr 07/02/21 07/02/21 07/03/21 20:25 21:02 01:00 Temperature 37 C 36.4 C L Heart Rate Heart Rate [ 100 103 H 87 Monitoring electrodes] Respiratory 18 16 14 Rate Blood Pressure [Right Brachial artery] Blood Pressure 124/82 H 127/86 H 112/73 [Right Radial artery] O2 Saturation 93 89 L 89 L 07/03/21 07/03/21 07/03/21 07:50 09:15 11:16 Temperature 36.9 C Heart Rate 75 Heart Rate [ 81 95 Monitoring electrodes] Respiratory 14 14 20 Rate Blood Pressure [Right Brachial artery] Blood Pressure 137/90 H 120/80 [Right Radial artery] O2 Saturation 89 L 92 07/03/21 07/03/21 07/03/21 13:34 16:53 17:59 Temperature 37.0 C Heart Rate 73 Heart Rate [ 93 85 Monitoring electrodes] Respiratory 15 16 23 Rate Blood Pressure 126/78 [Right Brachial artery] Blood Pressure 129/80 [Right Radial artery] O2 Saturation 93 93 Oxygen O2 Source Room air I&O (Last 24 Hrs): Intake and Output Totals x24h 07/01/21 07/02/21 07/03/21 23:59 23:59 23:59 Intake Total 2290 1650 1450 Output Total 2620 3825 3350 Balance -330 -2175 -1900 General: Alert, Oriented x3 HEENT: Mucous membr. moist/pink Neck: Supple Neuro: Alert, Non Focal (except he describes bilateral lower leg and foot numbness) Respiratory: No respiratory distress, Breath sounds nml Abdomen: Normal bowel sounds, Soft Extremities: Other (R leg venous stasis and edema, L leg has trace edema) - Results Results: Laboratory Results WBC 5.1 x10^3/uL (4.8-10.8) 07/03/21 04:25 RBC 4.19 10^6/uL (4.70-6.10) L 07/03/21 04:25 Hgb 10.7 g/dL (14.0-18.0) L 07/03/21 04:25 Hct 36.6 % (42.0-52.0) L 07/03/21 04:25 MCV 87.4 fL (80.0-94.0) 07/03/21 04:25 MCH 25.5 pg (27.0-31.0) L 07/03/21 04:25 MCHC 29.2 g/dL (32.0-36.0) L 07/03/21 04:25 RDW 23.0 % (12.0-15.0) H 07/03/21 04:25 Plt Count 82 10^3/uL (130-450) L 07/03/21 04:25 MPV 11.1 fL (7.4-11.4) 07/03/21 04:25 Neut # (Auto) 3.3 10^3/uL (1.5-6.6) 07/03/21 04:25 Lymph # (Auto) 0.9 10^3/uL (1.5-3.5) L 07/03/21 04:25 [place] # (Auto) 0.7 10^3/uL (0.0-1.0) 07/03/21 04:25 Eos # (Auto) 0.2 10^3/uL (0.0-0.7) 07/03/21 04:25 Baso # (Auto) 0.0 10^3/uL (0.0-0.1) 07/03/21 04:25 Absolute Nucleated RBC 0.00 x10^3/uL 07/03/21 04:25 Total Counted 100 06/26/21 05:38 Band Neuts % (Manual) 2 % (0-10) 06/26/21 05:38 Abnorm Lymph % (Manual) 0 % 06/26/21 05:38 Nucleated RBC % 0.0 /100WBC 07/03/21 04:25 Neutrophils # (Manual) 13.8 10^3/uL (1.5-6.6) H 06/26/21 05:38 Lymphocytes # (Manual) 0.0 10^3/uL (1.5-3.5) L 06/26/21 05:38 Monocytes # (Manual) 0.4 10^3/uL (0.0-1.0) 06/26/21 05:38 Eosinophils # (Manual) 0.0 10^3/uL (0-0.7) 06/26/21 05:38 Basophils # (Manual) 0.0 10^3/uL (0-0.1) 06/26/21 05:38 Differential Comment MANUAL DIFFERENTIAL 06/26/21 05:38 Manual Slide Review Indicated 07/03/21 04:25 WBC Morphology NORMAL APPEARANCE (NORMAL) 07/03/21 04:25 Platelet Estimate DECREASED (<130,000) (NORMAL) 07/03/21 04:25 Platelet Morphology NORMAL APPEARANCE (NORMAL) 07/03/21 04:25 RBC Morph Micro Appear 2+ ANISOCYTOSIS (NORMAL) 07/03/21 04:25 Bld Gas Analysis Time 191706/29/21 19:14 Sample Site RIGHT RADIAL 06/29/21 19:14 ABG pH 7.41 (7.35-7.45) 06/29/21 19:14 ABG pCO2 55 mmHg (34-45) H 06/29/21 19:14 ABG pO2 91 mmHg (80-100) 06/29/21 19:14 ABG HCO3 34.4 mmol/L (22.0-26.0) H 06/29/21 19:14 ABG Total CO2 36.1 MMOL/L (21.0-29.0) H 06/29/21 19:14 ABG O2 Saturation 97 % (94-98) 06/29/21 19:14 ABG Base Excess 8.3 mmol/L (-2.0-3.0) H 06/29/21 19:14 [place]i Test POSITIVE 06/29/21 19:14 VBG pH 7.272 (7.31-7.41) L 06/28/21 05:44 VBG pCO2 60.3 mmHg (41-51) H 06/25/21 21:16 VBG pO2 30.4 mmHg (25-47) 06/25/21 21:16 VBG HCO3 30.0 mmol/L (23-28) H 06/25/21 21:16 VBG Total CO2 31.8 mmol/L (24-29) H 06/25/21 21:16 VBG O2 Saturation 62.4 % (60-80) 06/25/21 21:16 VBG Base Excess 2.4 mmol/L (-2 - +2) H 06/25/21 21:16 Ionized Calcium 1.13 mmol/L (1.15-1.33) L 06/28/21 05:44 O2 Delivery Device NASAL CANNULA 06/29/21 19:14 Sodium 137 mmol/L (135-145) 07/03/21 04:25 Potassium 4.1 mmol/L (3.5-5.0) 07/03/21 04:25 Chloride 91 mmol/L (101-111) L 07/03/21 04:25 Carbon Dioxide 37 mmol/L (21-32) H 07/03/21 04:25 Anion Gap 9.0 (6-13) 07/03/21 04:25 BUN 20 mg/dL (6-20) 07/03/21 04:25 Creatinine 1.0 mg/dL (0.6-1.2) 07/03/21 04:25 Estimated GFR (MDRD) 75 (>89) L 07/03/21 04:25 Glucose 114 mg/dL (70-100) H 07/03/21 04:25 Estimat Average Glucose 108 mg/dL (70-100) H 06/26/21 05:38 Hemoglobin A1c % 5.4 % (4.27-6.07) 06/26/21 05:38 Lactic Acid 1.5 mmol/L (0.5-2.2) 06/25/21 18:49 Calcium 8.6 mg/dL (8.5-10.3) 07/03/21 04:25 Phosphorus 3.4 mg/dL (2.5-4.6) 06/28/21 05:44 Magnesium 1.6 mg/dL (1.7-2.8) L 06/29/21 04:38 Total Bilirubin 1.1 mg/dL (0.2-1.0) H 06/28/21 05:44 Direct Bilirubin 0.5 mg/dL (0.1-0.5) 06/28/21 05:44 AST 11 IU/L (10-42) 06/28/21 05:44 ALT < 10 IU/L (10-60) L 06/28/21 05:44 Alkaline Phosphatase 40 IU/L (42-121) L 06/28/21 05:44 Ammonia 54.5 umol/L (7-35) H 06/30/21 15:52 Troponin I High Sens 50.9 ng/L (2.3-19.7) H* 06/25/21 18:49 C-Reactive Protein 6.7 mg/dL (0-1.0) H 06/28/21 05:44 B-Natriuretic Peptide 509 pg/mL (5-100) H 06/28/21 05:44 Total Protein 7.5 g/dL (6.7-8.2) 06/28/21 05:44 Albumin 2.7 g/dL (3.2-5.5) L 06/28/21 05:44 Globulin 4.8 g/dL (2.1-4.2) H 06/28/21 05:44 Albumin/Globulin Ratio 0.6 (1.0-2.2) L 06/25/21 18:49 Lipase 20 U/L (22-51) L 06/25/21 18:49 TSH 5.94 uIU/mL (0.34-5.60) H 06/25/21 18:49 Thyroxine (T4) 6.02 ug/dL (6.09-12.23) L 06/25/21 18:49 Free T3 pg/mL 1.89 pg/mL (2.5-3.9) L 06/25/21 18:49 Urine Color DARK YELLOW 06/25/21 20:11 Urine Clarity SL. CLOUDY (CLEAR) 06/25/21 20:11 Urine pH 8.5 PH (5.0-7.5) H 06/25/21 20:11 Ur Specific [place] 1.015 (1.002-1.030) 06/25/21 20:11 Urine Protein 30 mg/dL (NEGATIVE) H 06/25/21 20:11 Urine Glucose (UA) NEGATIVE mg/dL (NEGATIVE) 06/25/21 20:11 Urine Ketones NEGATIVE mg/dL (NEGATIVE) 06/25/21 20:11 Urine Occult Blood TRACE-INTA (NEGATIVE) 06/25/21 20:11 Urine Nitrite POSITIVE (NEGATIVE) H 06/25/21 20:11 Urine Bilirubin NEGATIVE (NEGATIVE) 06/25/21 20:11 Urine Urobilinogen 1 (NORMAL) E.U./dL (NORMAL) 06/25/21 20:11 Ur Leukocyte Esterase LARGE (NEGATIVE) H 06/25/21 20:11 Urine RBC 0-5 /HPF (0-5) 06/25/21 20:11 Urine WBC 11-25 /HPF (0-3) H 06/25/21 20:11 Ur Squamous Epith Cells NONE SEEN (<= Few) 06/25/21 20:11 Urine Crystals 26-50 Triple Phos /LPF 06/25/21 20:11 Urine Bacteria Moderate /HPF (None Seen) H 06/25/21 20:11 Urine Culture Comments INDICATED 06/25/21 20:11 Nasal Adenovirus (PCR) NOT DETECTED 06/25/21 18:30 Nasal B. parapertussis DNA (PCR) NOT DETECTED 06/25/21 18:30 Nasal Coronavir 229E PCR NOT DETECTED 06/25/21 18:30 Nasal Coronavir HKU1 PCR NOT DETECTED 06/25/21 18:30 Nasal Coronavir NL63 PCR NOT DETECTED 06/25/21 18:30 Nasal Coronavir OC43 PCR NOT DETECTED 06/25/21 18:30 Nasal Enterovir/Rhinovir PCR NOT DETECTED 06/25/21 18:30 Nasal Influenza B PCR NOT DETECTED 06/25/21 18:30 Nasal Influenza A PCR NOT DETECTED 06/25/21 18:30 Nasal Parainfluen 1 PCR NOT DETECTED 06/25/21 18:30 Nasal Parainfluen 2 PCR NOT DETECTED 06/25/21 18:30 Nasal Parainfluen 3 PCR NOT DETECTED 06/25/21 18:30 Nasal Parainfluen 4 PCR NOT DETECTED 06/25/21 18:30 Nasal RSV (PCR) NOT DETECTED 06/25/21 18:30 Nasal Screen MRSA (PCR) NEGATIVE (NEGATIVE) 06/25/21 23:35 Nasal B.pertussis DNA PCR NOT DETECTED 06/25/21 18:30 Nasal C.pneumoniae (PCR) NOT DETECTED 06/25/21 18:30 Daniel Human Metapneumo PCR NOT DETECTED 06/25/21 18:30 Nasal M.pneumoniae (PCR) NOT DETECTED 06/25/21 18:30 Nasal SARS-CoV-2 (PCR) NOT DETECTED 06/25/21 18:30 Last Dose Date UNKNOWN 06/25/21 18:49 Last Dose Time UNKNOWN 06/25/21 18:49 Digoxin < 0.2 ng/mL 06/25/21 18:49 Urine Opiates Screen NEGATIVE (NEGATIVE) 06/25/21 20:11 Ur Oxycodone Screen NEGATIVE (NEGATIVE) 06/25/21 20:11 Urine Methadone Screen NEGATIVE (NEGATIVE) 06/25/21 20:11 Ur Propoxyphene Screen NEGATIVE (NEGATIVE) 06/25/21 20:11 Ur Barbiturates Screen NEGATIVE (NEGATIVE) 06/25/21 20:11 Ur Tricyclics Screen NEGATIVE (NEGATIVE) 06/25/21 20:11 Ur Phencyclidine Scrn NEGATIVE (NEGATIVE) 06/25/21 20:11 Ur Amphetamine Screen NEGATIVE (NEGATIVE) 06/25/21 20:11 U Methamphetamines Scrn NEGATIVE (NEGATIVE) 06/25/21 20:11 U Benzodiazepines Scrn NEGATIVE (NEGATIVE) 06/25/21 20:11 Urine Cocaine Screen NEGATIVE (NEGATIVE) 06/25/21 20:11 U Cannabinoids Screen NEGATIVE (NEGATIVE) 06/25/21 20:11 Ethyl Alcohol < 5.0 mg/dL 06/25/21 18:49 Sepsis Event Note (H) - Evaluation Current Stage of Sepsis: Resolved Possible source of Sepsis: positive: Skin/soft tissue - Sepsis Criteria Sepsis Criteria: Recorded Temperature greater than 38.3C or Less than 36C, Recorded Heart Rate greater than 90 bpm, Respiratory: Increasing oxygen requirements, WBC count greater than 10% bands, WBC count greater than 12,000 or less than 4000
[2021-07-04] MEDS: SODIUM CHLORIDE FLUSH 0.9% 10 ML SYRINGE IVP SCH ×3 (02:39→17:03)
[2021-07-04] MEDS: FUROSEMIDE 40 MG/4 ML VIAL IVP SCH ×2 (05:07→13:25)
[2021-07-04 05:24] LABS: CALCIUM 8.6 mg/dL (8.5-10.3); POTASSIUM 4.1 mmol/L (3.5-5.0)
[2021-07-04 05:25] LABS: BASOPHILS # (AUTO) 0.1 10^3/uL (0.0-0.1); BASOPHILS % (AUTO) 1.3 %; EOSINOPHILS # (AUTO) 0.2 10^3/uL (0.0-0.7); EOSINOPHILS % (AUTO) 3.4 %; HCT - HEMATOCRIT 37.9 % (42.0-52.0); HGB - HEMOGLOBIN 11.2 g/dL (14.0-18.0); LYMPHOCYTES # (AUTO) 0.9 10^3/uL (1.5-3.5); LYMPHOCYTES % (AUTO) 18.3 %; MEAN CORPUSCULAR HEMOGLOBIN 25.8 pg (27.0-31.0); MEAN CORPUSCULAR HGB CONC 29.6 g/dL (32.0-36.0); MEAN CORPUSCULAR VOLUME 87.3 fL (80.0-94.0); MEAN PLATELET VOLUME 10.9 fL (7.4-11.4); MONOCYTES # (AUTO) 0.7 10^3/uL (0.0-1.0); MONOCYTES % (AUTO) 15.7 %; NEUTROPHILS # (AUTO) 2.9 10^3/uL (1.5-6.6); NEUTROPHILS % (AUTO) 60.9 %; PLT - PLATELET COUNT 83 10^3/uL (130-450); RED BLOOD COUNT 4.34 10^6/uL (4.70-6.10); RED CELL DISTRIBUTION WIDTH 22.7 % (12.0-15.0); WHITE BLOOD COUNT 4.7 x10^3/uL (4.8-10.8)
[2021-07-04 05:35] LABS: SLIDE REVIEW? Indicated
[2021-07-04 05:55] LABS: PLATELET ESTIMATE, MANUAL DECREASED (<130,000) (NORMAL)
[2021-07-04] MEDS: LEVOTHYROXINE 25 MCG TABLET PO SCH (06:28)
[2021-07-04] MEDS: PANTOPRAZOLE 40 MG TABLET PO SCH (06:28)
[2021-07-04] MEDS: IPRATROPIUM/ALBUTEROL 3 ML NEB INH SCH ×4 (06:29→20:27)
[2021-07-04] MEDS: ALBUTEROL NEB 2.5 MG/3 ML INH PRN (07:36)
[2021-07-04] MEDS: NICOTINE 14 MG PATCH TOP SCH (08:12)
[2021-07-04] MEDS: polyethylene glycoL 3350 17 GM PACKET PO SCH (08:12)
[2021-07-04] MEDS: LACTULOSE 10 GM /15 ML UDC PO SCH ×2 (08:12→20:27)
[2021-07-04] MEDS: THIAMINE 100 MG TABLET PO SCH (08:13)
[2021-07-04] MEDS: GABAPENTIN 300 MG CAPSULE PO SCH ×2 (08:13→20:28)
[2021-07-04] MEDS: diltiaZEM CD 180 MG CAPSULE PO SCH (08:13)
[2021-07-04] MEDS: DIGOXIN 125 MCG TABLET PO SCH (08:14)
[2021-07-04] MEDS: MULTIVITAMIN W/MINERALS TABLET PO SCH (08:14)
[2021-07-04] MEDS: SACCHAROMYCES BOULARDII 250 MG CAPSULE PO SCH ×2 (08:16→17:03)
[2021-07-04] MEDS: ASPIRIN CHEW 81 MG TABLET PO SCH (08:16)
[2021-07-04] MEDS: levoFLOXacin 250 MG TABLET PO SCH (08:16)
[2021-07-04] MEDS: METOPROLOL SUCCINATE 50 MG TABLET PO SCH ×2 (08:17→20:30)
[2021-07-04] MEDS: ENOXAPARIN 40 MG/0.4 ML SYRINGE SUBQ SCH ×2 (08:18→19:58)
[2021-07-04] MEDS: NYSTATIN POWDER 15 GM TOP SCH ×2 (08:18→21:08)
[2021-07-04 08:49] LABS: DIGOXIN < 0.2 ng/mL
[2021-07-04] MEDS: NICOTINE 7 MG PATCH TOP SCH (09:39)
[2021-07-04] MEDS: CARBOXYMETHYLCELLULOSE OPHTH DROPS EACHEYE PRN (13:41)
--- NOTE | 2021-07-04 16:46 | PROVIDER PROGRESS NOTE ---
Assessment/Plan - Problem List (1) Acute respiratory failure with hypoxia and hypercarbia Assessment/Plan: This was secondary to Left sided diastolic heart failure and from Cor pulmonale. He is on room air but his sats are in the high 80s to low 90s. The last chest x-ray still showed pulmonary edema. Plan to continue diuresis as well as a low-sodium diet and fluid restriction. Will plan on doing an oximetry walk test on the day of [facility] to order or re-order Home O2. He told me yesterday he would use it if ordered. (2) Acute on chronic diastolic CHF (congestive heart failure) Impression: This has improved daily. He is on room air at rest. A repeat chest x-ray 3 days ago still showed pulmonary edema. He will get his last Lasix IV bid yesterday and will get a new once daily oral dose today, and we will assess if that dose is enough to maintain equal or neg fluid balance before being discharged. Anticipating tomorrow. Qualifiers: Heart failure type: diastolic Heart failure chronicity: acute on chronic Qualified Code(s): I50.33 - Acute on chronic diastolic (congestive) heart failure (3) Cor pulmonale As per Echo, and caused by COPD and sleep apnea, both of which were untreated before admission. (4) Cellulitis of right leg Impression: This has significantly improved. He remains on oral Levaquin given the haemophilus parainfluenza. He remains hospitalized due to his respiratory failure, however. (5) Gram-negative bacteremia Impression: Blood cultures grew haemophilus parainfluenza which is likely due to right lower extremity cellulitis. He is now on oral Levaquin and repeat blood cultures are negative. He will need a total of 2 weeks of therapy. (6) Atrial fibrillation with rapid ventricular response Impression: His heart rate is now controlled after we resumed his metoprolol, diltiazem and digoxin. We check a Dig level. He is on aspirin for stroke prophylaxis due to history of GI bleed while on anticoagulation in the past. Today he told me he has a Watchman device in the [facility], but I cannot find this in any admission H&Ps or ER visit notes. (I reviewed his entire EMR today) (7) UTI (urinary tract infection) Impression: Initial concern was for UTI and urine culture did grow Proteus. This is sensitive to the Levaquin. He remains on antibiotics for the bacteremia and not the UTI. (8) Cardiorenal syndrome Impression: It appears he did not have CKD and his initial elevated creatinine was due to acute kidney injury. In hindsight, this was likely due to cardiorenal syndrome, since he has improved with IV diuresis. His renal function is now at baseline. We will continue to monitor his BMP daily (9) Hypothyroidism Impression: His adm TSH suggested that he did not tyake his Synthroid fopr a long time. We resumed his Synthroid. (10) History of sleep apnea Impression: Continue with CPAP in the evening. I discussed with him need to resume this at home after discharge, he stopped using it about 1 month ago, when he moved "into his shed, which is a man cave" (11) Medication non-compliance Impression: Yesterday he refuted what was described by his at admission, that he had stopped all his medicines 6 months ago, and refused to use oxygen or CPAP. He instead told me he was taking everything up until about 3 days before this admission when things ran out. It was true that he was using the plant Kratom to treat his leg pain and insomnia. His level of TSH and amount of anasarca at presentation are not consistent with him being off meds for only 3 days however. (12) Morbid obesity Impression: As per Hx. (13) Anasarca Impression: This is resolving with iv diuresis. He has lost 67 kg since admission and is in neg fluid balance since treated. Yesterday he disclosed to me that he was eating ice constantly every day and understands now that this was giving him water excess and water retention. Will check Mg level (14) Hypomagnesemia Impression: Caused by his large diuresis. Will replace po and iv Follow Mg level daily (15) Sepsis Impression: This has now resolved and was secondary to Haemophilus parainfluenzae bacteremia due to the right lower extremity cellulitis. Continue oral Levaquin. (16) AMS (altered mental status) Impression: This has resolved. This likely was multifactorial and is related to hypercapnia and the sepsis and untreated hypothyroidism. (17) Acute kidney injury Impression: Resolved. - Current Meds Current Meds: Current Medications Generic Name Dose Route Start Last Admin Trade Name Freq PRN Reason Stop Dose Admin Acetaminophen 650 mg 06/25/21 22:38 07/01/21 00:38 Acetaminophen 325 Mg Tablet PO 650 mg Q4HR PRN Administration Pain or Fever > 38C (100.4F) Albuterol 2.5 mg 06/26/21 16:09 07/04/21 07:36 Albuterol Neb 2.5 Mg/3 Ml INH 2.5 mg RTQ4H PRN Administration Wheezing Albuterol/Ipratropium 3 ml 06/26/21 19:00 07/04/21 11:10 Ipratropium/Albuterol 3 Ml Neb INH 3 ml RTQID JURGEN Administration Aspirin 81 mg 06/27/21 09:00 07/04/21 08:16 Aspirin Chew 81 Mg Tablet PO 81 mg DAILY JURGEN Administration Carboxymethylcellulose 1 drops 07/03/21 09:24 07/04/21 13:41 Carboxymethylcellulose Ophth Drops EACHEYE 1 drops Q4HR PRN Administration Dry Eye Digoxin 62.5 mcg 06/27/21 13:00 07/04/21 08:14 Digoxin 125 Mcg Tablet PO 62.5 mcg DAILY JURGEN Administration Diltiazem HCl 180 mg 06/30/21 15:22 07/04/21 08:13 Diltiazem Cd 180 Mg Capsule PO 180 mg DAILY JURGEN Administration Enoxaparin Sodium 40 mg 06/26/21 09:00 07/04/21 08:18 Enoxaparin 40 Mg/0.4 Ml Syringe SUBQ Not Given BID JURGEN Furosemide 40 mg 06/26/21 06:00 07/04/21 13:25 Furosemide 40 Mg/4 Ml Vial IVP 07/04/21 23:00 40 mg BIDDIURETIC JURGEN Administration Gabapentin 600 mg 06/27/21 21:00 07/04/21 08:13 Gabapentin 300 Mg Capsule PO 600 mg BID JURGEN Administration Lactulose 10 gm 06/30/21 21:00 07/04/21 08:12 Lactulose 10 Gm /15 Ml Udc PO 10 gm BID JURGEN Administration Levofloxacin 750 mg 07/01/21 09:00 07/04/21 08:16 Levofloxacin 250 Mg Tablet PO 750 mg DAILY JURGEN Administration Levothyroxine Sodium 50 mcg 06/26/21 07:00 07/04/21 06:28 Levothyroxine 25 Mcg Tablet PO 50 mcg QDAC JURGEN Administration Metoprolol Succinate 150 mg 06/28/21 09:00 07/04/21 08:17 Metoprolol Succinate 50 Mg Tablet PO 150 mg DAILY JURGEN Administration Metoprolol Succinate 50 mg 06/27/21 21:00 07/03/21 20:46 Metoprolol Succinate 50 Mg Tablet PO 50 mg QPM JURGEN Administration Multivitamins/Minerals 1 tab 06/28/21 08:00 07/04/21 08:14 Multivitamin W/Minerals Tablet PO 1 tab DAILYWM JURGEN Administration Nicotine 1 patch 07/04/21 09:00 07/04/21 09:39 Nicotine 7 Mg Patch TOP 1 patch DAILY JURGEN Administration Nystatin 1 applic 07/01/21 23:00 07/04/21 08:18 Nystatin Powder 15 Gm TOP 1 applic BID JURGEN Administration Pantoprazole Sodium 40 mg 06/26/21 07:00 07/04/21 06:28 Pantoprazole 40 Mg Tablet PO 40 mg QDAC JURGEN Administration Polyethylene Glycol 17 gm 06/26/21 11:00 07/04/21 08:12 Polyethylene Glycol 3350 17 Gm Packet PO 17 gm DAILY JURGEN Administration Saccharomyces Boulardii 250 mg 07/03/21 17:00 07/04/21 08:16 Saccharomyces Boulardii 250 Mg Capsule PO 250 mg BIDWM JURGEN Administration Sodium Chloride 10 ml 06/26/21 01:00 07/04/21 08:17 Sodium Chloride Flush 0.9% 10 Ml Syringe IVP 10 ml 0100,0900,1700 JURGEN Administration Sodium Chloride 10 ml 06/25/21 22:38 07/03/21 13:57 Sodium Chloride Flush 0.9% 10 Ml Syringe IVP 10 ml PRN PRN Administration NEEDED PER PROVIDER ORDERS Thiamine HCl 100 mg 06/30/21 15:20 07/04/21 08:13 Thiamine 100 Mg Tablet PO 100 mg DAILY JURGEN Administration - Lab Result Fish Bone Diagrams: 07/05/21 04:48 07/05/21 04:48 - Additional Planning My Orders: My Active Orders 07/03/21 17:00 Saccharomyces Boulardii [Florastor] 250 mg PO BIDWM 07/04/21 09:00 Nicotine 7 mg Patch [Nicoderm] 1 patch TOP DAILY 07/05/21 09:00 Furosemide [Lasix] 60 mg PO DAILY Subjective - Subjective Patient Reports: Feeling Better (except still has swollen R leg and numbness of both feet) Objective Vital Signs: Vital Signs - 24 hr 07/03/21 07/03/21 07/03/21 16:53 17:59 20:07 Temperature 37.0 C 36.5 C Heart Rate 73 Heart Rate [ 85 89 Monitoring electrodes] Respiratory 16 23 18 Rate Blood Pressure 126/78 111/63 [Right Brachial artery] Blood Pressure [Right Radial artery] O2 Saturation 93 93 07/04/21 07/04/21 07/04/21 01:00 05:00 07:35 Temperature 36.8 C 36.5 C Heart Rate 87 Heart Rate [ 88 82 Monitoring electrodes] Respiratory 12 12 20 Rate Blood Pressure [Right Brachial artery] Blood Pressure 99/54 L 103/60 [Right Radial artery] O2 Saturation 87 L 90 L 07/04/21 07/04/21 07/04/21 08:24 11:05 13:00 Temperature 36.7 C 36.9 C Heart Rate 69 Heart Rate [ 98 91 Monitoring electrodes] Respiratory 17 21 19 Rate Blood Pressure [Right Brachial artery] Blood Pressure 119/58 L 113/62 [Right Radial artery] O2 Saturation 94 92 Oxygen O2 Source Room air I&O (Last 24 Hrs): Intake and Output Totals x24h 07/02/21 07/03/21 07/04/21 23:59 23:59 23:59 Intake Total 1650 1450 1240 Output Total 3825 3350 1290 Balance -2175 -1900 -50 General: Alert, Oriented x3 HEENT: Mucous membr. moist/pink Neck: Supple, No JVD Neuro: Alert, Non Focal (except foot numbmess) Cardiovascular: No murmurs Respiratory: No respiratory distress, Breath sounds nml Abdomen: Soft, Other (Obese with pannus) Extremities: Other (2+ edema to knees w/ venous stasis and blebs of R soto, 1+ edema of L leg) - Results Results: Laboratory Results WBC 4.7 x10^3/uL (4.8-10.8) L 07/04/21 04:51 RBC 4.34 10^6/uL (4.70-6.10) L 07/04/21 04:51 Hgb 11.2 g/dL (14.0-18.0) L 07/04/21 04:51 Hct 37.9 % (42.0-52.0) L 07/04/21 04:51 MCV 87.3 fL (80.0-94.0) 07/04/21 04:51 MCH 25.8 pg (27.0-31.0) L 07/04/21 04:51 MCHC 29.6 g/dL (32.0-36.0) L 07/04/21 04:51 RDW 22.7 % (12.0-15.0) H 07/04/21 04:51 Plt Count 83 10^3/uL (130-450) L 07/04/21 04:51 MPV 10.9 fL (7.4-11.4) 07/04/21 04:51 Neut # (Auto) 2.9 10^3/uL (1.5-6.6) 07/04/21 04:51 Lymph # (Auto) 0.9 10^3/uL (1.5-3.5) L 07/04/21 04:51 [place] # (Auto) 0.7 10^3/uL (0.0-1.0) 07/04/21 04:51 Eos # (Auto) 0.2 10^3/uL (0.0-0.7) 07/04/21 04:51 Baso # (Auto) 0.1 10^3/uL (0.0-0.1) 07/04/21 04:51 Absolute Nucleated RBC 0.00 x10^3/uL 07/04/21 04:51 Total Counted 100 06/26/21 05:38 Band Neuts % (Manual) 2 % (0-10) 06/26/21 05:38 Abnorm Lymph % (Manual) 0 % 06/26/21 05:38 Nucleated RBC % 0.0 /100WBC 07/04/21 04:51 Neutrophils # (Manual) 13.8 10^3/uL (1.5-6.6) H 06/26/21 05:38 Lymphocytes # (Manual) 0.0 10^3/uL (1.5-3.5) L 06/26/21 05:38 Monocytes # (Manual) 0.4 10^3/uL (0.0-1.0) 06/26/21 05:38 Eosinophils # (Manual) 0.0 10^3/uL (0-0.7) 06/26/21 05:38 Basophils # (Manual) 0.0 10^3/uL (0-0.1) 06/26/21 05:38 Differential Comment MANUAL DIFFERENTIAL 06/26/21 05:38 Manual Slide Review Indicated 07/04/21 04:51 WBC Morphology NORMAL APPEARANCE (NORMAL) 07/03/21 04:25 Platelet Estimate DECREASED (<130,000) (NORMAL) 07/04/21 04:51 Platelet Morphology NORMAL APPEARANCE (NORMAL) 07/03/21 04:25 RBC Morph Micro Appear 1+ ANISOCYTOSIS (NORMAL) 1+ MICROCYTOSIS (NORMAL) 1+ HYPOCHROMASIA (NORMAL) 1+ OVALOCYTES (NORMAL) 07/04/21 04:51 RBC Morph Micro Appear 1+ ANISOCYTOSIS (NORMAL) 1+ MICROCYTOSIS (NORMAL) 1+ HYPOCHROMASIA (NORMAL) 1+ OVALOCYTES (NORMAL) 07/04/21 04:51 RBC Morph Micro Appear 1+ ANISOCYTOSIS (NORMAL) 1+ MICROCYTOSIS (NORMAL) 1+ HYPOCHROMASIA (NORMAL) 1+ OVALOCYTES (NORMAL) 07/04/21 04:51 RBC Morph Micro Appear 1+ ANISOCYTOSIS (NORMAL) 1+ MICROCYTOSIS (NORMAL) 1+ HYPOCHROMASIA (NORMAL) 1+ OVALOCYTES (NORMAL) 07/04/21 04:51 Bld Gas Analysis Time 191706/29/21 19:14 Sample Site RIGHT RADIAL 06/29/21 19:14 ABG pH 7.41 (7.35-7.45) 06/29/21 19:14 ABG pCO2 55 mmHg (34-45) H 06/29/21 19:14 ABG pO2 91 mmHg (80-100) 06/29/21 19:14 ABG HCO3 34.4 mmol/L (22.0-26.0) H 06/29/21 19:14 ABG Total CO2 36.1 MMOL/L (21.0-29.0) H 06/29/21 19:14 ABG O2 Saturation 97 % (94-98) 06/29/21 19:14 ABG Base Excess 8.3 mmol/L (-2.0-3.0) H 06/29/21 19:14 Cali Test POSITIVE 06/29/21 19:14 VBG pH 7.272 (7.31-7.41) L 06/28/21 05:44 VBG pCO2 60.3 mmHg (41-51) H 06/25/21 21:16 VBG pO2 30.4 mmHg (25-47) 06/25/21 21:16 VBG HCO3 30.0 mmol/L (23-28) H 06/25/21 21:16 VBG Total CO2 31.8 mmol/L (24-29) H 06/25/21 21:16 VBG O2 Saturation 62.4 % (60-80) 06/25/21 21:16 VBG Base Excess 2.4 mmol/L (-2 - +2) H 06/25/21 21:16 Ionized Calcium 1.13 mmol/L (1.15-1.33) L 06/28/21 05:44 O2 Delivery Device NASAL CANNULA 06/29/21 19:14 Sodium 137 mmol/L (135-145) 07/04/21 04:51 Potassium 4.1 mmol/L (3.5-5.0) 07/04/21 04:51 Chloride 93 mmol/L (101-111) L 07/04/21 04:51 Carbon Dioxide 35 mmol/L (21-32) H 07/04/21 04:51 Anion Gap 9.0 (6-13) 07/04/21 04:51 BUN 23 mg/dL (6-20) H 07/04/21 04:51 Creatinine 1.0 mg/dL (0.6-1.2) 07/04/21 04:51 Estimated GFR (MDRD) 75 (>89) L 07/04/21 04:51 Glucose 112 mg/dL (70-100) H 07/04/21 04:51 Estimat Average Glucose 108 mg/dL (70-100) H 06/26/21 05:38 Hemoglobin A1c % 5.4 % (4.27-6.07) 06/26/21 05:38 Lactic Acid 1.5 mmol/L (0.5-2.2) 06/25/21 18:49 Calcium 8.6 mg/dL (8.5-10.3) 07/04/21 04:51 Phosphorus 3.4 mg/dL (2.5-4.6) 06/28/21 05:44 Magnesium 1.4 mg/dL (1.7-2.8) L 07/04/21 04:51 Total Bilirubin 1.1 mg/dL (0.2-1.0) H 06/28/21 05:44 Direct Bilirubin 0.5 mg/dL (0.1-0.5) 06/28/21 05:44 AST 11 IU/L (10-42) 06/28/21 05:44 ALT < 10 IU/L (10-60) L 06/28/21 05:44 Alkaline Phosphatase 40 IU/L (42-121) L 06/28/21 05:44 Ammonia 20.8 umol/L (7-35) 07/04/21 08:24 Troponin I High Sens 50.9 ng/L (2.3-19.7) H* 06/25/21 18:49 C-Reactive Protein 6.7 mg/dL (0-1.0) H 06/28/21 05:44 B-Natriuretic Peptide 509 pg/mL (5-100) H 06/28/21 05:44 Total Protein 7.5 g/dL (6.7-8.2) 06/28/21 05:44 Albumin 2.7 g/dL (3.2-5.5) L 06/28/21 05:44 Globulin 4.8 g/dL (2.1-4.2) H 06/28/21 05:44 Albumin/Globulin Ratio 0.6 (1.0-2.2) L 06/25/21 18:49 Lipase 20 U/L (22-51) L 06/25/21 18:49 TSH 5.94 uIU/mL (0.34-5.60) H 06/25/21 18:49 Thyroxine (T4) 6.02 ug/dL (6.09-12.23) L 06/25/21 18:49 Free T3 pg/mL 1.89 pg/mL (2.5-3.9) L 06/25/21 18:49 Urine Color DARK YELLOW 06/25/21 20:11 Urine Clarity SL. CLOUDY (CLEAR) 06/25/21 20:11 Urine pH 8.5 PH (5.0-7.5) H 06/25/21 20:11 Ur Specific [place] 1.015 (1.002-1.030) 06/25/21 20:11 Urine Protein 30 mg/dL (NEGATIVE) H 06/25/21 20:11 Urine Glucose (UA) NEGATIVE mg/dL (NEGATIVE) 06/25/21 20:11 Urine Ketones NEGATIVE mg/dL (NEGATIVE) 06/25/21 20:11 Urine Occult Blood TRACE-INTA (NEGATIVE) 06/25/21 20:11 Urine Nitrite POSITIVE (NEGATIVE) H 06/25/21 20:11 Urine Bilirubin NEGATIVE (NEGATIVE) 06/25/21 20:11 Urine Urobilinogen 1 (NORMAL) E.U./dL (NORMAL) 06/25/21 20:11 Ur Leukocyte Esterase LARGE (NEGATIVE) H 06/25/21 20:11 Urine RBC 0-5 /HPF (0-5) 06/25/21 20:11 Urine WBC 11-25 /HPF (0-3) H 06/25/21 20:11 Ur Squamous Epith Cells NONE SEEN (<= Few) 06/25/21 20:11 Urine Crystals 26-50 Triple Phos /LPF 06/25/21 20:11 Urine Bacteria Moderate /HPF (None Seen) H 06/25/21 20:11 Urine Culture Comments INDICATED 06/25/21 20:11 Nasal Adenovirus (PCR) NOT DETECTED 06/25/21 18:30 Nasal B. parapertussis DNA (PCR) NOT DETECTED 06/25/21 18:30 Nasal Coronavir 229E PCR NOT DETECTED 06/25/21 18:30 Nasal Coronavir HKU1 PCR NOT DETECTED 06/25/21 18:30 Nasal Coronavir NL63 PCR NOT DETECTED 06/25/21 18:30 Nasal Coronavir OC43 PCR NOT DETECTED 06/25/21 18:30 Nasal Enterovir/Rhinovir PCR NOT DETECTED 06/25/21 18:30 Nasal Influenza B PCR NOT DETECTED 06/25/21 18:30 Nasal Influenza A PCR NOT DETECTED 06/25/21 18:30 Nasal Parainfluen 1 PCR NOT DETECTED 06/25/21 18:30 Nasal Parainfluen 2 PCR NOT DETECTED 06/25/21 18:30 Nasal Parainfluen 3 PCR NOT DETECTED 06/25/21 18:30 Nasal Parainfluen 4 PCR NOT DETECTED 06/25/21 18:30 Nasal RSV (PCR) NOT DETECTED 06/25/21 18:30 Nasal Screen MRSA (PCR) NEGATIVE (NEGATIVE) 06/25/21 23:35 Nasal B.pertussis DNA PCR NOT DETECTED 06/25/21 18:30 Nasal C.pneumoniae (PCR) NOT DETECTED 06/25/21 18:30 Daniel Human Metapneumo PCR NOT DETECTED 06/25/21 18:30 Nasal M.pneumoniae (PCR) NOT DETECTED 06/25/21 18:30 Nasal SARS-CoV-2 (PCR) NOT DETECTED 06/25/21 18:30 Last Dose Date 07/03/21 07/04/21 04:51 Last Dose Time 0734 07/04/21 04:51 Digoxin < 0.2 ng/mL 07/04/21 04:51 Urine Opiates Screen NEGATIVE (NEGATIVE) 06/25/21 20:11 Ur Oxycodone Screen NEGATIVE (NEGATIVE) 06/25/21 20:11 Urine Methadone Screen NEGATIVE (NEGATIVE) 06/25/21 20:11 Ur Propoxyphene Screen NEGATIVE (NEGATIVE) 06/25/21 20:11 Ur Barbiturates Screen NEGATIVE (NEGATIVE) 06/25/21 20:11 Ur Tricyclics Screen NEGATIVE (NEGATIVE) 06/25/21 20:11 Ur Phencyclidine Scrn NEGATIVE (NEGATIVE) 06/25/21 20:11 Ur Amphetamine Screen NEGATIVE (NEGATIVE) 06/25/21 20:11 U Methamphetamines Scrn NEGATIVE (NEGATIVE) 06/25/21 20:11 U Benzodiazepines Scrn NEGATIVE (NEGATIVE) 06/25/21 20:11 Urine Cocaine Screen NEGATIVE (NEGATIVE) 06/25/21 20:11 U Cannabinoids Screen NEGATIVE (NEGATIVE) 06/25/21 20:11 Ethyl Alcohol < 5.0 mg/dL 06/25/21 18:49 Sepsis Event Note (H) - Evaluation Current Stage of Sepsis: Resolved Possible source of Sepsis: positive: Skin/soft tissue - Sepsis Criteria Sepsis Criteria: Recorded Temperature greater than 38.3C or Less than 36C, Recorded Heart Rate greater than 90 bpm, Respiratory: Increasing oxygen req uirements, WBC count greater than 10% bands, WBC count greater than 12,000 or less than 4000
[2021-07-04] MEDS ORDERED: MAGNESIUM SULFATE 1 GM in SODIUM CHLORIDE 0.9% 50 ML IV ONE (17:00)
[2021-07-04] MEDS: MAGNESIUM OXIDE 400 MG TABLET PO SCH (17:19)
[2021-07-04] MEDS ORDERED: MAGNESIUM SULFATE 2 GRAM 2 GM/50 ML BAG IV SCH (17:30)
[2021-07-05] MEDS: CARBOXYMETHYLCELLULOSE OPHTH DROPS EACHEYE PRN ×2 (01:30→21:13)
[2021-07-05] MEDS: SODIUM CHLORIDE FLUSH 0.9% 10 ML SYRINGE IVP SCH ×3 (02:02→18:00)
[2021-07-05 05:20] LABS: BASOPHILS # (AUTO) 0.1 10^3/uL (0.0-0.1); EOSINOPHILS # (AUTO) 0.2 10^3/uL (0.0-0.7); EOSINOPHILS % (AUTO) 3.1 %; HCT - HEMATOCRIT 35.2 % (42.0-52.0); HGB - HEMOGLOBIN 10.4 g/dL (14.0-18.0); LYMPHOCYTES # (AUTO) 0.9 10^3/uL (1.5-3.5); MEAN CORPUSCULAR HEMOGLOBIN 25.7 pg (27.0-31.0); MEAN CORPUSCULAR HGB CONC 29.5 g/dL (32.0-36.0); MEAN CORPUSCULAR VOLUME 87.1 fL (80.0-94.0); MEAN PLATELET VOLUME 11.6 fL (7.4-11.4); MONOCYTES # (AUTO) 0.7 10^3/uL (0.0-1.0); MONOCYTES % (AUTO) 14.9 %; NEUTROPHILS % (AUTO) 62.8 %; PLT - PLATELET COUNT 83 10^3/uL (130-450); RED BLOOD COUNT 4.04 10^6/uL (4.70-6.10); RED CELL DISTRIBUTION WIDTH 22.3 % (12.0-15.0); WHITE BLOOD COUNT 4.8 x10^3/uL (4.8-10.8)
[2021-07-05 05:29] LABS: SLIDE REVIEW? Indicated
[2021-07-05 05:31] LABS: CALCIUM 8.3 mg/dL (8.5-10.3); CREATININE 1.2 mg/dL (0.6-1.2); POTASSIUM 4.1 mmol/L (3.5-5.0)
[2021-07-05] MEDS: LEVOTHYROXINE 25 MCG TABLET PO SCH (05:45)
[2021-07-05] MEDS: PANTOPRAZOLE 40 MG TABLET PO SCH (05:45)
[2021-07-05 05:48] LABS: PLATELET ESTIMATE, MANUAL DECREASED (<130,000) (NORMAL)
[2021-07-05] MEDS: IPRATROPIUM/ALBUTEROL 3 ML NEB INH SCH ×4 (07:46→19:30)
[2021-07-05] MEDS: polyethylene glycoL 3350 17 GM PACKET PO SCH (08:30)
[2021-07-05] MEDS: GABAPENTIN 300 MG CAPSULE PO SCH ×2 (08:31→21:04)
[2021-07-05] MEDS: NICOTINE 7 MG PATCH TOP SCH (08:31)
[2021-07-05] MEDS: ENOXAPARIN 40 MG/0.4 ML SYRINGE SUBQ SCH ×2 (08:31→21:05)
[2021-07-05] MEDS: LACTULOSE 10 GM /15 ML UDC PO SCH (08:31)
[2021-07-05] MEDS: FUROSEMIDE 40 MG TABLET PO SCH (08:32)
[2021-07-05] MEDS: SACCHAROMYCES BOULARDII 250 MG CAPSULE PO SCH ×2 (08:32→18:00)
[2021-07-05] MEDS: THIAMINE 100 MG TABLET PO SCH (08:33)
[2021-07-05] MEDS: MAGNESIUM OXIDE 400 MG TABLET PO SCH (08:33)
[2021-07-05] MEDS: diltiaZEM CD 180 MG CAPSULE PO SCH (08:33)
[2021-07-05] MEDS: MULTIVITAMIN W/MINERALS TABLET PO SCH (08:33)
[2021-07-05] MEDS: ASPIRIN CHEW 81 MG TABLET PO SCH (08:34)
[2021-07-05] MEDS: METOPROLOL SUCCINATE 50 MG TABLET PO SCH (08:34)
[2021-07-05] MEDS: DIGOXIN 125 MCG TABLET PO SCH (08:34)
[2021-07-05] MEDS: levoFLOXacin 250 MG TABLET PO SCH (08:34)
[2021-07-05] MEDS: NYSTATIN POWDER 15 GM TOP SCH ×2 (08:36→21:06)
[2021-07-05] MEDS ORDERED: LACTULOSE 10 GM /15 ML UDC PO PRN (11:18)
[2021-07-05] MEDS ORDERED: polyethylene glycoL 3350 17 GM PACKET PO PRN (11:22)
--- NOTE | 2021-07-05 16:48 | PROVIDER PROGRESS NOTE ---
Assessment/Plan - Problem List (1) Acute respiratory failure with hypoxia and hypercarbia Assessment/Plan: This was secondary to Left sided diastolic heart failure and from Cor pulmonale. He is on room air but his sats are in the high 80s to low 90s. The last chest x-ray still showed pulmonary edema. Plan to continue diuresis as well as a low-sodium diet and fluid restriction. Will plan on doing an oximetry walk test on the day of DCh to order or re-order Home O2. He told me he would use it if ordered. (2) Medication non-compliance Impression: He has refuted what was described by ED provider from at admission, that he had stopped all his medicines 6 months ago, and refused to use oxygen or CPAP. He instead told me he was taking everything up until about 3 days before this admission when things ran out. It was true that he was using the plant Kratom to treat his leg pain and insomnia. His level of TSH and amount of anasarca at presentation are not consistent with him being off meds for only 3 days however. Today I called his home and spoke to his to personally ascertain his compliance. The said she did not know what the patient did because she "lives in the house and he lives in the barn". He has a acute care physical therapist and friend named Vu Ordonez, who happened to be at the house when I called and thus I spoke to Vu. Vu confirmed for me that the patient had run out of his meds 2 weeks before this admission and despite Vu reminding him to get refills the patient never did. He also never saw him use oxygen or CPAP even though Vu thinks the CPAP machine is "at the barn". Because of these inconsistencies, today the patient underwent a cognitive eval done by Speech Therapy. He scored 26/30 however had "reduced insight/awareness, impulsivity, thought disorganization, and reduced verbal reasoning, which impact safety awareness and home compliance/independence", as per documentation. For this reason, Home Health for a social work eval and RN for medication management has been ordered. Anticipating [facility] home tomorrow. (3) Acute on chronic diastolic CHF (congestive heart failure) Impression: This has improved daily. He is on room air at rest. A repeat chest x-ray 4 days ago still showed pulmonary edema. He got his last Lasix IV bid yesterday and will get a new once daily oral dose today, and we will assess if that dose is enough to maintain equal or neg fluid balance before being discharged. Anticipating tomorrow. Qualifiers: Heart failure type: diastolic Heart failure chronicity: acute on chronic Qualified Code(s): I50.33 - Acute on chronic diastolic (congestive) heart failure (4) Cor pulmonale As per Echo, and caused by COPD and sleep apnea, both of which were untreated before admission. (5) Cellulitis of right leg Impression: This has significantly improved. He remains on oral Levaquin treating haemophilus parainfluenza, today is Day #11 of 14 days of planned antibx. He remains hospitalized due to his respiratory failure, however. (6) Gram-negative bacteremia Impression: Blood cultures grew haemophilus parainfluenza which is likely due to right lower extremity cellulitis. He is now on oral Levaquin and repeat blood cultures are negative. We plan a total of 2 weeks of therapy. Today is Day #11 (7) Atrial fibrillation with rapid ventricular response Impression: His heart rate is now controlled after we resumed his metoprolol, diltiazem and digoxin. We check a Dig level. He is on aspirin for stroke prophylaxis due to history of GI bleed while on anticoagulation in the past. Today he told me he has a Watchman device in the [place], but I cannot find this in any admission H&Ps or ER visit notes. (I reviewed his entire EMR today) (8) UTI (urinary tract infection) Impression: Initial concern was for UTI and urine culture did grow Proteus. This is sensitive to the Levaquin. He remains on antibiotics for the bacteremia and not the UTI. (9) Cardiorenal syndrome Impression: It appears he did not have CKD and his initial elevated creatinine was due to acute kidney injury. In hindsight, this was likely due to cardiorenal syndrome, since he has improved with IV diuresis. His renal function is now at baseline. We will continue to monitor his BMP daily (10) Hypothyroidism Impression: His adm TSH suggested that he did not take his Synthroid fopr a long time. We resumed his Synthroid. (11) History of sleep apnea Impression: Continue with CPAP in the evening. I discussed with him need to resume this at home after discharge, he admitted he stopped using it about 1 month ago, when he moved "into his shed, which is a man cave" (12) Morbid obesity Impression: As per Hx. (13) Anasarca Impression: This is resolving with iv diuresis. He has lost 67 kg since admission and is in neg fluid balance since treated. Yesterday he disclosed to me that he was eating ice constantly every day and understands now that this was giving him water excess and water retention. Will check Mg level (14) Hypomagnesemia Impression: Caused by his large diuresis. Will replace po and iv Follow Mg level daily (15) Sepsis Impression: Resolved and was secondary to Haemophilus parainfluenzae bacteremia due to the right lower extremity cellulitis. Continue oral Levaquin. (16) AMS (altered mental status) Impression: Resolved. This likely was multifactorial and is related to hypercapnia and the sepsis and untreated hypothyroidism. (17) Acute kidney injury Impression: Resolved. - Current Meds Current Meds: Current Medications Generic Name Dose Route Start Last Admin Trade Name Freq PRN Reason Stop Dose Admin Acetaminophen 650 mg 06/25/21 22:38 07/01/21 00:38 Acetaminophen 325 Mg Tablet PO 650 mg Q4HR PRN Administration Pain or Fever > 38C (100.4F) Albuterol 2.5 mg 06/26/21 16:09 07/04/21 07:36 Albuterol Neb 2.5 Mg/3 Ml INH 2.5 mg RTQ4H PRN Administration Wheezing Albuterol/Ipratropium 3 ml 06/26/21 19:00 07/05/21 11:25 Ipratropium/Albuterol 3 Ml Neb INH 3 ml RTQID JURGEN Administration Aspirin 81 mg 06/27/21 09:00 07/05/21 08:34 Aspirin Chew 81 Mg Tablet PO 81 mg DAILY JURGEN Administration Carboxymethylcellulose 1 drops 07/03/21 09:24 07/05/21 01:30 Carboxymethylcellulose Ophth Drops EACHEYE 1 drops Q4HR PRN Administration Dry Eye Diltiazem HCl 180 mg 06/30/21 15:22 07/05/21 08:33 Diltiazem Cd 180 Mg Capsule PO 180 mg DAILY JURGEN Administration Enoxaparin Sodium 40 mg 06/26/21 09:00 07/05/21 08:31 Enoxaparin 40 Mg/0.4 Ml Syringe SUBQ 40 mg BID JURGEN Administration Furosemide 60 mg 07/05/21 09:00 07/05/21 08:32 Furosemide 40 Mg Tablet PO 60 mg DAILY JURGEN Administration Gabapentin 600 mg 06/27/21 21:00 07/05/21 08:31 Gabapentin 300 Mg Capsule PO 600 mg BID JURGEN Administration Levofloxacin 750 mg 07/01/21 09:00 07/05/21 08:34 Levofloxacin 250 Mg Tablet PO 750 mg DAILY JURGEN Administration Levothyroxine Sodium 50 mcg 06/26/21 07:00 07/05/21 05:45 Levothyroxine 25 Mcg Tablet PO 50 mcg QDAC JURGEN Administration Magnesium Oxide 400 mg 07/04/21 17:00 07/05/21 08:33 Magnesium Oxide 400 Mg Tablet PO 400 mg DAILYWM JURGEN Administration Metoprolol Succinate 150 mg 06/28/21 09:00 07/05/21 08:34 Metoprolol Succinate 50 Mg Tablet PO 150 mg DAILY JURGEN Administration Nicotine 1 patch 07/04/21 09:00 07/05/21 08:31 Nicotine 7 Mg Patch TOP 1 patch DAILY JURGEN Administration Nystatin 1 applic 07/01/21 23:00 07/05/21 08:36 Nystatin Powder 15 Gm TOP 1 applic BID JURGEN Administration Saccharomyces Boulardii 250 mg 07/03/21 17:00 07/05/21 08:32 Saccharomyces Boulardii 250 Mg Capsule PO 250 mg BIDWM JURGEN Administration Sodium Chloride 10 ml 06/26/21 01:00 07/05/21 08:35 Sodium Chloride Flush 0.9% 10 Ml Syringe IVP 10 ml 0100,0900,1700 JURGEN Administration Sodium Chloride 10 ml 06/25/21 22:38 07/03/21 13:57 Sodium Chloride Flush 0.9% 10 Ml Syringe IVP 10 ml PRN PRN Administration NEEDED PER PROVIDER ORDERS Thiamine HCl 100 mg 06/30/21 15:20 07/05/21 08:33 Thiamine 100 Mg Tablet PO 100 mg DAILY JURGEN Administration - Lab Result Fish Bone Diagrams: 07/05/21 04:48 07/05/21 04:48 - Additional Planning My Orders: My Active Orders 07/04/21 17:00 Magnesium Oxide [Mag Ox] 400 mg PO DAILYWM 07/05/[address] [ST] Routine 07/05/21 09:00 Furosemide [Lasix] 60 mg PO DAILY 07/05/21 11:18 Lactulose [Enulose] 10 gm PO BID PRN 07/05/21 11:22 polyethylene glycoL 3350 [Miralax] 17 gm PO DAILY PRN 07/06/21 05:00 MAGNESIUM [CHEM] DAILYLAB Subjective - Subjective Patient Reports: Resting Comfortably, No Complaints Objective Vital Signs: Vital Signs - 24 hr 07/04/21 07/04/21 07/05/21 17:00 20:29 01:17 Temperature 36.6 C 36.6 C Heart Rate Heart Rate [ 85 90 97 Monitoring electrodes] Respiratory 18 14 18 Rate Blood Pressure 109/60 [Right Brachial artery] Blood Pressure 102/51 L 103/58 L [Right Radial artery] O2 Saturation 94 89 L 07/05/21 07/05/21 07/05/21 05:00 08:28 08:53 Temperature 36.8 C 36.9 C Heart Rate 76 Heart Rate [ 88 97 Monitoring electrodes] Respiratory 20 20 20 Rate Blood Pressure 100/67 [Right Brachial artery] Blood Pressure 115/66 [Right Radial artery] O2 Saturation 88 L 93 07/05/21 07/05/21 11:25 13:00 Temperature 36.8 C Heart Rate 80 Heart Rate [ 82 Monitoring electrodes] Respiratory 20 20 Rate Blood Pressure [Right Brachial artery] Blood Pressure 122/75 [Right Radial artery] O2 Saturation 96 Oxygen O2 Source Room air I&O (Last 24 Hrs): Intake and Output Totals x24h 07/03/21 07/04/21 07/05/21 23:59 23:59 23:59 Intake Total 1450 1930 1200 Output Total 3350 1690 700 Balance -1900 240 500 General: Alert, Oriented x3 HEENT: Mucous membr. moist/pink Neck: Supple Neuro: Alert, Non Focal Cardiovascular: No murmurs Respiratory: No respiratory distress Abdomen: Soft Extremities: Other (1+ edema and venous stasis R leg, 1+ edema L leg) - Results Results: Laboratory Results WBC 4.8 x10^3/uL (4.8-10.8) 07/05/21 04:48 RBC 4.04 10^6/uL (4.70-6.10) L 07/05/21 04:48 Hgb 10.4 g/dL (14.0-18.0) L 07/05/21 04:48 Hct 35.2 % (42.0-52.0) L 07/05/21 04:48 MCV 87.1 fL (80.0-94.0) 07/05/21 04:48 MCH 25.7 pg (27.0-31.0) L 07/05/21 04:48 MCHC 29.5 g/dL (32.0-36.0) L 07/05/21 04:48 RDW 22.3 % (12.0-15.0) H 07/05/21 04:48 Plt Count 83 10^3/uL (130-450) L 07/05/21 04:48 MPV 11.6 fL (7.4-11.4) H 07/05/21 04:48 Neut # (Auto) 3.0 10^3/uL (1.5-6.6) 07/05/21 04:48 Lymph # (Auto) 0.9 10^3/uL (1.5-3.5) L 07/05/21 04:48 [place] # (Auto) 0.7 10^3/uL (0.0-1.0) 07/05/21 04:48 Eos # (Auto) 0.2 10^3/uL (0.0-0.7) 07/05/21 04:48 Baso # (Auto) 0.1 10^3/uL (0.0-0.1) 07/05/21 04:48 Absolute Nucleated RBC 0.00 x10^3/uL 07/05/21 04:48 Total Counted 100 06/26/21 05:38 Band Neuts % (Manual) 2 % (0-10) 06/26/21 05:38 Abnorm Lymph % (Manual) 0 % 06/26/21 05:38 Nucleated RBC % 0.0 /100WBC 07/05/21 04:48 Neutrophils # (Manual) 13.8 10^3/uL (1.5-6.6) H 06/26/21 05:38 Lymphocytes # (Manual) 0.0 10^3/uL (1.5-3.5) L 06/26/21 05:38 Monocytes # (Manual) 0.4 10^3/uL (0.0-1.0) 06/26/21 05:38 Eosinophils # (Manual) 0.0 10^3/uL (0-0.7) 06/26/21 05:38 Basophils # (Manual) 0.0 10^3/uL (0-0.1) 06/26/21 05:38 Differential Comment MANUAL DIFFERENTIAL 06/26/21 05:38 Manual Slide Review Indicated 07/05/21 04:48 WBC Morphology NORMAL APPEARANCE (NORMAL) 07/03/21 04:25 Platelet Estimate DECREASED (<130,000) (NORMAL) 07/05/21 04:48 Platelet Morphology NORMAL APPEARANCE (NORMAL) 07/03/21 04:25 RBC Morph Micro Appear 1+ ANISOCYTOSIS (NORMAL) 1+ HYPOCHROMASIA (NORMAL) 1+ OVALOCYTES (NORMAL) 07/05/21 04:48 RBC Morph Micro Appear 1+ ANISOCYTOSIS (NORMAL) 1+ HYPOCHROMASIA (NORMAL) 1+ OVALOCYTES (NORMAL) 07/05/21 04:48 RBC Morph Micro Appear 1+ ANISOCYTOSIS (NORMAL) 1+ HYPOCHROMASIA (NORMAL) 1+ OVALOCYTES (NORMAL) 07/05/21 04:48 Bld Gas Analysis Time 191706/29/21 19:14 Sample Site RIGHT RADIAL 06/29/21 19:14 ABG pH 7.41 (7.35-7.45) 06/29/21 19:14 ABG pCO2 55 mmHg (34-45) H 06/29/21 19:14 ABG pO2 91 mmHg (80-100) 06/29/21 19:14 ABG HCO3 34.4 mmol/L (22.0-26.0) H 06/29/21 19:14 ABG Total CO2 36.1 MMOL/L (21.0-29.0) H 06/29/21 19:14 ABG O2 Saturation 97 % (94-98) 06/29/21 19:14 ABG Base Excess 8.3 mmol/L (-2.0-3.0) H 06/29/21 19:14 Cali Test POSITIVE 06/29/21 19:14 VBG pH 7.272 (7.31-7.41) L 06/28/21 05:44 VBG pCO2 60.3 mmHg (41-51) H 06/25/21 21:16 VBG pO2 30.4 mmHg (25-47) 06/25/21 21:16 VBG HCO3 30.0 mmol/L (23-28) H 06/25/21 21:16 VBG Total CO2 31.8 mmol/L (24-29) H 06/25/21 21:16 VBG O2 Saturation 62.4 % (60-80) 06/25/21 21:16 VBG Base Excess 2.4 mmol/L (-2 - +2) H 06/25/21 21:16 Ionized Calcium 1.13 mmol/L (1.15-1.33) L 06/28/21 05:44 O2 Delivery Device NASAL CANNULA 06/29/21 19:14 Sodium 136 mmol/L (135-145) 07/05/21 04:48 Potassium 4.1 mmol/L (3.5-5.0) 07/05/21 04:48 Chloride 93 mmol/L (101-111) L 07/05/21 04:48 Carbon Dioxide 34 mmol/L (21-32) H 07/05/21 04:48 Anion Gap 9.0 (6-13) 07/05/21 04:48 BUN 26 mg/dL (6-20) H 07/05/21 04:48 Creatinine 1.2 mg/dL (0.6-1.2) 07/05/21 04:48 Estimated GFR (MDRD) 61 (>89) L 07/05/21 04:48 Glucose 113 mg/dL (70-100) H 07/05/21 04:48 Estimat Average Glucose 108 mg/dL (70-100) H 06/26/21 05:38 Hemoglobin A1c % 5.4 % (4.27-6.07) 06/26/21 05:38 Lactic Acid 1.5 mmol/L (0.5-2.2) 06/25/21 18:49 Calcium 8.3 mg/dL (8.5-10.3) L 07/05/21 04:48 Phosphorus 3.4 mg/dL (2.5-4.6) 06/28/21 05:44 Magnesium 1.4 mg/dL (1.7-2.8) L 07/04/21 04:51 Total Bilirubin 1.1 mg/dL (0.2-1.0) H 06/28/21 05:44 Direct Bilirubin 0.5 mg/dL (0.1-0.5) 06/28/21 05:44 AST 11 IU/L (10-42) 06/28/21 05:44 ALT < 10 IU/L (10-60) L 06/28/21 05:44 Alkaline Phosphatase 40 IU/L (42-121) L 06/28/21 05:44 Ammonia 20.8 umol/L (7-35) 07/04/21 08:24 Troponin I High Sens 50.9 ng/L (2.3-19.7) H* 06/25/21 18:49 C-Reactive Protein 6.7 mg/dL (0-1.0) H 06/28/21 05:44 B-Natriuretic Peptide 509 pg/mL (5-100) H 06/28/21 05:44 Total Protein 7.5 g/dL (6.7-8.2) 06/28/21 05:44 Albumin 2.7 g/dL (3.2-5.5) L 06/28/21 05:44 Globulin 4.8 g/dL (2.1-4.2) H 06/28/21 05:44 Albumin/Globulin Ratio 0.6 (1.0-2.2) L 06/25/21 18:49 Lipase 20 U/L (22-51) L 06/25/21 18:49 TSH 5.94 uIU/mL (0.34-5.60) H 06/25/21 18:49 Thyroxine (T4) 6.02 ug/dL (6.09-12.23) L 06/25/21 18:49 Free T3 pg/mL 1.89 pg/mL (2.5-3.9) L 06/25/21 18:49 Urine Color DARK YELLOW 06/25/21 20:11 Urine Clarity SL. CLOUDY (CLEAR) 06/25/21 20:11 Urine pH 8.5 PH (5.0-7.5) H 06/25/21 20:11 Ur Specific [place] 1.015 (1.002-1.030) 06/25/21 20:11 Urine Protein 30 mg/dL (NEGATIVE) H 06/25/21 20:11 Urine Glucose (UA) NEGATIVE mg/dL (NEGATIVE) 06/25/21 20:11 Urine Ketones NEGATIVE mg/dL (NEGATIVE) 06/25/21 20:11 Urine Occult Blood TRACE-INTA (NEGATIVE) 06/25/21 20:11 Urine Nitrite POSITIVE (NEGATIVE) H 06/25/21 20:11 Urine Bilirubin NEGATIVE (NEGATIVE) 06/25/21 20:11 Urine Urobilinogen 1 (NORMAL) E.U./dL (NORMAL) 06/25/21 20:11 Ur Leukocyte Esterase LARGE (NEGATIVE) H 06/25/21 20:11 Urine RBC 0-5 /HPF (0-5) 06/25/21 20:11 Urine WBC 11-25 /HPF (0-3) H 06/25/21 20:11 Ur Squamous Epith Cells NONE SEEN (<= Few) 06/25/21 20:11 Urine Crystals 26-50 Triple Phos /LPF 06/25/21 20:11 Urine Bacteria Moderate /HPF (None Seen) H 06/25/21 20:11 Urine Culture Comments INDICATED 06/25/21 20:11 Nasal Adenovirus (PCR) NOT DETECTED 06/25/21 18:30 Nasal B. parapertussis DNA (PCR) NOT DETECTED 06/25/21 18:30 Nasal Coronavir 229E PCR NOT DETECTED 06/25/21 18:30 Nasal Coronavir HKU1 PCR NOT DETECTED 06/25/21 18:30 Nasal Coronavir NL63 PCR NOT DETECTED 06/25/21 18:30 Nasal Coronavir OC43 PCR NOT DETECTED 06/25/21 18:30 Nasal Enterovir/Rhinovir PCR NOT DETECTED 06/25/21 18:30 Nasal Influenza B PCR NOT DETECTED 06/25/21 18:30 Nasal Influenza A PCR NOT DETECTED 06/25/21 18:30 Nasal Parainfluen 1 PCR NOT DETECTED 06/25/21 18:30 Nasal Parainfluen 2 PCR NOT DETECTED 06/25/21 18:30 Nasal Parainfluen 3 PCR NOT DETECTED 06/25/21 18:30 Nasal Parainfluen 4 PCR NOT DETECTED 06/25/21 18:30 Nasal RSV (PCR) NOT DETECTED 06/25/21 18:30 Nasal Screen MRSA (PCR) NEGATIVE (NEGATIVE) 06/25/21 23:35 Nasal B.pertussis DNA PCR NOT DETECTED 06/25/21 18:30 Nasal C.pneumoniae (PCR) NOT DETECTED 06/25/21 18:30 Daniel Human Metapneumo PCR NOT DETECTED 06/25/21 18:30 Nasal M.pneumoniae (PCR) NOT DETECTED 06/25/21 18:30 Nasal SARS-CoV-2 (PCR) NOT DETECTED 06/25/21 18:30 Last Dose Date 07/03/21 07/04/21 04:51 Last Dose Time 0734 07/04/21 04:51 Digoxin < 0.2 ng/mL 07/04/21 04:51 Urine Opiates Screen NEGATIVE (NEGATIVE) 06/25/21 20:11 Ur Oxycodone Screen NEGATIVE (NEGATIVE) 06/25/21 20:11 Urine Methadone Screen NEGATIVE (NEGATIVE) 06/25/21 20:11 Ur Propoxyphene Screen NEGATIVE (NEGATIVE) 06/25/21 20:11 Ur Barbiturates Screen NEGATIVE (NEGATIVE) 06/25/21 20:11 Ur Tricyclics Screen NEGATIVE (NEGATIVE) 06/25/21 20:11 Ur Phencyclidine Scrn NEGATIVE (NEGATIVE) 06/25/21 20:11 Ur Amphetamine Screen NEGATIVE (NEGATIVE) 06/25/21 20:11 U Methamphetamines Scrn NEGATIVE (NEGATIVE) 06/25/21 20:11 U Benzodiazepines Scrn NEGATIVE (NEGATIVE) 06/25/21 20:11 Urine Cocaine Screen NEGATIVE (NEGATIVE) 06/25/21 20:11 U Cannabinoids Screen NEGATIVE (NEGATIVE) 06/25/21 20:11 Ethyl Alcohol < 5.0 mg/dL 06/25/21 18:49 Sepsis Event Note (H) - Evaluation Current Stage of Sepsis: Resolved Possible source of Sepsis: positive: Skin/soft tissue - Sepsis Criteria Sepsis Criteria: Recorded Temperature greater than 38.3C or Less than 36C, Recorded Heart Rate greater than 90 bpm, Respiratory: Increasing oxygen requirements, WBC count greater than 10% bands, WBC count greater than 12,000 or less than 4000
[2021-07-06] MEDS: SODIUM CHLORIDE FLUSH 0.9% 10 ML SYRINGE IVP SCH ×2 (00:22→10:07)
[2021-07-06] MEDS: LEVOTHYROXINE 25 MCG TABLET PO SCH (07:02)
[2021-07-06] MEDS: IPRATROPIUM/ALBUTEROL 3 ML NEB INH SCH (07:35)
[2021-07-06] MEDS ORDERED: IPRATROPIUM/ALBUTEROL 3 ML NEB INH PRN (07:40)
[2021-07-06] MEDS: THIAMINE 100 MG TABLET PO SCH (10:07)
[2021-07-06] MEDS: diltiaZEM CD 180 MG CAPSULE PO SCH (10:07)
[2021-07-06] MEDS: GABAPENTIN 300 MG CAPSULE PO SCH (10:07)
[2021-07-06] MEDS: ASPIRIN CHEW 81 MG TABLET PO SCH (10:08)
[2021-07-06] MEDS: SACCHAROMYCES BOULARDII 250 MG CAPSULE PO SCH (10:08)
[2021-07-06] MEDS: FUROSEMIDE 40 MG TABLET PO SCH (10:08)
[2021-07-06] MEDS: MAGNESIUM OXIDE 400 MG TABLET PO SCH (10:08)
[2021-07-06] MEDS: METOPROLOL SUCCINATE 50 MG TABLET PO SCH (10:09)
[2021-07-06] MEDS: levoFLOXacin 250 MG TABLET PO SCH (10:09)
[2021-07-06] MEDS: NYSTATIN POWDER 15 GM TOP SCH (10:10)
[2021-07-06] MEDS: ENOXAPARIN 40 MG/0.4 ML SYRINGE SUBQ SCH (10:10)
[2021-07-06] MEDS: NICOTINE 7 MG PATCH TOP SCH (10:10)
--- NOTE | 2021-07-06 11:25 | Discharge Plan ---
Discharge Plan Problem Reviewed?: Yes Disposition: Home Health Service Condition: Stable Prescriptions: [id number] CD [Cardizem Cd] 180 mg PO DAILY #30 cap Potassium Chloride [K-Dur] 20 meq PO DAILY #30 tablet levoFLOXacin [Levaquin] 750 mg PO DAILY #3 tablet Magnesium Oxide [Mag Ox] 400 mg PO DAILYWM #30 tablet Levothyroxine Sodium [Synthroid] 50 mcg PO DAILY #30 tab Metoprolol Succinate [Toprol Xl] 100 mg PO BID #30 tab Torsemide 20 mg PO BID #60 tab Diet: Low Sodium Activity Restrictions: Activity as Tolerated Shower Restrictions: No Assistance Devices: Walker Weight Bearing: Full Weight Health Concerns: You were admitted to the hospital in a coma, which was caused by a very low oxygen level and buildup of carbon dioxide, because you were not using your home oxygen or your home CPAP machine for sleep apnea. We also found you to have massive fluid overload, from being off your medicines, from not using your CPAP and from eating some much ice. And you had an infection of your right leg and the bacteria had spread into your bloodstream. You were in the intensive care unit in critical condition. You received antibiotics and you are being discharged to finish a course of Levaquin antibiotic, to take for 3 more days. You received aggressive diuresis medicines and your home Torsemide prescription was refilled, to continue to drain the swelling. Since you had run out of medicines at home, your usual prescriptions were refilled for a month, and electronically sent to the [facility] pharmacy in [place]. You should be using your nighttime CPAP device. Bring it from the house to the shed and plug it in and use it at night or this will happen to you again. When you are close to running out of your medicines, get them refilled, do not skip them for weeks, like Vu said you did this time. A Home Health referral was ordered and the agency will come to your house (or shed) and make an assessment of what you need. Plan of Treatment: Resume all your usual prehospital medications. Start taking the new prescriptions of Potassium and Magnesium, and finish 3 more days of Levaquin antibiotic. The new prescriptions were electronically sent to the [facility] pharmacy in [place]. Please see your Primary Care Provider in the next 1-2 weeks for hospital follow- up visit, and to check your blood tests and your leg infection. Care Goals: Improvement in symptoms and stabilization are the goals. Assessment: The patient understands and is agreeable with the plan. Additional Instructions or Follow Up instructions: If you have new or worsening symptoms, call your PCP for advice or come to the ED. Follow-Up Care: Home Health - RN, Home Health - PT, Home Health - OT, Home Health - ST No Smoking: If you smoke, Please STOP! Call for help.
--- NOTE | 2021-07-06 12:28 | DISCHARGE SUMMARY ---
Discharge Summary Admit Date: 06/25/21 Discharge Date: 07/06/21 Discharging Provider: Dr Albania Archuleta Primary Care Provider: Dr Deirdre Carrington Code Status: Attempt Resuscitation Condition at Discharge: Stable Discharge Disposition: [facility] - [facility] History of Present Illness: This is a 61-year-old white male with a history of morbid obesity, Hypothyroidism, COPD, smoker, history of A. fib, not on anticoagulation because of prior GI bleeding, sleep apnea who refuses to use CPAP and on the last admission in November 2020, refused to have oxygen at home. He was admitted then for COPD exacerbation and anasarca, was found to have cor pulmonale on Echo and normal LVEF then. The history was obtained from the to the ED provider then passed on to me. The patient lives in his heated barn, sleeps on a recliner. He refuses to take any medications whatsoever and has not taken any for possibly 2 mos. He has friends bring him a psychoactive depressant called Neofonietom, which he uses for leg numbness and for insomnia. The has tried to get him to come to the hospital or see a provider for months which he has refused, however today when he became obtunded, she called an ambulance. At the scene he had a cough, weakness, was confused. He had A. fib with a heart rate of 100, blood sugar was 81 and blood pressure was 128 systolic. In the ED he was somnolent, O2 saturation was in the 80% and he was put on BiPAP. He was in Afib with heart rate 125. His labs showed hypoxia and hypercapnia. His other labs showed white blood count of 13, BNP 680, TSH 5.94, with very low T4 and T3 (consistent with him not taking his Synthroid). Urinalysis was remarkable for high WBCs of 11-25 and moderate bacteriuria present. His respiratory PCR was entirely negative. His toxicology screen was negative. His told the ED provider that he is a Full Code. He has requested the same on previous admissions. - HOSPITAL COURSE Hospital Course: (1) Altered Mental Status This likely was multifactorial and caused by hypercapnia, hypoxia, his sepsis and his untreated hypothyroidism. His mental status returned to baseline after several days. (2) Sepsis This was secondary to Haemophilus parainfluenzae bacteremia from right lower extremity cellulitis. He was initially put on empiric iv antibiotics then transitioned to oral Levaquin. He was discharged to take several more days of Levaquin to complete a total 14-day course of treatment. (3) Acute respiratory failure with hypoxia and hypercarbia This was secondary to untreated COPD and left sided diastolic heart failure and chronic Cor pulmonale. He was put on supplemental O2 via BIPAP in the ICU and required iv diuretics for many days to treat his anasarca. Slowly the supplemental O2 was weaned to room air. He was advised to resume his home CPAP use and agreed, and to comply with home oxygen as ordered, if he indeed had it, as he stated. (4) Acute on chronic diastolic CHF (congestive heart failure) As per repeat Echo. His chest x-rays still showed pulmonary edema up to just several days before discharge. He required Lasix IV until the day before dis charge, and was dischrged to take oral Torsemide. (5) Cor pulmonale As per Echo, and caused by COPD and sleep apnea, both of which were untreated before admission. (6) Anasarca This was slowly resolving with many days of iv diuretic meds. He had lost 7 kg since admission. He disclosed that he was "eating ice all day, every day" and understands now that this was giving him water excess and water retention. (7) Cellulitis of right leg This was noted at admission and improved with antibiotics. He was discharged on oral Levaquin. (8) Gram-negative bacteremia Blood cultures grew haemophilus parainfluenza which was due to right lower extremity cellulitis. He was discharged on oral Levaquin treating haemophilus parainfluenza in the leg wound. (9) UTI (urinary tract infection) Initial concern was for UTI and urine culture did grow Proteus that was sensitive to the Levaquin. He remained on antibiotics for the bacteremia. (10) Atrial fibrillation with rapid ventricular response His heart rate was elevated, being off his meds at home. It became controlled after we resumed his metoprolol, diltiazem and digoxin. He was put on daily baby aspirin for stroke prophylaxis due to history of GI bleed while on anticoagulation. He disclosed that he has a Watchman device in the [place] appendage, but I could not find this to confirm it, in any records, admission H&Ps or ER visit notes. (11) Cardiorenal syndrome He elevated creatinine at admission, and this was likely due to cardiorenal syndrome, since it improved with IV diuresis. (12) Hypothyroidism His admission TSH suggested that he had not taken his Synthroid for a long time. His had stated it was 2 mos, his caregiver Vu reported in a phone call, that the pt had not taken meds in 2 weeks, but the patient claimed it was only 2-3 days. We resumed his Synthroid. (13) History of sleep apnea We discussed with him need to resume this at home after discharge, he admitted he stopped using it about 1 month ago, when he moved "[facility] [place] [facility] [place]" (14) Morbid obesity As per Hx. (15) Hypomagnesemia Caused by his large diuresis and was replaced and he was sent home on oral Mg. 16) Medication non-compliance He refuted what was described by ED provider from at admission, that he had stopped all his medicines many months ago, and refused to use oxygen or CPAP. He instead said he was taking everything up until about 3 days before this admission when things ran out. It was true that he was using the plant Kratom to treat his leg pain and insomnia. His level of TSH and amount of anasarca at presentation were not consistent with him being off meds for only 3 days however. Before discharge, I spoke to his to ascertain his compliance. The said she did not actually know because she "lives in the house and he lives in the barn". He has a dog daycare provider and friend named Vu Ordonez, who happened to be at the house when I called and Vu confirmed that the patient had run out of his meds 2 weeks before this admission and despite Vu reminding him to get refills the patient never did. He also never saw him use oxygen or CPAP. Because of these inconsistencies, the patient underwent a cognitive eval done by Speech Therapy. He scored 26/30 however had "reduced insight/awareness, impulsivity, thought disorganization, and reduced verbal reasoning, which impact safety awareness and home compliance/independence", as per documentation. For this reason, Home Health for a social work eval and RN for medication management was ordered. - ALLERGIES Allergies/Adverse Reactions: Allergies Allergy/AdvReac Type Severity Reaction Status Date / Time No Known Drug Allergies Allergy Verified 06/25/21 18:30 - MEDICATIONS Home Medications: Ambulatory Orders Medication Instructions Recorded Confirmed Digoxin 62.5 mcg PO DAILY 04/28/17 06/26/21 Pantoprazole Sodium 40 mg PO DAILY 07/21/19 06/26/21 Gabapentin 600 mg PO BID 11/20/19 06/26/21 Aspirin Chewable [St Sonu 81 mg PO DAILY tablet 07/06/21 Aspirin] Levothyroxine Sodium [Synthroid] 50 mcg PO DAILY #30 tab 07/06/21 Magnesium Oxide [Mag Ox] 400 mg PO DAILYWM #30 tablet 07/06/21 Metoprolol Succinate [Toprol Xl] 100 mg PO BID #30 tab 07/06/21 Potassium Chloride [K-Dur] 20 meq PO DAILY #30 tablet 07/06/21 Torsemide 20 mg PO BID #60 tab 07/06/21 diltiaZEM CD [Cardizem Cd] 180 mg PO DAILY #30 cap 07/06/21 levoFLOXacin [Levaquin] 750 mg PO DAILY #3 tablet 07/06/21 Digoxin [Lanoxin] 62.5 mcg PO DAILY #30 tablet 07/09/21 Pantoprazole [Protonix] 40 mg PO DAILY #30 tablet 07/09/21 - PHYSICAL EXAM AT DISCHARGE General Appearance: positive: No acute distress, Alert, Other (Male pattern baldness) Eyes Bilateral: positive: Normal inspection, EOMI ENT: positive: ENT inspection nml, No signs of dehydration Neck: positive: Nml inspection, No JVD Respiratory: positive: No respiratory distress, Breath sounds nml Cardiovascular: positive: No murmur, Irregularly irregular Abdomen: positive: Other (Obese with pannus down to his knees) Skin: positive: Warm, Dry Extremities: positive: Other (2+ edema bilaterally to knees w/ venous stasis changes of shins, scarred bullae of R anterior soto which is larger than the left, very obese thighs with folds down to knees.) Neurologic/Psychiatric: positive: Oriented x3 (Non-focal) - LABS Result Diagrams: 07/05/21 04:48 07/05/21 04:48 - DIAGNOSTIC IMAGING Diagnostic Imaging Results: Final report reviewed - SEPSIS Current Stage of Sepsis: Resolved Possible source of Sepsis: Skin/soft tissue Sepsis Criteria: Recorded Temperature greater than 38.3C or Less than 36C, Recorded Heart Rate greater than 90 bpm, Respiratory: Increasing oxygen requirements, WBC count greater than 10% bands, WBC count greater than 12,000 or less than 4000 - FOLLOW UP Follow Up: See PCP in 1-2 weeks. - TIME SPENT Time Spent in Discharge (Minutes): 60
[2021-07-06 15:12] VITALS: BP 120/66
== END 2021-07-06 17:08 | disposition home health service (06) | DRG 871 ==
LOC: EDUNIT# → ED 18:14 → ICU 22:38 → MS3 07-01 10:52
PROVIDERS: ADMIT Internal Medicine; ATTEND Internal Medicine
DX: J96.90 Respiratory failure, unspecified, unspecified whether with hypoxia or hypercapnia (principal); A41.3 Sepsis due to Hemophilus influenzae; I48.20 Chronic atrial fibrillation, unspecified; I50.9 Heart failure, unspecified; J96.02 Acute respiratory failure with hypercapnia; E11.9 Type 2 diabetes mellitus without complications; J96.01 Acute respiratory failure with hypoxia; I50.33 Acute on chronic diastolic (congestive) heart failure; R41.0 Disorientation, unspecified; Z20.822 Contact with and (suspected) exposure to COVID-19; Z79.890 Hormone replacement therapy; L03.115 Cellulitis of right lower limb; N39.0 Urinary tract infection, site not specified; N17.9 Acute kidney failure, unspecified; Z68.43 Body mass index [BMI] 50.0-59.9, adult; I11.0 Hypertensive heart disease with heart failure; I27.81 Cor pulmonale (chronic); I48.91 Unspecified atrial fibrillation; I87.8 Other specified disorders of veins; E03.9 Hypothyroidism, unspecified; E66.01 Morbid (severe) obesity due to excess calories; E83.42 Hypomagnesemia; J44.9 Chronic obstructive pulmonary disease, unspecified; F17.200 Nicotine dependence, unspecified, uncomplicated; G47.00 Insomnia, unspecified; G47.30 Sleep apnea, unspecified; T38.1X6A Underdosing of thyroid hormones and substitutes, initial encounter; R59.0 Localized enlarged lymph nodes; R16.1 Splenomegaly, not elsewhere classified; Z79.82 Long term (current) use of aspirin; Z79.899 Other long term (current) drug therapy; Z82.3 Family history of stroke; Z82.49 Family history of ischemic heart disease and other diseases of the circulatory system; Z91.14 Patient's other noncompliance with medication regimen; Z91.19 Patient's noncompliance with other medical treatment and regimen
CPT/HCPCS: 36415; 51702; 70450; 71045; 74177; 80048; 80053; 80076; 80162; 80306; 81001; 82140; 82330; 82803; 83036; 83605; 83690; 83735; 83880; 84100; 84436; 84443; 84481; 84484; 85025; 86140; 87040; 87077; 87086; 87150; 87181; 87631; 92523; 93005; 94640; 94660; 96365; 96366; 96368; 96375; 97112; 97116; 97161; 97530; 99285; A6250; A9270; C8929; G0480; J0131; J1650; J2185; J3370; Q9967; 0202U; 80320; 93306